=== PATIENT | male | born 1970 | race Caucasian/White ===

== ENCOUNTER → 2016-09-12 | Outpatient (CLI) | payer MEDICARE ==
--- NOTE | 2016-09-12 13:06 | NM ---
EXAMINATION TYPE: NM bone 3 phase DATE OF EXAM: 09/12/2016 11:15 AM COMPARISON: NONE HISTORY: Osteomyelitis Triple phase bone scintigraphy was performed following the injection of25.4 mCi Tc 99m MDP. Immediat e images, blood pool and 3.25 hours post injection images acquired. FINDINGS: Increased radio pharmaceutical uptake is noted on blood flow, blood pool imaging within the first dig it of the left foot, second digit of the left foot. On delayed imaging more focal uptake is noted at the level of the second digit of the left foot greater than the first digit of the left foot. IMPRESSION: Findings are compatible with osteomyelitis to the left foot the second and likely first digits.
== END | disposition home or self-care (01) ==
LOC: RADNMMAIN 07:27
PROVIDERS: ATTEND Thoracic Surgery (Cardiothoracic Vascular Surgery)
DX: M86.9 Osteomyelitis, unspecified (principal); E11.69 Type 2 diabetes mellitus with other specified complication
CPT/HCPCS: 78315; A9503

== ENCOUNTER 2016-11-08 04:36 | Inpatient (IN) | payer MEDICARE ==
[2016-11-08 04:46] LABS: Glucose,Whole Blood 284 mg/dL (75-99)
[2016-11-08] MEDS ORDERED: SODIUM CHLORIDE 0.9% 1,000 ML IV ONE ×3 (04:54→09:55)
[2016-11-08] MEDS ORDERED: ONDANSETRON 4 MG/2 ML VIAL IVP STA (04:54)
[2016-11-08] MEDS ORDERED: IPRATROPIUM-ALBUTEROL 3 ML NEB INHALATION STA (04:57)
--- NOTE | 2016-11-08 04:57 | ED ---
General Adult HPI - General Chief complaint: Nausea/Vomiting/Diarrhea Stated complaint: Vomiting Time Seen by Provider: 11/08/16 04:40 Source: patient, RN notes reviewed Mode of arrival: ambulatory Limitations: no limitations - History of Present Illness Initial comments: This is a 46-year-old male with a past medical history significant for diabetes. Patient states the last 2 days been coughing and vomiting. Patient states he is not been able to even keep water down the last day. Patient states she has anything to 48 hours. Patient denies any abdominal pain except when he is vomiting. Patient denies any diarrhea. Patient denies any fever or chills. Patient denies chest pain but states he short of breath when he has a coughing fit. Patient states his been nonproductive. Patient states he has a history of COPD as well. Patient denies any lightheadedness dizziness or near syncopal episode. Patient denies any chest pain or palpitations. Patient denies any dysuria hematuria urinary frequency. - Related Data Home Medications Medication Instructions Recorded Confirmed Albuterol Inhaler [Ventolin Hfa 2 puff INHALATION RT-QID PRN 08/18/15 11/08/16 Inhaler] Aspirin EC [Ecotrin Low Dose] 325 mg PO DAILY 08/18/15 11/08/16 Gabapentin 1,200 mg PO TID 08/18/15 11/08/16 Hydrocodone/Acetaminophen 1 tab PO DAILY PRN 08/18/15 11/08/16 [Hydrocodon-Acetaminophen 5-325] Multivitamin [Men's Multi-Vitamin] 1 tab PO DAILY 08/18/15 11/08/16 glipiZIDE [Glipizide] 10 mg PO BID 08/18/15 11/08/16 Pravastatin Sodium [Pravachol] 10 mg PO HS 01/30/16 11/08/16 metFORMIN HCL 1,000 mg PO BID 01/30/16 11/08/16 Ascorbic Acid [Vitamin C] 500 mg PO DAILY 10/03/16 11/08/16 Cholecalciferol [Vitamin D3] 1,000 units PO DAILY 10/03/16 11/08/16 Niacin [Niacin ER] 750 mg PO DAILY 10/03/16 11/08/16 Pyridoxine [Vitamin B-6] 50 mg PO DAILY 10/03/16 11/08/16 Vitamin E Acetate [Vitamin E] 200 units PO DAILY 10/03/16 11/08/16 Zinc Gluconate [Zinc] 50 mg PO DAILY 10/03/16 11/08/16 Allergies Allergy/AdvReac Type Severity Reaction Status Date / Time Penicillins Allergy Severe Anaphylaxis Verified 11/08/16 04:42 talc Allergy Swelling Verified 11/08/16 04:42 pregabalin [From Lyrica] AdvReac Severe Stroke (no Verified 11/08/16 04:42 issue with neurontin) Review of Systems ROS Statement: Those systems with pertinent positive or pertinent negative responses have been documented in the HPI. ROS Other: All systems not noted in ROS Statement are negative. Past Medical History Past Medical History: COPD, CVA/TIA, Diabetes Mellitus, Deep Vein Thrombosis ( DVT), Hyperlipidemia Additional Past Medical History / Comment(s): had chest pain x1 in the past, was told he has a slightly enlarged heart and predementia. Hx DVT left knee 2001. 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 [facility] had a stroke 3 months ago. Currently having lt. ft.wound History of Any Multi-Drug Resistant Organisms: None Reported Past Surgical History: Adenoidectomy, Heart Catheterization, Hernia Repair, Orthopedic Surgery, Tonsillectomy Additional Past Surgical History / Comment(s): Left knee scope, left wrist surgery for Carpal Tunnel. Past Anesthesia/Blood Transfusion Reactions: No Reported Reaction Past Psychological History: Depression Smoking Status: Current every day smoker Past Alcohol Use History: Rare Past Drug Use History: Marijuana - Past Family History Father History Unknown: Yes Family Medical History: No Reported History Mother History Unknown: Yes Family Medical History: Deep Vein Thrombosis (DVT) General Exam - General Exam Comments Initial Comments: GENERAL: Patient is well-developed and well-nourished. Patient is nontoxic and well- hydrated and is in mild distress. ENT: Neck is soft and supple. No significant lymphadenopathy is noted. Oropharynx is clear. Moist mucous membranes. Neck has full range of motion without eliciting any pain. EYES: The sclera were anicteric and conjunctiva were pink and moist. Extraocular movements were intact and pupils were equal round and reactive to light. Eyelids were unremarkable. PULMONARY: Patient has crackles in the left base with symmetric very wheezing. CARDIOVASCULAR: There is a regular rate and rhythm without any murmurs gallops or rubs. ABDOMEN: Soft and nontender with normal bowel sounds. No palpable organomegaly was noted. There is no palpable pulsatile mass. SKIN: Skin is clear with no lesions or rashes and otherwise unremarkable. NEUROLOGIC: Patient is alert and oriented x3. Cranial nerves II through XII are grossly intact. Motor and sensory are also intact. Normal speech, volume and content. Symmetrical smile. MUSCULOSKELETAL: Normal extremities with adequate strength and full range of motion. LYMPHATICS: No significant lymphadenopathy is noted PSYCHIATRIC: Normal psychiatric evaluation. Normal interpersonal interactions appears functionally intact in deals appropriately with others. No signs of depression. No signs of anxiety. Limitations: no limitations Course Vital Signs 11/08/16 11/08/16 11/08/16 04:38 05:18 05:21 Temperature 99.4 F Pulse Rate 115 H 101 H 102 H Respiratory 20 20 18 Rate Blood Pressure 105/67 105/57 O2 Sat by Pulse 91 L 98 Oximetry 11/08/16 05:22 Temperature Pulse Rate 102 H Respiratory 20 Rate Blood Pressure O2 Sat by Pulse Oximetry Medical Decision Making - Medical Decision Making EKG shows sinus tachycardia at 112 bpm NV interval 136 QRS is 84 QT interval 322 QTC is 439. Patient's EKG shows no ST segment elevation or depression or T wave abnormalities are noted Chest x-ray shows left lower lobe pneumonia. I started the patient on Levaquin. - Lab Data Result diagrams: 11/08/16 05:00 11/08/16 05:00 Lab Results 11/08/16 11/08/16 11/08/16 Range/Units 04:44 05:00 05:00 WBC 17.4 H (3.8-10.6) k/uL RBC 5.17 (4.30-5.90) m/uL Hgb 15.5 (13.0-17.5) gm/dL Hct 43.4 (39.0-53.0) % MCV 83.8 (80.0-100.0) fL MCH 29.9 (25.0-35.0) pg MCHC 35.6 (31.0-37.0) g/dL RDW 13.5 (11.5-15.5) % Plt Count 131 L (150-450) k/uL Neutrophils % 75 % Lymphocytes % 17 % Monocytes % 4 % Eosinophils % 1 % Basophils % 0 % Neutrophils # 13.1 H (1.3-7.7) k/uL Lymphocytes # 2.9 (1.0-4.8) k/uL Monocytes # 0.7 (0-1.0) k/uL Eosinophils # 0.2 (0-0.7) k/uL Basophils # 0.1 (0-0.2) k/uL PT (9.0-12.0) sec INR (<1.2) APTT (22.0-30.0) sec Sodium 128 L (137-145) mmol/L Potassium 4.3 (3.5-5.1) mmol/L Chloride 92 L (98-107) mmol/L Carbon Dioxide 20 L (22-30) mmol/L Anion Gap 16 mmol/L BUN 15 (9-20) mg/dL Creatinine 1.20 (0.66-1.25) mg/dL Est GFR (MDRD) Af Amer >60 (>60 ml/min/1.73 sqM) Est GFR (MDRD) Non-Af >60 (>60 ml/min/1.73 sqM) Glucose 277 H (74-99) mg/dL POC Glucose (mg/dL) 284 H (75-99) mg/dL POC Glu Icing Mixer ID Pollo Malave Plasma Lactic Acid Bharath (0.7-2.0) mmol/L Calcium 8.7 (8.4-10.2) mg/dL Total Bilirubin 6.0 H (0.2-1.3) mg/dL AST 26 (17-59) U/L ALT 33 (21-72) U/L Alkaline Phosphatase 108 (38-126) U/L NT-Pro-B Natriuret Pep pg/mL Total Protein 6.5 (6.3-8.2) g/dL Albumin 4.0 (3.5-5.0) g/dL Amylase 31 (30-110) U/L Lipase 16 L (23-300) U/L 11/08/16 11/08/16 11/08/16 Range/Units 05:00 05:00 05:00 WBC (3.8-10.6) k/uL RBC (4.30-5.90) m/uL Hgb (13.0-17.5) gm/dL Hct (39.0-53.0) % MCV (80.0-100.0) fL MCH (25.0-35.0) pg MCHC (31.0-37.0) g/dL RDW (11.5-15.5) % Plt Count (150-450) k/uL Neutrophils % % Lymphocytes % % Monocytes % % Eosinophils % % Basophils % % Neutrophils # (1.3-7.7) k/uL Lymphocytes # (1.0-4.8) k/uL Monocytes # (0-1.0) k/uL Eosinophils # (0-0.7) k/uL Basophils # (0-0.2) k/uL PT 11.5 (9.0-12.0) sec INR 1.1 (<1.2) APTT 24.9 (22.0-30.0) sec Sodium (137-145) mmol/L Potassium (3.5-5.1) mmol/L Chloride (98-107) mmol/L Carbon Dioxide (22-30) mmol/L Anion Gap mmol/L BUN (9-20) mg/dL Creatinine (0.66-1.25) mg/dL Est GFR (MDRD) Af Amer (>60 ml/min/1.73 sqM) Est GFR (MDRD) Non-Af (>60 ml/min/1.73 sqM) Glucose (74-99) mg/dL POC Glucose (mg/dL) (75-99) mg/dL POC Glu Icing Mixer ID Plasma Lactic Acid Bharath 3.1 H* (0.7-2.0) mmol/L Calcium (8.4-10.2) mg/dL Total Bilirubin (0.2-1.3) mg/dL AST (17-59) U/L ALT (21-72) U/L Alkaline Phosphatase (38-126) U/L NT-Pro-B Natriuret Pep 1490 pg/mL Total Protein (6.3-8.2) g/dL Albumin (3.5-5.0) g/dL Amylase (30-110) U/L Lipase (23-300) U/L Disposition Clinical Impression: Dehydration, Pneumonia, Sepsis, Hyponatremia, Acute vomiting Disposition: ADMITTED IP TO THIS HOSP Referrals: Teo Andersen MD [Primary Care Provider] - 1-2 days Time of Disposition: 06:08
[2016-11-08 05:18] LABS: Basophils # (A) 0.1 k/uL (0-0.2); Basophils % (A) 0 %; CH 30.1; Eosinophils # (A) 0.2 k/uL (0-0.7); Eosinophils % (A) 1 %; HCT 43.4 % (39.0-53.0); HDW 2.99; HGB 15.5 gm/dL (13.0-17.5); Luc # (Auto) 0.61; Luc % (Auto) 4; Lymphocytes # (A) 2.9 k/uL (1.0-4.8); Lymphocytes % (A) 17 %; MCH 29.9 pg (25.0-35.0); MCHC 35.6 g/dL (31.0-37.0); MCV 83.8 fL (80.0-100.0); Mean Platelet Volume 8.1; Monocytes # (A) 0.7 k/uL (0-1.0); Monocytes % (A) 4 %; Neutrophils # (A) 13.1 k/uL (1.3-7.7); Neutrophils % (A) 75 %; RBC 5.17 m/uL (4.30-5.90); RDW 13.5 % (11.5-15.5); WBC 17.4 k/uL (3.8-10.6); WBC (Perox) 17.54
[2016-11-08 05:27] LABS: ALT 33 U/L (21-72); AST 26 U/L (17-59); Alkaline Phosphatase 108 U/L (38-126); Amylase 31 U/L (30-110); Anion Gap 16 mmol/L; Blood Urea Nitrogen 15 mg/dL (9-20); Calcium 8.7 mg/dL (8.4-10.2); Carbon Dioxide 20 mmol/L (22-30); Chloride 92 mmol/L (98-107); Glucose 277 mg/dL (74-99); INR 1.1 (<1.2); Non-African American GFR(MDRD) >60 (>60 ml/min/1.73 sqM); Partial Thromboplastin Time 24.9 sec (22.0-30.0); Potassium 4.3 mmol/L (3.5-5.1); Prothrombin Time 11.5 sec (9.0-12.0); Sodium 128 mmol/L (137-145); Total Protein 6.5 g/dL (6.3-8.2)
[2016-11-08] MEDS ORDERED: LEVOFLOXACIN 750MG-D5W PMX 750 MG in DEXTROSE/WATER 1 150ML.BAG IVPB STA (05:54)
[2016-11-08] MEDS ORDERED: LEVOFLOXACIN 750MG-D5W PMX 750 MG in DEXTROSE/WATER 1 150ML.BAG IVPB SCH (06:00)
[2016-11-08] MEDS ORDERED: IPRATROPIUM-ALBUTEROL 3 ML NEB INHALATION PRN (06:08)
[2016-11-08] MEDS ORDERED: PNEUMONIA PROTOCOL UTILIZED 1 EACH MISC PO PRN (06:08)
[2016-11-08] MEDS ORDERED: ACETAMINOPHEN TAB 325 MG TAB PO PRN (06:11)
[2016-11-08] MEDS ORDERED: ACETAMINOPHEN TAB 500 MG TAB PO STA (06:11)
[2016-11-08] MEDS ORDERED: IBUPROFEN 600 MG TAB PO STA (06:11)
[2016-11-08] MEDS ORDERED: ONDANSETRON 4 MG/2 ML VIAL IVP PRN (06:12)
--- NOTE | 2016-11-08 06:19 | XR ---
EXAM: XR Chest, 2 Views. CLINICAL HISTORY: Reason: Fever TECHNIQUE: Frontal and lateral views of the chest. COMPARISON: 03/17/16. FINDINGS: Lungs: Left lower lobe airspace consolidation, most consistent with a lobar pneumonia. Atelectasis versus scarring in the right lung base, unchanged since prior study. Pleural spaces: No pneumothorax or significant pleural effusion. Heart: Unremarkable. No cardiomegaly. Mediastinum: Unremarkable. Bones: Unremarkable. No acute fracture. IMPRESSION: Left lower lobe pneumonia.
[2016-11-08 07:25] LABS: Glucose,Whole Blood 293 mg/dL (75-99)
[2016-11-08] MEDS: SODIUM CHLORIDE 0.9% 1,000 ML IV SCH ×3 (07:34→20:58)
[2016-11-08] MEDS: IBUPROFEN 600 MG TAB PO SCH ×4 (07:56→20:58)
[2016-11-08] MEDS: INSULIN LISPRO (humaLOG) 300 UNIT/3 ML VIAL SQ SCH ×4 (08:48→20:58)
[2016-11-08 11:43] VITALS: BMI 27.3
[2016-11-08 12:06] LABS: Hemoglobin A1C 8.2 % (4.2-6.1)
[2016-11-08 13:03] LABS: Glucose,Whole Blood 188 mg/dL (75-99)
[2016-11-08 17:08] LABS: Glucose,Whole Blood 195 mg/dL (75-99)
[2016-11-08] MEDS: HYDROcodone/APAP 5-325MG 1 EACH TAB PO PRN ×2 (17:46→22:20)
[2016-11-08 20:57] LABS: Glucose,Whole Blood 125 mg/dL (75-99)
[2016-11-08] MEDS: GABAPENTIN 400 MG CAP PO SCH (20:58)
[2016-11-09] MEDS: SODIUM CHLORIDE 0.9% 1,000 ML IV SCH ×4 (03:31→21:29)
[2016-11-09] MEDS: HYDROcodone/APAP 5-325MG 1 EACH TAB PO PRN ×5 (03:31→21:36)
[2016-11-09] MEDS: LEVOFLOXACIN 750MG-D5W PMX 750 MG in DEXTROSE/WATER 1 150ML.BAG IVPB SCH (05:33)
[2016-11-09 06:55] LABS: Glucose,Whole Blood 145 mg/dL (75-99)
[2016-11-09] MEDS: IBUPROFEN 600 MG TAB PO SCH (07:22)
[2016-11-09] MEDS: GABAPENTIN 400 MG CAP PO SCH ×3 (07:22→21:25)
[2016-11-09] MEDS: INSULIN LISPRO (humaLOG) 300 UNIT/3 ML VIAL SQ SCH ×4 (07:23→21:28)
--- NOTE | 2016-11-09 08:04 | US ---
EXAMINATION TYPE: US abdomen complete DATE OF EXAM: 11/09/2016 COMPARISON: NONE CLINICAL HISTORY: elevated bilirubin. vomiting EXAM MEASUREMENTS: Liver Length: 15.7 cm Gallbladder Wall: 0.5 cm CBD: 0.4 cm Spleen: 18.4 cm Right Kidney: 12.1 x 4.6 x 4.3 cm Left Kidney: 13.9 x 4.7 x 5.4 cm Pancreas: limited evaluation due to overlying bowel content Liver: wnl Gallbladder: no evidence of stones, GB wall measures 0.47 cm which is thickened by measurement crite leroy. No pericholecystic fluid or gallstones are evident. Evidence for sonographic Ovalle's sign: no CBD: wnl Spleen: enlarged Right Kidney: no evidence of hydronephrosis or mass Left Kidney: enlarged, cystic area lower pole = 1.6 x 1.5 x 1.5cm Upper IVC: wnl Abd Aorta: proximal appears wnl, mid/distal/bifurcation obscured by overlying bowel content IMPRESSION: 1. Thickened gallbladder wall. Consider cholecystitis. 2. Splenomegaly 3. Left renal cyst
[2016-11-09] MEDS: ASPIRIN 325 MG TAB PO SCH (09:06)
[2016-11-09] MEDS ORDERED: IBUPROFEN 600 MG TAB PO PRN (09:27)
[2016-11-09 09:41] LABS: ALT 30 U/L (21-72); AST 22 U/L (17-59); Alkaline Phosphatase 88 U/L (38-126); Anion Gap 12 mmol/L; Blood Urea Nitrogen 17 mg/dL (9-20); Calcium 7.5 mg/dL (8.4-10.2); Carbon Dioxide 19 mmol/L (22-30); Chloride 105 mmol/L (98-107); Glucose 151 mg/dL (74-99); Non-African American GFR(MDRD) >60 (>60 ml/min/1.73 sqM); Potassium 3.7 mmol/L (3.5-5.1); Sodium 136 mmol/L (137-145); Total Bilirubin 1.8 mg/dL (0.2-1.3)
[2016-11-09 09:45] LABS: Aty Lym Flag Slight; CH 30.4; CHCM 34.5; HCT 38.8 % (39.0-53.0); HGB 13.3 gm/dL (13.0-17.5); MCH 30.3 pg (25.0-35.0); MCHC 34.2 g/dL (31.0-37.0); MCV 88.6 fL (80.0-100.0); Mean Platelet Volume 8.7; RBC 4.37 m/uL (4.30-5.90); RDW 14.5 % (11.5-15.5); WBC 8.6 k/uL (3.8-10.6); WBC (Perox) 8.35
[2016-11-09 11:38] LABS: Add Differential Manual Differential
[2016-11-09 11:39] LABS: Nucleated Red Blood Cells 0 /100 WBC (0-0); Total Cells Counted 100
[2016-11-09 11:43] LABS: Glucose,Whole Blood 217 mg/dL (75-99)
[2016-11-09 11:45] LABS: Manual Review Performed
--- NOTE | 2016-11-09 13:35 | XR ---
EXAMINATION TYPE: XR chest 2V DATE OF EXAM: 11/09/2016 COMPARISON: 11/08/2016 TECHNIQUE: PA and lateral views submitted. HISTORY: Pneumonia FINDINGS: The heart is enlarged and there is left-sided area of consolidation. Right lower lobe infiltrate seen . Central interstitial pattern noted. No pneumothorax. Small right pleural effusion. IMPRESSION: 1. Bilateral infiltrate. Correlate for pneumonia. Venous congestion with asymmetric pulmonary edema a lso in the differential diagnosis. Follow-up to resolution to exclude underlying neoplasm.
--- NOTE | 2016-11-09 14:33 | HP ---
CHIEF COMPLAINT: A 46-year-old male with diabetes mellitus has been coughing, vomiting, possibly aspiration pneumonia over the last 48 hours. Denies any diarrhea, fever or chills. Has shortness of breath with cough fit. Has history of COPD. Denies any lightheadedness, dizziness, syncope. Denies any chest pain or palpitations. No dysuria or ( ). HOME MEDICINES: 1. Albuterol inhaler 2 puffs q.4h p.r.n. 2. Aspirin 325 daily. 3. Gabapentin 1200 mg t.i.d. 4. Hydrocodone 5/325 every four hours daily. 5. Multivitamin daily. 6. Glipizide 10 mg b.i.d. 7. Pravachol 10 mg daily. 8. Metformin 1000 b.i.d. 9. Vitamin D. 10. Vitamin C. 11. Niacin. 12. Vitamin B6. 13. Vitamin E. 14. Zinc. ALLERGIES: PENICILLIN, LYRICA, ( ), NEURONTIN. REVIEW OF SYSTEMS: A fourteen point review of systems negative except for as mentioned in HPI. SOCIAL HISTORY: Moved in his with his mother. He smoked for many years. He has history of COPD, CVA x2 with possible expressive aphasia and memory problems. No motor deficits. 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 SURGERY: Adenoidectomy, heart catheterization, hernia repair, ( ) surgery, tonsillectomy, left knee scope, left wrist surgery for carpal tunnel syndrome. PSYCH HISTORY: Depression. Current every day smoker, marijuana user. FAMILY HISTORY: Father ( ). Mother DVT. PHYSICAL EXAM: Vital signs are reviewed. He is an obese white male. Looks disheveled. INTEGUMENT: Mild poor skin turgor, wrinkling. Dark bags under his eyes. ENT: External ear canals within normal limits. EYES: Pupils equal, round and reactive to light and accommodation. LUNGS: Scattered wheeze times four. Scattered rhonchi right lower lobe. CARDIOVASCULAR: S1, S2. ABDOMEN: Soft, nontender. No mass or organomegaly. EXTREMITIES: Poor skin turgor. NEUROLOGIC: Cranial nerves are intact. Sitting up in a chair. Answering questions appropriately. His mom is here helping out with questions about his sister. MUSCULOSKELETAL: Range of motion full. LYMPH: No lymphadenopathy. PSYCH: Appeared anxious, nervous. Temp 99.4, pulse in low 100s, 102, 115. Blood pressure 100s over 60s, respiratory 16 to 20. O2 sat 91 to 98%. EKG, sinus tachycardia. White count 17.4, hemoglobin 15.5, sodium 128, potassium 4.3, platelets 277, BUN 15, creatinine 1.2. Sodium 125. Glucose 277. Total bili 6. Lactic 3.1, BNP 1490. ASSESSMENT: 1. Dehydration. 2. Pneumonia left lower lobe. 3. Sepsis secondary to pneumonia. 4. Hyponatremia. 5. Acute vomiting with elevated lactic acid. 6. Possible diastolic congestive heart failure. Repeat BNP. 7. Elevated total bilirubin. Do an ultrasound of his abdomen for progressive vomiting. MTDD
[2016-11-09 16:40] LABS: Glucose,Whole Blood 137 mg/dL (75-99)
--- NOTE | 2016-11-09 19:16 | P.GSCN ---
History of Present Illness Consult date: 11/09/16 Reason for Consult: Chronic cholecystitis History of present illness: This is a 46-year-old male admitted to Dr. Clemente service. Patient was minute for treatment of pneumonia. Patient was noted to have elevated liver function tests. His ultrasound shows thickened gallbladder wall. He has a history of chronic cholecystitis. 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 Ruiz in [facility], CVA x 3-no residual, DVT L knee 2001, cardiomyopathy, lymphatic system infection in past, anemia, PVD. History of Any Multi-Drug Resistant Organisms: None Reported Past Surgical History: Adenoidectomy, Hernia Repair, Orthopedic Surgery, Tonsillectomy Additional Past Surgical History / Comment(s): LAURA, L knee arthroscopy, L carpal tunnel release Past Anesthesia/Blood Transfusion Reactions: No Reported Reaction Smoking Status: Current every day smoker - Past Family History Father History Unknown: Yes Family Medical History: No Reported History Mother History Unknown: Yes Family Medical History: Deep Vein Thrombosis (DVT) Medications and Allergies Home Medications Medication Instructions Recorded Confirmed Type Albuterol Inhaler [Ventolin Hfa 2 puff INHALATION RT-QID PRN 08/18/15 11/08/16 History Inhaler] Gabapentin 1,200 mg PO TID 08/18/15 11/08/16 History Hydrocodone/Acetaminophen 1 tab PO DAILY PRN 08/18/15 11/08/16 History [Hydrocodon-Acetaminophen 5-325] Multivitamin [Men's Multi-Vitamin] 1 tab PO DAILY 08/18/15 11/08/16 History glipiZIDE [Glipizide] 10 mg PO BID 08/18/15 11/08/16 History Pravastatin Sodium [Pravachol] 10 mg PO HS 01/30/16 11/08/16 History metFORMIN HCL 1,000 mg PO BID 01/30/16 11/08/16 History Ascorbic Acid [Vitamin C] 500 mg PO DAILY 10/03/16 11/08/16 History Cholecalciferol [Vitamin D3] 1,000 units PO DAILY 10/03/16 11/08/16 History Niacin [Niacin ER] 750 mg PO DAILY 10/03/16 11/08/16 History Pyridoxine [Vitamin B-6] 50 mg PO DAILY 10/03/16 11/08/16 History Vitamin E Acetate [Vitamin E] 200 units PO DAILY 10/03/16 11/08/16 History Zinc Gluconate [Zinc] 50 mg PO DAILY 10/03/16 11/08/16 History Aspirin EC [Ecotrin] 325 mg PO DAILY 11/08/16 11/08/16 History Allergies Allergy/AdvReac Type Severity Reaction Status Date / Time Penicillins Allergy Severe Anaphylaxis Verified 11/08/16 07:10 talc Allergy Swelling Verified 11/08/16 07:10 pregabalin [From Lyrica] AdvReac Severe Stroke (no Verified 11/08/16 07:10 issue with neurontin) adhesive tape AdvReac Itching Verified 11/08/16 07:10 Surgical - Exam Vital Signs Temp Pulse Resp BP Pulse Ox 99.4 F 115 H 20 105/67 91 L 11/08/16 04:38 11/08/16 04:38 11/08/16 04:38 11/08/16 04:38 11/08/16 04:38 - General well developed, no distress - Eyes PERRL - ENT normal pinna - Neck no masses - Respiratory normal expansion - Cardiovascular Rhythm: regular - Abdomen Abdomen: soft, non tender Results - Labs 11/09/16 08:56 11/09/16 08:56 Abnormal Lab Results - Last 24 Hours (Table) 11/08/16 11/09/16 11/09/16 Range/Units 20:33 06:53 08:56 Hct 38.8 L (39.0-53.0) % Plt Count 125 L (150-450) k/uL Sodium (137-145) mmol/L Carbon Dioxide (22-30) mmol/L Glucose (74-99) mg/dL POC Glucose (mg/dL) 125 H 145 H (75-99) mg/dL Calcium (8.4-10.2) mg/dL Total Bilirubin (0.2-1.3) mg/dL Total Protein (6.3-8.2) g/dL Albumin (3.5-5.0) g/dL 11/09/16 11/09/1611/09/17 Range/Units 08:56 11:41 16:39 Hct (39.0-53.0) % Plt Count (150-450) k/uL Sodium 136 L (137-145) mmol/L Carbon Dioxide 19 L (22-30) mmol/L Glucose 151 H (74-99) mg/dL POC Glucose (mg/dL) 217 H 137 H (75-99) mg/dL Calcium 7.5 L (8.4-10.2) mg/dL Total Bilirubin 1.8 H (0.2-1.3) mg/dL Total Protein 5.0 L (6.3-8.2) g/dL Albumin 2.9 L (3.5-5.0) g/dL Microbiology - Last 24 Hours (Table) 11/09/16 03:35 Gram Stain - Preliminary Sputum 11/08/16 06:15 Blood Culture - Preliminary Blood No Growth after 24 hours 11/08/16 05:00 Blood Culture - Preliminary Blood No Growth after 24 hours Diabetes panel 11/09/16 Range/Units 08:56 Sodium 136 L (137-145) mmol/L Potassium 3.7 (3.5-5.1) mmol/L Chloride 105 (98-107) mmol/L Carbon Dioxide 19 L (22-30) mmol/L BUN 17 (9-20) mg/dL Creatinine 0.92 (0.66-1.25) mg/dL Glucose 151 H (74-99) mg/dL Calcium 7.5 L (8.4-10.2) mg/dL AST 22 (17-59) U/L ALT 30 (21-72) U/L Alkaline Phosphatase 88 (38-126) U/L Total Protein 5.0 L (6.3-8.2) g/dL Albumin 2.9 L (3.5-5.0) g/dL Thyroid panel 11/09/16 Range/Units 08:56 TSH 2.110 (0.465-4.680) mIU/L Calcium panel 11/09/16 Range/Units 08:56 Calcium 7.5 L (8.4-10.2) mg/dL Albumin 2.9 L (3.5-5.0) g/dL Pituitary panel 11/09/16 11/09/16 Range/Units 08:56 08:56 Sodium 136 L (137-145) mmol/L Potassium 3.7 (3.5-5.1) mmol/L Chloride 105 (98-107) mmol/L Carbon Dioxide 19 L (22-30) mmol/L BUN 17 (9-20) mg/dL Creatinine 0.92 (0.66-1.25) mg/dL Glucose 151 H (74-99) mg/dL Calcium 7.5 L (8.4-10.2) mg/dL TSH 2.110 (0.465-4.680) mIU/L Adrenal panel 11/09/16 Range/Units 08:56 Sodium 136 L (137-145) mmol/L Potassium 3.7 (3.5-5.1) mmol/L Chloride 105 (98-107) mmol/L Carbon Dioxide 19 L (22-30) mmol/L BUN 17 (9-20) mg/dL Creatinine 0.92 (0.66-1.25) mg/dL Glucose 151 H (74-99) mg/dL Calcium 7.5 L (8.4-10.2) mg/dL Total Bilirubin 1.8 H (0.2-1.3) mg/dL AST 22 (17-59) U/L ALT 30 (21-72) U/L Alkaline Phosphatase 88 (38-126) U/L Total Protein 5.0 L (6.3-8.2) g/dL Albumin 2.9 L (3.5-5.0) g/dL Assessment and Plan Plan: Chronically status with thickened gallbladder wall. Patient is being treated for his pneumonia. We will plan for outpatient laparoscopic cholecystectomy when stable.
[2016-11-09] MEDS: BUDESONIDE 0.5 MG/2 ML NEBU INHALATION SCH (20:19)
[2016-11-09] MEDS: IPRATROPIUM-ALBUTEROL 3 ML NEB INHALATION SCH (20:19)
[2016-11-09 21:12] LABS: Glucose,Whole Blood 154 mg/dL (75-99)
--- NOTE | 2016-11-09 21:48 | CT ---
EXAMINATION TYPE: CT chest wo con DATE OF EXAM: 11/09/2016 COMPARISON: January 22, 2013 HISTORY: Shortness of breath and chest pain CT DLP: 407.[address] of the chest was performed with lung and mediastinal window settings submitted. The la ck of contrast limits evaluation of the vascular, mediastinal and parenchymal structures including th e upper abdomen. LUNGS: There is a large area of airspace consolidation left lower lobe with associated air bronchogra ms and small parapneumonic effusion. Findings are likely on the basis of pneumonia or aspiration pneu monia. Less confluent infiltrate is seen within the right lower lobe as well as small low right-sided pleural effusion. Mild upper lobe emphysematous changes identified. MEDIASTINUM/ROLANDA: Thoracic aorta is of normal caliber with limited evaluation given lack of contrast . The heart is not enlarged. No evidence for mediastinal mass. There is evidence of mediastinal nan nopathy with subcarinal adenopathy measuring 2.5 cm, right tracheobronchial adenopathy of 1.7 cm. Lef t tracheobronchial adenopathy of 1.2 cm as well as probable left hilar adenopathy. UPPER ABDOMEN: There is evidence of splenomegaly. The entire spleen is not imaged on this examination . There appears to be periportal adenopathy as well as several small left periaortic lymph nodes. OTHER: No significant other abnormality. IMPRESSION: 1. Large area of airspace consolidation left lower lobe with parapneumonic effusion. Less confluent infiltrate right lower lobe. Correlate for bilateral pneumonia. Follow-up until resolution is advised . 2. Mediastinal adenopathy as well as left hilar adenopathy may be reactive in nature. 3. Splenomegaly.
[2016-11-10] MEDS: HYDROcodone/APAP 5-325MG 1 EACH TAB PO PRN ×4 (02:12→20:56)
[2016-11-10] MEDS: LEVOFLOXACIN 750MG-D5W PMX 750 MG in DEXTROSE/WATER 1 150ML.BAG IVPB SCH (06:42)
[2016-11-10] MEDS: SODIUM CHLORIDE 0.9% 1,000 ML IV SCH ×3 (06:42→17:42)
[2016-11-10 07:02] LABS: Glucose,Whole Blood 249 mg/dL (75-99)
[2016-11-10 07:30] VITALS: RESP 18
[2016-11-10] MEDS: BUDESONIDE 0.5 MG/2 ML NEBU INHALATION SCH ×2 (07:48→20:55)
[2016-11-10] MEDS: IPRATROPIUM-ALBUTEROL 3 ML NEB INHALATION SCH ×3 (07:48→20:55)
[2016-11-10] MEDS: ASPIRIN 325 MG TAB PO SCH (07:55)
[2016-11-10] MEDS: GABAPENTIN 400 MG CAP PO SCH ×3 (07:55→20:51)
[2016-11-10] MEDS: PANTOPRAZOLE 40 MG TABLET PO SCH (07:55)
[2016-11-10] MEDS: INSULIN LISPRO (humaLOG) 300 UNIT/3 ML VIAL SQ SCH ×4 (07:57→22:05)
[2016-11-10 12:22] LABS: Glucose,Whole Blood 114 mg/dL (75-99)
--- NOTE | 2016-11-10 13:09 | P.PN ---
Progress Note - Text The patient is resting comfortably in his chair. He is tolerating his diet today. On exam his vital signs are stable. His abdomen soft. There is minimal epigastric pain. Chronic cholecystitis. Patient will undergo laparoscopic ostectomy when stable.
--- NOTE | 2016-11-10 14:05 | CONS ---
DATE OF SERVICE: 11/09/2016 HISTORY OF PRESENT ILLNESS: Patient is a 46-year-old male who follows with Dr. Andersen. The patient states that he started to experience nausea and vomiting a few days prior to coming to the hospital with associated fever and chills, body aches; thought he was getting the flu. After 2 days, patient became very weak, started to get short of breath with a cough and a wheeze; subsequently came to the emergency room and was admitted for further evaluation and treatment and suspected pneumonia. PAST MEDICAL HISTORY: 1. COPD. 2. CVA x2. 3. Diabetes mellitus. 4. DVT. 5. Dyslipidemia. 6. 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 7. Osteomyelitis of the left first and second digits on left foot. PAST SURGICAL HISTORY: 1. Adenoidectomy. 2. Heart catheterization. 3. Hernia repair. 4. Tonsillectomy. 5. Left knee scope. 6. Left wrist surgery for carpal tunnel syndrome. MEDICATIONS AT HOME INCLUDE: 1. Albuterol inhaler 2 puffs q.4 hours p.r.n. 2. Aspirin 325 mg daily. 3. Gabapentin 1200 mg t.i.d. 4. Hydrocodone 5/325 every 4 hours daily. 5. One multivitamin. 6. Glipizide 10 mg p.o. b.i.d. 7. Pravachol 10 mg daily. 8. Metformin 1000 mg b.i.d. 9. Vitamin D. 10. Vitamin C. 11. Niacin. 12. Vitamin B6. 13. Vitamin E. 14. Zinc. ALLERGIES INCLUDE PENICILLIN, TALC AND LYRICA. FAMILY HISTORY: Mother is undergoing chemo and radiation for some type of cancer. Father is alive but patient does not know his history. SOCIAL HISTORY: Patient does have a history of smoking one pack per day for 20 years. Denies any alcohol intake. Does smoke marijuana. No other illicit drug use. Patient does not work. 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 REVIEW OF SYSTEMS: GENERAL: Positive for a fever with chills. Patient states over the past couple of years he has lost approximately 60 pounds just by watching what he eats portion-escoto. HEENT: Positive for lightheadedness with the symptoms mentioned in the HPI. Patient denies any acute visual changes, denies any difficulty hearing. Does have intermittent problems with seasonal allergies. Denies any sore throat or difficulty swallowing. RESPIRATORY: Positive for shortness of breath and cough. Denies hemoptysis. CARDIOVASCULAR: Negative for chest pain or palpitations. GI: Negative for abdominal pain, nausea, vomiting, diarrhea or constipation, all of which have resolved since admission. : Negative for any dysuria or hematuria. ENDOCRINE: Positive for diabetes mellitus, on oral medication. MUSCULOSKELETAL: Positive for arthritis and joint pain. Again, patient does have osteomyelitis in his first 2 digits on the left foot. NEUROLOGIC: Negative for any history of seizures. Patient does have bilateral neuropathy to hands and feet. PSYCHIATRIC: Positive for anxiety and depression. PHYSICAL EXAM: GENERAL: Pleasant 46-year-old male who is seen sitting up in a chair. Awake, alert, in no acute distress. VITAL SIGNS: Temperature 97.9. Last documented blood pressure was 75/45. I did call the nurse, and she said the blood pressure had been repeated. His systolic was in the 90s and it has not been documented yet. Patient's respiratory rate 19 , heart rate 79, oxygen saturation 95% on room air. HEENT: Head is normocephalic, atraumatic. Pupils equal, round, reactive to light. Ears and nose have no discharge noted. Mouth has moist mucous membranes. Mallampati class IV. Neck is supple. Trachea is midline. LUNGS: Decreased to the right with rales, rhonchi and wheezes on the left. HEART: S1 and S2 are heard. Not tachycardic. Abdomen is soft. Bowel sounds are heard. Extremities with a special shoe on the left lower extremity. No edema noted. NEUROLOGIC: Patient is awake and alert. LABS: White count is 8.6. Hemoglobin is 13.3, hematocrit 38.8 with 125,000 platelets. Sodium is 136, potassium 3.7, chloride 105, CO2 19. Anion gap is 12. BUN is 17, creatinine 0.92. Glucose 151. Calcium 7.5. Total bilirubin 1.8, AST 22, ALT 30, alkaline phosphatase 88. BNP 1690. Total protein 5.0. Albumin 2.9. TSH 2.110. IMAGING: Chest x-ray shows bilateral infiltrate. Correlate for pneumonia. Venous congestion with asymmetric pulmonary edema also in the differential diagnosis. Follow up to resolution to exclude neoplasm. Ultrasound abdomen shows thickened gallbladder wall; consider cholecystitis. IMPRESSION AT THIS TIME: 1. Suspected pneumonia. 2. Osteomyelitis of the left foot. 3. Possible cholecystitis. 4. Congestive heart failure. PLAN: Check a CT of the chest for further evaluation. Continue with the IV antibiotics. Continue bronchodilators. Will order those to be scheduled q.i.d. Will add aerosolized steroids. Add GI prophylaxis and SCDs for DVT prophylaxis. We will continue to follow patient closely with you, making further changes as necessary. Thank you for the consultation. MEJIA
--- NOTE | 2016-11-10 14:34 | PN ---
DATE OF SERVICE: 11/10/2016 This patient is less short and breath and is doing better overall. On physical examination, his respiratory rate is 18, pulse rate 84, blood pressure 125/70, temperature 100.1. HEENT is unremarkable. Chest reveals bronchovesicular breath sounds in the left base, prolonged expiration with wheeze. Cardiovascular system reveals an S1, S2. Abdomen is soft. There is no pedal edema. White count has gone down from 17.4 to 8.6. Hemoglobin 13.3. Sodium is 136, potassium 3.7, chloride 105, bicarb 19. BUN 17, creatinine 0.92. CT scan of the chest was done which showed evidence of left lower lobe pneumonia. There is some left hilar adenopathy that was reactive in nature. Abdominal ultrasound was done which showed evidence of a thickened gallbladder, possible cholecystitis. IMPRESSION AT THIS TIME: 1. Left lower lobe pneumonia which may be due to aspiration versus other etiologies, as he had nausea and emesis. 2. Asthma with chronic obstructive pulmonary disease with acute exacerbation. At this point in time, continue Levaquin, add a short course of Solu-Medrol. Continue bronchodilators, aerosolized steroids. Increase his activity level. His prognosis is fair. MTDD
[2016-11-10 16:56] LABS: Glucose,Whole Blood 239 mg/dL (75-99)
[2016-11-10] MEDS: methylPREDNISolone SOD SUCCI 125 MG/2 ML VIAL IV SCH ×2 (17:40→23:34)
[2016-11-10] MEDS: HEPARIN SODIUM,PORCINE 5,000 UNIT/ML 1 ML VIAL SQ SCH (20:51)
[2016-11-10 21:18] LABS: Glucose,Whole Blood 216 mg/dL (75-99)
[2016-11-11] MEDS: SODIUM CHLORIDE 0.9% 1,000 ML IV SCH ×3 (00:58→14:04)
[2016-11-11] MEDS: HYDROcodone/APAP 5-325MG 1 EACH TAB PO PRN ×3 (02:35→14:03)
[2016-11-11] MEDS: LEVOFLOXACIN 750MG-D5W PMX 750 MG in DEXTROSE/WATER 1 150ML.BAG IVPB SCH (05:54)
[2016-11-11] MEDS: methylPREDNISolone SOD SUCCI 125 MG/2 ML VIAL IV SCH ×2 (05:54→11:30)
[2016-11-11 06:52] LABS: Glucose,Whole Blood 369 mg/dL (75-99)
[2016-11-11] MEDS: BUDESONIDE 0.5 MG/2 ML NEBU INHALATION SCH (07:07)
[2016-11-11] MEDS: IPRATROPIUM-ALBUTEROL 3 ML NEB INHALATION SCH ×2 (07:07→11:22)
[2016-11-11] MEDS: ASPIRIN 325 MG TAB PO SCH (07:35)
[2016-11-11] MEDS: GABAPENTIN 400 MG CAP PO SCH (07:35)
[2016-11-11] MEDS: PANTOPRAZOLE 40 MG TABLET PO SCH (07:36)
[2016-11-11] MEDS: HEPARIN SODIUM,PORCINE 5,000 UNIT/ML 1 ML VIAL SQ SCH (07:36)
[2016-11-11] MEDS: INSULIN LISPRO (humaLOG) 300 UNIT/3 ML VIAL SQ SCH ×2 (07:36→12:36)
--- NOTE | 2016-11-11 10:25 | PN ---
SUBJECTIVE: 46-year-old white male with pneumonia, acute vomiting. The patient continues with broad spectrum antibiotics. He also was found to have acute cholecystitis. Outpatient cholecystectomy will be done. He is also being treated in the wound clinic for wound ulcer on his left foot. The patient continued on broad spectrum antibiotics, wean off oxygen, increase his ambulation, possible discharge home in the next 24-48 hours depending on his improvement with his pneumonia. GI: Shows tenderness to palpation right upper quadrant. LUNGS: Show scattered rhonchi and wheeze in the right lower quadrant. CARDIOVASCULAR: S1/S2. He is sitting up, ambulating. NEUROLOGIC: Alert and oriented x3. Please see further orders. MTDD
--- NOTE | 2016-11-11 10:26 | P.PN ---
Progress Note - Text The patient's feeling better. He denies a significant abdominal pain. On exam is lesser stable. His abdomen soft. Resolving pneumonia. Patient follow-up as an outpatient for laparoscopic cholecystectomy.
[2016-11-11 11:45] LABS: Glucose,Whole Blood 374 mg/dL (75-99)
[2016-11-11 14:34] VITALS: BP 118/69; PULSE 73; TEMP 97
--- NOTE | 2016-11-11 14:56 | PN ---
DATE OF SERVICE: 11/11/2016 He has been hemodynamically stable. He is less short of breath. Discharge planning is in progress. On physical examination, vitals are stable. He is afebrile. Chest reveals wheeze in the left base. Cardiovascular system reveals an S1, S2. Abdomen is soft. There is no edema. IMPRESSION: 1. Pneumonia. Agree with discharge planning on oral antibiotics. 2. Asthma with chronic obstructive pulmonary disease. Continue bronchodilators. Would benefit from a course of tapering steroids as an outpatient. I would be happy to see him in the outpatient setting if need be. MEJIA
== END 2016-11-11 14:45 | disposition home or self-care (01) | DRG 871 ==
LOC: EC 04:36 → 4MS4W 06:08
PROVIDERS: ADMIT Family Medicine; ATTEND Family Medicine
DX: A41.9 Sepsis, unspecified organism (principal); J18.9 Pneumonia, unspecified organism; I42.9 Cardiomyopathy, unspecified; J44.0 Chronic obstructive pulmonary disease with (acute) lower respiratory infection; J45.901 Unspecified asthma with (acute) exacerbation; K81.2 Acute cholecystitis with chronic cholecystitis; E87.1 Hypo-osmolality and hyponatremia; M86.8X7 Other osteomyelitis, ankle and foot; J44.1 Chronic obstructive pulmonary disease with (acute) exacerbation; I50.9 Heart failure, unspecified; E11.40 Type 2 diabetes mellitus with diabetic neuropathy, unspecified; E11.69 Type 2 diabetes mellitus with other specified complication; E11.621 Type 2 diabetes mellitus with foot ulcer; L97.529 Non-pressure chronic ulcer of other part of left foot with unspecified severity; E86.0 Dehydration; E78.5 Hyperlipidemia, unspecified; F12.90 Cannabis use, unspecified, uncomplicated; F17.200 Nicotine dependence, unspecified, uncomplicated; I69.920 Aphasia following unspecified cerebrovascular disease; I69.911 Memory deficit following unspecified cerebrovascular disease; R59.0 Localized enlarged lymph nodes; F32.9 Major depressive disorder, single episode, unspecified; Z79.82 Long term (current) use of aspirin; Z79.84 Long term (current) use of oral hypoglycemic drugs; Z79.899 Other long term (current) drug therapy; Z86.718 Personal history of other venous thrombosis and embolism; Z88.0 Allergy status to penicillin; Z91.048 Other nonmedicinal substance allergy status
CPT/HCPCS: 36415; 71020; 71250; 76700; 80053; 82150; 83036; 83605; 83690; 83880; 84443; 85025; 85610; 85730; 87040; 87070; 87205; 93005; 94640

== ENCOUNTER 2016-12-17 07:40 | Day surgery (SDC) | payer MEDICARE ==
[2016-12-12 18:18] VITALS: BMI 26.9
[~2016-12-17 07:40] MED LIST: CLINDAMYCIN 900 MG in DEXTROSE 5% IN WATER 50 ML IVPB ONE; DEXAMETHASONE SOD PHOSPHATE 10 MG/ML 1 ML VIAL IV ONE; GENTAMICIN 400 MG in SODIUM CHLORIDE 0.9% 100 ML IVPB ONE; HEPARIN SODIUM,PORCINE 5,000 UNIT/ML 1 ML VIAL SQ ONE; HYDROmorphone 1 MG/ML 1 ML SYRINGE IVP PRN; LACTATED RINGERS 1,000 ML IV SCH; LIDOCAINE 1% 20 ML VIAL (10MG/ML) FOR IV START INTRADERMA PRN; MIDAZOLAM 2 MG/2 ML VIAL IV PRN; ONDANSETRON 4 MG/2 ML VIAL IVP ONE; SCOPOLAMINE 1.5MG/72HR PATCH TRANSDERM ONE
[2016-12-17 08:43] LABS: Glucose,Whole Blood 171 mg/dL (75-99)
--- NOTE | 2016-12-17 08:56 | P.GSHP ---
History of Present Illness H&P Date: 12/17/16 Chief Complaint: Right upper quadrant pain This a 46-year-old male who's had complaints of right upper quadrant pain. Patient had some performed showed thickened gallbladder wall consistent with chronic cholecystitis. 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, CVA x 3- no residual, DVT L knee 2001, cardiomyopathy, lymphatic system infection in past , PAST HX OF ANEMIA, History of Any Multi-Drug Resistant Organisms: None Reported Past Surgical History: Adenoidectomy, Hernia Repair, Orthopedic Surgery, Tonsillectomy Additional Past Surgical History / Comment(s): LAURA, L knee arthroscopy, L carpal tunnel release Past Anesthesia/Blood Transfusion Reactions: No Reported Reaction Smoking Status: Current every day smoker - Past Family History Father History Unknown: Yes Family Medical History: No Reported History Mother History Unknown: Yes Family Medical History: Deep Vein Thrombosis (DVT) Medications and Allergies Home Medications Medication Instructions Recorded Confirmed Type Albuterol Inhaler [Ventolin Hfa 2 puff INHALATION RT-QID PRN 08/18/15 12/17/16 History Inhaler] Gabapentin 1,200 mg PO TID 08/18/15 12/17/16 History Multivitamin [Men's Multi-Vitamin] 1 tab PO DAILY 08/18/15 12/17/16 History glipiZIDE [Glipizide] 10 mg PO BID 08/18/15 12/17/16 History metFORMIN HCL 1,000 mg PO BID 01/30/16 12/17/16 History Ascorbic Acid [Vitamin C] 500 mg PO DAILY 10/03/16 12/17/16 History Cholecalciferol [Vitamin D3] 1,000 units PO DAILY 10/03/16 12/17/16 History Niacin [Niacin ER] 750 mg PO DAILY 10/03/16 12/17/16 History Pyridoxine [Vitamin B-6] 50 mg PO DAILY 10/03/16 12/17/16 History Vitamin E Acetate [Vitamin E] 200 units PO DAILY 10/03/16 12/17/16 History Zinc Gluconate [Zinc] 50 mg PO DAILY 10/03/16 12/17/16 History Aspirin EC [Ecotrin] 325 mg PO DAILY 11/08/16 12/17/16 History Insulin Glargine [Lantus] 10 unit SQ HS 12/12/16 12/17/16 History Lovenox 1 injection SQ DAILY 12/12/16 12/17/16 History Allergies Allergy/AdvReac Type Severity Reaction Status Date / Time Penicillins Allergy Severe Anaphylaxis Verified 12/17/16 08:09 talc Allergy Swelling Verified 12/17/16 08:09 pregabalin [From Lyrica] AdvReac Severe Stroke (no Verified 12/17/16 08:09 issue with neurontin) adhesive tape AdvReac Itching Verified 12/17/16 08:09 Surgical - Exam Vital Signs Temp Pulse Resp Pulse Ox 98.4 F 68 18 97 12/17/16 08:12 12/17/16 08:12 12/17/16 08:12 12/17/16 08:12 - General well developed, no distress - Eyes PERRL - ENT normal pinna - Neck no masses - Respiratory normal expansion - Cardiovascular Rhythm: regular - Abdomen Abdomen: soft, non tender Results - Labs Abnormal Lab Results - Last 24 Hours (Table) 12/17/16 Range/Units 08:31 POC Glucose (mg/dL) 171 H (75-99) mg/dL Assessment and Plan Plan: Chronic cholecystitis. We'll perform laparoscopic cholecystectomy
[2016-12-17] MEDS ORDERED: fentaNYL (PF) 50 MCG/ML 2 ML AMP ONE (09:17)
[2016-12-17] MEDS ORDERED: SUCCINYLCHOLINE CHLORIDE 100 MG/5 ML SYR IV ONE (09:17)
[2016-12-17] MEDS ORDERED: GLYCOPYRROLATE 0.2 MG/ML 2 ML VIAL ONE (09:17)
[2016-12-17] MEDS ORDERED: ROCURONIUM BROMIDE 10 MG/ML 10 ML VIAL IV ONE (09:17)
[2016-12-17] MEDS ORDERED: LIDOCAINE 1% INJ 10MG/ML (20 ML MDV) ONE (09:17)
[2016-12-17] MEDS ORDERED: MIDAZOLAM 2 MG/2 ML VIAL ONE (09:17)
[2016-12-17] MEDS ORDERED: PROPOFOL 10 MG/ML 20 ML VIAL IV ONE (09:17)
[2016-12-17] MEDS ORDERED: ePHEDrine SULFATE/0.9% NACL/PF 50 MG/5 ML SYRINGE IV ONE (09:17)
[2016-12-17] MEDS ORDERED: NEOSTIGMINE 1 MG/ML 10 ML VIAL ONE (09:17)
[2016-12-17] MEDS ORDERED: HYDROmorphone (PF) 1 MG/ML ONE (09:17)
[2016-12-17] MEDS ORDERED: BUPIVACAINE (PF) 0.25% 30 ML VIAL SQ ONE (09:36)
[2016-12-17] MEDS ORDERED: LIDOCAINE 2%-EPI 1:100,000 20 ML VIAL SQ ONE (09:36)
--- NOTE | 2016-12-17 10:01 | P.OP ---
Date of Procedure: 12/17/16 Preoperative Diagnosis: Cholecystitis Postoperative Diagnosis: Cholecystitis Procedure(s) Performed: Laparoscopic cholecystectomy Implants: Anesthesia: JOAQUIN Surgeon: Yasir Acosta Estimated Blood Loss (ml): 5 Pathology: other (Gallbladder) Condition: stable Disposition: PACU Indications for Procedure: Operative Findings: Description of Procedure: The patient was placed on the operating table. The patient received a general endotracheal tube anesthesia. The patients abdomen was prepped and draped in the usual sterile fashion. Through an infraumbilical stab incision, the fascia of the anterior abdominal wall was grasped with a pair of Kochers and then the Veress needle was placed in the peritoneal cavity. Position of the Veress needle was confirmed with positive drop test. The abdomen was then insufflated. After adequate insufflation, the 10 mm trocar was placed in the peritoneal cavity. Following this the laparoscope was placed in the peritoneal cavity. The patient was placed in the head-up, right side up position and then a 5 mm trocar was placed in the right lateral and right subcostal position under direct visualization. A 8 mm trocar was placed in the epigastric position. The gallbladder was grasped in the fundus and infundibulum. Traction on the gallbladder was placed in the lateral and the cephalad positions. The triangle of Calot was visualized.. The cystic duct was bluntly dissected until the union of the cystic duct and common bile duct was seen. The cystic duct was then divided and sealed with the Harmonic scissors. A PDS Endoloop was then placed throughout the cystic duct stump. The cystic artery divided and sealed with the Harmonic scissors. The gallbladder was then removed from the liver bed using Harmonic scissors. The gallbladder was then extracted through the epigastric port site. Operative field was checked for any bleeding spots and Harmonic scissors was used to coagulate the liver bed. The abdomen was irrigated. The trocars were removed. The skin was closed using interrupted 3-0 Vicryl suture. Dermabond dressing were applied. The patient tolerated the procedure well.
[2016-12-17 10:10] VITALS: RESP 16; TEMP 97
[2016-12-17 10:59] VITALS: BP 100/56; PULSE 84
== END 2016-12-17 11:17 | disposition home or self-care (01) ==
LOC: OR 07:40
PROVIDERS: ATTEND Surgery
DX: K81.1 Chronic cholecystitis (principal); J44.9 Chronic obstructive pulmonary disease, unspecified; Z86.73 Personal history of transient ischemic attack (TIA), and cerebral infarction without residual deficits; E11.9 Type 2 diabetes mellitus without complications; Z86.718 Personal history of other venous thrombosis and embolism; I42.9 Cardiomyopathy, unspecified; F17.200 Nicotine dependence, unspecified, uncomplicated; Z79.01 Long term (current) use of anticoagulants; Z79.84 Long term (current) use of oral hypoglycemic drugs; Z79.4 Long term (current) use of insulin; Z79.899 Other long term (current) drug therapy; Z88.0 Allergy status to penicillin; Z91.09 Other allergy status, other than to drugs and biological substances; Z79.82 Long term (current) use of aspirin
CPT/HCPCS: 88304; 47562; J2250; J1644; J1100; J2710; J2405; J2001; J3010; J1580; J1170; J0330; J2704

== ENCOUNTER → 2017-10-14 | Outpatient (CLI) | payer MEDICARE ==
--- NOTE | 2017-10-14 10:21 | CT ---
EXAMINATION TYPE: CT chest wo con DATE OF EXAM: 10/14/2017 COMPARISON: 11/09/2016 HISTORY: 47-year-old male cough, shortness of breath, complains of chronic difficulty breathing and p neumonia. TECHNIQUE: Contiguous axial scanning of the chest without IV contrast. Coronal and sagittal reconstru ctions performed. CT DLP: 664 mGycm Automated exposure control for dose reduction was used. FINDINGS: Heart normal size without pericardial effusion. Aorta normal caliber with conventional arch vessel branching anatomy. Similar scattered prominent mediastinal lymph nodes measuring up to 9 mm AP window and 9 mm precarina l level. Difficult to separate vascular structures from lymph nodes in the surendra due to lack of IV con trast. There are trace bilateral pleural effusions. Strandy areas of scarring are present. Mild centrilobula r emphysema. Stable 3 mm pulmonary nodule peripheral left upper lobe. New 4 mm pulmonary nodule lateral left upper lobe, axial image 20. New 5 mm peripheral left basilar pulmonary nodule axial image 42. Chronic pleural parenchymal scarring anterior right mid to lower lung as well as both posterior lung bases. Hazy groundglass densities throughout the lungs with mild diffuse bronchial wall thickening. Splenomegaly at 18.4 cm. Bones: Mild endplate spondylosis mid to lower thoracic spine. IMPRESSION: 1. COPD. 2. HAZY GROUNDGLASS DENSITIES, SUSPECT CHRONIC INTERSTITIAL CHANGES, INCLUDING POSSIBILITY OF INTERST ITIAL PNEUMONITIS SUCH NSIP OR DIP. 3. A COUPLE NEW PULMONARY NODULES ON THE LEFT MEASURING 4 AND 5 MM. SIX-MONTH FOLLOW-UP EXAM RECOMMEN DED TO REASSESS. 4. SCATTERED AREAS OF PLEURAL PARENCHYMAL SCARRING. 5. SPLENOMEGALY (18.4 CM).
== END | disposition home or self-care (01) ==
LOC: RADCTMAIN 06:50
PROVIDERS: ATTEND Internal Medicine Pulmonary Disease
DX: J44.9 Chronic obstructive pulmonary disease, unspecified (principal); J98.4 Other disorders of lung; R91.8 Other nonspecific abnormal finding of lung field
CPT/HCPCS: 71250

== ENCOUNTER 2017-11-28 08:29 | Emergency (ER) | payer MEDICARE ==
[2017-11-28 08:34] VITALS: RESP 16
--- NOTE | 2017-11-28 08:53 | ED ---
Lower Extremity Injury HPI - General Chief Complaint: Extremity Injury, Lower Stated Complaint: POSS BLOOD CLOT RT LEG Time Seen by Provider: 11/28/17 08:37 Source: patient, RN notes reviewed, old records reviewed Mode of arrival: wheelchair Limitations: no limitations - History of Present Illness Initial Comments: This patient's a 47-year-old male presents emergency department today with chief complaint of bruise over the anterior aspect of the right side. Patient reports that he is concerned he has a blood clot. Patient reports that he's had similar bruising and pain with a blood clot that he had 10 years ago. At that time history with warfarin for 6 months. Patient states that he is currently on a whole aspirin daily for stroke prevention. Patient states that he has no chest pain or shortness of breath. He denies any other symptoms aside the right leg pain. Patient reports he's had no trauma to the leg. He does have a relatively sedentary lifestyle after strokes and his chronic medical issues. - Related Data Home Medications Medication Instructions Recorded Confirmed Albuterol Inhaler [Ventolin Hfa 1 - 2 puff INHALATION RT-Q4H PRN 08/18/15 Inhaler] Gabapentin 1,200 mg PO TID 08/18/15 11/28/17 glipiZIDE [Glipizide] 10 mg PO BID 08/18/15 11/28/17 metFORMIN HCL 1,000 mg PO BID 01/30/16 11/28/17 Cholecalciferol [Vitamin D3] 1,000 units PO DAILY 10/03/16 11/28/17 Niacin [Niacin ER] 750 mg PO DAILY 10/03/16 11/28/17 Pyridoxine [Vitamin B-6] 50 mg PO DAILY 10/03/16 11/28/17 Zinc Gluconate [Zinc] 100 mg PO DAILY 10/03/16 11/28/17 Aspirin EC [Ecotrin] 325 mg PO DAILY 11/08/16 11/28/17 Insulin Glargine [Lantus] 15 unit SQ HS 12/12/16 11/28/17 Cyanocobalamin (Vitamin B-12) 1,000 mcg PO DAILY 11/28/17 11/28/17 [Vitamin B-12] Allergies Allergy/AdvReac Type Severity Reaction Status Date / Time Penicillins Allergy Severe Anaphylaxis Verified 11/28/17 09:04 talc Allergy Swelling Verified 11/28/17 09:04 pregabalin [From Lyrica] AdvReac Severe Stroke (no Verified 11/28/17 09:04 issue with neurontin) adhesive tape AdvReac Itching Verified 11/28/17 09:04 Review of Systems ROS Statement: Those systems with pertinent positive or pertinent negative responses have been documented in the HPI. ROS Other: All systems not noted in ROS Statement are negative. 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, CVA x 3- no residual, DVT L knee 2002, cardiomyopathy, lymphatic system infection in past , PAST HX OF ANEMIA, carpal tunnel History of Any Multi-Drug Resistant Organisms: None Reported Past Surgical History: Adenoidectomy, Hernia Repair, Orthopedic Surgery, Tonsillectomy Additional Past Surgical History / Comment(s): LAURA, L knee arthroscopy, L carpal tunnel release Past Anesthesia/Blood Transfusion Reactions: No Reported Reaction Past Psychological History: Depression Smoking Status: Current every day smoker Past Alcohol Use History: None Reported Past Drug Use History: Marijuana - Past Family History Father History Unknown: Yes Family Medical History: No Reported History Mother History Unknown: Yes Family Medical History: Deep Vein Thrombosis (DVT) General Exam - General Exam Comments Initial Comments: This is a 47-year-old male. is alert and oriented. Here with his mother. No significant distress. Limitations: no limitations General appearance: alert, in no apparent distress Head exam: Present: atraumatic, normocephalic, normal inspection Eye exam: Present: normal appearance, PERRL, EOMI. Absent: scleral icterus, conjunctival injection, periorbital swelling ENT exam: Present: normal exam, mucous membranes moist Neck exam: Present: normal inspection. Absent: tenderness, meningismus, lymphadenopathy Respiratory exam: Present: normal lung sounds bilaterally. Absent: respiratory distress, wheezes, rales, rhonchi, stridor Cardiovascular Exam: Present: regular rate, normal rhythm, normal heart sounds. Absent: systolic murmur, diastolic murmur, rubs, gallop, clicks GI/Abdominal exam: Present: soft, normal bowel sounds. Absent: distended, tenderness, guarding, rebound, rigid Right Upper Leg exam: Present: full ROM, tenderness (Over the anterior posterior aspect of the thigh.). Absent: normal inspection (Patient has a 4 cm contusion over the anterior aspect of the thigh.) Lower Leg exam: Present: normal inspection Ankle exam: Present: normal inspection, full ROM Foot/Toe exam: Present: normal inspection, full ROM Neurovascular tendon exam: Present: no vascular compromise Neurological exam: Present: alert, oriented X3, CN II-XII intact Psychiatric exam: Present: normal affect, normal mood Skin exam: Present: warm, dry, intact, normal color. Absent: rash Course Vital Signs 11/28/17 08:31 Temperature 97.5 F L Pulse Rate 68 Respiratory 16 Rate Blood Pressure 120/76 O2 Sat by Pulse 98 Oximetry Medical Decision Making - Medical Decision Making This is a 47-year-old male presents emergency department today with chief complaint of right-sided leg pain. Patient concern for blood clot. He has evidence of contusion over the anterior aspect of the thigh. Denies any known trauma. Leg is not swollen. He has normal pulses. Normal range of motion in the toes and feet. He does have history neuropathy. At this time ultrasound was completed. Negative for DVT. They did scan over the anterior to the thigh. There is no sign of that decreased blood flow are superficial clotting. This emesis is likely just a contusion. The meantime Patient to follow-up with primary care provider. All questions answered return parameters were discussed. - Radiology Data Radiology results: report reviewed Right leg is negative for DVT. Deep veins and the area scanned the patient's concern appears normal. Normal l blood flow. Disposition Clinical Impression: Contusion of right thigh, initial encounter Disposition: HOME SELF-CARE Condition: Good Instructions: Contusion in Adults (ED) Additional Instructions: Patient has follow-up with primary care provider, as we discussed there is no sign of blood clot at this time. Return to emergency department if any alarming signs or symptoms occur, including severe swelling or redness to the leg.. Patient can apply ice over the area. Is patient prescribed a controlled substance at d/c from ED?: No Referrals: Teo Andersen MD [Primary Care Provider] - 1-2 days Time of Disposition: 09:58
--- NOTE | 2017-11-28 09:47 | US ---
EXAMINATION TYPE: US venous doppler duplex LE RT DATE OF EXAM: 11/28/2017 8:50 AM COMPARISON: NONE CLINICAL HISTORY: Pain. Right upper thigh area of pain, history of DVT SIDE PERFORMED: Right TECHNIQUE: The lower extremity deep venous system is examined utilizing real time linear array sonog breanna with graded compression, doppler sonography and color-flow sonography. VESSELS IMAGED: External Iliac Vein (EIV) Common Femoral Vein Deep Femoral Vein Greater Saphenous Vein * Femoral Vein Popliteal Vein Small Saphenous Vein * Proximal Calf Veins (* superficial vessels) Grayscale, color doppler, spectral doppler imaging performed of the deep veins of the lower extremiti es. There is normal flow, compressibility, vascular waveforms. Right Leg: Appears negative for DVT, scanned upper thigh at patient's area of concern: appears wnl IMPRESSION: No evident deep venous thrombosis at or above the right knee.
[2017-11-28 10:17] VITALS: BP 114/66; PULSE 72; TEMP 97.7
== END 2017-11-28 10:43 | disposition home or self-care (01) ==
LOC: EC 08:29
DX: S70.11XA Contusion of right thigh, initial encounter (principal); M79.604 Pain in right leg; J44.9 Chronic obstructive pulmonary disease, unspecified; E11.42 Type 2 diabetes mellitus with diabetic polyneuropathy; F17.200 Nicotine dependence, unspecified, uncomplicated; Z79.4 Long term (current) use of insulin; Z79.82 Long term (current) use of aspirin; Z79.899 Other long term (current) drug therapy; Z88.0 Allergy status to penicillin; Z88.8 Allergy status to other drugs, medicaments and biological substances; Z91.048 Other nonmedicinal substance allergy status; Z86.73 Personal history of transient ischemic attack (TIA), and cerebral infarction without residual deficits; X58.XXXA Exposure to other specified factors, initial encounter
CPT/HCPCS: 99284

== ENCOUNTER 2018-12-18 08:21 | Inpatient (IN) | payer MEDICARE ==
[2018-12-18] MEDS ORDERED: ONDANSETRON 4 MG/2 ML VIAL IVP STA (08:36)
[2018-12-18] MEDS ORDERED: SODIUM CHLORIDE 0.9% 2,000 ML IV STA (08:36)
[2018-12-18] MEDS ORDERED: MORPHINE SULFATE 4 MG/ML SYRINGE IVP STA (09:14)
[2018-12-18 09:19] LABS: Basophils # (A) 0.1 k/uL (0-0.2); Basophils % (A) 1 %; Eosinophils # (A) 0.1 k/uL (0-0.7); Eosinophils % (A) 1 %; HCT 39.2 % (39.0-53.0); HGB 13.4 gm/dL (13.0-17.5); Lymphocytes # (A) 2.5 k/uL (1.0-4.8); Lymphocytes % (A) 28 %; MCH 30.4 pg (25.0-35.0); MCHC 34.2 g/dL (31.0-37.0); MCV 88.9 fL (80.0-100.0); Mean Platelet Volume 7.1; Monocytes # (A) 0.4 k/uL (0-1.0); Monocytes % (A) 5 %; Neutrophils # (A) 5.7 k/uL (1.3-7.7); Neutrophils % (A) 62 %; Platelet Count 152 k/uL (150-450); RBC 4.41 m/uL (4.30-5.90); WBC 9.2 k/uL (3.8-10.6)
[2018-12-18 09:22] LABS: ALT 16 U/L (21-72); AST 15 U/L (17-59); African American GFR (CKD) >90 (>60 ml/min/1.73 sqM); Albumin 3.6 g/dL (3.5-5.0); Alkaline Phosphatase 82 U/L (38-126); Amylase 43 U/L (30-110); Anion Gap 9 mmol/L; Blood Urea Nitrogen 6 mg/dL (9-20); Calcium 8.8 mg/dL (8.4-10.2); Carbon Dioxide 24 mmol/L (22-30); Chloride 106 mmol/L (98-107); Glucose 134 mg/dL (74-99); Potassium 3.9 mmol/L (3.5-5.1); Sodium 139 mmol/L (137-145); Total Bilirubin 1.1 mg/dL (0.2-1.3)
--- NOTE | 2018-12-18 09:27 | ED ---
Nausea/Vomiting/Diarrhea HPI - General Chief complaint: Nausea/Vomiting/Diarrhea Stated complaint: Aspiration pneumonia Time Seen by Provider: 12/18/18 08:36 Source: patient, RN notes reviewed Mode of arrival: wheelchair Limitations: no limitations - History of Present Illness Initial comments: This a 48-year-old male presents emergency Department chief complaint of generalized not feeling well. Patient states he believes he aspirated. Patient states that he had severe vomiting hours ago. Patient is in of choking and felt that some went down. Patient had some difficulty breathing. He states he was hospitalist for sepsis aspiration pneumonia last year. Patient states that he has some discomfort on the right side was tested abdomen. Patient did have diarrhea which is also resolving. Patient denies current headache or dizziness. - Related Data Home Medications Medication Instructions Recorded Confirmed Albuterol Inhaler [Ventolin Hfa 1 - 2 puff INHALATION RT-Q4H PRN 08/18/15 11/28/17 Inhaler] Gabapentin 1,200 mg PO TID 08/18/15 11/28/17 glipiZIDE [Glipizide] 10 mg PO BID 08/18/15 11/28/17 metFORMIN HCL 1,000 mg PO BID 01/30/16 11/28/17 Cholecalciferol [Vitamin D3] 1,000 units PO DAILY 10/03/16 11/28/17 Niacin [Niacin ER] 750 mg PO DAILY 10/03/16 11/28/17 Pyridoxine [Vitamin B-6] 50 mg PO DAILY 10/03/16 11/28/17 Zinc Gluconate [Zinc] 100 mg PO DAILY 10/03/16 11/28/17 Aspirin EC [Ecotrin] 325 mg PO DAILY 11/08/16 11/28/17 Insulin Glargine [Lantus] 15 unit SQ HS 12/12/16 11/28/17 Cyanocobalamin (Vitamin B-12) 1,000 mcg PO DAILY 11/28/17 11/28/17 [Vitamin B-12] Allergies Allergy/AdvReac Type Severity Reaction Status Date / Time Penicillins Allergy Severe Anaphylaxis Verified 12/18/18 08:29 talc Allergy Swelling Verified 12/18/18 08:29 pregabalin [From Lyrica] AdvReac Severe Stroke (no Verified 12/18/18 08:29 issue with neurontin) adhesive tape AdvReac Itching Verified 12/18/18 08:29 Review of Systems ROS Statement: Those systems with pertinent positive or pertinent negative responses have been documented in the HPI. ROS Other: All systems not noted in ROS Statement are negative. 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, DVT L knee 2002, cardiomyopathy, lymphatic system infection in past, PAST HX OF ANEMIA, carpal tunnel History of Any Multi-Drug Resistant Organisms: None Reported Past Surgical History: Adenoidectomy, Hernia Repair, Orthopedic Surgery, Tonsillectomy Additional Past Surgical History / Comment(s): LAURA, L knee arthroscopy, L carpal tunnel release Past Anesthesia/Blood Transfusion Reactions: No Reported Reaction Past Psychological History: Depression Smoking Status: Current every day smoker Past Alcohol Use History: None Reported Past Drug Use History: Marijuana - Past Family History Father History Unknown: Yes Family Medical History: No Reported History Mother History Unknown: Yes Family Medical History: Deep Vein Thrombosis (DVT) General Exam Limitations: no limitations General appearance: alert, in no apparent distress Head exam: Present: atraumatic, normocephalic, normal inspection Eye exam: Present: normal appearance, PERRL, EOMI. Absent: scleral icterus, conjunctival injection, periorbital swelling ENT exam: Present: normal exam, normal oropharynx, mucous membranes moist, TM's normal bilaterally Neck exam: Present: normal inspection. Absent: tenderness, meningismus, lymphadenopathy Respiratory exam: Present: normal lung sounds bilaterally. Absent: respiratory distress, wheezes, rales, rhonchi, stridor Cardiovascular Exam: Present: regular rate, normal rhythm, normal heart sounds. Absent: systolic murmur, diastolic murmur, rubs, gallop, clicks GI/Abdominal exam: Present: soft, tenderness (Mild diffuse), normal bowel sounds. Absent: distended, guarding, rebound, rigid Back exam: Absent: CVA tenderness (R), CVA tenderness (L) Course Vital Signs 12/18/18 12/18/18 08:24 10:46 Temperature 99.9 F H 99 F Pulse Rate 69 75 Respiratory 16 18 Rate Blood Pressure 120/74 121/71 O2 Sat by Pulse 96 96 Oximetry Medical Decision Making - Medical Decision Making 48-year-old male presented for nausea vomiting or shortness of breath. Patient felt that he choked on his emesis. And he has a history of aspiration pneumonia. Chest x-ray shows evidence of right lower lobe pneumonia, atypical pneumonitis. Patient will be admitted for aspiration pneumonia. - Lab Data Result diagrams: 12/18/18 08:52 12/18/18 08:52 Lab Results 12/18/18 12/18/18 12/18/18 Range/Units 08:52 08:52 08:52 WBC 9.2 (3.8-10.6) k/uL RBC 4.41 (4.30-5.90) m/uL Hgb 13.4 (13.0-17.5) gm/dL Hct 39.2 (39.0-53.0) % MCV 88.9 (80.0-100.0) fL MCH 30.4 (25.0-35.0) pg MCHC 34.2 (31.0-37.0) g/dL RDW 16.0 H (11.5-15.5) % Plt Count 152 (150-450) k/uL Neutrophils % 62 % Lymphocytes % 28 % Monocytes % 5 % Eosinophils % 1 % Basophils % 1 % Neutrophils # 5.7 (1.3-7.7) k/uL Lymphocytes # 2.5 (1.0-4.8) k/uL Monocytes # 0.4 (0-1.0) k/uL Eosinophils # 0.1 (0-0.7) k/uL Basophils # 0.1 (0-0.2) k/uL Sodium 139 (137-145) mmol/L Potassium 3.9 (3.5-5.1) mmol/L Chloride 106 (98-107) mmol/L Carbon Dioxide 24 (22-30) mmol/L Anion Gap 9 mmol/L BUN 6 L (9-20) mg/dL Creatinine 0.98 (0.66-1.25) mg/dL Est GFR (CKD-EPI)AfAm >90 (>60 ml/min/1.73 sqM) Est GFR (CKD-EPI)NonAf >90 (>60 ml/min/1.73 sqM) Glucose 134 H (74-99) mg/dL Plasma Lactic Acid Bharath 1.3 (0.7-2.0) mmol/L Calcium 8.8 (8.4-10.2) mg/dL Total Bilirubin 1.1 (0.2-1.3) mg/dL AST 15 L (17-59) U/L ALT 16 L (21-72) U/L Alkaline Phosphatase 82 (38-126) U/L Total Protein 6.0 L (6.3-8.2) g/dL Albumin 3.6 (3.5-5.0) g/dL Amylase 43 (30-110) U/L Lipase 17 L (23-300) U/L Urine Color Urine Appearance (Clear) Urine pH (5.0-8.0) Ur Specific [place] (1.001-1.035) Urine Protein (Negative) Urine Glucose (UA) (Negative) Urine Ketones (Negative) Urine Blood (Negative) Urine Nitrite (Negative) Urine Bilirubin (Negative) Urine Urobilinogen (<2.0) mg/dL Ur Leukocyte Esterase (Negative) 12/18/18 Range/Units 10:45 WBC (3.8-10.6) k/uL RBC (4.30-5.90) m/uL Hgb (13.0-17.5) gm/dL Hct (39.0-53.0) % MCV (80.0-100.0) fL MCH (25.0-35.0) pg MCHC (31.0-37.0) g/dL RDW (11.5-15.5) % Plt Count (150-450) k/uL Neutrophils % % Lymphocytes % % Monocytes % % Eosinophils % % Basophils % % Neutrophils # (1.3-7.7) k/uL Lymphocytes # (1.0-4.8) k/uL Monocytes # (0-1.0) k/uL Eosinophils # (0-0.7) k/uL Basophils # (0-0.2) k/uL Sodium (137-145) mmol/L Potassium (3.5-5.1) mmol/L Chloride (98-107) mmol/L Carbon Dioxide (22-30) mmol/L Anion Gap mmol/L BUN (9-20) mg/dL Creatinine (0.66-1.25) mg/dL Est GFR (CKD-EPI)AfAm (>60 ml/min/1.73 sqM) Est GFR (CKD-EPI)NonAf (>60 ml/min/1.73 sqM) Glucose (74-99) mg/dL Plasma Lactic Acid Bharath (0.7-2.0) mmol/L Calcium (8.4-10.2) mg/dL Total Bilirubin (0.2-1.3) mg/dL AST (17-59) U/L ALT (21-72) U/L Alkaline Phosphatase (38-126) U/L Total Protein (6.3-8.2) g/dL Albumin (3.5-5.0) g/dL Amylase (30-110) U/L Lipase (23-300) U/L Urine Color Yellow Urine Appearance Clear (Clear) Urine pH 6.5 (5.0-8.0) Ur Specific [place] 1.013 (1.001-1.035) Urine Protein Trace H (Negative) Urine Glucose (UA) Negative (Negative) Urine Ketones Negative (Negative) Urine Blood Negative (Negative) Urine Nitrite Negative (Negative) Urine Bilirubin Negative (Negative) Urine Urobilinogen 2.0 (<2.0) mg/dL Ur Leukocyte Esterase Negative (Negative) Disposition Clinical Impression: Aspiration pneumonia Disposition: ADMITTED IP TO THIS HOSP Condition: Fair Referrals: Adryan Romano III, MD [Primary Care Provider] - 1-2 days
[2018-12-18 10:52] LABS: Appearance,Urine Clear (Clear); Bilirubin,Urine Negative (Negative); Blood,Urine Negative (Negative); Color,Urine Yellow; Glucose,Urine (UA) Negative (Negative); Ketones,Urine Negative (Negative); Leukocyte Esterase,Urine Negative (Negative); Nitrite,Urine Negative (Negative); PH, Urine 6.5 (5.0-8.0); Protein,Urine Trace (Negative); Specific Gravity,Urine 1.013 (1.001-1.035)
--- NOTE | 2018-12-18 11:19 | XR ---
EXAMINATION TYPE: XR chest 2V DATE OF EXAM: 12/18/2018 COMPARISON: 11/09/2016 TECHNIQUE: PA and lateral views submitted. HISTORY: Cough and pain FINDINGS: The diffuse interstitial pattern. Nodular density overlying the right lower lobe may be related to ni pple shadow. There is right lower lobe infiltrate and small effusion. Hypertrophic and degenerative c hange of the spine noted. Biapical pleural thickening. Heart is enlarged. IMPRESSION: 1. Cardiomegaly, COPD and right lower lobe infiltrate with suspected small effusion. Correlate for CH F. Interstitial pneumonia or pneumonitis in the differential diagnosis with superimposed lower lobe p neumonia. Nodular density overlying the right lower lobe may be related to nipple shadow. Repeat fron irene view with nipple markers could BE obtained for confirmation.
--- NOTE | 2018-12-18 11:21 | XR ---
EXAMINATION TYPE: XR KUB DATE OF EXAM: 12/18/2018 COMPARISON: NONE HISTORY: Pain TECHNIQUE: One view abdominal series FINDINGS: The osseous structures are intact. The bowel gas pattern is nonspecific. Air-fluid levels are seen a nd there is prominence of the bowel loops. Right lower lobe infiltrate suggested. Arthropathy of the hips. IMPRESSION: 1. Nonspecific abdomen correlate for an ileus or enteritis. 2. Right lower lobe infiltrate.
[2018-12-18] MEDS ORDERED: PNEUMONIA PROTOCOL UTILIZED 1 EACH MISC PO PRN (11:46)
[2018-12-18] MEDS ORDERED: LEVOFLOXACIN 750MG-D5W PMX 750 MG in DEXTROSE/WATER 1 150ML.BAG IVPB STA (11:46)
[2018-12-18] MEDS ORDERED: FUROSEMIDE 10 MG/ML 4 ML VIAL IV STA (13:17)
[2018-12-18] MEDS ORDERED: POLYETHYLENE GLYCOL 3350 17 GM POWD.PACK PO PRN (13:19)
[2018-12-18] MEDS ORDERED: LACTULOSE 20 GM/30 ML CUP PO PRN (13:22)
--- NOTE | 2018-12-18 13:26 | P.HPIM ---
History of Present Illness 48-year-old male came in with the pretty nonspecific symptoms including generalized weakness not feeling well may have aspirated patient and he ago had aspiration pneumonia but had similar symptoms of generalized fatigue patient had did have vomiting. Denied any significant abdominal pain patient does have some abdominal discomfort does have ileus and the x-ray patient will be treated for constipation. Patient was comparing of some difficulty breathing denied orthopnea paroxysmal nocturnal dyspnea. Chest x-ray was done which showed infiltrate in the right lower lobe consistent with aspiration although patient looks really well because of which I'm not starting him on Zosyn patient will be started on Augmentin oral. Although chest x-ray did show vascular markings consistent with CHF patient doesn't have any significant JVD or pedal edema. Patient does have elevated BNP of 2000 because of an echocardiogram will give a dose of Lasix. Patient denied any chest pain at this time. Patient was comparing of chills but never checked his temperature. Patient didn't have any fever here. Patient does smoke one and half packs per day Review of Systems REVIEW OF SYSTEMS: CONSTITUTIONAL: As mentioned above HEENT: No recent visual problems or hearing problems. Denied any sore throat. CARDIOVASCULAR: No chest pain, orthopnea, PND, no palpitations, no syncope. PULMONARY: No shortness of breath, no cough, no hemoptysis. GASTROINTESTINAL: No diarrhea, no nausea, no vomiting, no abdominal pain. NEUROLOGICAL: No headaches, no weakness, no numbness. HEMATOLOGICAL: Denies any bleeding or petechiae. GENITOURINARY: Denies any burning micturition, frequency, or urgency. MUSCULOSKELETAL/RHEUMATOLOGICAL: Denies any joint pain, swelling, or any muscle pain. ENDOCRINE: Denies any polyuria or polydipsia. The rest of the 14-point review of systems is negative. Past Medical History Past Medical History: COPD, CVA/TIA, Diabetes Mellitus, Deep Vein Thrombosis (DVT), Hyperlipidemia, Hypertension, Pneumonia, Vascular Disorder Additional Past Medical History / Comment(s): NIDDM type II, severe neuropathy bilateral hands and feet, past merlos L foot wound, 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 Past Anesthesia/Blood Transfusion Reactions: No Reported Reaction Smoking Status: Current every day smoker - Past Family History Father History Unknown: Yes Family Medical History: Coronary Artery Disease (CAD) Additional Family Medical History / Comment(s): Father had CABG and never came home from the hospital. Mother History Unknown: Yes Family Medical History: Cancer, Deep Vein Thrombosis (DVT) Additional Family Medical History / Comment(s): Mother had squamous cell carcinoma. Medications and Allergies Home Medications Medication Instructions Recorded Confirmed Type Albuterol Inhaler [Ventolin Hfa 1 - 2 puff INHALATION RT-Q4H PRN 08/18/15 12/18/18 History Inhaler] Gabapentin 1,200 mg PO TID 08/18/15 12/18/18 History glipiZIDE [Glipizide] 10 mg PO BID 08/18/15 12/18/18 History metFORMIN HCL 1,000 mg PO BID 01/30/16 12/18/18 History Cholecalciferol [Vitamin D3] 1,000 units PO DAILY 10/03/16 12/18/18 History Niacin [Niacin ER] 750 mg PO DAILY 10/03/16 12/18/18 History Pyridoxine [Vitamin B-6] 50 mg PO DAILY 10/03/16 12/18/18 History Zinc Gluconate [Zinc] 100 mg PO DAILY 10/03/16 12/18/18 History Aspirin EC [Ecotrin] 325 mg PO DAILY 11/08/16 12/18/18 History Cyanocobalamin (Vitamin B-12) 1,000 mcg PO DAILY 11/28/17 12/18/18 History [Vitamin B-12] Allergies Allergy/AdvReac Type Severity Reaction Status Date / Time Penicillins Allergy Severe Anaphylaxis Verified 12/18/18 12:21 talc Allergy Swelling Verified 12/18/18 12:21 pregabalin [From Lyrica] AdvReac Severe Stroke (no Verified 12/18/18 12:21 issue with neurontin) adhesive tape AdvReac Itching Verified 12/18/18 12:21 Physical Exam Vitals: Vital Signs Temp Pulse Resp BP Pulse Ox 12/18/18 12:35 98.0 F 75 18 133/76 97 12/18/18 10:46 99 F 75 18 121/71 96 12/18/18 08:24 99.9 F H 69 16 120/74 96 Intake and Output 12/17/18 12/18/18 12/18/18 22:59 06:59 14:59 Other: Weight 77.111 kg PHYSICAL EXAMINATION: GENERAL: The patient is alert and oriented x3, not in any acute distress. Well developed, well nourished. HEENT: Pupils are round and equally reacting to light. EOMI. No scleral icterus. No conjunctival pallor. Normocephalic, atraumatic. No pharyngeal erythema. No thyromegaly. CARDIOVASCULAR: S1 and S2 present. No murmurs, rubs, or gallops. PULMONARY: Chest is clear to auscultation, no wheezing or crackles. ABDOMEN: Soft, nontender, nondistended, normoactive bowel sounds. No palpable organomegaly. MUSCULOSKELETAL: No joint swelling or deformity. EXTREMITIES: No cyanosis, clubbing, or pedal edema. NEUROLOGICAL: Gross neurological examination did not reveal any focal deficits. SKIN: No rashes. Results CBC & Chem 7: 12/18/18 08:52 12/18/18 08:52 Labs: Abnormal Lab Results - Last 24 Hours (Table) 12/18/18 12/18/18 12/18/18 Range/Units 08:52 08:52 10:45 RDW 16.0 H (11.5-15.5) % BUN 6 L (9-20) mg/dL Glucose 134 H (74-99) mg/dL AST 15 L (17-59) U/L ALT 16 L (21-72) U/L Total Protein 6.0 L (6.3-8.2) g/dL Lipase 17 L (23-300) U/L Urine Protein Trace H (Negative) Thrombosis Risk Factor Assmnt - Choose All That Apply Any of the Below Risk Factors Present?: Yes Each Factor Represents 1 point: Age 41-60 years, Serious lung disease incl. pneumonia (< 1month) Other Risk Factors: Yes Each Risk Factor Represents 3 Points: Family history of DVT/PE, History of DVT/PE Other congenital or acquired thrombophilia - If yes, enter type in comment: No Thrombosis Risk Factor Assessment Total Risk Factor Score: 8 Thrombosis Risk Factor Assessment Level: High Risk Assessment and Plan Plan: -Possible aspiration pneumonitis rather than pneumonia: Patient will be started on Augmentin as mentioned above. -We will rule out congestive heart failure at obtain an echocardiogram and give a dose of Lasix. -COPD without any acute exacerbation -Nicotine abuse: Counseling was provided -Type 2 diabetes mellitus patient will be resumed on his home regimen along with sliding scale [place]-diabetic peripheral neuropathy -Gastroesophageal reflux disease -Constipation we'll use lactulose and MiraLAX on as-needed basis. -Nausea vomiting secondary to either gastritis or constipation. History of DVT in the past wasn't did not anticoagulation -Due to prophylaxis early ambulation
[2018-12-18] MEDS ORDERED: AMOXIC-POT CLAV 875-125MG 1 EACH TAB PO SCH (13:30)
[2018-12-18] MEDS: NICOTINE 21MG/24HR PATCH TRANSDERM SCH (14:00)
[2018-12-18] MEDS: HYDROcodone/APAP 10-325MG 1 EACH TAB PO PRN (15:54)
[2018-12-18] MEDS: GABAPENTIN 400 MG CAP PO SCH ×2 (15:55→21:30)
[2018-12-18] MEDS ORDERED: GABAPENTIN 400 MG CAP PO SCH ×2 (16:00)
[2018-12-18] MEDS: IPRATROPIUM-ALBUTEROL 3 ML NEB INHALATION SCH ×3 (16:06→19:45)
[2018-12-18] MEDS: INSULIN ASPART (NovoLOG) 100 UNIT/ML VIAL SQ SCH ×2 (17:37→21:30)
[2018-12-18 17:38] LABS: Glucose,Whole Blood 199 mg/dL (75-99)
--- NOTE | 2018-12-18 17:55 | ECHOF ---
Referral Reason:CHF MEASUREMENTS -------- HEIGHT: 175.3 cm WEIGHT: 77.1 kg BP: 133/76 RVIDd: 3.5 cm (< 3.3) IVSd: 1.2 cm (0.6 - 1.1) LVIDd: 5.2 cm (3.9 - 5.3) LVPWd: 1.2 cm (0.6 - 1.1) IVSs: 1.8 cm LVIDs: 3.3 cm LVPWs: 1.5 cm LA Diam: 3.7 cm (2.7 - 3.8) LAESV Index (A-L): 40.61 ml/m Ao Diam: 3.2 cm (2.0 - 3.7) AV Cusp: 1.9 cm (1.5 - 2.6) MV EXCURSION: 16.920 mm (> 18.000) MV EF SLOPE: 26 mm/s (70 - 150) EPSS: 1.1 cm MV E Jamie: 1.57 m/s MV DecT: 409 ms MV A Jamie: 1.73 m/s MV E/A Ratio: 0.91 AV maxP.49 mmHg AV meanP.34 mmHg RAP: 5.00 mmHg RVSP: 51.70 mmHg FINDINGS -------- Sinus rhythm. This was a technically good study. The left ventricular size is normal. There is borderline concentric left ventricular hypertrophy. Overall left ventricular systolic function is low-normal with, an EF between 50 - 55 %. Diastolic dysfunction The right ventricle is mildly enlarged. LA is severely dilated >40 ml/m2 The right atrium is normal in size. Interatrial and interventricular septum intact. There is mild aortic valve sclerosis. Peak/mean gradient across the Aortic Valve is 13.49mmHg / 6.3 4mmHg. The mitral valve leaflets are mildly thickened. Mild mitral annular calcification present. Mild m itral regurgitation is present. The peak and mean MV gradients are 16.95mmHg 6.96mmHg as measured by doppler. Mild mitral stenosis. Mild tricuspid regurgitation present. There is moderate pulmonary hypertension. The right ventric ular systolic pressure, as measured by Doppler, is 51.70mmHg. There is no pulmonic regurgitation present. The aortic root size is normal. Normal inferior vena cava with normal inspiratory collapse consistent with estimated right atrial pre ssure of 5 mmHg. There is no pericardial effusion. CONCLUSIONS -------- 1. Sinus rhythm. 2. This was a technically good study. 3. The left ventricular size is normal. 4. There is borderline concentric left ventricular hypertrophy. 5. Overall left ventricular systolic function is low-normal with, an EF between 50 - 55 %. 6. Diastolic dysfunction 7. The right ventricle is mildly enlarged. 8. LA is severely dilated >40 ml/m2 9. The right atrium is normal in size. 10. Interatrial and interventricular septum intact. 11. There is mild aortic valve sclerosis. 12. Peak/mean gradient across the Aortic Valve is 13.49mmHg / 6.34mmHg. 13. The mitral valve leaflets are mildly thickened. 14. Mild mitral annular calcification present. 15. Mild mitral regurgitation is present. 16. The peak and mean MV gradients are 16.95mmHg 6.96mmHg as measured by doppler. 17. Mild mitral stenosis. 18. Mild tricuspid regurgitation present. 19. There is moderate pulmonary hypertension. 20. The right ventricular systolic pressure, as measured by Doppler, is 51.70mmHg. 21. There is no pulmonic regurgitation present. 22. The aortic root size is normal. 23. Normal inferior vena cava with normal inspiratory collapse consistent with estimated right atrial pressure of 5 mmHg. 24. There is no pericardial effusion. INSURANCE MANAGER: Monica Cisneros RDCS
[2018-12-18] MEDS: metFORMIN 500 MG TAB PO SCH (20:45)
[2018-12-18] MEDS: glipiZIDE 10 MG TAB PO SCH (20:45)
[2018-12-18] MEDS: FAMOTIDINE 20 MG TAB PO SCH (20:45)
[2018-12-18 21:05] LABS: Glucose,Whole Blood 185 mg/dL (75-99)
[2018-12-19] MEDS: HYDROcodone/APAP 10-325MG 1 EACH TAB PO PRN ×2 (04:03→11:06)
[2018-12-19 05:38] VITALS: BP 133/78; TEMP 98.1
[2018-12-19 07:36] LABS: Glucose,Whole Blood 111 mg/dL (75-99)
[2018-12-19] MEDS: INSULIN ASPART (NovoLOG) 100 UNIT/ML VIAL SQ SCH (07:53)
[2018-12-19] MEDS: FAMOTIDINE 20 MG TAB PO SCH (07:54)
[2018-12-19] MEDS: GABAPENTIN 400 MG CAP PO SCH (08:02)
[2018-12-19] MEDS: glipiZIDE 10 MG TAB PO SCH (08:02)
[2018-12-19] MEDS: metFORMIN 500 MG TAB PO SCH (08:02)
[2018-12-19] MEDS: NICOTINE 21MG/24HR PATCH TRANSDERM SCH (08:02)
[2018-12-19] MEDS: IPRATROPIUM-ALBUTEROL 3 ML NEB INHALATION SCH ×2 (08:38→11:50)
[2018-12-19 08:40] VITALS: RESP 16
--- NOTE | 2018-12-19 08:45 | XR ---
EXAMINATION TYPE: XR chest 2V DATE OF EXAM: 12/19/2018 COMPARISON: 12/18/2018 TECHNIQUE: PA and lateral views submitted. HISTORY: Cough FINDINGS: The diffuse interstitial pattern. Nodular density overlying the right lower lobe may be related to ni pple shadow. There is right lower lobe infiltrate and small effusion. Hypertrophic and degenerative c hange of the spine noted. Biapical pleural thickening. Heart is enlarged. IMPRESSION: 1. Cardiomegaly, COPD and right lower lobe infiltrate with suspected small effusion. Correlate for CH F. Interstitial pneumonia or pneumonitis in the differential diagnosis with superimposed lower lobe p neumonia.
[2018-12-19] MEDS ORDERED: ASPIRIN 81 MG PO SCH (09:00)
[2018-12-19] MEDS ORDERED: LEVOFLOXACIN 500 MG TAB PO SCH (09:00)
[2018-12-19] MEDS ORDERED: ASPIRIN 325 MG TAB PO SCH (09:00)
[2018-12-19 09:02] LABS: African American GFR (CKD) >90 (>60 ml/min/1.73 sqM); Anion Gap 13 mmol/L; Blood Urea Nitrogen 9 mg/dL (9-20); Calcium 9.2 mg/dL (8.4-10.2); Carbon Dioxide 19 mmol/L (22-30); Chloride 110 mmol/L (98-107); Glucose 97 mg/dL (74-99); Sodium 142 mmol/L (137-145)
[2018-12-19 09:23] LABS: Potassium 5.5 mmol/L (3.5-5.1)
[2018-12-19 11:52] VITALS: PULSE 80
[2018-12-19] MEDS ORDERED: LEVOFLOXACIN 750MG-D5W PMX 750 MG in DEXTROSE/WATER 1 150ML.BAG IVPB SCH (13:00)
--- NOTE | 2018-12-19 14:05 | P.DS ---
Providers Date of admission: 12/18/18 11:46 Attending physician: Sherie Gayle Primary care physician: Adryan [facility] Hospital Course: 48-year-old male came in with the pretty nonspecific symptoms including generalized weakness not feeling well may have aspirated patient and he ago had aspiration pneumonia but had similar symptoms of generalized fatigue patient had did have vomiting. Denied any significant abdominal pain patient does have some abdominal discomfort does have ileus and the x-ray patient will be treated for constipation. Patient was comparing of some difficulty breathing denied orthopnea paroxysmal nocturnal dyspnea. Chest x-ray was done which showed infiltrate in the right lower lobe consistent with aspiration although patient looks really well because of which I'm not starting him on Zosyn patient will be started on Augmentin oral. Although chest x-ray did show vascular markings consistent with CHF patient doesn't have any significant JVD or pedal edema. Patient does have elevated BNP of 2000 because of an echocardiogram will give a dose of Lasix. Patient denied any chest pain at this time. Patient was comparing of chills but never checked his temperature. Patient didn't have any fever here. Patient does smoke one and half packs per day 12/19/2018 Patient is feeling much better wanted to be discharged. Patient had an echocardiogram which showed normal ejection fraction but does have diastolic dysfunction because of which I'll discharge him 20 mg of Lasix with repeat basic metabolic profile in about 3 days. Patient does have a moderate to severe pulmonary hypertension patient was counseled at length and extensively regarding nicotine cessation and patient will try and quit smoking. Patient will be discharged on levofloxacin as he is ALLERGIC to penicillin for possible aspiration pneumonia. Spoke most probably pneumonitis which is chemical pneumonitis. Patient will follow-up with the his donor recruiter and PCP in 2-3 days. Patient does have elevated potassium of 5.5 which is secondary to hemolysis. PHYSICAL EXAMINATION: GENERAL: The patient is alert and oriented x3, not in any acute distress. Well developed, well nourished. HEENT: Pupils are round and equally reacting to light. EOMI. No scleral icterus. No conjunctival pallor. Normocephalic, atraumatic. No pharyngeal erythema. No thyromegaly. CARDIOVASCULAR: S1 and S2 present. No murmurs, rubs, or gallops. PULMONARY: Chest is clear to auscultation, no wheezing or crackles. ABDOMEN: Soft, nontender, nondistended, normoactive bowel sounds. No palpable organomegaly. MUSCULOSKELETAL: No joint swelling or deformity. EXTREMITIES: No cyanosis, clubbing, or pedal edema. NEUROLOGICAL: Gross neurological examination did not reveal any focal deficits. SKIN: No rashes. Assessment and Plan Plan: -Possible aspiration pneumonitis rather than pneumonia:levofloxacin as mentioned above. -congestive heart failure chronic diastolic dysfunction with acute exacerbation -COPD without any acute exacerbation -moderate to severe pulmonary hypertension -Nicotine abuse: Counseling was provided -Type 2 diabetes mellitus patient will be resumed on his home regimen -diabetic peripheral neuropathy -Gastroesophageal reflux disease -Constipation we'll use lactulose and MiraLAX on as-needed basis. -Nausea vomiting secondary to either gastritis or constipation. History of DVT in the past is presently not on anticoagulation Patient Condition at Discharge: Fair Plan - Discharge Summary Discharge Rx Participant: No New Discharge Prescriptions: New Aspirin 81 mg PO DAILY #30 chewable Furosemide [Lasix] 20 mg PO DAILY #30 tab Levofloxacin [Levaquin] 500 mg PO Q24H #5 tab Continue Albuterol Inhaler [Ventolin Hfa Inhaler] 1 - 2 puff INHALATION RT-Q4H PRN PRN Reason: Shortness Of Breath glipiZIDE [Glipizide] 10 mg PO BID metFORMIN HCL 1,000 mg PO BID Cholecalciferol [Vitamin D3 (25 Mcg = 1000 Iu)] 1,000 units PO DAILY Zinc Gluconate [Zinc] 100 mg PO DAILY Pyridoxine [Vitamin B-6] 50 mg PO DAILY Niacin [Niacin ER] 750 mg PO DAILY Cyanocobalamin (Vitamin B-12) [Vitamin B-12] 1,000 mcg PO DAILY Changed Gabapentin 600 mg PO TID #0 Discontinued Aspirin EC [Ecotrin] 325 mg PO DAILY Discharge Medication List Albuterol Inhaler [Ventolin Hfa Inhaler] 1 - 2 puff INHALATION RT-Q4H PRN 08/18/15 [History] glipiZIDE [Glipizide] 10 mg PO BID 08/18/15 [History] metFORMIN HCL 1,000 mg PO BID 01/30/16 [History] Cholecalciferol [Vitamin D3 (25 Mcg = 1000 Iu)] 1,000 units PO DAILY 10/03/16 [History] Niacin [Niacin ER] 750 mg PO DAILY 10/03/16 [History] Pyridoxine [Vitamin B-6] 50 mg PO DAILY 10/03/16 [History] Zinc Gluconate [Zinc] 100 mg PO DAILY 10/03/16 [History] Cyanocobalamin (Vitamin B-12) [Vitamin B-12] 1,000 mcg PO DAILY 11/28/17 [History] Aspirin 81 mg PO DAILY #30 chewable 12/19/18 [Rx] Furosemide [Lasix] 20 mg PO DAILY #30 tab 12/19/18 [Rx] Gabapentin 600 mg PO TID #0 12/19/18 [Rx] Levofloxacin [Levaquin] 500 mg PO Q24H #5 tab 12/19/18 [Rx] Follow up Appointment(s)/Referral(s): Adryan Romano III, MD [Primary Care Provider] - 12/25/18 6:00 pm Ambulatory/Diagnostic Orders: Basic Metabolic Panel [LAB.AMB] Time Frame: 3 Days, Location: None Selected Discharge Disposition: HOME SELF-CARE
== END 2018-12-19 12:47 | disposition home or self-care (01) | DRG 177 ==
LOC: EC 08:21 → 4MS4W 11:46
PROVIDERS: ADMIT Internal Medicine; ATTEND Internal Medicine
DX: J69.0 Pneumonitis due to inhalation of food and vomit (principal); I50.33 Acute on chronic diastolic (congestive) heart failure; I11.0 Hypertensive heart disease with heart failure; E11.42 Type 2 diabetes mellitus with diabetic polyneuropathy; E78.5 Hyperlipidemia, unspecified; F17.200 Nicotine dependence, unspecified, uncomplicated; I27.20 Pulmonary hypertension, unspecified; J44.9 Chronic obstructive pulmonary disease, unspecified; K21.9 Gastro-esophageal reflux disease without esophagitis; K59.00 Constipation, unspecified; Z79.4 Long term (current) use of insulin; Z79.82 Long term (current) use of aspirin; Z79.899 Other long term (current) drug therapy; Z82.49 Family history of ischemic heart disease and other diseases of the circulatory system; Z86.718 Personal history of other venous thrombosis and embolism; Z86.73 Personal history of transient ischemic attack (TIA), and cerebral infarction without residual deficits; Z87.01 Personal history of pneumonia (recurrent); Z88.0 Allergy status to penicillin; Z88.8 Allergy status to other drugs, medicaments and biological substances; Z71.6 Tobacco abuse counseling; K29.70 Gastritis, unspecified, without bleeding
CPT/HCPCS: 36415; 71046; 74018; 80048; 80053; 81003; 82150; 83605; 83690; 83880; 84443; 84484; 85025; 87040; 87070; 87205; 93306; 94640; 94760; 96361; 96374; 96375; 99285

== ENCOUNTER 2019-03-12 17:10 | Inpatient (IN) | payer MEDICARE ==
[2019-03-12] MEDS ORDERED: SODIUM CHLORIDE 0.9% 1,000 ML IV STA ×2 (17:32→20:13)
[2019-03-12] MEDS ORDERED: IPRATROPIUM-ALBUTEROL 3 ML NEB INHALATION STA (17:35)
[2019-03-12] MEDS ORDERED: MORPHINE SULFATE 4 MG/ML SYRINGE IVP STA (17:35)
--- NOTE | 2019-03-12 17:35 | ED ---
SOB HPI - General Chief Complaint: GI Bleed Stated Complaint: hempotysis Time Seen by Provider: 03/12/19 17:19 Source: patient, RN notes reviewed, old records reviewed Mode of arrival: ambulatory Limitations: no limitations - History of Present Illness Initial Comments: This is a 48-year-old male presents today for evaluation regards to hemoptysis coughing blood fever and chills shortness of breath left-sided chest pain. Patient has no history of similar complaint, has been coughing of blood throughout the day episodically. Does not feel lightheaded dizzy weak but does have pain especially left-sided chest pain. Denies any travel history or known sick contacts. No history of exposure to TB. Again he admits to chills but no fevers. No recent hospitalizations. MD Complaint: shortness of breath, cough, anxiety -: days(s) Severity: moderate Severity scale (1-10): 4 Consistency: constant Improves With: oxygen, rest, bronchodilators, upright position Worsens With: exertion Known History Of: COPD, recurrent pneumonia Context: recent URI Associated Symptoms: chest pain, cough, sputum production (Hemoptysis) Treatments Prior to Arrival: none - Related Data Home Medications Medication Instructions Recorded Confirmed Albuterol Inhaler [Ventolin Hfa 1 - 2 puff INHALATION RT-Q4H PRN 08/18/15 12/18/18 Inhaler] glipiZIDE [Glipizide] 10 mg PO BID 08/18/15 12/18/18 metFORMIN HCL 1,000 mg PO BID 01/30/16 12/18/18 Cholecalciferol [Vitamin D3 (25 1,000 units PO DAILY 10/03/16 12/18/18 Mcg = 1000 Iu)] Niacin [Niacin ER] 750 mg PO DAILY 10/03/16 12/18/18 Pyridoxine [Vitamin B-6] 50 mg PO DAILY 10/03/16 12/18/18 Zinc Gluconate [Zinc] 100 mg PO DAILY 10/03/16 12/18/18 Cyanocobalamin (Vitamin B-12) 1,000 mcg PO DAILY 11/28/17 12/18/18 [Vitamin B-12] Previous Rx's Medication Instructions Recorded Aspirin 81 mg PO DAILY #30 chewable 12/19/18 Furosemide [Lasix] 20 mg PO DAILY #30 tab 12/19/18 Gabapentin 600 mg PO TID #0 12/19/18 Levofloxacin [Levaquin] 500 mg PO Q24H #5 tab 12/19/18 Allergies Allergy/AdvReac Type Severity Reaction Status Date / Time Penicillins Allergy Severe Anaphylaxis Verified 03/12/19 17:11 talc Allergy Swelling Verified 03/12/19 17:11 pregabalin [From Lyrica] AdvReac Severe Stroke (no Verified 03/12/19 17:11 issue with neurontin) adhesive tape AdvReac Itching Verified 03/12/19 17:11 Review of Systems ROS Statement: Those systems with pertinent positive or pertinent negative responses have been documented in the HPI. ROS Other: All systems not noted in ROS Statement are negative. 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 Past Anesthesia/Blood Transfusion Reactions: No Reported Reaction Past Psychological History: Depression Smoking Status: Former smoker Past Alcohol Use History: None Reported Past Drug Use History: Marijuana - Past Family History Father History Unknown: Yes Family Medical History: Coronary Artery Disease (CAD) Additional Family Medical History / Comment(s): Father had CABG and never came home from the hospital. Mother History Unknown: Yes Family Medical History: Cancer, Deep Vein Thrombosis (DVT) Additional Family Medical History / Comment(s): Mother had squamous cell carcinoma. General Exam Limitations: no limitations General appearance: alert, in no apparent distress Head exam: Present: atraumatic, normocephalic, normal inspection Eye exam: Present: normal appearance, PERRL, EOMI. Absent: scleral icterus, conjunctival injection, periorbital swelling ENT exam: Present: normal exam, mucous membranes moist Neck exam: Present: normal inspection. Absent: tenderness, meningismus, lymphadenopathy Respiratory exam: Present: normal lung sounds bilaterally. Absent: respiratory distress, wheezes, rales, rhonchi, stridor Cardiovascular Exam: Present: normal rhythm, tachycardia, normal heart sounds. Absent: systolic murmur, diastolic murmur, rubs, gallop, clicks GI/Abdominal exam: Present: soft, normal bowel sounds. Absent: distended, tenderness, guarding, rebound, rigid Extremities exam: Present: normal inspection, full ROM, normal capillary refill. Absent: tenderness, pedal edema, joint swelling, calf tenderness Back exam: Present: normal inspection Neurological exam: Present: alert, oriented X3, CN II-XII intact Psychiatric exam: Present: normal affect, normal mood Skin exam: Present: warm, dry, intact, normal color. Absent: rash Course Vital Signs 03/12/19 03/12/19 03/12/19 17:11 17:58 18:06 Temperature 98.6 F Pulse Rate 118 H 106 H 110 H Respiratory 18 Rate Blood Pressure 153/98 O2 Sat by Pulse 86 L Oximetry 03/12/19 03/12/19 18:17 19:53 Temperature Pulse Rate 107 H 107 H Respiratory 20 20 Rate Blood Pressure 102/36 125/68 O2 Sat by Pulse 91 L 92 L Oximetry - Reevaluation(s) Reevaluation #1: 03/12/19 20:11 Medical records reviewed Reevaluation #2: 03/12/19 20:11 Patient still having mild hemoptysis with shortness of breath is improved with breathing treatment - Consultations Consultation #1: Spoke with Dr. Jauregui who is okay for admission Medical Decision Making - Medical Decision Making 48 male the ER for evaluation patient has history of COPD and pneumonia and smoking X smoker. Patient is significant left upper lobe consolidation pneumonia white count, patient will be admitted for IV antibiotics breathing treatments steroids and monitoring of cardiopulmonary state - Lab Data Result diagrams: 03/12/19 17:35 03/12/19 17:35 Lab Results 03/12/19 03/12/19 03/12/19 Range/Units 17:35 17:35 17:35 WBC 18.8 H (3.8-10.6) k/uL RBC 4.86 (4.30-5.90) m/uL Hgb 15.1 (13.0-17.5) gm/dL Hct 43.8 (39.0-53.0) % MCV 90.1 (80.0-100.0) fL MCH 31.0 (25.0-35.0) pg MCHC 34.4 (31.0-37.0) g/dL RDW 14.1 (11.5-15.5) % Plt Count 181 (150-450) k/uL Neutrophils % 81 % Lymphocytes % 11 % Monocytes % 4 % Eosinophils % 1 % Basophils % 1 % Neutrophils # 15.3 H (1.3-7.7) k/uL Lymphocytes # 2.1 (1.0-4.8) k/uL Monocytes # 0.8 (0-1.0) k/uL Eosinophils # 0.2 (0-0.7) k/uL Basophils # 0.2 (0-0.2) k/uL PT 10.1 (9.0-12.0) sec INR 0.9 (<1.2) APTT 24.9 (22.0-30.0) sec D-Dimer 1.26 H (<0.60) mg/L FEU Sodium 137 (137-145) mmol/L Potassium 4.2 (3.5-5.1) mmol/L Chloride 102 (98-107) mmol/L Carbon Dioxide 23 (22-30) mmol/L Anion Gap 12 mmol/L BUN 10 (9-20) mg/dL Creatinine 1.01 (0.66-1.25) mg/dL Est GFR (CKD-EPI)AfAm >90 (>60 ml/min/1.73 sqM) Est GFR (CKD-EPI)NonAf 87 (>60 ml/min/1.73 sqM) Glucose 150 H (74-99) mg/dL Calcium 9.2 (8.4-10.2) mg/dL Magnesium 1.2 L (1.6-2.3) mg/dL Total Bilirubin 2.3 H (0.2-1.3) mg/dL AST 16 L (17-59) U/L ALT 10 L (21-72) U/L Alkaline Phosphatase 105 (38-126) U/L Creatine Kinase 30 L (55-170) U/L Troponin I (0.000-0.034) ng/mL NT-Pro-B Natriuret Pep pg/mL Total Protein 6.7 (6.3-8.2) g/dL Albumin 4.2 (3.5-5.0) g/dL 03/12/19 03/12/19 Range/Units 17:35 17:35 WBC (3.8-10.6) k/uL RBC (4.30-5.90) m/uL Hgb (13.0-17.5) gm/dL Hct (39.0-53.0) % MCV (80.0-100.0) fL MCH (25.0-35.0) pg MCHC (31.0-37.0) g/dL RDW (11.5-15.5) % Plt Count (150-450) k/uL Neutrophils % % Lymphocytes % % Monocytes % % Eosinophils % % Basophils % % Neutrophils # (1.3-7.7) k/uL Lymphocytes # (1.0-4.8) k/uL Monocytes # (0-1.0) k/uL Eosinophils # (0-0.7) k/uL Basophils # (0-0.2) k/uL PT (9.0-12.0) sec INR (<1.2) APTT (22.0-30.0) sec D-Dimer (<0.60) mg/L FEU Sodium (137-145) mmol/L Potassium (3.5-5.1) mmol/L Chloride (98-107) mmol/L Carbon Dioxide (22-30) mmol/L Anion Gap mmol/L BUN (9-20) mg/dL Creatinine (0.66-1.25) mg/dL Est GFR (CKD-EPI)AfAm (>60 ml/min/1.73 sqM) Est GFR (CKD-EPI)NonAf (>60 ml/min/1.73 sqM) Glucose (74-99) mg/dL Calcium (8.4-10.2) mg/dL Magnesium (1.6-2.3) mg/dL Total Bilirubin (0.2-1.3) mg/dL AST (17-59) U/L ALT (21-72) U/L Alkaline Phosphatase (38-126) U/L Creatine Kinase (55-170) U/L Troponin I 0.019 (0.000-0.034) ng/mL NT-Pro-B Natriuret Pep 1760 pg/mL Total Protein (6.3-8.2) g/dL Albumin (3.5-5.0) g/dL - EKG Data -: EKG Interpreted by Me (EKG shows sinus tachycardia rate of 122, MS 1:30, QRS 70, QTc 478) - Radiology Data Radiology results: report reviewed (CTA chest is of significant left upper lobe consolidation, pneumonia), image reviewed Disposition Clinical Impression: Community acquired bacterial pneumonia, Hemoptysis Disposition: ADMITTED IP TO THIS HOSP Condition: Fair Is patient prescribed a controlled substance at d/c from ED?: No Referrals: Adryan Romano III, MD [Primary Care Provider] - 1-2 days
[2019-03-12 17:58] LABS: ALT 10 U/L (21-72); AST 16 U/L (17-59); African American GFR (CKD) >90 (>60 ml/min/1.73 sqM); Albumin 4.2 g/dL (3.5-5.0); Alkaline Phosphatase 105 U/L (38-126); Anion Gap 12 mmol/L; Basophils # (A) 0.2 k/uL (0-0.2); Basophils % (A) 1 %; Blood Urea Nitrogen 10 mg/dL (9-20); Calcium 9.2 mg/dL (8.4-10.2); Carbon Dioxide 23 mmol/L (22-30); Chloride 102 mmol/L (98-107); Creatine Kinase 30 U/L (55-170); Eosinophils # (A) 0.2 k/uL (0-0.7); Eosinophils % (A) 1 %; Glucose 150 mg/dL (74-99); HCT 43.8 % (39.0-53.0); HGB 15.1 gm/dL (13.0-17.5); Lymphocytes # (A) 2.1 k/uL (1.0-4.8); Lymphocytes % (A) 11 %; MCHC 34.4 g/dL (31.0-37.0); MCV 90.1 fL (80.0-100.0); Magnesium 1.2 mg/dL (1.6-2.3); Monocytes # (A) 0.8 k/uL (0-1.0); Monocytes % (A) 4 %; Neutrophils # (A) 15.3 k/uL (1.3-7.7); Neutrophils % (A) 81 %; Non-African American GFR(CKD) 87 (>60 ml/min/1.73 sqM); Platelet Count 181 k/uL (150-450); Potassium 4.2 mmol/L (3.5-5.1); RBC 4.86 m/uL (4.30-5.90); RDW 14.1 % (11.5-15.5); Sodium 137 mmol/L (137-145); Total Bilirubin 2.3 mg/dL (0.2-1.3); Total Protein 6.7 g/dL (6.3-8.2); WBC 18.8 k/uL (3.8-10.6)
[2019-03-12 18:07] LABS: INR 0.9 (<1.2); Partial Thromboplastin Time 24.9 sec (22.0-30.0); Prothrombin Time 10.1 sec (9.0-12.0)
[2019-03-12 18:12] LABS: D-Dimer 1.26 mg/L FEU (<0.60)
--- NOTE | 2019-03-12 19:55 | CT ---
EXAMINATION TYPE: CT angio chest DATE OF EXAM: 03/12/2019 7:48 PM COMPARISON: 10/14/2017 HISTORY: JOSE, Coughing up blood. Hx aspiration pneumonia, black mold exposure CT DLP: 447.3 mGycm Automated exposure control for dose reduction was used. CONTRAST: CTA scan of the thorax is performed with IV Contrast, patient injected with 100 mL of Isovue 370, pul monary embolism protocol. There are 3-D post processed images.. FINDINGS: There is significant airspace consolidation of the left upper lobe. There are multiple air bronchogra ms. There are multiple enlarged mediastinal and peritracheal lymph nodes that measure up to 1.5 cm. T here are enlarged bilateral bronchial lymph nodes up to 1.5 cm. There is no pericardial effusion. Hea rt size is fairly normal. There is normal contrast opacification of the pulmonary arteries. There are no filling defects. Thora cic aorta shows no aneurysm or dissection. There is minimal pleural thickening at the lung bases. IMPRESSION: NO EVIDENCE OF PULMONARY EMBOLISM. SIGNIFICANT AIRSPACE CONSOLIDATION IN THE LEFT UPPER LOBE. MILD PL EURAL REACTION AND THICKENING AT THE LUNG BASES. THERE IS MEDIASTINAL AND BRONCHIAL ADENOPATHY. PULMO NARY ABNORMALITIES ESSENTIALLY NEW COMPARED TO OLD EXAM. ADENOPATHY INCREASED COMPARED TO OLD EXAM.
[2019-03-12] MEDS ORDERED: LEVOFLOXACIN 750MG-D5W PMX 750 MG in DEXTROSE/WATER 1 150ML.BAG IVPB STA (20:08)
[2019-03-12] MEDS ORDERED: PNEUMONIA PROTOCOL UTILIZED 1 EACH MISC PO PRN (20:08)
[2019-03-12] MEDS: MORPHINE SULFATE 4 MG/ML SYRINGE IVP PRN (21:30)
[2019-03-12] MEDS: SODIUM CHLORIDE 0.9% 1,000 ML IV SCH (22:02)
[2019-03-12] MEDS: AZTREONAM 2 GM in SODIUM CHLORIDE 0.9% 100 ML IVPB SCH (22:02)
[2019-03-13] MEDS: MORPHINE SULFATE 4 MG/ML SYRINGE IVP PRN ×5 (02:23→20:28)
[2019-03-13] MEDS: AZTREONAM 2 GM in SODIUM CHLORIDE 0.9% 100 ML IVPB SCH ×2 (05:40→13:12)
--- NOTE | 2019-03-13 07:51 | XR ---
EXAMINATION TYPE: XR chest 2V DATE OF EXAM: 03/13/2019 COMPARISON: Prior chest x-ray 12/19/2018 HISTORY: Pneumonia TECHNIQUE: Frontal and lateral views of the chest are obtained. FINDINGS: Increased airspace disease noted in the left upper lobe as compared to prior exam. No evid ent pneumothorax or pleural effusion. Heart is obscured. Interstitium is increased. IMPRESSION: Findings may be indicative of pneumonia, follow-up is recommended to exclude underlying mass.
[2019-03-13] MEDS: SODIUM CHLORIDE 0.9% 1,000 ML IV SCH ×2 (08:04→17:46)
[2019-03-13] MEDS: IPRATROPIUM-ALBUTEROL 3 ML NEB INHALATION SCH ×4 (08:34→20:09)
[2019-03-13] MEDS: glipiZIDE 10 MG TAB PO SCH ×2 (08:57→17:46)
[2019-03-13] MEDS: GABAPENTIN 400 MG CAP PO SCH ×2 (08:57→20:28)
[2019-03-13] MEDS: CHOLECALCIFEROL 1,000 UNIT TAB PO SCH (08:57)
[2019-03-13] MEDS: ASPIRIN 325 MG TAB PO SCH (08:57)
[2019-03-13] MEDS: metFORMIN 500 MG TAB PO SCH ×2 (08:57→20:28)
[2019-03-13] MEDS: FLUTICASONE 50MCG/SPRAY NASAL 16GM EA NOSTRIL SCH (08:57)
[2019-03-13] MEDS: CYANOCOBALAMIN 500 MCG TAB PO SCH (08:57)
[2019-03-13] MEDS ORDERED: Potassium Replacement Protocol 1 EACH MISC MISCELLANE PRN (09:41)
[2019-03-13] MEDS ORDERED: Magnesium Replacement Protocol 1 EACH MISC MISCELLANE PRN (09:41)
--- NOTE | 2019-03-13 09:42 | P.HPIM ---
History of Present Illness This is a pleasant 48 years old male with past medical history of COPD, CVA/TIA, diabetes mellitus, deep venous thrombosis, hyperlipidemia, pneumonia, type 2 diabetes mellitus, diabetic neuropathy, occasional difficulty swallowing and aspiration pneumonia. Patient presents this time of 1 day of severe chest pain in his left side about 10/10 in severity sharp increased by breathing and coughing which looks like pleuritic associated with hemoptysis, he got about less than half of cup throughout the whole day, associated with some dyspnea. Patient is current cigarette smoker about 1.5 PPD however he decided to quit couple days ago because he starts coughing up blood as per patient. He denies alcohol and he uses marijuana occasionally. He sees Dr. Chaney as his mortgage loan reviewer Vitals stable, she will leukocytosis of 18.8 K. INR 0.9, d-dimer is 1.2, BNP is unremarkable, magnesium low at 1.2, elevated bilirubin at 2.3, liver enzymes not elevated, creatinine is normal at 1.0, troponin 0.019, pro-BNP is 1760. EKG showing sinus tachycardia at 122 with PVC On admission patient was started on bronchodilator, aztreonam and levofloxacin, also was started on normal saline at 100 mL per hour after receiving 2 L of All[place]. Maps checked and he was prescribed [place] 10-325 milligrams as 30 tablets for 30 on 02/10/2019 Review of Systems CONSTITUTIONAL: No fever, no malaise, no fatigue. HEENT: No recent visual problems or hearing problems. Denied any sore throat. CARDIOVASCULAR: No orthopnea, PND, no palpitations, no syncope. -PULMONARY: Has positive findings as above. GASTROINTESTINAL: No diarrhea, no nausea, no vomiting, no abdominal pain. Normoactive bowel sounds. NEUROLOGICAL: No headaches, no weakness, no numbness. HEMATOLOGICAL: Denies any bleeding or petechiae. GENITOURINARY: Denies any burning micturition, frequency, or urgency. MUSCULOSKELETAL/RHEUMATOLOGICAL: Denies any joint pain, swelling, or any muscle pain. ENDOCRINE: Denies any polyuria or polydipsia. 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 Past Anesthesia/Blood Transfusion Reactions: No Reported Reaction Past Psychological History: Depression Additional Psychological History / Comment(s): Pt resides with his mother. Pt's son lives there too. Pt uses a cane to ambulate. He drives. He has a glucometer. Smoking Status: Former smoker Past Alcohol Use History: None Reported Additional Past Alcohol Use History / Comment(s): Started smoking in late teens, smokes 1.5 ppd, Past Drug Use History: Marijuana Additional Drug Use History / Comment(s): States uses daily. - Past Family History Father History Unknown: Yes Family Medical History: Coronary Artery Disease (CAD) Additional Family Medical History / Comment(s): Father had CABG and never came home from the hospital. Mother History Unknown: Yes Family Medical History: Cancer, Deep Vein Thrombosis (DVT) Additional Family Medical History / Comment(s): Mother had squamous cell carcinoma. Medications and Allergies Home Medications Medication Instructions Recorded Confirmed Type Albuterol Inhaler [Ventolin Hfa 2 puff INHALATION RT-Q6H PRN 08/18/15 03/12/19 History Inhaler] glipiZIDE [Glipizide] 10 mg PO BID 08/18/15 03/12/19 History metFORMIN HCL 1,000 mg PO BID 01/30/16 03/12/19 History Cholecalciferol [Vitamin D3 (25 1,000 units PO DAILY 10/03/16 03/12/19 History Mcg = 1000 Iu)] Zinc Gluconate [Zinc] 100 mg PO DAILY 10/03/16 03/12/19 History Cyanocobalamin (Vitamin B-12) 1,000 mcg PO DAILY 11/28/17 03/12/19 History [Vitamin B-12] Aspirin EC [Ecotrin] 325 mg PO DAILY 03/12/19 03/12/19 History Fluticasone Nasal [place] [Flonase 2 spray EA NOSTRIL DAILY 03/12/19 03/12/19 History Nasal [place]] Gabapentin 1,200 mg PO BID 03/12/19 03/12/19 History HYDROcodone/APAP 10-325MG [[place] 1 tab PO DAILY PRN 03/12/19 03/12/19 History 10-325] Niacin 500 mg PO DAILY 03/12/19 03/12/19 History Allergies Allergy/AdvReac Type Severity Reaction Status Date / Time Penicillins Allergy Severe Anaphylaxis Verified 03/12/19 20:45 talc Allergy Swelling Verified 03/12/19 20:45 pregabalin [From Lyrica] AdvReac Severe Stroke (no Verified 03/12/19 20:45 issue with neurontin) adhesive tape AdvReac Itching Verified 03/12/19 20:45 Physical Exam Vitals: Vital Signs Temp Pulse Pulse Resp BP BP Pulse Ox 03/13/19 05:04 98.7 F 86 16 121/63 92 L 03/12/19 21:21 98 F 66 22 143/76 92 L 03/12/19 20:42 98.5 F 100 20 123/61 97 03/12/19 20:08 92 L 03/12/19 19:53 107 H 20 125/68 92 L 03/12/19 18:17 107 H 20 102/36 91 L 03/12/19 18:06 110 H 03/12/19 17:58 106 H 03/12/19 17:11 98.6 F 118 H 18 153/98 86 L Intake and Output 03/12/19 03/12/19 03/13/19 14:59 22:59 06:59 Intake Total 590 Balance 590 Intake: Oral 590 Other: Voiding Method Toilet # Voids 1 1 Weight 90.718 kg GENERAL: The patient is alert and oriented x3, not in any acute distress. Well developed, well nourished. HEENT: Pupils are round and equally reacting to light. EOMI. No scleral icterus. No conjunctival pallor. Normocephalic, atraumatic. No pharyngeal erythema. No thyromegaly. CARDIOVASCULAR: S1 and S2 present. No murmurs, rubs, or gallops. -PULMONARY: Chest is clear to auscultation, bronchial breath sounds in the left upper lung with scattered wheezes ABDOMEN: Soft, nontender, nondistended, normoactive bowel sounds. No palpable organomegaly. MUSCULOSKELETAL: No joint swelling or deformity. EXTREMITIES: No cyanosis, clubbing, or pedal edema. NEUROLOGICAL: Gross neurological examination did not reveal any focal deficits. SKIN: No rashes. No petechiae Results CBC & Chem 7: 03/12/19 17:35 03/12/19 17:35 Labs: Abnormal Lab Results - Last 24 Hours (Table) 03/12/19 03/12/19 03/12/19 Range/Units 17:35 17:35 17:35 WBC 18.8 H (3.8-10.6) k/uL Neutrophils # 15.3 H (1.3-7.7) k/uL D-Dimer 1.26 H (<0.60) mg/L FEU Glucose 150 H (74-99) mg/dL Magnesium 1.2 L (1.6-2.3) mg/dL Total Bilirubin 2.3 H (0.2-1.3) mg/dL AST 16 L (17-59) U/L ALT 10 L (21-72) U/L Creatine Kinase 30 L (55-170) U/L Thrombosis Risk Factor Assmnt - Choose All That Apply Any of the Below Risk Factors Present?: Yes Each Factor Represents 1 point: Abnormal pulmonary function (COPD), Age 41-60 years, Obesity (BMI >25), Serious lung disease incl. pneumonia (< 1month) Each Risk Factor Represents 3 Points: History of DVT/PE Thrombosis Risk Factor Assessment Total Risk Factor Score: 7 Thrombosis Risk Factor Assessment Level: High Risk Assessment and Plan Assessment: -Recurrent pneumonia, this time is left upper lobe pneumonia with mediastinal and bronchial lymphadenopathy and some pleural thickening. Also has a presentation is suspicious for cancer and patient has been informed -systemic inflammatory response with tachycardia, tachypnea and leukocytosis -Sepsis secondary to pneumonia -Patient with COPD exacerbation -Hypomagnesemia -History of previous strokes with difficulty reading, it happens about 2 years ago and he follow-up with Dr. Gallegos cell stripper final for this reason -Diabetes mellitus type 2 -Diabetic neuropathy -History of deep venous thrombosis in 2003, he took Coumadin for about 6 months. He is not on any blood thinners currently -Hyperlipidemia Plan: This is a pleasant 48 years old male who presents with left upper lobe pneumonia and lymphadenopathy of the mediastinal and bronchial area, continue with antibiotics, follow-up blood and Sputum culture. Continue with IV fluids. Consult pulmonary. Labs and medication were reviewed.. Continue same treatment. Continue with symptomatic treatment. Resume home medication. Monitor lytes and vitals. DVT and GI prophylaxis. Further recommendations of the clinical course of the patient DVT prophylaxis: Subcutaneous heparin. Patient is high-risk for thrombosis, started on subcu heparin, in case if his hemoptysis persists or worsens, hemoglobin dropped then stop the heparin. GI Prophylaxis: Pepcid Prognosis is guarded
[2019-03-13] MEDS: NICOTINE 21MG/24HR PATCH TRANSDERM SCH (09:43)
[2019-03-13] MEDS ORDERED: methylPREDNISolone SOD SUCCI 40 MG/ML 1 ML VIAL IV SCH (09:45)
[2019-03-13] MEDS: HYDROcodone/APAP 10-325MG 1 EACH TAB PO PRN (10:40)
[2019-03-13] MEDS: MAGNESIUM SULFATE-D5W PMX 1 GM in DEXTROSE/WATER 1 100ML.BAG IVPB SCH ×3 (11:06→14:27)
[2019-03-13 11:13] LABS: Glucose,Whole Blood 165 mg/dL (75-99)
--- NOTE | 2019-03-13 14:14 | CONS ---
CONSULTATION This is a 48-year-old gentleman who is known to me. The patient had a brachial fistula created in the left arm. The patient has been admitted with low GFR. I was consulted for evaluation of the fistula. MEDICAL HISTORY: History of chronic renal failure, diabetes. SURGICAL HISTORY: Patient had a brachial fistula placed in the past. PHYSICAL EXAMINATION: NECK: Supple. Trachea central. CHEST: A few crackles. ABDOMEN: Soft. The patient has some mild swelling of the left upper arm compared to the right arm. I had reviewed the ultrasound in the office. As fistula is patent, fistula is about 7 mm in size with good thrill. If patient needs dialysis, proceed with dialysis using small needle. MMODL / IJN: [id number] /
[2019-03-13] MEDS ORDERED: VANCOMYCIN IV PER PHARMACY 1 EACH MISC MISCELLANE PRN (14:31)
--- NOTE | 2019-03-13 14:44 | CONS ---
CONSULTATION DATE OF SERVICE: 03/13/2019 HISTORY OF PRESENT ILLNESS: Patient is a 48-year-old male who states yesterday morning he started to experience worsening shortness of breath with a cough, coughing up blood, which was mixed in with his sputum. Describes it as bubbly. Patient does not know if he had a fever. However, he was experiencing chills, worsening shortness of breath, left-sided chest pain which was extreme. Subsequently patient came to the emergency room and was admitted for further evaluation and treatment. 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 PAST SURGICAL HISTORY: Significant for adenoidectomy, heart catheterization, hernia repair, tonsillectomy, left knee scope, left wrist surgery for carpal tunnel, cholecystectomy, and had a LAURA. ALLERGIES: Allergies include PENICILLIN,TALC, LYRICA and ADHESIVE TAPE. MEDICATIONS: Medications patient takes at home includes metformin 1000 mg p.o. b.i.d., glipizide 10 mg p.o. b.i.d., zinc 100 mg p.o. daily, Niacin 500 mg p.o. daily, [place] 10/325 one tab daily p.r.n., gabapentin 1200 mg p.o. b.i.d., Flonase 2 sprays each nostril daily, vitamin B12 a 1000 mcg p.o. daily, vitamin D3 a 1000 units p.o. daily, Ecotrin 325 mg p.o. daily, albuterol inhaler 2 puffs q.6 hours p.r.n. FAMILY HISTORY: Mother is alive and currently undergoing treatment for lung cancer. Father with a history of a CABG, but never came home from the hospital. SOCIAL HISTORY: Patient does have a history of smoking for over 22 years. Says he quit smoking yesterday when he woke up with shortness of breath and hemoptysis. The patient denies alcohol intake. Does smoke marijuana daily for pain. Denies any other illicit drug use. Patient does not currently work. 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 REVIEW OF SYSTEMS: General is positive for chills. Patient does not know if he had a fever at home. The patient's weight is reasonably stable. HEENT: Positive for some lightheadedness. No acute visual changes. The patient does admit to some difficulty hearing. Does not wear hearing aids. Does have seasonal allergies. Denies any sore throat. Does have difficulty swallowing at times from all the mucus production. RESPIRATORY: Positive for shortness of breath and cough with hemoptysis. CARDIOVASCULAR: Positive for significant left-sided chest pain. GI: Negative for abdominal pain, nausea, vomiting, diarrhea, or constipation. : Negative for any dysuria, hematuria, although patient does describe a decreased urinary flow, which he says his primary is currently working up. ENDOCRINE: Positive for diabetes mellitus controlled with oral medication. No thyroid disease. MUSCULOSKELETAL: Positive for arthritis and joint pain with history of osteomyelitis on the toes of left foot. NEUROLOGIC: Negative for any history of seizures. Patient does have significant neuropathy to hands and feet. PSYCHIATRIC: Positive for anxiety and depression. PHYSICAL EXAMINATION: GENERAL: This is a pleasant 48-year-old male who is seen ambulating in the halls, just walking back to his room. VITAL SIGNS: Temp 96.7, heart rate is 60, respiratory rate 18, blood pressure is 119/74, O2 sats 95% on room air. HEENT: Head is normocephalic, atraumatic. Pupils equal, round, react to light. Ears and nose no discharge is noted. Mouth moist mucous membranes. Mallampati is class 4. NECK: Supple. Trachea is midline. LUNGS: With decreased breath sounds throughout with prolonged expiratory phase. No rales or wheeze. HEART: S1, S2 are heard, irregular, not tachycardic. ABDOMEN: Soft. Bowel sounds are positive. EXTREMITIES: With 1+ edema bilaterally and discoloration from venous insufficiency. NEUROLOGIC: Patient is awake and alert. LABS: White count is 18.8, hemoglobin 15.1, hematocrit is 43.8 with 181,000 platelets. PT is 10.1, INR 0.9, PTT is 24.9. D-dimer is 1.26. Sodium is 137, potassium is 4.2, chloride is 102, CO2 is 23. Anion gap is 12. BUN is 10, creatinine is 1.01. Glucose is 150. Calcium is 9.2. Magnesium is 1.2. Total bilirubin is 2.3, AST is 16, ALT is 10, alkaline phosphatase is 105. CK is 30. Troponin 0.019. BNP is 1760. Total protein is 6.7. Albumin is 4.2. IMAGING: The CT results show no evidence of pulmonary embolism, significant airspace consolidation in the left upper lobe, mild pleural reaction and thickening at the lung bases. There is mediastinal and bronchial adenopathy. Pulmonary abnormalities essentially new compared to old exam. Adenopathy increased compared to old exam. IMPRESSION: 1. Left upper lobe pneumonia. 2. Chronic obstructive pulmonary disease with acute exacerbation. 3. Diabetes mellitus type 2. 4. Diabetic neuropathy. 5. Nicotine dependence. PLAN: Will increase the IV Solu-Medrol 60 mg q.6 hours to decrease swelling in the airways. Continue supplemental oxygen to maintain sats greater than or equal to 90%. I will consult Infectious Disease. Continue IV antibiotics. Obtain sputum for Gram stain, C and S. Add bronchodilators, add incentive spirometry with pulmonary hygiene. Patient will need a repeat CT of the chest 6 weeks after treatment for the pneumonia to follow for resolution. Continue GI and DVT prophylaxis. Replace electrolytes per protocol. Thank you for the consultation. We will follow patient closely with you making further changes as necessary. MMODL / IJN: [id number] /
[2019-03-13] MEDS ORDERED: VANCOMYCIN 1,500 MG in SODIUM CHLORIDE 0.9% 250 ML IVPB ONE (15:00)
--- NOTE | 2019-03-13 15:01 | P.CONS ---
History of Present Illness - Reason for Consult Consult date: 03/13/19 Pneumonia and bacteremia Requesting physician: Akshat Chaney - Chief Complaint Left-sided chest pain and cough with hemoptysis 1 day - History of Present Illness Patient is a 48-year-old male with past medical history significant for diabetes mellitus, patient presented to the hospital last evening with a chief complaints of left-sided chest pain that apparently started the morning of presentation to the hospital. This time the pain to be sharp in nature and almost 10 out of 10 in severity with no significant radiation it was hard for him to take a deep breath with worsening on taking a deep breath or cough the patient was have a cough mild to moderate in intensity with hemoptysis patient did have mild URI symptoms did have some chills but denies high-grade fever, or nocturia the patient was afebrile but he did have a hematocrit of 18.8 crit and has been normal, liver enzymes mildly elevated, the patient did have a CT angiogram that was negative for PE did show significant isthmus consultation in the left upper lobe with mild pleural reaction and thickening at the lung bases with midsternal and bronchial adenopathy patient did have history of penicillin ALLERGY was started on Azactam and Levaquin with a blood culture coming back positive for gram-positive cocci , infectious disease consultation for recommendations regarding antibiotic therapy Review of Systems CONSTITUTIONAL: Positive for weakness. Chills but denies high-grade Fever EYES: No complaint. ENT: As per history of present illness RESPIRATORY: As per history of present illness CARDIOVASCULAR: No complaint. GENITOURINARY: No complaint. GASTROINTESTINAL: No complaint. MUSCULOSKELETAL: No complaint. INTEGUMENTARY: No complaint. PSYCHOLOGICAL: No complaint. ENDOCRINE: No complaint. NEUROLOGIC: No complaint. 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 Past Anesthesia/Blood Transfusion Reactions: No Reported Reaction Past Psychological History: Depression Additional Psychological History / Comment(s): Pt resides with his mother. Pt's son lives there too. Pt uses a cane to ambulate. He drives. He has a glucometer. Smoking Status: Former smoker Past Alcohol Use History: None Reported Additional Past Alcohol Use History / Comment(s): Started smoking in late teens, smokes 1.5 ppd, Past Drug Use History: Marijuana Additional Drug Use History / Comment(s): States uses daily. - Past Family History Father History Unknown: Yes Family Medical History: Coronary Artery Disease (CAD) Additional Family Medical History / Comment(s): Father had CABG and never came home from the hospital. Mother History Unknown: Yes Family Medical History: Cancer, Deep Vein Thrombosis (DVT) Additional Family Medical History / Comment(s): Mother had squamous cell carcinoma. Medications and Allergies Home Medications Medication Instructions Recorded Confirmed Type Albuterol Inhaler [Ventolin Hfa 2 puff INHALATION RT-Q6H PRN 08/18/15 03/12/19 History Inhaler] glipiZIDE [Glipizide] 10 mg PO BID 08/18/15 03/12/19 History metFORMIN HCL 1,000 mg PO BID 01/30/16 03/12/19 History Cholecalciferol [Vitamin D3 (25 1,000 units PO DAILY 10/03/16 03/12/19 History Mcg = 1000 Iu)] Zinc Gluconate [Zinc] 100 mg PO DAILY 10/03/16 03/12/19 History Cyanocobalamin (Vitamin B-12) 1,000 mcg PO DAILY 11/28/17 03/12/19 History [Vitamin B-12] Aspirin EC [Ecotrin] 325 mg PO DAILY 03/12/19 03/12/19 History Fluticasone Nasal [place] [Flonase 2 spray EA NOSTRIL DAILY 03/12/19 03/12/19 Hi story Nasal [place]] Gabapentin 1,200 mg PO BID 03/12/19 03/12/19 History HYDROcodone/APAP 10-325MG [[place] 1 tab PO DAILY PRN 03/12/19 03/12/19 History 10-325] Niacin 500 mg PO DAILY 03/12/19 03/12/19 History Allergies Allergy/AdvReac Type Severity Reaction Status Date / Time Penicillins Allergy Severe Anaphylaxis Verified 03/12/19 20:45 talc Allergy Swelling Verified 03/12/19 20:45 pregabalin [From Lyrica] AdvReac Severe Stroke (no Verified 03/12/19 20:45 issue with neurontin) adhesive tape AdvReac Itching Verified 03/12/19 20:45 Physical Exam Vitals: Vital Signs Temp Pulse Pulse Resp BP BP Pulse Ox 03/13/19 12:43 64 03/13/19 12:32 60 03/13/19 11:49 96.7 F L 60 18 119/74 95 03/13/19 08:47 88 03/13/19 08:34 84 03/13/19 08:02 98.0 F 65 17 128/79 96 03/13/19 05:04 98.7 F 86 16 121/63 92 L 03/12/19 21:21 98 F 66 22 143/76 92 L 03/12/19 20:42 98.5 F 100 20 123/61 97 03/12/19 20:08 92 L 03/12/19 19:53 107 H 20 125/68 92 L 03/12/19 18:17 107 H 20 102/36 91 L 03/12/19 18:06 110 H 03/12/19 17:58 106 H 03/12/19 17:11 98.6 F 118 H 18 153/98 86 L Intake and Output 03/12/19 03/13/19 03/13/19 22:59 06:59 14:59 Intake Total 590 2280 Balance 590 2280 Intake: Intake, IV Titration 1100 Amount Aztreonam 2 gm In Sodium 100 Chloride 0.9% 100 ml @ 100 mls/hr IVPB Q8H RICH Rx#:[id number] Magnesium Sulfate-D5w Pmx 300 1 gm In Dextrose/Water 1 100ml.bag @ 100 mls/hr IVPB Q1H RICH Rx#: [id number] Sodium Chloride 0.9% 1, 700 000 ml @ 100 mls/hr IV . Q10H RICH Rx#:[id number] Oral 590 1180 Other: Voiding Method Toilet Toilet # Voids 1 1 4 Weight 90.718 kg GENERAL DESCRIPTION: Middle-aged male up in the chair, no distress. No tachypnea or accessory muscle of respiration use. HEENT: Shows Pallor , no scleral icterus. Oral mucous membrane is dry. No pharyngeal erythema or thrush NECK: Trachea central, no thyromegaly. LUNGS: Unlabored breathing. Decreased intensity of breath sounds with occasional wheeze no crackle. HEART: S1, S2, regular rate and rhythm. No loud murmur ABDOMEN: Soft, no tenderness , guarding or rigidity, no organomegaly EXTREMITIES: No edema of feet. SKIN: No rash, no masses palpable. NEUROLOGICAL: The patient is awake, alert, oriented x3, mood and affect normal. Results CBC & Chem 7: 03/12/19 17:35 03/12/19 17:35 Labs: Abnormal Lab Results - Last 24 Hours (Table) 03/12/19 03/12/19 03/12/19 Range/Units 17:35 17:35 17:35 WBC 18.8 H (3.8-10.6) k/uL Neutrophils # 15.3 H (1.3-7.7) k/uL D-Dimer 1.26 H (<0.60) mg/L FEU Glucose 150 H (74-99) mg/dL POC Glucose (mg/dL) (75-99) mg/dL Magnesium 1.2 L (1.6-2.3) mg/dL Total Bilirubin 2.3 H (0.2-1.3) mg/dL AST 16 L (17-59) U/L ALT 10 L (21-72) U/L Creatine Kinase 30 L (55-170) U/L 03/13/19 Range/Units 11:10 WBC (3.8-10.6) k/uL Neutrophils # (1.3-7.7) k/uL D-Dimer (<0.60) mg/L FEU Glucose (74-99) mg/dL POC Glucose (mg/dL) 165 H (75-99) mg/dL Magnesium (1.6-2.3) mg/dL Total Bilirubin (0.2-1.3) mg/dL AST (17-59) U/L ALT (21-72) U/L Creatine Kinase (55-170) U/L Microbiology - Last 24 Hours (Table) 03/12/19 20:20 Blood Culture - Final Blood 03/12/19 20:20 Blood Culture Gram Stain - Preliminary Blood Assessment and Plan Assessment: 1-patient with gram-positive bacteremia in this patient presents hospital with left-sided chest pain hemoptysis in this patient who did have a CT angiogram that was negative for PE did shows significant consolidation in the left upper lobe with gram-positive cocci could be strep pneumo or underlying community associated MRSA infection not entirely excluded 2-penicillin ALLERGY with hives no history of anaphylaxis (1) Gram-positive bacteremia Current Visit: Yes Status: Acute Code(s): R78.81 - BACTEREMIA SNOMED Code(s): 854653404713 (2) Community acquired bacterial pneumonia Current Visit: Yes Status: Acute Code(s): J15.9 - UNSPECIFIED BACTERIAL PNEUMONIA SNOMED Code(s): 811679913 Plan: 1-Vancomycin pharmacy to dose target trough of 15 while watching his kidney function and Vanco trough closely 2-discontinue Azactam and Rocephin 2 g daily 3-blood cultures repeated to document clearance of bacteremia 4-obtained sputum for Gram stain and culture We will follow on clinical condition and cultures to further adjust medication if needed Thank you for this consultation will follow this patient with you
[2019-03-13 17:01] LABS: Glucose,Whole Blood 407 mg/dL (75-99)
[2019-03-13] MEDS ORDERED: INSULN ASP PRT/INSULIN ASPART 100 UNIT/ML 10 ML VIAL SQ ONE (17:25)
[2019-03-13] MEDS: methylPREDNISolone SOD SUCCI 125 MG/2 ML VIAL IV SCH (17:45)
[2019-03-13] MEDS: INSULIN ASPART (NovoLOG) 100 UNIT/ML VIAL SQ SCH ×2 (17:47→20:36)
[2019-03-13 19:54] LABS: Glucose,Whole Blood 342 mg/dL (75-99)
[2019-03-13] MEDS: BUDESONIDE 0.5 MG/2 ML NEBU INHALATION SCH (20:09)
[2019-03-13] MEDS: LEVOFLOXACIN 750 MG TAB PO SCH (20:28)
[2019-03-13] MEDS: FAMOTIDINE 20 MG TAB PO SCH ×2 (20:28→20:35)
[2019-03-13] MEDS: HEPARIN SODIUM,PORCINE 5,000 UNIT/ML 1 ML VIAL SQ SCH (20:35)
[2019-03-13] MEDS ORDERED: FAMOTIDINE 20 MG/2 ML VIAL IV SCH (21:00)
[2019-03-13] MEDS ORDERED: LEVOFLOXACIN 750MG-D5W PMX 750 MG in DEXTROSE/WATER 1 150ML.BAG IVPB SCH (21:00)
[2019-03-14] MEDS: methylPREDNISolone SOD SUCCI 125 MG/2 ML VIAL IV SCH ×5 (00:10→23:53)
[2019-03-14] MEDS: MORPHINE SULFATE 4 MG/ML SYRINGE IVP PRN ×5 (00:54→20:16)
[2019-03-14 02:19] LABS: Glucose,Whole Blood 85 mg/dL (75-99)
[2019-03-14] MEDS: SODIUM CHLORIDE 0.9% 1,000 ML IV SCH ×3 (03:59→20:22)
[2019-03-14] MEDS ORDERED: VANCOMYCIN 1,500 MG in SODIUM CHLORIDE 0.9% 250 ML IVPB SCH (06:00)
[2019-03-14 06:57] LABS: Glucose,Whole Blood 155 mg/dL (75-99)
[2019-03-14 07:40] LABS: Basophils % (A) 0 %; Eosinophils % (A) 0 %; HCT 39.6 % (39.0-53.0); Lymphocytes # (A) 2.1 k/uL (1.0-4.8); Lymphocytes % (A) 16 %; MCH 29.7 pg (25.0-35.0); MCHC 32.9 g/dL (31.0-37.0); MCV 90.3 fL (80.0-100.0); Mean Platelet Volume 6.4; Monocytes # (A) 0.3 k/uL (0-1.0); Monocytes % (A) 2 %; Neutrophils # (A) 10.7 k/uL (1.3-7.7); Neutrophils % (A) 80 %; Platelet Count 171 k/uL (150-450); RBC 4.38 m/uL (4.30-5.90); WBC 13.5 k/uL (3.8-10.6)
[2019-03-14 07:57] LABS: African American GFR (CKD) >90 (>60 ml/min/1.73 sqM); Anion Gap 11 mmol/L; Blood Urea Nitrogen 20 mg/dL (9-20); Calcium 9.3 mg/dL (8.4-10.2); Carbon Dioxide 24 mmol/L (22-30); Chloride 103 mmol/L (98-107); Glucose 169 mg/dL (74-99); Magnesium 2.1 mg/dL (1.6-2.3); Non-African American GFR(CKD) >90 (>60 ml/min/1.73 sqM); Sodium 138 mmol/L (137-145)
[2019-03-14] MEDS: IPRATROPIUM-ALBUTEROL 3 ML NEB INHALATION SCH ×4 (08:13→20:11)
[2019-03-14] MEDS: BUDESONIDE 0.5 MG/2 ML NEBU INHALATION SCH ×2 (08:13→20:11)
[2019-03-14] MEDS: NICOTINE 21MG/24HR PATCH TRANSDERM SCH ×2 (08:29→08:36)
[2019-03-14] MEDS: HYDROcodone/APAP 10-325MG 1 EACH TAB PO PRN (08:30)
[2019-03-14] MEDS: GABAPENTIN 400 MG CAP PO SCH ×2 (08:30→20:17)
[2019-03-14] MEDS: CHOLECALCIFEROL 1,000 UNIT TAB PO SCH (08:30)
[2019-03-14] MEDS: CYANOCOBALAMIN 500 MCG TAB PO SCH (08:31)
[2019-03-14] MEDS: metFORMIN 500 MG TAB PO SCH ×2 (08:31→20:18)
[2019-03-14] MEDS: FAMOTIDINE 20 MG TAB PO SCH ×2 (08:31→20:18)
[2019-03-14] MEDS: FLUTICASONE 50MCG/SPRAY NASAL 16GM EA NOSTRIL SCH (08:31)
[2019-03-14] MEDS: INSULIN ASPART (NovoLOG) 100 UNIT/ML VIAL SQ SCH ×4 (08:32→20:20)
[2019-03-14] MEDS: ASPIRIN 325 MG TAB PO SCH (08:32)
[2019-03-14] MEDS: HEPARIN SODIUM,PORCINE 5,000 UNIT/ML 1 ML VIAL SQ SCH ×2 (08:32→20:18)
[2019-03-14] MEDS: glipiZIDE 10 MG TAB PO SCH ×2 (08:37→17:11)
[2019-03-14 10:58] LABS: Glucose,Whole Blood 252 mg/dL (75-99)
[2019-03-14] MEDS: VANCOMYCIN 1,500 MG in SODIUM CHLORIDE 0.9% 250 ML IVPB SCH ×2 (14:19→22:06)
--- NOTE | 2019-03-14 16:02 | PN ---
PROGRESS NOTE DATE OF SERVICE: 03/14/2019 The patient is a 48-year-old male who is seen ambulating up around the room. Does verbalize feeling better today. Shortness of breath is improved. Still coughing, a small amount of blood in his sputum. The patient is hemodynamically stable, afebrile, in no acute distress. PHYSICAL EXAM: VITAL SIGNS: Temperature 97.6, heart rate is 67, respiratory rate 16, blood pressure 95/74, O2 saturation 91% on room air HEENT. Head is normocephalic, atraumatic. Neck is supple. Trachea is midline. LUNGS: With decreased breath sounds and no wheeze on forced expiration. HEART: S1, S2 heard. Not tachycardic. ABDOMEN: Soft. Bowel sounds are positive. EXTREMITIES: With trace edema bilaterally. NEUROLOGIC: Patient is awake and alert. LABS: White count 13.5, hemoglobin is 13.0, hematocrit is 39.6 with 171,000 platelets. Sodium is 138, potassium is 5.0, chloride is 103, CO2 is 24, anion gap is 11, BUN is 20, creatinine 0.89, glucose is 169, calcium is 9.3, magnesium is 2.1. Blood cultures positive for Streptococcus pneumoniae. No new imaging to review. IMPRESSION: 1. Left upper lobe pneumonia. 2. Bacteremia. 3. Chronic obstructive pulmonary disease with acute exacerbation. 4. Diabetes mellitus type 2. 5. Diabetic neuropathy. 6. Nicotine dependence. PLAN: Continue current medications which have been reviewed. Continue supplemental oxygen to maintain sats greater than or equal to 90%. Infectious Disease is on consult for pneumonia and bacteremia. Continue current IV antibiotics. Continue bronchodilators. Continue to encourage incentive spirometry with pulmonary hygiene. Continue GI and DVT prophylaxis and we will follow patient closely with you making further changes as necessary. MMODL / IJN: [id number] /
[2019-03-14 16:47] LABS: Glucose,Whole Blood 389 mg/dL (75-99)
[2019-03-14 20:12] LABS: Glucose,Whole Blood 224 mg/dL (75-99)
[2019-03-14] MEDS: LEVOFLOXACIN 750 MG TAB PO SCH (20:17)
--- NOTE | 2019-03-14 20:38 | PN ---
PROGRESS NOTE DATE OF SERVICE: 03/14/2019. REASON FOR FOLLOWUP: Pneumonia and bacteremia. INTERVAL HISTORY: The patient is currently afebrile. The patient is breathing more comfortably. The patient's left-sided chest pain has decreased in intensity. No nausea, no vomiting. No abdominal pain. No diarrhea. PHYSICAL EXAMINATION: Blood pressure 143/87 with a pulse of 91, temperature 97.8. He is 96% on room air. General description is a middle-aged male up in the bed in no distress. Respiratory system: Unlabored breathing with decreased intensity of breath sounds. No wheeze. Heart S1, S2. Regular rate and rhythm. Abdomen soft. No tenderness. LABS: Hemoglobin 13, white count 13.5, BUN of 20, creatinine 0.89. Blood culture with strep pneumo. Sputum cultures currently pending. DIAGNOSTIC IMPRESSION AND PLAN: Patient admitted to the hospital with left lower lobe pneumonia now with evidence of strep pneumo bacteremia likely secondary to step pneumo. Patient is covered with Rocephin and vancomycin to continue while waiting for the cultures to finalize and continue with supportive care. Questions and concerns were answered. MMODL / IJN: [id number] /
[2019-03-15] MEDS ORDERED: VANCOMYCIN TROUGH DUE 1 EACH MISC MISCELLANE ONE (05:00)
[2019-03-15] MEDS: methylPREDNISolone SOD SUCCI 125 MG/2 ML VIAL IV SCH (05:42)
[2019-03-15] MEDS: VANCOMYCIN 1,500 MG in SODIUM CHLORIDE 0.9% 250 ML IVPB SCH (05:42)
[2019-03-15] MEDS: MORPHINE SULFATE 4 MG/ML SYRINGE IVP PRN ×2 (05:43→15:24)
[2019-03-15 05:44] LABS: African American GFR (CKD) >90 (>60 ml/min/1.73 sqM); Non-African American GFR(CKD) >90 (>60 ml/min/1.73 sqM)
[2019-03-15 07:08] LABS: Glucose,Whole Blood 441 mg/dL (75-99)
[2019-03-15] MEDS: INSULIN ASPART (NovoLOG) 100 UNIT/ML VIAL SQ SCH ×4 (07:30→20:16)
[2019-03-15] MEDS: glipiZIDE 10 MG TAB PO SCH ×2 (07:30→17:52)
[2019-03-15] MEDS: CHOLECALCIFEROL 1,000 UNIT TAB PO SCH (07:31)
[2019-03-15] MEDS: CYANOCOBALAMIN 500 MCG TAB PO SCH (07:31)
[2019-03-15] MEDS: ASPIRIN 325 MG TAB PO SCH (07:31)
[2019-03-15] MEDS: GABAPENTIN 400 MG CAP PO SCH ×2 (07:32→20:16)
[2019-03-15] MEDS: FLUTICASONE 50MCG/SPRAY NASAL 16GM EA NOSTRIL SCH (07:32)
[2019-03-15] MEDS: metFORMIN 500 MG TAB PO SCH ×2 (07:32→20:16)
[2019-03-15] MEDS: FAMOTIDINE 20 MG TAB PO SCH ×2 (07:33→20:16)
[2019-03-15] MEDS: NICOTINE 21MG/24HR PATCH TRANSDERM SCH (07:34)
[2019-03-15] MEDS: HEPARIN SODIUM,PORCINE 5,000 UNIT/ML 1 ML VIAL SQ SCH ×2 (07:34→19:56)
[2019-03-15] MEDS: IPRATROPIUM-ALBUTEROL 3 ML NEB INHALATION SCH ×4 (07:55→19:53)
[2019-03-15] MEDS: BUDESONIDE 0.5 MG/2 ML NEBU INHALATION SCH ×2 (07:55→19:53)
[2019-03-15] MEDS: SODIUM CHLORIDE 0.9% 1,000 ML IV SCH ×3 (09:41→20:17)
[2019-03-15] MEDS ORDERED: predniSONE 50 MG TAB PO SCH (10:45)
[2019-03-15 11:25] LABS: Glucose,Whole Blood 153 mg/dL (75-99)
--- NOTE | 2019-03-15 12:28 | PN ---
PROGRESS NOTE DATE OF SERVICE: 03/15/2019 Patient is a 48-year-old male who is seen standing up at the bedside. Awake and alert. Verbalizes feeling much better today. Cough has decreased significantly. No hemoptysis. No chest pain. The patient is eager to go home. The patient is hemodynamically stable, afebrile, in no acute distress. PHYSICAL EXAM: VITAL SIGNS: Temperature 97.6, heart rate 86, respiratory rate 16, blood pressure 164/91, and O2 saturation 96% on room air. HEENT. Head is normocephalic, atraumatic. Neck is supple. Trachea is midline. LUNGS: With improved air entry. No clear rales or wheezes. HEART: S1, S2 heard. Not tachycardic. ABDOMEN: Soft. Bowel sounds are positive. EXTREMITIES: With trace edema and melodie discoloration from vascular insufficiency. NEUROLOGIC: Patient is awake, alert, oriented, ambulating and has been ambulating throughout the morning in the hallways. LABS: Glucose this morning was 441, creatinine 0.90. Vanco trough 24.7. No new imaging to review. IMPRESSION: 1. Left upper lobe pneumonia. 2. Bacteremia. 3. Chronic obstructive pulmonary disease with acute exacerbation. 4. Diabetes mellitus type 2, uncontrolled. 5. Diabetic neuropathy. 6. Nicotine dependence. PLAN: Will stop the IV Solu-Medrol and start patient on oral prednisone. Continue antibiotics per Infectious Disease. Continue bronchodilators and aerosol steroids. The patient will follow up in the Pulmonary office on Saturday should he be discharged home today. The patient verbalized understanding. Smoking cessation is highly recommended. We will continue to follow patient closely with you making further changes as necessary. MMODL / IJN: [id number] /
[2019-03-15] MEDS: HYDROcodone/APAP 10-325MG 1 EACH TAB PO PRN (13:19)
[2019-03-15 17:07] LABS: Glucose,Whole Blood 138 mg/dL (75-99)
--- NOTE | 2019-03-15 17:40 | PN ---
PROGRESS NOTE DATE OF SERVICE: 03/15/2019. REASON FOR FOLLOWUP: Strep pneumo bacteremia and pneumonia. INTERVAL HISTORY: The patient is currently afebrile. The patient is breathing comfortably. The patient's left sided chest pain has improved. The cough has decreased in intensity. Still bring up sputum, but no further hemoptysis. No nausea, no vomiting. No abdominal pain. No diarrhea. PHYSICAL EXAMINATION: Blood pressure is 164/91 with a pulse of 86, temperature 97.6. He is 96% on room air. General description is a middle-aged male up in the chair in no distress. Respiratory system: Unlabored breathing. Decreased breath sounds at bases. No wheeze. Heart S1, S2. Regular rate and rhythm. ABDOMEN: Soft, no tenderness. Extremities: No edema of the feet. LAB: No new labs have been obtained today. Sensitivity on the strep pneumo is sensitive to pathogen. Blood culture obtained 03/13 has been negative so far. DIAGNOSTIC IMPRESSION AND PLAN: Patient with strep pneumo bacteremia, source is likely pneumonia. This patient did present to the hospital with consolidation left upper lobe. In view of extensive pneumonia bacteremia, the patient will need IV antibiotic therapy on discharge. We will order the midline for tomorrow and Rocephin 2 g daily for another 12 days with close outpatient followup. MMODL / IJN: [id number] /
[2019-03-15 19:50] LABS: Glucose,Whole Blood 151 mg/dL (75-99)
[2019-03-15] MEDS: LEVOFLOXACIN 750 MG TAB PO SCH (20:16)
[2019-03-15] MEDS ORDERED: VANCOMYCIN 1,500 MG in SODIUM CHLORIDE 0.9% 250 ML IVPB SCH (21:00)
--- NOTE | 2019-03-15 23:02 | P.PN ---
Subjective Progress Note Date: 03/14/19 Principal diagnosis: Pneumonia Acute COPD exacerbation Streptococcal bacteremia This is a pleasant 48 years old male with past medical history of COPD, CVA/TIA, diabetes mellitus, deep venous thrombosis, hyperlipidemia, pneumonia, type 2 diabetes mellitus, diabetic neuropathy, occasional difficulty swallowing and aspiration pneumonia. Patient presents this time of 1 day of severe chest pain in his left side about 10/10 in severity sharp increased by breathing and coughing which looks like pleuritic associated with hemoptysis, he got about less than half of cup throughout the whole day, associated with some dyspnea. Patient is current cigarette smoker about 1.5 PPD however he decided to quit couple days ago because he starts coughing up blood as per patient. He denies alcohol and he uses marijuana occasionally. 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 INR 0.9, d-dimer is 1.2, BNP is unremarkable, magnesium low at 1.2, elevated bilirubin at 2.3, liver enzymes not elevated, creatinine is normal at 1.0, troponin 0.019, pro-BNP is 1760. EKG showing sinus tachycardia at 122 with PVC On admission patient was started on bronchodilator, aztreonam and levofloxacin, also was started on normal saline at 100 mL per hour after receiving 2 L of Allises. Maps checked and he was prescribed [place] 10-325 milligrams as 30 tablets for 30 on 02/10/2019 03/14/2019 Patient breathing status is better today. Still having wheezing and diffuse rhonchi and coarse breath sounds. Exertional dyspnea present. No compressive chest pain. Blood cultures grew streptococcal pneumonia. Currently being continued on antibiotics in the form of ceftriaxone and vancomycin. ID is following. Pulmonary is on board. Continued on IV steroids and breathing treatments and events. Patient has been afebrile. Improving leukocytosis to 13.5. Current medications reviewed. Objective - Vital Signs Vital signs: Vital Signs Temp 97.8 F 03/14/19 13:07 Pulse 91 03/14/19 13:07 Resp 16 03/14/19 13:07 BP 143/87 03/14/19 13:07 Pulse Ox 96 03/14/19 13:07 Intake & Output 03/13/19 03/14/19 03/14/19 18:59 06:59 18:59 Intake Total 2280 1780 Balance 2280 1780 Intake: Intake, IV Titration 1100 900 Amount Aztreonam 2 gm In Sodium 100 Chloride 0.9% 100 ml @ 100 mls/hr IVPB Q8H R[facility] Rx#:[id number] Magnesium Sulfate-D5w Pmx 300 1 gm In Dextrose/Water 1 100ml.bag @ 100 mls/hr IVPB Q1H R[facility] Rx#: [id number] Sodium Chloride 0.9% 1, 700 900 000 ml @ 100 mls/hr IV . Q10H RICH Rx#:[id number] Oral 1180 880 Other: Voiding Method Toilet Toilet # Voids 3 1 2 - Exam PHYSICAL EXAMINATION: Patient is lying in the bed comfortably, no acute distress, awake alert and oriented.. HEENT: Normocephalic. Neck is supple. Pupils reactive. Nostrils clear. Oral cavity is moist. Ears reveal no drainage. Neck reveals no JVD, carotid bruits, or thyromegaly. CHEST EXAMINATION: Trachea is central. Symmetrical expansion. Bilateral diffuse rhonchi and expiratory wheeze. Coarse breath sounds.. CARDIAC: Normal S1, S2 with no gallops. No murmurs ABDOMEN: Soft. Bowel sounds normal. No organomegaly. No abdominal bruits. Extremities: reveal no edema. No clubbing or cyanosis Neurologically awake, alert, oriented x3 with well-coordinated movements. No focal deficits noted Skin: No rash or skin lesions. Psychiatric: Coperative. Nonsuicidal Musculoskeletal: No joint swelling or deformity. Normal range of motion. - Labs CBC & Chem 7: 03/14/19 07:04 03/15/19 05:18 Labs: Abnormal Lab Results - Last 24 Hours (Table) 03/13/19 03/14/19 03/14/19 Range/Units 19:52 06:56 07:04 WBC (3.8-10.6) k/uL Neutrophils # (1.3-7.7) k/uL Glucose 169 H (74-99) mg/dL POC Glucose (mg/dL) 342 H 155 H (75-99) mg/dL 03/14/19 03/14/19 03/14/19 Range/Units 07:04 10:57 16:45 WBC 13.5 H (3.8-10.6) k/uL Neutrophils # 10.7 H (1.3-7.7) k/uL Glucose (74-99) mg/dL POC Glucose (mg/dL) 252 H 389 H (75-99) mg/dL Microbiology - Last 24 Hours (Table) 03/13/19 14:55 Blood Culture - Preliminary Blood No Growth after 24 hours 03/13/19 12:35 Gram Stain - Preliminary Sputum Sputum Culture - Preliminary 03/12/19 20:20 Blood Culture Gram Stain - Preliminary Blood Blood Culture - Preliminary Streptococcus pneumoniae Assessment and Plan Assessment: -Recurrent pneumonia, this time is left upper lobe pneumonia with mediastinal and bronchial lymphadenopathy and some pleural thickening. Patient will need repeat scan to rule out underlying mass most pneumonia and post.. 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 He is not on any blood thinners currently -Hyperlipidemia Plan: This is a pleasant 48 years old male who presents with left upper lobe pneumonia and lymphadenopathy of the mediastinal and bronchial area, continue with antibiotics, follow-up blood and Sputum culture. Continue with IV fluids. Consult pulmonary. Labs and medication were reviewed.. Continue same treatment. Continue with symptomatic treatment. Resume home medication. Monitor lytes and vitals. DVT and GI prophylaxis. Further recommendations of the clinical course of the patient DVT prophylaxis: Subcutaneous heparin. Patient is high-risk for thrombosis, sta rted on subcu heparin, in case if his hemoptysis persists or worsens, hemoglobin dropped then stop the heparin. GI Prophylaxis: Pepcid Prognosis is guarded Time with Patient: Greater than 30
--- NOTE | 2019-03-15 23:14 | P.PN ---
Subjective Progress Note Date: 03/15/19 Principal diagnosis: Pneumonia Acute COPD exacerbation Streptococcal bacteremia This is a pleasant 48 years old male with past medical history of COPD, CVA/TIA, diabetes mellitus, deep venous thrombosis, hyperlipidemia, pneumonia, type 2 diabetes mellitus, diabetic neuropathy, occasional difficulty swallowing and aspiration pneumonia. Patient presents this time of 1 day of severe chest pain in his left side about 10/10 in severity sharp increased by breathing and coughing which looks like pleuritic associated with hemoptysis, he got about less than half of cup throughout the whole day, associated with some dyspnea. Patient is current cigarette smoker about 1.5 PPD however he decided to quit couple days ago because he starts coughing up blood as per patient. He denies alcohol and he uses marijuana occasionally. 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 INR 0.9, d-dimer is 1.2, BNP is unremarkable, magnesium low at 1.2, elevated bilirubin at 2.3, liver enzymes not elevated, creatinine is normal at 1.0, troponin 0.019, pro-BNP is 1760. EKG showing sinus tachycardia at 122 with PVC On admission patient was started on bronchodilator, aztreonam and levofloxacin, also was started on normal saline at 100 mL per hour after receiving 2 L of Allises. Maps checked and he was prescribed [place] 10-325 milligrams as 30 tablets for 30 on 02/10/2019 03/14/2019 Patient breathing status is better today. Still having wheezing and diffuse rhonchi and coarse breath sounds. Exertional dyspnea present. No compressive chest pain. Blood cultures grew streptococcal pneumonia. Currently being continued on antibiotics in the form of ceftriaxone and vancomycin. ID is following. Pulmonary is on board. Continued on IV steroids and breathing treatments and events. Patient has been afebrile. Improving leukocytosis to 13.5. 03/15/2019 Patient's breathing status is much improved today. Mild expiratory wheeze. Otherwise patient is being continued on antibiotics for streptococcal pneumonia bacteremia. Patient will need IV antibiotics as per ID. Patient has been afebrile. Steroids will be changed to by mouth. Continue on breathing treatments. Pulmonary is following. Patient was to follow-up with outpatient clinic for repeat imaging. Anticipate discharge next 24 hours with ID final recommendations. Current medications reviewed. Objective - Vital Signs Vital signs: Vital Signs Temp 97.6 F 03/15/19 05:09 Pulse 80 03/15/19 16:00 Resp 16 03/15/19 16:00 BP 164/91 03/15/19 05:09 Pulse Ox 96 03/15/19 05:09 Intake & Output 03/15/19 03/15/19 03/16/19 06:59 18:59 06:59 Intake Total 2360 2532 Balance 2360 2532 Intake: Intake, IV Titration 1552 Amount Sodium Chloride 0.9% 1, 300 000 ml @ 100 mls/hr IV . Q10H [facility] Rx#:[id number] Vancomycin 1,500 mg In 250 Sodium Chloride 0.9% 250 ml @ 125 mls/hr IVPB Q12H [facility] Rx#:[id number] cefTRIAXone 2 gm In 1002 Sodium Chloride 0.9% 50 ml @ 100 mls/hr IVPB Q24H [facility] Rx#:[id number] Oral 2360 980 Other: Voiding Method Toilet Toilet # Voids 2 4 # Bowel Movements 1 1 - Exam PHYSICAL EXAMINATION: Patient is lying in the bed comfortably, no acute distress, awake alert and oriented.. HEENT: Normocephalic. Neck is supple. Pupils reactive. Nostrils clear. Oral cavity is moist. Ears reveal no drainage. Neck reveals no JVD, carotid bruits, or thyromegaly. CHEST EXAMINATION: Trachea is central. Symmetrical expansion. Mild expiratory wheeze. No rhonchi no crackles.. CARDIAC: Normal S1, S2 with no gallops. No murmurs ABDOMEN: Soft. Bowel sounds normal. No organomegaly. No abdominal bruits. Extremities: reveal no edema. No clubbing or cyanosis Neurologically awake, alert, oriented x3 with well-coordinated movements. No focal deficits noted Skin: No rash or skin lesions. Psychiatric: Coperative. Nonsuicidal Musculoskeletal: No joint swelling or deformity. Normal range of motion. - Labs CBC & Chem 7: 03/14/19 07:04 03/15/19 05:18 Labs: Abnormal Lab Results - Last 24 Hours (Table) 03/15/19 03/15/19 03/15/19 Range/Units 07:07 11:24 17:05 POC Glucose (mg/dL) 441 H 153 H 138 H (75-99) mg/dL 03/15/19 Range/Units 19:49 POC Glucose (mg/dL) 151 H (75-99) mg/dL Microbiology - Last 24 Hours (Table) 03/13/19 14:55 Blood Culture - Preliminary Blood No Growth after 48 hours 03/13/19 12:35 Gram Stain - Final Sputum Sputum Culture - Final 03/12/19 20:20 Blood Culture Gram Stain - Final Blood Blood Culture - Final Streptococcus pneumoniae Assessment and Plan Assessment: -Recurrent pneumonia, this time is left upper lobe pneumonia with mediastinal and bronchial lymphadenopathy and some pleural thickening. Patient will need repeat scan to rule out underlying mass most pneumonia and post.. 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 He is not on any blood thinners currently -Hyperlipidemia Plan: This is a pleasant 48 years old male who presents with left upper lobe pneumonia and lymphadenopathy of the mediastinal and bronchial area, continue with antibiotics, follow-up blood and Sputum culture. Continue with IV fluids. Consult pulmonary. Labs and medication were reviewed.. Continue same treatment. Continue with symptomatic treatment. Resume home medication. Monitor lytes and vitals. DVT and GI prophylaxis. Further recommendations of the clinical course of the patient DVT prophylaxis: Subcutaneous heparin. Patient is high-risk for thrombosis, started on subcu heparin, in case if his hemoptysis persists or worsens, hemoglobin dropped then stop the heparin. GI Prophylaxis: Pepcid Prognosis is guarded Time with Patient: Greater than 30
[2019-03-16] MEDS: MORPHINE SULFATE 4 MG/ML SYRINGE IVP PRN ×4 (03:36→20:49)
[2019-03-16] MEDS ORDERED: LORazepam 2 MG/ML INJ IV STA (06:34)
[2019-03-16 07:11] LABS: Glucose,Whole Blood 92 mg/dL (75-99)
[2019-03-16] MEDS: INSULIN ASPART (NovoLOG) 100 UNIT/ML VIAL SQ SCH ×4 (07:11→20:48)
[2019-03-16] MEDS: FAMOTIDINE 20 MG TAB PO SCH ×2 (07:42→20:47)
[2019-03-16] MEDS: ASPIRIN 325 MG TAB PO SCH (07:42)
[2019-03-16] MEDS: NICOTINE 21MG/24HR PATCH TRANSDERM SCH (07:42)
[2019-03-16] MEDS: glipiZIDE 10 MG TAB PO SCH ×2 (07:43→17:40)
[2019-03-16] MEDS: CYANOCOBALAMIN 500 MCG TAB PO SCH (07:43)
[2019-03-16] MEDS: metFORMIN 500 MG TAB PO SCH ×2 (07:43→17:40)
[2019-03-16] MEDS: GABAPENTIN 400 MG CAP PO SCH ×2 (07:43→20:47)
[2019-03-16] MEDS: FLUTICASONE 50MCG/SPRAY NASAL 16GM EA NOSTRIL SCH (07:44)
[2019-03-16] MEDS: CHOLECALCIFEROL 1,000 UNIT TAB PO SCH (07:44)
[2019-03-16] MEDS: HEPARIN SODIUM,PORCINE 5,000 UNIT/ML 1 ML VIAL SQ SCH ×3 (07:44→21:00)
[2019-03-16] MEDS: predniSONE 10 MG TAB PO SCH (07:51)
[2019-03-16] MEDS: BUDESONIDE 0.5 MG/2 ML NEBU INHALATION SCH ×2 (08:00→19:54)
[2019-03-16] MEDS: IPRATROPIUM-ALBUTEROL 3 ML NEB INHALATION SCH ×4 (08:00→19:54)
--- NOTE | 2019-03-16 08:39 | P.PN ---
Subjective This is a pleasant 48 years old male with past medical history of COPD, CVA/TIA, diabetes mellitus, deep venous thrombosis, hyperlipidemia, pneumonia, type 2 diabetes mellitus, diabetic neuropathy, occasional difficulty swallowing and aspiration pneumonia. Patient presents this time of 1 day of severe chest pain in his left side about 10/10 in severity sharp increased by breathing and coughing which looks like pleuritic associated with hemoptysis, he got about less than half of cup throughout the whole day, associated with some dyspnea. Patient is current cigarette smoker about 1.5 PPD however he decided to quit couple days ago because he starts coughing up blood as per patient. He denies alcohol and he uses marijuana occasionally. 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 INR 0.9, d-dimer is 1.2, BNP is unremarkable, magnesium low at 1.2, elevated bilirubin at 2.3, liver enzymes not elevated, creatinine is normal at 1.0, troponin 0.019, pro-BNP is 1760. EKG showing sinus tachycardia at 122 with PVC On admission patient was started on bronchodilator, aztreonam and levofloxacin, also was started on normal saline at 100 mL per hour after receiving 2 L of Allises. Maps checked and he was prescribed [place] 10-325 milligrams as 30 tablets for 30 on 02/10/2019 03/14/2019 Patient breathing status is better today. Still having wheezing and diffuse rhonchi and coarse breath sounds. Exertional dyspnea present. No compressive chest pain. Blood cultures grew streptococcal pneumonia. Currently being continued on antibiotics in the form of ceftriaxone and vancomycin. ID is foll owing. Pulmonary is on board. Continued on IV steroids and breathing treatments and events. Patient has been afebrile. Improving leukocytosis to 13.5. 03/15/2019 Patient's breathing status is much improved today. Mild expiratory wheeze. Otherwise patient is being continued on antibiotics for streptococcal pneumonia bacteremia. Patient will need IV antibiotics as per ID. Patient has been af ebrile. Steroids will be changed to by mouth. Continue on breathing treatments. Pulmonary is following. Patient was to follow-up with outpatient clinic for repeat imaging. Anticipate discharge next 24 hours with ID final recommendations. 03/16/2019 Patient breathing is much improved, and his cough is minimal. He denies chest pain. However has blood pressure was on the high side earlier this morning at 210/102, currently 166/90. Her his steroids from 5 to 30, start him on Norvasc 5 mg daily Objective - Vital Signs Vital signs: Vital Signs Temp 97.3 F L 03/16/19 05:38 Pulse 79 03/16/19 05:38 Resp 16 03/16/19 05:38 BP 166/90 03/16/19 07:40 Pulse Ox 90 L 03/16/19 05:38 Intake & Output 03/15/19 03/16/19 03/16/19 18:59 06:59 18:59 Intake Total 25310 Balance 25310 Intake: Intake, IV Titration 1552 900 Amount Sodium Chloride 0.9% 1, 300 900 000 ml @ 100 mls/hr IV . Q10H [facility] Rx#:[id number] Vancomycin 1,500 mg In 250 Sodium Chloride 0.9% 250 ml @ 125 mls/hr IVPB Q12H [facility] Rx#:[id number] cefTRIAXone 2 gm In 1002 Sodium Chloride 0.9% 50 ml @ 100 mls/hr IVPB Q24H [facility] Rx#:[id number] Oral 980 1180 Other: Voiding Method Toilet Toilet # Voids 4 3 # Bowel Movements 1 - Exam GENERAL: The patient is alert and oriented x3, not in any acute distress. Well developed, well nourished. HEENT: Pupils are round and equally reacting to light. EOMI. No scleral icterus. No conjunctival pallor. Normocephalic, atraumatic. No pharyngeal erythema. No thyromegaly. CARDIOVASCULAR: S1 and S2 present. No murmurs, rubs, or gallops. -PULMONARY: Chest is clear to auscultation, no wheezing or crackles. Mildly Decreased breath sounds in the left upper area ABDOMEN: Soft, nontender, nondistended, normoactive bowel sounds. No palpable organomegaly. MUSCULOSKELETAL: No joint swelling or deformity. EXTREMITIES: No cyanosis, clubbing, or pedal edema. NEUROLOGICAL: Gross neurological examination did not reveal any focal deficits. SKIN: No rashes. no petechiae. - Labs CBC & Chem 7: 03/14/19 07:04 03/15/19 05:18 Labs: Abnormal Lab Results - Last 24 Hours (Table) 03/15/19 03/15/1919 Range/Units 11:24 17:05 19:49 POC Glucose (mg/dL) 153 H 138 H 151 H (75-99) mg/dL Microbiology - Last 24 Hours (Table) 03/13/19 14:55 Blood Culture - Preliminary Blood No Growth after 48 hours 03/13/19 12:35 Gram Stain - Final Sputum Sputum Culture - Final Assessment and Plan Assessment: -Recurrent pneumonia, this time is left upper lobe pneumonia with mediastinal and bronchial lymphadenopathy and some pleural thickening. Also has a presentation is suspicious for cancer and patient has been informed -systemic inflammatory response with tachycardia, tachypnea and leukocytosis -Sepsis secondary to pneumonia -Hypertensive urgency -Patient with COPD exacerbation -Hypomagnesemia -History of previous strokes with difficulty reading, it happens about 2 years ago and he follow-up with Dr. Gallegos circulation librarian for this reason -Diabetes mellitus type 2 -Diabetic neuropathy -History of deep venous thrombosis in 2003, he took Coumadin for about 6 months. He is not on any blood thinners currently -Hyperlipidemia Plan: This is a pleasant 48 years old male who presents with left upper lobe pneumonia and lymphadenopathy of the mediastinal and bronchial area, continue with antibiotics, patient will need IV antibiotics with Rocephin upon discharge, he will need midline, as per ID team recommendation. Also was started him on Norv asc 5 mg daily, taper steroids gradually. Follow-up as an outpatient upon discharge Labs and medication were reviewed.. Continue same treatment. Continue with symptomatic treatment. Resume home medication. Monitor lytes and vitals. DVT and GI prophylaxis. Further recommendations of the clinical course of the patient DVT prophylaxis: Subcutaneous heparin. Patient is high-risk for thrombosis, started on subcu heparin, in case if his hemoptysis persists or worsens, hemoglobin dropped then stop the heparin. GI Prophylaxis: Pepcid Prognosis is guarded
[2019-03-16] MEDS ORDERED: amLODIPine 5 MG TAB PO SCH ×2 (09:00→20:00)
[2019-03-16 09:21] LABS: Basophils # (A) 0.1 k/uL (0-0.2); Basophils % (A) 0 %; Eosinophils % (A) 0 %; HCT 39.9 % (39.0-53.0); HGB 12.9 gm/dL (13.0-17.5); Lymphocytes # (A) 4.4 k/uL (1.0-4.8); Lymphocytes % (A) 33 %; MCH 29.3 pg (25.0-35.0); MCHC 32.4 g/dL (31.0-37.0); MCV 90.4 fL (80.0-100.0); Mean Platelet Volume 6.9; Monocytes # (A) 0.6 k/uL (0-1.0); Monocytes % (A) 5 %; Neutrophils # (A) 7.8 k/uL (1.3-7.7); Neutrophils % (A) 59 %; Platelet Count 187 k/uL (150-450); RBC 4.42 m/uL (4.30-5.90); RDW 14.2 % (11.5-15.5); WBC 13.3 k/uL (3.8-10.6)
[2019-03-16 09:50] LABS: African American GFR (CKD) >90 (>60 ml/min/1.73 sqM); Anion Gap 10 mmol/L; Blood Urea Nitrogen 21 mg/dL (9-20); Calcium 9.4 mg/dL (8.4-10.2); Carbon Dioxide 27 mmol/L (22-30); Chloride 103 mmol/L (98-107); Glucose 90 mg/dL (74-99); Non-African American GFR(CKD) >90 (>60 ml/min/1.73 sqM); Sodium 140 mmol/L (137-145)
[2019-03-16 11:28] LABS: Glucose,Whole Blood 141 mg/dL (75-99)
--- NOTE | 2019-03-16 15:20 | P.PN ---
Subjective Progress Note Date: 03/16/19 Principal diagnosis: Left upper lobe pneumonia, systemic inflammatory response due to pneumonia, sepsis, hypertensive urgency, COPD exacerbation, electrolyte imbalance with hypomagnesemia, prior history of strokes, diabetes type 2, diabetic neuropathy, deep venous thrombosis, by history, dyslipidemia 03/16/2019, patient seen eval reexamined labs reviewed medications reviewed co ugh congestion shortness of breath has improved Agri with discharge planning on oral antibiotics and oral steroids patient sees Dr. SHELL kulkarni on outpatient basis and recommend follow-up with him Objective - Vital Signs Vital signs: Vital Signs Temp 97.5 F L 03/16/19 12:02 Pulse 87 03/16/19 12:02 Resp 16 03/16/19 12:02 BP 161/90 03/16/19 12:02 Pulse Ox 95 03/16/19 12:02 Intake & Output 03/15/19 03/16/19 03/16/19 18:59 06:59 18:59 Intake Total 2532 2080 Balance 2532 2080 Intake: Intake, IV Titration 1552 900 Amount Sodium Chloride 0.9% 1, 300 900 000 ml @ 100 mls/hr IV . Q10H RICH Rx#:[id number] Vancomycin 1,500 mg In 250 Sodium Chloride 0.9% 250 ml @ 125 mls/hr IVPB Q12H RICH Rx#:[id number] cefTRIAXone 2 gm In 1002 Sodium Chloride 0.9% 50 ml @ 100 mls/hr IVPB Q24H RICH Rx#:[id number] Oral 980 1180 Other: Voiding Method Toilet Toilet # Voids 4 3 3 # Bowel Movements 1 - Exam GENERAL: The patient is alert and oriented x3, not in any acute distress. Well developed, well nourished. HEENT: Pupils are round and equally reacting to light. EOMI. No scleral icterus. No conjunctival pallor. Normocephalic, atraumatic. No pharyngeal erythema. No thyromegaly. CARDIOVASCULAR: S1 and S2 present. No murmurs, rubs, or gallops. -PULMONARY: Chest is clear to auscultation, no wheezing or crackles. Mildly Decreased breath sounds in the left upper area ABDOMEN: Soft, nontender, nondistended, normoactive bowel sounds. No palpable organomegaly. MUSCULOSKELETAL: No joint swelling or deformity. EXTREMITIES: No cyanosis, clubbing, or pedal edema. NEUROLOGICAL: Gross neurological examination did not reveal any focal deficits. SKIN: No rashes. no petechiae. - Labs CBC & Chem 7: 03/16/19 08:10 03/16/19 08:10 Labs: Abnormal Lab Results - Last 24 Hours (Table) 03/15/19 03/15/19 03/16/19 Range/Units 17:05 19:49 08:10 WBC 13.3 H (3.8-10.6) k/uL Hgb 12.9 L (13.0-17.5) gm/dL Neutrophils # 7.8 H (1.3-7.7) k/uL BUN (9-20) mg/dL POC Glucose (mg/dL) 138 H 151 H (75-99) mg/dL 03/16/19 03/16/19 Range/Units 08:10 11:27 WBC (3.8-10.6) k/uL Hgb (13.0-17.5) gm/dL Neutrophils # (1.3-7.7) k/uL BUN 21 H (9-20) mg/dL POC Glucose (mg/dL) 141 H (75-99) mg/dL Microbiology - Last 24 Hours (Table) 03/12/19 20:20 Blood Culture Gram Stain - Final Blood Blood Culture - Final Streptococcus pneumoniae 03/13/19 14:55 Blood Culture - Preliminary Blood No Growth after 48 hours 03/13/19 12:35 Gram Stain - Final Sputum Sputum Culture - Final Assessment and Plan Assessment: Recurrent pneumonia involving left upper lobe Sepsis secondary pneumonia Hypertensive urgency COPD exacerbation History of DVT Hypertension hypertensive cardiovascular disease 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 SHELL kulkarni Time with Patient: Greater than 30
--- NOTE | 2019-03-16 16:05 | PN ---
PROGRESS NOTE DATE OF SERVICE: 03/16/2019. REASON FOR FOLLOWUP: Strep pneumo bacteremia and pneumonia. INTERVAL HISTORY: The patient was seen on rounds this morning. The patient has been afebrile, has currently been comfortable. The patient did have a cough with occasional sputum. No hemoptysis. No nausea, no vomiting. No abdominal pain. No diarrhea. PHYSICAL EXAMINATION: Blood pressure is 151/90 with a pulse of 87, temperature of 97.5. She is 95% on room air. General description is a middle-aged male up in the room in no distress. Respiratory system: Unlabored breathing. Decreased intensity of breath sounds. No wheeze. Heart S1, S2. Regular rate and rhythm. Abdomen soft. No tenderness. LABS: Hemoglobin is 12.8, white count 13.3, BUN of 21, creatinine 0.96. Blood culture repeat has been negative. DIAGNOSTIC IMPRESSION AND PLAN: Patient with Strep pneumo bacteremia secondary to extensive left upper lobe pneumonia. The patient clinically responded to Rocephin that will be continued for another 2 weeks in view of extensive pneumonia and close outpatient followup. Prescription has been provided for the patient. MMODL / IJN: [id number] /
[2019-03-16 17:25] LABS: Glucose,Whole Blood 204 mg/dL (75-99)
[2019-03-16] MEDS: SODIUM CHLORIDE 0.9% 1,000 ML IV SCH (17:34)
[2019-03-16 19:53] LABS: Glucose,Whole Blood 225 mg/dL (75-99)
[2019-03-16] MEDS: LEVOFLOXACIN 750 MG TAB PO SCH (20:47)
[2019-03-16 21:05] VITALS: RESP 18
[2019-03-17] MEDS ORDERED: MORPHINE SULFATE 4 MG/ML SYRINGE ONE (03:05)
[2019-03-17 05:02] LABS: Glucose,Whole Blood 84 mg/dL (75-99)
[2019-03-17 05:37] VITALS: PULSE 73; TEMP 98
[2019-03-17 07:15] LABS: Glucose,Whole Blood 86 mg/dL (75-99)
[2019-03-17] MEDS: FAMOTIDINE 20 MG TAB PO SCH (07:46)
[2019-03-17] MEDS: INSULIN ASPART (NovoLOG) 100 UNIT/ML VIAL SQ SCH (07:46)
[2019-03-17] MEDS: HEPARIN SODIUM,PORCINE 5,000 UNIT/ML 1 ML VIAL SQ SCH (07:46)
[2019-03-17] MEDS: NICOTINE 21MG/24HR PATCH TRANSDERM SCH (07:47)
[2019-03-17] MEDS: BUDESONIDE 0.5 MG/2 ML NEBU INHALATION SCH (08:02)
[2019-03-17] MEDS: IPRATROPIUM-ALBUTEROL 3 ML NEB INHALATION SCH (08:02)
[2019-03-17 08:06] VITALS: BP 182/90
[2019-03-17] MEDS: FLUTICASONE 50MCG/SPRAY NASAL 16GM EA NOSTRIL SCH (08:22)
[2019-03-17] MEDS: CYANOCOBALAMIN 500 MCG TAB PO SCH (08:23)
[2019-03-17] MEDS: CHOLECALCIFEROL 1,000 UNIT TAB PO SCH (08:23)
[2019-03-17] MEDS: metFORMIN 500 MG TAB PO SCH (08:23)
[2019-03-17] MEDS: predniSONE 10 MG TAB PO SCH (08:23)
[2019-03-17] MEDS: ASPIRIN 325 MG TAB PO SCH (08:23)
[2019-03-17] MEDS: GABAPENTIN 400 MG CAP PO SCH (08:23)
[2019-03-17] MEDS: glipiZIDE 10 MG TAB PO SCH (08:24)
[2019-03-17] MEDS ORDERED: amLODIPine 10 MG TAB PO SCH (09:00)
--- NOTE | 2019-04-13 00:03 | P.DS ---
Providers Date of admission: 03/12/19 20:09 Attending physician: Saba Jauregui Consults: 03/13/19 09:33 Consult Physician Routine Consulting Provider: Akshat Chaney Consult Reason/Comments: COPD, hemoptysis Do you want consulting provider notified?: Yes 03/13/19 10:56 Consult Physician Urgent Consulting Provider: Shae Lacy Consult Reason/Comments: pneumonia/ positive blood cultures Do you want consulting provider notified?: Yes Primary care physician: [facility] Course: Diagnoses: -Recurrent pneumonia, this time is left upper lobe pneumonia with mediastinal and bronchial lymphadenopathy and some pleural thickening. Also has a presentation is suspicious for cancer and patient has been informed -systemic inflammatory response with tachycardia, tachypnea and leukocytosis -Sepsis secondary to pneumonia -Streptococcus pneumoniae septicemia, secondary to above -Hypertensive urgency, improved -Patient with acute COPD exacerbation -Hypomagnesemia, improved -History of previous strokes with difficulty reading, it happens about 2 years ago and he follow-up with Dr. Gallegos practice clinician for this reason -Diabetes mellitus type 2 -Nicotine dependence -Diabetic neuropathy -History of deep venous thrombosis in 2003, he took Coumadin for about 6 months. He is not on any blood thinners currently -Hyperlipidemia Hospital course: This is a pleasant 48 years old male with past medical history of COPD, CVA/TIA, diabetes mellitus, deep venous thrombosis, hyperlipidemia, pneumonia, type 2 diabetes mellitus, diabetic neuropathy, occasional difficulty swallowing and aspiration pneumonia. Patient presents this time of 1 day of severe chest pain in his left side about 10/10 in severity sharp increased by breathing and coughing which looks like pleuritic associated with hemoptysis, associated with some dyspnea. 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 Patient was diagnosed with left upper lobe pneumonia with lymphadenopathy, his pneumonia was significantly moderate to severe, he is been treated with antibiotics with ceftriaxone and steroids and IV hydration, patient showed interval improvement and his respiratory symptoms are improved significantly. However due to the severity of his infection and septicemia he will need prolonged course of IV antibiotics for about 2 weeks as per ID recommendation. His blood pressure was on the high side however is better controlled prior to discharge, patient was started on Norvasc. On the day of discharge patient respiratory symptoms improved significantly, he denies chest pain, no abdominal pain or nausea vomiting, his tolerating diet well. No change in urine or bowel habits. No fever. Patient was eager to go home. Patient was cleared for discharge by both infectious and pulmonary team's Problems and management plan were discussed with the patient and he verbalized understanding and acceptance. Patient was instructed also to follow-up with his welt beater in 1-2 weeks and he agrees Patient was found stable and can be discharged home however he needs follow-up as an outpatient. Patient was instructed to follow up with PCP within one week and patient agrees, pt agrees with appointments made for him with his pcp and welt beater and states he will follow up Gen: patient is a AAOx3, no distress CVS: S1-S2, RRR, no murmur Lungs: B/L CTA, no wheezing Abdomen: soft, no distention, no tenderness, positive bowel sounds Extremity: no leg edema or induration Time spent more than 35 minutes Patient Condition at Discharge: Fair Plan - Discharge Summary New Discharge Prescriptions: New predniSONE See Taper PO DIRECTED #30 tab cefTRIAXone [Rocephin] 2,000 mg IVP Q24HR #14 vial Nicotine 21Mg/24Hr Patch [Habitrol] 1 patch TRANSDERM DAILY #30 patch amLODIPine [Norvasc] 10 mg PO DAILY #30 tab Famotidine [Pepcid] 20 mg PO Q12HR #30 tab Continue Albuterol Inhaler [Ventolin Hfa Inhaler] 2 puff INHALATION RT-Q6H PRN PRN Reason: Shortness Of Breath glipiZIDE [Glipizide] 10 mg PO BID metFORMIN HCL 1,000 mg PO BID Cholecalciferol [Vitamin D3 (25 Mcg = 1000 Iu)] 1,000 units PO DAILY Zinc Gluconate [Zinc] 100 mg PO DAILY Cyanocobalamin (Vitamin B-12) [Vitamin B-12] 1,000 mcg PO DAILY Aspirin EC [Ecotrin] 325 mg PO DAILY Niacin 500 mg PO DAILY HYDROcodone/APAP 10-325MG [[place] 10-325] 1 tab PO DAILY PRN PRN Reason: Severe Pain Fluticasone Nasal [place] [Flonase Nasal [place]] 2 spray EA NOSTRIL DAILY Gabapentin 1,200 mg PO BID Discharge Medication List Albuterol Inhaler [Ventolin Hfa Inhaler] 2 puff INHALATION RT-Q6H PRN 08/18/15 [History] glipiZIDE [Glipizide] 10 mg PO BID 08/18/15 [History] metFORMIN HCL 1,000 mg PO BID 01/30/16 [History] Cholecalciferol [Vitamin D3 (25 Mcg = 1000 Iu)] 1,000 units PO DAILY 10/03/16 [History] Zinc Gluconate [Zinc] 100 mg PO DAILY 10/03/16 [History] Cyanocobalamin (Vitamin B-12) [Vitamin B-12] 1,000 mcg PO DAILY 11/28/17 [History] Aspirin EC [Ecotrin] 325 mg PO DAILY 03/12/19 [History] Fluticasone Nasal [place] [Flonase Nasal [place]] 2 spray EA NOSTRIL DAILY 03/12/19 [History] Gabapentin 1,200 mg PO BID 03/12/19 [History] HYDROcodone/APAP 10-325MG [[place] 10-325] 1 tab PO DAILY PRN 03/12/19 [History] Niacin 500 mg PO DAILY 03/12/19 [History] predniSONE See Taper PO DIRECTED #30 tab 03/15/19 [Rx] cefTRIAXone [Rocephin] 2,000 mg IVP Q24HR #14 vial 03/16/19 [Rx] Famotidine [Pepcid] 20 mg PO Q12HR #30 tab 03/17/19 [Rx] Nicotine 21Mg/24Hr Patch [Habitrol] 1 patch TRANSDERM DAILY #30 patch 03/17/19 [Rx] amLODIPine [Norvasc] 10 mg PO DAILY #30 tab 03/17/19 [Rx] Follow up Appointment(s)/Referral(s): Adryan Romano III, MD [Primary Care Provider] - 03/24/19 11:00 am [facility],Infusion [NON-STAFF] - 1 Week (go to [facility] office tomorrow 03/18/19 at 9am for your 1st infusion. ) Akshat Chaney MD [STAFF PHYSICIAN] - 03/18/19 3:00 pm ([address]) Shae Lacy MD [STAFF PHYSICIAN] - 1 Week (Dr. Lacy's office will set up appt. to see him at time of infusions) Patient Instructions/Handouts: Famotidine (By mouth), Prednisone (By mouth), Nicotine (Absorbed through the skin), Amlodipine (By mouth), Ceftriaxone (By injection), Hemoptysis (GEN), Community Acquired Pneumonia (DC), Bacteremia (DC) Activity/Diet/Wound Care/Special Instructions: [facility] (Infusion Center) tomorrow 03/18/19 at 9am Discharge Disposition: HOME SELF-CARE
== END 2019-03-17 09:50 | disposition home or self-care (01) | DRG 871 ==
LOC: EC 17:10 → 3NMEDONC 20:09
PROVIDERS: ADMIT Hospitalist; ATTEND Hospitalist
PROC: 05HF33Z Insertion of Infusion Device into Left Cephalic Vein, Percutaneous Approach (ICD-10-PCS; principal; 2019-03-16 13:55)
DX: A40.3 Sepsis due to Streptococcus pneumoniae (principal); J13 Pneumonia due to Streptococcus pneumoniae; R04.2 Hemoptysis; J44.0 Chronic obstructive pulmonary disease with (acute) lower respiratory infection; J44.1 Chronic obstructive pulmonary disease with (acute) exacerbation; E11.21 Type 2 diabetes mellitus with diabetic nephropathy; E11.40 Type 2 diabetes mellitus with diabetic neuropathy, unspecified; E11.51 Type 2 diabetes mellitus with diabetic peripheral angiopathy without gangrene; E11.65 Type 2 diabetes mellitus with hyperglycemia; E83.42 Hypomagnesemia; I11.9 Hypertensive heart disease without heart failure; E78.5 Hyperlipidemia, unspecified; F32.9 Major depressive disorder, single episode, unspecified; F41.9 Anxiety disorder, unspecified; I16.0 Hypertensive urgency; I49.3 Ventricular premature depolarization; R91.8 Other nonspecific abnormal finding of lung field; F17.210 Nicotine dependence, cigarettes, uncomplicated; I69.998 Other sequelae following unspecified cerebrovascular disease; Z79.82 Long term (current) use of aspirin; Z79.84 Long term (current) use of oral hypoglycemic drugs; Z79.899 Other long term (current) drug therapy; Z87.01 Personal history of pneumonia (recurrent); Z86.718 Personal history of other venous thrombosis and embolism; Z88.0 Allergy status to penicillin; Z88.8 Allergy status to other drugs, medicaments and biological substances; Z91.048 Other nonmedicinal substance allergy status; Z90.49 Acquired absence of other specified parts of digestive tract; Z80.1 Family history of malignant neoplasm of trachea, bronchus and lung; Z82.49 Family history of ischemic heart disease and other diseases of the circulatory system
CPT/HCPCS: 36410; 36415; 71046; 71275; 76937; 80048; 80053; 80202; 82550; 82565; 83735; 83880; 84484; 85025; 85379; 85610; 85730; 87040; 87070; 87077; 87186; 87205; 93005; 94640; 96361; 96365; 96375; 99285

== ENCOUNTER 2019-06-09 11:05 | Observation (INO) | payer MEDICARE ==
[2019-06-09] MEDS ORDERED: IPRATROPIUM-ALBUTEROL 3 ML NEB INHALATION STA ×2 (12:48→14:42)
[2019-06-09] MEDS ORDERED: methylPREDNISolone SOD SUCCI 125 MG/2 ML VIAL IV STA (12:50)
--- NOTE | 2019-06-09 12:53 | ED ---
General Adult HPI - General Source: patient, RN notes reviewed, old records reviewed Mode of arrival: ambulatory Limitations: no limitations <Peggy Doherty - Last Filed: 06/09/19 15:06> <Tahmina Shi - Last Filed: 06/13/19 18:56> - General Chief complaint: Shortness of Breath Stated complaint: poss pneumonia Time Seen by Provider: 06/09/19 12:37 - History of Present Illness Initial comments: Patient is a 48-year-old male, who presents emergency department today for a concern for Worsening cough congestion. He was diagnosed with pneumonia and sepsis 2 months ago. Patient reports he is discharged also with midline. Patient states over the past month he has not been on antibiotics or steroids. He states that he's had this productive cough worsening over the past 2 days. Chills but no fever (Peggy Doherty) - Related Data Home Medications Medication Instructions Recorded Confirmed Albuterol Inhaler [Ventolin Hfa 2 puff INHALATION RT-Q6H PRN 08/18/15 06/09/19 Inhaler] glipiZIDE [Glipizide] 10 mg PO BID 08/18/15 06/09/19 metFORMIN HCL 1,000 mg PO BID 01/30/16 06/09/19 Cholecalciferol [Vitamin D3 (25 1,000 units PO DAILY 10/03/16 06/09/19 Mcg = 1000 Iu)] Zinc Gluconate [Zinc] 100 mg PO BID 10/03/16 06/09/19 Cyanocobalamin (Vitamin B-12) 1,000 mcg PO DAILY 11/28/17 06/09/19 [Vitamin B-12] Aspirin EC [Ecotrin] 325 mg PO DAILY 03/12/19 06/09/19 Fluticasone Nasal [place] [Flonase 1 spray EA NOSTRIL BID 03/12/19 06/09/19 Nasal [place]] Gabapentin 1,200 mg PO TID 03/12/19 06/09/19 HYDROcodone/APAP 10-325MG [[place] 1 tab PO Q12H PRN 03/12/19 06/09/19 10-325] Niacin 500 mg PO DAILY 03/12/19 06/09/19 Previous Rx's Medication Instructions Recorded Azithromycin [Zithromax] 500 mg PO DAILY@1600 4 Days #4 tab 06/10/19 Cefuroxime Axetil [Ceftin] 500 mg PO BID 7 Days #14 tab 06/10/19 Nystatin 100,000 Unit/ml Susp 5 ml PO QID 10 Days ml 06/10/19 [Mycostatin Oral Susp] predniSONE 10 mg PO DIRECTED #30 tab 06/10/19 Allergies Allergy/AdvReac Type Severity Reaction Status Date / Time Penicillins Allergy Severe Anaphylaxis Verified 06/09/19 11:51 talc Allergy Swelling Verified 06/09/19 11:51 pregabalin [From Lyrica] AdvReac Severe Stroke (no Verified 06/09/19 11:51 issue with neurontin) adhesive tape AdvReac Itching Verified 06/09/19 11:51 Review of Systems ROS Other: All systems not noted in ROS Statement are negative. <Peggy Doherty - Last Filed: 06/09/19 15:06> ROS Other: All systems not noted in ROS Statement are negative. <Tahmina Shi - Last Filed: 06/13/19 18:56> ROS Statement: Those systems with pertinent positive or pertinent negative responses have been documented in the HPI. 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 Past Anesthesia/Blood Transfusion Reactions: No Reported Reaction Past Psychological History: Depression Smoking Status: Current some day smoker Past Alcohol Use History: None Reported Past Drug Use History: Marijuana - Past Family History Father History Unknown: Yes Family Medical History: Coronary Artery Disease (CAD) Additional Family Medical History / Comment(s): Father had CABG and never came home from the hospital. Mother History Unknown: Yes Family Medical History: Cancer, Deep Vein Thrombosis (DVT) Additional Family Medical History / Comment(s): Mother had squamous cell carcinoma. <Peggy Doherty - Last Filed: 06/09/19 15:06> General Exam Limitations: no limitations General appearance: alert, in no apparent distress Head exam: Present: atraumatic, normocephalic, normal inspection Eye exam: Present: normal appearance, PERRL, EOMI. Absent: scleral icterus, conjunctival injection, periorbital swelling ENT exam: Present: normal exam, mucous membranes moist Neck exam: Present: normal inspection. Absent: tenderness, meningismus, lymphadenopathy Respiratory exam: Present: wheezes, rhonchi. Absent: normal lung sounds bilaterally, respiratory distress, rales, stridor Cardiovascular Exam: Present: regular rate GI/Abdominal exam: Present: soft, normal bowel sounds. Absent: distended, tenderness, guarding, rebound, rigid Extremities exam: Present: normal inspection, full ROM, normal capillary refill. Absent: tenderness, pedal edema, joint swelling, calf tenderness Back exam: Present: normal inspection Neurological exam: Present: alert, oriented X3, CN II-XII intact Psychiatric exam: Present: normal affect, normal mood Skin exam: Present: warm, dry, intact, normal color. Absent: rash <Peggy Doherty - Last Filed: 06/09/19 15:06> - General Exam Comments Initial Comments: 48-year-old male. No distress. (Peggy Doherty) Course Vital Signs 06/09/19 06/09/19 06/09/19 11:47 12:40 13:12 Temperature 98.3 F Pulse Rate 85 92 Respiratory 22 Rate Blood Pressure 89/59 133/76 O2 Sat by Pulse 94 L Oximetry 06/09/19 06/09/19 06/09/19 14:25 15:27 15:45 Temperature Pulse Rate 83 86 86 Respiratory 18 Rate Blood Pressure 116/59 O2 Sat by Pulse 96 Oximetry 06/09/19 06/09/19 16:15 19:45 Temperature Pulse Rate 87 96 Respiratory 18 18 Rate Blood Pressure 134/68 150/75 O2 Sat by Pulse 92 L 96 Oximetry Medical Decision Making - Lab Data Result diagrams: 06/09/19 13:36 06/09/19 13:36 - Radiology Data Radiology results: report reviewed <Peggy Doherty - Last Filed: 06/09/19 15:06> - Lab Data Result diagrams: 06/10/19 07:59 06/10/19 07:59 <Tahmina Shi - Last Filed: 06/13/19 18:56> - Medical Decision Making 48-year-old male presents today with worsening difficulty breathing cough congestion. Rhonchi and wheezing noted throughout lung ojeda. Rectal cough. Chest x-ray shows concern for right lower lobe pneumonia perihilar pneumonia versus venous thoracic congestion. EKG shows no acute changes. Patient started on Rocephin and azithromycin and IV Solu-Medrol this time. After repeated breathing treatments he did have some improvement but continues to wheeze. Patient did have blood cultures obtained. At this time will that the Patient with consults to patient's cleaning handyman Dr. Chaney. Patient will be treated with Rocephin and azithromycin this time. He also was noted to have a mildly elevated lactic acid at 2.4. (Peggy Doherty) I was available for consultation in the emergency department. The history and physical exam were done by the midlevel provider. I was consulted for this patients care. I reviewed the case with the midlevel provider and based on their presentation of the patient, I agree with the assessment, medical decision making and plan of care as documented. Discussed the case with the admitting physician, Dr. Travis who was present in the ED. Patient awaiting a bed on the floor. Chart was dictated using Ur[employer] dictation software. Attempts were made to correct any dictation errors however some typographical errors may persist. (Tahmina Shi) - Lab Data Lab Results 06/09/19 06/09/19 06/09/19 Range/Units 13:35 13:36 13:36 WBC 12.2 H (3.8-10.6) k/uL RBC 4.86 (4.30-5.90) m/uL Hgb 14.2 (13.0-17.5) gm/dL Hct 43.7 (39.0-53.0) % MCV 90.0 (80.0-100.0) fL MCH 29.3 (25.0-35.0) pg MCHC 32.5 (31.0-37.0) g/dL RDW 14.8 (11.5-15.5) % Plt Count 177 (150-450) k/uL Neutrophils % (Manual) 51 % Lymphocytes % (Manual) 43 % Monocytes % (Manual) 5 % Eosinophils % (Manual) 1 % Neutrophils # (Manual) 6.22 (1.3-7.7) k/uL Lymphocytes # (Manual) 5.25 H (1.0-4.8) k/uL Monocytes # (Manual) 0.61 (0-1.0) k/uL Eosinophils # (Manual) 0.12 (0-0.7) k/uL Nucleated RBCs 0 (0-0) /100 WBC Manual Slide Review Performed PT (9.0-12.0) sec INR (<1.2) APTT (22.0-30.0) sec Sodium 138 (137-145) mmol/L Potassium 4.6 (3.5-5.1) mmol/L Chloride 99 (98-107) mmol/L Carbon Dioxide 30 (22-30) mmol/L Anion Gap 9 mmol/L BUN 9 (9-20) mg/dL Creatinine 0.97 (0.66-1.25) mg/dL Est GFR (CKD-EPI)AfAm >90 (>60 ml/min/1.73 sqM) Est GFR (CKD-EPI)NonAf >90 (>60 ml/min/1.73 sqM) Glucose 95 (74-99) mg/dL Lactic Ac Sepsis Rflx Plasma Lactic Acid Bharath (0.7-2.0) mmol/L Calcium 9.4 (8.4-10.2) mg/dL Total Bilirubin 1.3 (0.2-1.3) mg/dL AST 17 (17-59) U/L ALT 10 (4-49) U/L Alkaline Phosphatase 98 (38-126) U/L Troponin I (0.000-0.034) ng/mL NT-Pro-B Natriuret Pep pg/mL Total Protein 6.7 (6.3-8.2) g/dL Albumin 4.3 (3.5-5.0) g/dL Influenza Type A RNA Not Detected (Not Detectd) Influenza Type B (PCR) Not Detected (Not Detectd) 06/09/19 06/09/19 06/09/19 Range/Units 13:36 13:36 13:36 WBC (3.8-10.6) k/uL RBC (4.30-5.90) m/uL Hgb (13.0-17.5) gm/dL Hct (39.0-53.0) % MCV (80.0-100.0) fL MCH (25.0-35.0) pg MCHC (31.0-37.0) g/dL RDW (11.5-15.5) % Plt Count (150-450) k/uL Neutrophils % (Manual) % Lymphocytes % (Manual) % Monocytes % (Manual) % Eosinophils % (Manual) % Neutrophils # (Manual) (1.3-7.7) k/uL Lymphocytes # (Manual) (1.0-4.8) k/uL Monocytes # (Manual) (0-1.0) k/uL Eosinophils # (Manual) (0-0.7) k/uL Nucleated RBCs (0-0) /100 WBC Manual Slide Review PT 9.6 (9.0-12.0) sec INR 0.9 (<1.2) APTT 23.7 (22.0-30.0) sec Sodium (137-145) mmol/L Potassium (3.5-5.1) mmol/L Chloride (98-107) mmol/L Carbon Dioxide (22-30) mmol/L Anion Gap mmol/L BUN (9-20) mg/dL Creatinine (0.66-1.25) mg/dL Est GFR (CKD-EPI)AfAm (>60 ml/min/1.73 sqM) Est GFR (CKD-EPI)NonAf (>60 ml/min/1.73 sqM) Glucose (74-99) mg/dL Lactic Ac Sepsis Rflx Plasma Lactic Acid Bharath 2.4 H* (0.7-2.0) mmol/L Calcium (8.4-10.2) mg/dL Total Bilirubin (0.2-1.3) mg/dL AST (17-59) U/L ALT (4-49) U/L Alkaline Phosphatase (38-126) U/L Troponin I (0.000-0.034) ng/mL NT-Pro-B Natriuret Pep 2260 pg/mL Total Protein (6.3-8.2) g/dL Albumin (3.5-5.0) g/dL Influenza Type A RNA (Not Detectd) Influenza Type B (PCR) (Not Detectd) 06/09/19 06/09/19 Range/Units 14:10 14:44 WBC (3.8-10.6) k/uL RBC (4.30-5.90) m/uL Hgb (13.0-17.5) gm/dL Hct (39.0-53.0) % MCV (80.0-100.0) fL MCH (25.0-35.0) pg MCHC (31.0-37.0) g/dL RDW (11.5-15.5) % Plt Count (150-450) k/uL Neutrophils % (Manual) % Lymphocytes % (Manual) % Monocytes % (Manual) % Eosinophils % (Manual) % Neutrophils # (Manual) (1.3-7.7) k/uL Lymphocytes # (Manual) (1.0-4.8) k/uL Monocytes # (Manual) (0-1.0) k/uL Eosinophils # (Manual) (0-0.7) k/uL Nucleated RBCs (0-0) /100 WBC Manual Slide Review PT (9.0-12.0) sec INR (<1.2) APTT (22.0-30.0) sec Sodium (137-145) mmol/L Potassium (3.5-5.1) mmol/L Chloride (98-107) mmol/L Carbon Dioxide (22-30) mmol/L Anion Gap mmol/L BUN (9-20) mg/dL Creatinine (0.66-1.25) mg/dL Est GFR (CKD-EPI)AfAm (>60 ml/min/1.73 sqM) Est GFR (CKD-EPI)NonAf (>60 ml/min/1.73 sqM) Glucose (74-99) mg/dL Lactic Ac Sepsis Rflx Y Plasma Lactic Acid Bharath (0.7-2.0) mmol/L Calcium (8.4-10.2) mg/dL Total Bilirubin (0.2-1.3) mg/dL AST (17-59) U/L ALT (4-49) U/L Alkaline Phosphatase (38-126) U/L Troponin I <0.012 (0.000-0.034) ng/mL NT-Pro-B Natriuret Pep pg/mL Total Protein (6.3-8.2) g/dL Albumin (3.5-5.0) g/dL Influenza Type A RNA (Not Detectd) Influenza Type B (PCR) (Not Detectd) 06/09/19 15:02 EKG performed at 1314 shows normal sinus rhythm possible left atrial enlargem ent. Borderline EKG. Ventricular rate of 80 bpm. " 1:30 milliseconds. QRS duration is 80 ms. QT QTc is 375/426 ms. (Peggy Doherty) - Radiology Data Chest x-ray shows cardiac megaly with right perihilar and lower lobe infiltrate. Correlating for pneumonia. Mild interstitial changes could be present on prior exam. Present interstitial chronic lung disease although mild venous congestion not excluded. (Peggy Doherty) Disposition Is patient prescribed a controlled substance at d/c from ED?: No Time of Disposition: 15:09 <Peggy Doherty - Last Filed: 06/09/19 15:06> <Tahmina Shi - Last Filed: 06/13/19 18:56> Clinical Impression: Pneumonia, COPD (chronic obstructive pulmonary disease), Diabetes Disposition: ADMITTED IP TO THIS HOSP Condition: Stable
--- NOTE | 2019-06-09 13:11 | XR ---
EXAMINATION TYPE: XR chest 2V DATE OF EXAM: 06/09/2019 COMPARISON: 03/13/2019 TECHNIQUE: PA and lateral views submitted. HISTORY: Cough FINDINGS: Hyperinflation suggests COPD. There is a right perihilar and lower lobe infiltrate. Heart is enlarged . No sizable pleural effusion or pneumothorax. Biapical pleural thickening. IMPRESSION: 1. Cardiomegaly with right perihilar and lower lobe infiltrate. Correlate for pneumonia. Mild interst itial changes appear to been present on the prior exam could represent interstitial chronic lung dise ase although mild venous congestion not excluded.
[2019-06-09] MEDS ORDERED: HYDROcodone/APAP 10-325MG 1 EACH TAB PO ONE (13:51)
[2019-06-09] MEDS: ACETAMINOPHEN TAB 500 MG TAB PO STA ×2 (13:51→13:52)
[2019-06-09] MEDS: SODIUM CHLORIDE 0.9% 500 ML 500 ML IV SCH ×2 (13:52→13:53)
[2019-06-09] MEDS: SODIUM CHLORIDE 0.9% 1,000 ML IV SCH ×2 (13:53→21:56)
[2019-06-09 14:02] LABS: INR 0.9 (<1.2); Partial Thromboplastin Time 23.7 sec (22.0-30.0); Prothrombin Time 9.6 sec (9.0-12.0)
[2019-06-09 14:04] LABS: HCT 43.7 % (39.0-53.0); HGB 14.2 gm/dL (13.0-17.5); MCH 29.3 pg (25.0-35.0); MCHC 32.5 g/dL (31.0-37.0); Mean Platelet Volume 7.5; Platelet Count 177 k/uL (150-450); RBC 4.86 m/uL (4.30-5.90); RDW 14.8 % (11.5-15.5); WBC 12.2 k/uL (3.8-10.6)
[2019-06-09 14:07] LABS: ALT 10 U/L (4-49); AST 17 U/L (17-59); African American GFR (CKD) >90 (>60 ml/min/1.73 sqM); Albumin 4.3 g/dL (3.5-5.0); Alkaline Phosphatase 98 U/L (38-126); Anion Gap 9 mmol/L; Blood Urea Nitrogen 9 mg/dL (9-20); Calcium 9.4 mg/dL (8.4-10.2); Carbon Dioxide 30 mmol/L (22-30); Chloride 99 mmol/L (98-107); Glucose 95 mg/dL (74-99); Non-African American GFR(CKD) >90 (>60 ml/min/1.73 sqM); Potassium 4.6 mmol/L (3.5-5.1); Sodium 138 mmol/L (137-145); Total Bilirubin 1.3 mg/dL (0.2-1.3); Total Protein 6.7 g/dL (6.3-8.2)
[2019-06-09] MEDS ORDERED: AZITHROMYCIN 500 MG TAB PO STA (14:43)
[2019-06-09] MEDS ORDERED: IPRATROPIUM-ALBUTEROL 3 ML NEB INHALATION PRN (15:10)
[2019-06-09] MEDS ORDERED: PNEUMONIA PROTOCOL UTILIZED 1 EACH MISC PO PRN (15:10)
[2019-06-09 15:14] LABS: Eosinophils # (M) 0.12 k/uL (0-0.7); Lymphocytes # (M) 5.25 k/uL (1.0-4.8); Monocytes # (M) 0.61 k/uL (0-1.0); Neutrophils # (M) 6.22 k/uL (1.3-7.7); Neutrophils % (M) 51 %; Nucleated Red Blood Cells 0 /100 WBC (0-0); Total Cells Counted 100
[2019-06-09] MEDS ORDERED: FUROSEMIDE 10 MG/ML 2 ML VIAL IV STA (15:36)
[2019-06-09] MEDS ORDERED: ALBUTEROL INHALER 60 PUFF/8 GM INHALER INHALATION PRN (16:24)
[2019-06-09] MEDS: HEPARIN SODIUM,PORCINE 5,000 UNIT/ML 1 ML VIAL SQ SCH (19:31)
[2019-06-09] MEDS: glipiZIDE 10 MG TAB PO SCH (19:35)
[2019-06-09] MEDS: methylPREDNISolone SOD SUCCI 125 MG/2 ML VIAL IV SCH (19:35)
[2019-06-09] MEDS: metFORMIN 500 MG TAB PO SCH (19:35)
[2019-06-09] MEDS ORDERED: CEFEPIME 2 GM in SODIUM CHLORIDE 0.9% 100 ML IVPB SCH (20:00)
[2019-06-09] MEDS ORDERED: SYMBICORT 160-4.5 MCG INHALER INHALATION SCH (20:00)
--- NOTE | 2019-06-09 20:47 | HP ---
HISTORY AND PHYSICAL DATE OF SERVICE: 06/09/2019 CHIEF COMPLAINTS: Shortness of breath and cough and sputum and possible pneumonia. HISTORY OF PRESENT ILLNESS: This 48-year-old gentleman with a past medical history of multiple medical problems including CVA, TIA, COPD, diabetes, DVT, hypertension, hyperlipidemia, history of diabetes type 2, history of peripheral neuropathy, bilateral; history of adenoidectomy, history of depression, being followed by Dr. Romano in the outpatient setting, previously had a stroke on the right side and subsequently patient had some swallowing problems and the patient had recurrent pneumonia subsequently, most recently last year. The patient was admitted with significant pneumonia on the left side and apparently the patient had antibiotics for a PICC line in the midline. The patient is on antibiotics and steroids on and off and currently the patient complains of shortness of breath, cough and sputum and right-sided pneumonia suspected. Patient admitted for further evaluation and treatment. There is no history of fever, rigors. No history of headache, loss of consciousness, seizures at this time. PAST MEDICAL HISTORY: History of COPD, CVA, TIA, history of diabetes type 2, DVT, hypertension, hyperlipidemia, history of vascular disorder, history of diabetes mellitus type 2, history of adenoidectomy, history of depression. MEDICATIONS: Home medications are: 1. Metformin 1000 mg p.o. b.i.d. 2. Glipizide 10 mg p.o. b.i.d. 3. Zinc 100 mg p.o. daily. 4. Niacin 500 mg p.o. daily. 5. [place] 10 mg b.i.d. p.r.n. 6. Gabapentin 1200 mg p.o. t.i.d. 7. Flonase 1 spray daily b.i.d. 8. Vitamin B12 1000 mcg p.o. daily. 9. Vitamin D3 1000 daily. 10.Ecotrin 325 mg p.o. daily. 11.Ventolin 2 puffs q.6h p.r.n. ALLERGIES: PENICILLIN, TALC, LYRICA, ADHESIVE TAPE. FAMILY HISTORY: History of CAD in the family. SOCIAL HISTORY: History of smoking. No history of alcohol intake. REVIEW OF SYSTEMS: ENT: No diminished vision. No diminished hearing. CARDIOVASCULAR SYSTEM: As mentioned earlier. RESPIRATORY: As mentioned earlier. GI no nausea or vomiting. no dysuria or hematuria. ALLERGY/IMMUNOLOGY: No asthma or hayfever. MUSCULOSKELETAL as mentioned earlier. HEMATOLOGY/ONCOLOGY: No history of anemia. ENDOCRINE: Diabetes. CONSTITUTIONAL: As mentioned earlier. DERMATOLOGY: Negative. RHEUMATOLOGY negative. PSYCHIATRY as mentioned earlier. PHYSICAL EXAMINATION: Alert and oriented times three. Pulse 87, blood pressure 130/60, respiration 18, temperature is normal. Pulse ox 92% on room air. HEENT is conjunctivae normal. NECK: No JVD. CARDIOVASCULAR: S1, S2 muffled. RESPIRATION: Breath sounds diminished in the bases. Bilateral scattered rhonchi and crackles. Expiratory wheezing present. ABDOMEN: Soft, nontender. No mass palpable. LEGS: No edema. No swelling. NERVOUS SYSTEM: Higher functions as mentioned earlier. Moves all 4 limbs. No focal motor or sensory deficits. LYMPHATICS: No lymph nodes palpable in the neck, axillae or groin. SKIN: No ulcer, rash or bleeding. JOINTS: No active deforming arthropathy. LABS: WBC 12.2, hemoglobin 14.2. INR 0.9. Otherwise lactic acid 2.4. ASSESSMENT: 1. Acute right lower lobe pneumonia, possibly aspiration, possibly community-acquired, with sepsis present on admission. 2. Elevated lactic acid secondary to sepsis. 3. Increased WBC. 4. History of chronic obstructive pulmonary disease. 5. History of cerebrovascular accident, transient ischemic attack. 6. Diabetes mellitus type 2. 7. History of deep vein thrombosis. 8. Hyperlipidemia. 9. History of recurrent pneumonias. 10.History of severe peripheral neuropathy, bilateral. 11.History of dysphagia and occasional difficulty in swallowing. 12.History of aspiration pneumonia. 13.History of deep vein thrombosis left knee. 14.History of adenoidectomy. 15.History of cholecystectomy. 16.History of depression. 17.Continued ongoing nicotine dependence. 18.History of THC. 19.Obesity with body mass of 30.3. RECOMMENDATIONS AND DISCUSSION: In this 39-year-old gentleman who presented with multiple complex medical issues, we will monitor the patient closely, continue the current medications, management and symptomatic treatment. We will initiate broad-spectrum IV antibiotics and I would also recommend speech pathology evaluation for modified barium swallow. Otherwise, Dr. Jessica Chaney was consulted from the pulmonary point of view. We will continue to monitor. Guarded prognosis because of the complex medical issues. Further recommendations to follow. A copy of dictation is being forwarded to Dr. Romano who is the primary physician. MMODL / IJN: [id number] /
[2019-06-09] MEDS: IPRATROPIUM-ALBUTEROL 3 ML NEB INHALATION SCH (21:07)
[2019-06-09] MEDS: GABAPENTIN 400 MG CAP PO SCH (21:47)
[2019-06-09] MEDS: HYDROcodone/APAP 10-325MG 1 EACH TAB PO PRN (21:48)
[2019-06-09] MEDS: FLUTICASONE 50MCG/SPRAY NASAL 16GM EA NOSTRIL SCH (21:54)
--- NOTE | 2019-06-10 | P.CONS ---
History of Present Illness - Reason for Consult Consult date: 06/09/19 Pneumonia Requesting physician: Saba Jauregui - Chief Complaint Cough and sputum production 2 days - History of Present Illness Patient is a 48-year-old male who was admitted back in February with extensive pneumonia patient did have evidence of strep pneumo bacteremia because of extensive pneumonia and bacteremia the patient was treated with IV to by therapy on discharge in the form of Rocephin and the patient has completed in early March and the patient currently has not been on antibiotics with last 2 months patient presented to the hospital she complains of increasing shortness of breath. He also have a congested cough that has been getting worse for the last 2 days of intensity is moderate with occasional sputum production which has been yellow tinged no hemoptysis. Denies having any pleuritic chest pain and denies any nausea no vomiting no shortening the phone abdominal pain and no diarrhea with the symptom the patient was evaluated by the ER physician, patient was afebrile on presentation did have elevated white count 12,000 chest x-ray with perihilar and lower lobe infiltrate concerning for pneumonia patient was started on Rocephin and Zithromax subsequently antibiotic was switched over to cefepime infectious disease was consulted for further recommendation regarding antibiotic therapy Review of Systems Positive point has been mentioned in the HPI rest of the systems are negative Past Medical History Past Medical History: COPD, CVA/TIA, Diabetes Mellitus, Deep Vein Thrombosis (DVT), Hyperlipidemia, Pneumonia, Vascular Disorder Additional Past Medical History / Comment(s): NIDDM type II, severe neuropathy bilateral hands and feet, past merlos L foot wound, 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 Past Anesthesia/Blood Transfusion Reactions: No Reported Reaction Past Psychological History: Depression Smoking Status: Current some day smoker Past Alcohol Use History: None Reported Past Drug Use History: Marijuana - Past Family History Father History Unknown: Yes Family Medical History: Coronary Artery Disease (CAD) Additional Family Medical History / Comment(s): Father had CABG and never came home from the hospital. Mother History Unknown: Yes Family Medical History: Cancer, Deep Vein Thrombosis (DVT) Additional Family Medical History / Comment(s): Mother had squamous cell carcinoma. Medications and Allergies Home Medications Medication Instructions Recorded Confirmed Type Albuterol Inhaler [Ventolin Hfa 2 puff INHALATION RT-Q6H PRN 08/18/15 06/09/19 History Inhaler] glipiZIDE [Glipizide] 10 mg PO BID 08/18/15 06/09/19 History metFORMIN HCL 1,000 mg PO BID 01/30/16 06/09/19 History Cholecalciferol [Vitamin D3 (25 1,000 units PO DAILY 10/03/16 06/09/19 History Mcg = 1000 Iu)] Zinc Gluconate [Zinc] 100 mg PO BID 10/03/16 06/09/19 History Cyanocobalamin (Vitamin B-12) 1,000 mcg PO DAILY 11/28/17 06/09/19 History [Vitamin B-12] Aspirin EC [Ecotrin] 325 mg PO DAILY 03/12/19 06/09/19 History Fluticasone Nasal [place] [Flonase 1 spray EA NOSTRIL BID 03/12/19 06/09/19 History Nasal [place]] Gabapentin 1,200 mg PO TID 03/12/19 06/09/19 History HYDROcodone/APAP 10-325MG [[place] 1 tab PO Q12H PRN 03/12/19 06/09/19 History 10-325] Niacin 500 mg PO DAILY 03/12/19 06/09/19 History Allergies Allergy/AdvReac Type Severity Reaction Status Date / Time Penicillins Allergy Severe Anaphylaxis Verified 06/09/19 11:51 talc Allergy Swelling Verified 06/09/19 11:51 pregabalin [From Lyrica] AdvReac Severe Stroke (no Verified 06/09/19 11:51 issue with neurontin) adhesive tape AdvReac Itching Verified 06/09/19 11:51 Physical Exam Vitals: Vital Signs Temp Pulse Resp BP Pulse Ox 06/09/19 19:45 96 18 150/75 96 06/09/19 16:15 87 18 134/68 92 L 06/09/19 15:45 86 06/09/19 15:27 86 06/09/19 14:25 83 18 116/59 96 06/09/19 13:12 92 06/09/19 12:40 133/76 06/09/19 11:47 98.3 F 85 22 89/59 94 L Intake and Output 06/09/19 06/09/19 06/09/19 06:59 14:59 22:59 Other: Weight 92.986 kg GENERAL DESCRIPTION: Middle-aged male lying in bed, no distress. No tachypnea or accessory muscle of respiration use. HEENT: Shows Pallor , no scleral icterus. Oral mucous membrane is dry. No pharyngeal erythema or thrush NECK: Trachea central, no thyromegaly. LUNGS: Unlabored breathing. Coarse breath sounds bilaterally with occasional wheeze or crackle. HEART: S1, S2, regular rate and rhythm. No loud murmur ABDOMEN: Soft, no tenderness , guarding or rigidity, no organomegaly EXTREMITIES: No edema of feet. SKIN: No rash, no masses palpable. NEUROLOGICAL: The patient is awake, alert, oriented x3, mood and affect normal. Results CBC & Chem 7: 06/09/19 13:36 06/09/19 13:36 Labs: Abnormal Lab Results - Last 24 Hours (Table) 06/09/19 06/09/19 06/09/19 Range/Units 13:36 13:36 17:47 WBC 12.2 H (3.8-10.6) k/uL Lymphocytes # (Manual) 5.25 H (1.0-4.8) k/uL Plasma Lactic Acid Bharath 2.4 H* 2.8 H* (0.7-2.0) mmol/L Assessment and Plan Assessment: 1-patient presented to the hospital with increasing shortness of breath or cough with sputum production in this patient who has recently did have extensive left upper lobe pneumonia with strep pneumo bacteremia with concern for possible community acquired pathogens clinical risk low for resistant gram-negative or gram-positive pathogen 2-patient with penicillin ALLERGY that would limit the number of antibiotic safety use however has tolerated cephalosporins without any problem (1) Pneumonia Current Visit: Yes Status: Acute Code(s): J18.9 - PNEUMONIA, UNSPECIFIED ORGANISM SNOMED Code(s): 964378024 Plan: 1- discontinue cefepime 2-Rocephin 2 g daily and Zithromax 250 by mouth daily 3-obtain sputum for Gram stain and culture and check Procalcitonin level We will follow on clinical condition and cultures to further adjust medication if needed Thank you for this consultation will follow this patient with you Time with Patient: Greater than 30
--- NOTE | 2019-06-10 00:29 | CT ---
EXAMINATION TYPE: CT chest angio for PE DATE OF EXAM: 06/10/2019 COMPARISON: None HISTORY: Patient presents with hemoptysis. CT DLP: 402.6 mGycm Automated exposure control for dose reduction was used. CONTRAST: Performed with IV Contrast, patient injected with 50mL mL of Isovue 370. There are 3-D post processed images. There is some patchy coalescent infiltrate and the right upper lobe. There is mild groundglass inters titial infiltrate in the right upper lobe. There is coarse linear density in both lower lobes. There are small bilateral pleural effusions. There is no pericardial effusion. There are multiple enlarged bilateral bronchial lymph nodes that measure up to 1.5 cm. There are enlarged pretracheal lymph nodes that measure up to 2 cm. I see no filling defects in the pulmonary arteries. Thoracic aorta is intact. There is no evidence of aneurysm. Heart size is fairly normal. There is intact thoracic spine. Sternum is intact. The ribs a ppear intact. IMPRESSION: No evidence of pulmonary embolism. Patchy bilateral pulmonary infiltrates are predominantly interstit ial type infiltrate and could relate to interstitial fibrosis. Bronchial adenopathy Mediastinal lilia opathy. This could be sarcoidosis.
[2019-06-10] MEDS: methylPREDNISolone SOD SUCCI 125 MG/2 ML VIAL IV SCH ×2 (00:31→06:10)
[2019-06-10] MEDS: HEPARIN SODIUM,PORCINE 5,000 UNIT/ML 1 ML VIAL SQ SCH ×2 (00:31→08:01)
[2019-06-10] MEDS: ALPRAZolam 0.25 MG TAB PO PRN ×2 (00:32→08:00)
[2019-06-10 06:38] VITALS: BP 126/73; PULSE 87; RESP 17; TEMP 97.4
--- NOTE | 2019-06-10 07:03 | CONS ---
CONSULTATION Maximo Norris is a 48-year-old male who presented to the ED at [facility] with cough. This has been going on for 2 to 3 days. He had been coughing up some blood and had chills but no fever. He subsequently was admitted for further evaluation and management. He has some chest tightness. PAST MEDICAL HISTORY: Positive for interstitial lung disease, DVT, diabetes mellitus, pulmonary embolus, COPD, CVA, TIA, hyperlipidemia, previous pneumonia in the left upper lobe, diabetes mellitus type 2, severe neuropathy, wound in the left foot, CVA x2, cholecystectomy, adenoidectomy, hernia repair, left knee arthroscopy, depression, history of a low-grade lymphoma. FAMILY HISTORY: Positive for coronary artery disease in his father, DVT and cancer in his mother. SOCIAL HISTORY: Patient is a current every day smoker. Does not drink alcohol excessively and has used marijuana in the past. MEDICATIONS: His medications prior to admission were metformin, glipizide, zinc oxide, niacin, hydrocodone with acetaminophen, gabapentin, fluticasone nasal spray, cyanocobalamin, cholecalciferol, Ecotrin, and Ventolin HFA. REVIEW OF SYSTEMS: Noncontributory. PHYSICAL EXAMINATION: Blood pressure is 134/68, respiratory rate of 18, pulse rate of 87, O2 saturation on room air is 92%. HEENT reveals pupils are equal. No jugular venous distention. There is redundant tissue in the posterior pharynx. Chest reveals diminished breath sounds with prolonged exhalation and expiratory wheeze. Cardiovascular system reveals an S1, S2. Abdomen is soft. There is trace to 1+ pedal edema. Chest x-ay shows some tenting of the right hemidiaphragm with a right lower zone infiltrate. There is a background of fluffy alveolar infiltrates. IMPRESSION AT THIS TIME: 1. Right lower zone pneumonia, etiology which is unclear. 2. Hemoptysis with previous history of deep venous thrombosis and pulmonary embolism. 3. Possibly atypical pneumonia, infectious versus noninfectious. 4. Diabetes mellitus. 5. Obesity. 6. Possible obstructive sleep apnea. At this point in time from a pulmonary standpoint, keep him on bronchodilators, aerosolized steroids. Keep on IV steroids. Control his blood sugars with oral hypoglycemics as well as supplemental insulin. Check a CT of the chest with contrast to make sure we are not dealing with a PE. Would check hypersensitivity pneumonitis panel, RAFAT and rheumatoid factor as well. Depending on how he does, we should make further changes to his care. He was counseled regarding his condition and this approach and has a fair understanding of our recommendations. MMODL / IJN: [id number] /
[2019-06-10 07:12] LABS: Glucose,Whole Blood 298 mg/dL (75-99)
[2019-06-10] MEDS: glipiZIDE 10 MG TAB PO SCH (07:50)
[2019-06-10] MEDS: HYDROcodone/APAP 10-325MG 1 EACH TAB PO PRN (07:50)
[2019-06-10] MEDS: PANTOPRAZOLE 40 MG TABLET PO SCH ×2 (07:50→08:01)
[2019-06-10] MEDS: metFORMIN 500 MG TAB PO SCH (07:50)
[2019-06-10] MEDS: GABAPENTIN 400 MG CAP PO SCH (07:51)
[2019-06-10] MEDS ORDERED: BUDESONIDE 0.5 MG/2 ML NEBU INHALATION SCH (08:00)
[2019-06-10] MEDS: IPRATROPIUM-ALBUTEROL 3 ML NEB INHALATION SCH ×2 (08:08→11:23)
[2019-06-10 08:25] LABS: HCT 40.3 % (39.0-53.0); HGB 13.3 gm/dL (13.0-17.5); MCH 29.5 pg (25.0-35.0); MCV 89.4 fL (80.0-100.0); Mean Platelet Volume 7.6; Platelet Count 156 k/uL (150-450); RDW 14.8 % (11.5-15.5); WBC 7.8 k/uL (3.8-10.6)
[2019-06-10 08:31] LABS: African American GFR (CKD) >90 (>60 ml/min/1.73 sqM); Anion Gap 11 mmol/L; Blood Urea Nitrogen 11 mg/dL (9-20); Calcium 9.3 mg/dL (8.4-10.2); Carbon Dioxide 23 mmol/L (22-30); Chloride 102 mmol/L (98-107); Glucose 269 mg/dL (74-99); Non-African American GFR(CKD) >90 (>60 ml/min/1.73 sqM); Potassium 4.9 mmol/L (3.5-5.1); Sodium 136 mmol/L (137-145)
[2019-06-10] MEDS ORDERED: NIACIN TR 500 MG CAPLET PO SCH (09:00)
[2019-06-10] MEDS ORDERED: CYANOCOBALAMIN 500 MCG TAB PO SCH (09:00)
[2019-06-10] MEDS ORDERED: ASPIRIN 325 MG TAB PO SCH (09:00)
[2019-06-10] MEDS ORDERED: CHOLECALCIFEROL 1,000 UNIT TAB PO SCH (09:00)
[2019-06-10] MEDS ORDERED: ZINC SULFATE 220 MG CAP PO SCH (09:00)
[2019-06-10] MEDS: FLUTICASONE 50MCG/SPRAY NASAL 16GM EA NOSTRIL SCH (09:22)
[2019-06-10 10:18] LABS: Eosinophils # (M) 0.08 k/uL (0-0.7); Lymphocytes # (M) 2.11 k/uL (1.0-4.8); Monocytes # (M) 0.39 k/uL (0-1.0); Neutrophils # (M) 5.23 k/uL (1.3-7.7); Neutrophils % (M) 67 %; Nucleated Red Blood Cells 0 /100 WBC (0-0); Total Cells Counted 100
[2019-06-10] MEDS: SODIUM CHLORIDE 0.9% 1,000 ML IV SCH (11:13)
--- NOTE | 2019-06-10 11:13 | PN ---
PROGRESS NOTE DATE OF SERVICE: 06/10/2019 REASON FOR FOLLOWUP: Pneumonia. INTERVAL HISTORY: The patient is currently afebrile. Patient has been breathing comfortably. Patient is slightly upset and question why he has been made n.p.o., but denies having any chest pain, cough, about the same. No worsening, no nausea, no vomiting, no diarrhea. PHYSICAL EXAMINATION: Blood pressure 123/73 with a pulse of 87, temperature 97.4. He is 98% on room air. General description is a middle-aged male up in the room in no distress. RESPIRATORY SYSTEM: Unlabored breathing, decreased intensity of breath sounds, no wheeze. HEART: S1, S2. Regular rate and rhythm. ABDOMEN: Soft, no tenderness. LABS: Hemoglobin 30.1, white count 7.8. BUN of 11, creatinine 0.8. CT angiogram was negative for PE. Did show some ground-glass opacities in the right upper lobe. DIAGNOSTIC IMPRESSION AND PLAN: Patient admitted to hospital with difficulty breathing and cough which is likely multifactorial, possible component pneumonia. PAST MEDICAL HISTORY: Patient clinically responding to the Rocephin and Zithromax. Patient advised to stay in the hospital until the cultures are completed. Continue with supportive care. MMODL / IJN: [id number] /
--- NOTE | 2019-06-10 12:40 | P.DS ---
Providers Date of admission: 06/09/19 14:45 Expected date of discharge: 06/10/19 Attending physician: Saba Jauregui Consults: 06/09/19 16:25 Consult Physician Stat Consulting Provider: Akshat Chaney Consult Reason/Comments: pneumonia, copd Do you want consulting provider notified?: Yes 06/09/19 18:52 Consult Physician Routine Consulting Provider: Shae Lacy Consult Reason/Comments: sepsis Do you want consulting provider notified?: Yes Primary care physician: Adryan Romano [facility] Course: Final diagnosis Acute right lower lobe pneumonia, possibly aspiration, possibly community- acquired, with sepsis present on admission Elevated lactic acid secondary to sepsis Oral thrush increased WBC History of chronic obstructive pulmonary disease History of cerebrovascular accident, TIA Diabetes mellitus type II History of deep vein thrombosis hyperlipidemia history of recurrent pneumonias History of severe peripheral neuropathy, bilateral History of dysphagia and occasional difficulty in swallowing History of aspiration pneumonia History of deep vein thrombosis left knee History of adenoidectomy history of cholecystectomy History of depression continue ongoing nicotine dependence History of THC Obesity with body mass index of 30.3 Discharge Disposition Patient is being discharged in a stable condition with guarded prognosis to home and will follow-up with Dr. Romano upon discharge. Patient also instructed to follow-up with Dr. Shiv parada in the outpatient setting in one week. Patient will continue on a short course of oral antibiotics in the form Zithromax along with Ceftin and a prednisone taper. Patient was also provided a prescription for nystatin for oral thrush. Total time taken is 35 minutes. History of present illness This is a 48-year-old male who was recently admitted with significant pneumonia on the left side with worsening shortness of breath, cough and sputum with possible right-sided pneumonia suspected and was being closely monitored. Pulmonary was following. Patient underwent a CTA of the chest showing no evidence of pulmonary embolism with patchy bilateral pulmonary infiltrates predominantly the interstitial type infiltrate that could possibly relate to interstitial fibrosis along with bronchial adenopathy, mediastinal adenopathy and possibly sarcoidosis. Patient in the passes had history of aspiration pneum onia along with difficulty swallowing prior to gallbladder removal 3 years ago and a swallow eval was ordered and patient refused. Repeat chest x-ray was ordered this morning and patient refused as well. Patient states he will follow-up with his doctor upon discharge along with instructions to follow up with pulmonary in the outpatient setting. Patient will continue on oral antibiotics along with the prednisone taper and nystatin. Currently no reports of chest pain, palpitations, or worsening shortness of breath. Patient is afebrile. No reports of nausea or vomiting as patient has remained nothing by mouth for possible swallow eval which he refused. On exam vital signs are stable. Temp is 97.4F, pulse is 87, respirations are 17, blood pressure is 126/73, oxygen saturation is 98% on room air. Cardio S1, S2 are present. Respiratory shows diminished breath sounds at the bases with some mild wheezing noted and expiration. Abdomen is soft and nontender. Nervous system shows no focal deficits. Please refer to medication reconciliation sheet for a list of medications. Patient Condition at Discharge: Stable Plan - Discharge Summary New Discharge Prescriptions: New Cefuroxime Axetil [Ceftin] 500 mg PO BID 7 Days #14 tab Nystatin 100,000 Unit/ml Susp [Mycostatin Oral Susp] 5 ml PO QID 10 Days ml predniSONE 10 mg PO DIRECTED #30 tab Azithromycin [Zithromax] 500 mg PO DAILY@1600 4 Days #4 tab Continue Albuterol Inhaler [Ventolin Hfa Inhaler] 2 puff INHALATION RT-Q6H PRN PRN Reason: Shortness Of Breath Or Wheezing glipiZIDE [Glipizide] 10 mg PO BID metFORMIN HCL 1,000 mg PO BID Cholecalciferol [Vitamin D3 (25 Mcg = 1000 Iu)] 1,000 units PO DAILY Zinc Gluconate [Zinc] 100 mg PO BID Cyanocobalamin (Vitamin B-12) [Vitamin B-12] 1,000 mcg PO DAILY Aspirin EC [Ecotrin] 325 mg PO DAILY Niacin 500 mg PO DAILY HYDROcodone/APAP 10-325MG [[place] 10-325] 1 tab PO Q12H PRN PRN Reason: Severe Pain Fluticasone Nasal [place] [Flonase Nasal [place]] 1 spray EA NOSTRIL BID Gabapentin 1,200 mg PO TID Discharge Medication List Albuterol Inhaler [Ventolin Hfa Inhaler] 2 puff INHALATION RT-Q6H PRN 08/18/15 [History] glipiZIDE [Glipizide] 10 mg PO BID 08/18/15 [History] metFORMIN HCL 1,000 mg PO BID 01/30/16 [History] Cholecalciferol [Vitamin D3 (25 Mcg = 1000 Iu)] 1,000 units PO DAILY 10/03/16 [History] Zinc Gluconate [Zinc] 100 mg PO BID 10/03/16 [History] Cyanocobalamin (Vitamin B-12) [Vitamin B-12] 1,000 mcg PO DAILY 11/28/17 [History] Aspirin EC [Ecotrin] 325 mg PO DAILY 03/12/19 [History] Fluticasone Nasal [place] [Flonase Nasal [place]] 1 spray EA NOSTRIL BID 03/12/19 [History] Gabapentin 1,200 mg PO TID 03/12/19 [History] HYDROcodone/APAP 10-325MG [[place] 10-325] 1 tab PO Q12H PRN 03/12/19 [History] Niacin 500 mg PO DAILY 03/12/19 [History] Azithromycin [Zithromax] 500 mg PO DAILY@1600 4 Days #4 tab 06/10/19 [Rx] Cefuroxime Axetil [Ceftin] 500 mg PO BID 7 Days #14 tab 06/10/19 [Rx] Nystatin 100,000 Unit/ml Susp [Mycostatin Oral Susp] 5 ml PO QID 10 Days ml 06/10/19 [Rx] predniSONE 10 mg PO DIRECTED #30 tab 06/10/19 [Rx] Follow up Appointment(s)/Referral(s): Adryan Romano III, MD [Primary Care Provider] - 1-2 days Akshat Chaney MD [STAFF PHYSICIAN] - 1 Week Activity/Diet/Wound Care/Special Instructions: Activity Limited until follow-up Follow-up with primary care provider upon discharge Follow-up with pulmonary in the outpatient setting Continue antibiotics until finished Continue prednisone taper Continue current diet Discharge Disposition: HOME SELF-CARE
[2019-06-10] MEDS ORDERED: AZITHROMYCIN 500 MG TAB PO SCH (16:00)
[2019-06-10 17:55] LABS: Procalcitonin 0.11 ng/mL (0.02-0.09)
[2019-06-12 14:36] LABS: Alt. alternata IgE Class CLASS 0; Alternaria alternata IgE <0.10 kU/L (<0.10); Asperg. fumagatus IgE <0.10 kU/L (<0.10); Asperg. fumagatus IgE Class CLASS 0; Bermuda Grass IgE <0.10 kU/L (<0.10); Birch(Com.Silvr) IgE <0.10 kU/L (<0.10); Birch(Com.Silvr) IgE Class CLASS 0; Cat Epith & Dander IgE <0.10 kU/L (<0.10); Cat Epith & Dander IgE Class CLASS 0; Clad herbarum IgE <0.10 kU/L (<0.10); Clad herbarum IgE Class CLASS 0; Cockroach IgE <0.10 kU/L (<0.10); Cottonwood IgE <0.10 kU/L (<0.10); Dermato. Pteronyssinus Class CLASS 0; Dermato. Pteronyssinus IgE <0.10 kU/L (<0.10); Dermato. farinae IgE <0.10 kU/L (<0.10); Dermato. farinae IgE Class CLASS 0; Dog Dander IgE <0.10 kU/L (<0.10); Elm IgE <0.10 kU/L (<0.10); IgE (Allergen) 7.2 IU/mL (<114.0); Maple (Box Elder) IgE <0.10 kU/L (<0.10); Maple (Box Elder) IgE Class CLASS 0; Mountain Cedar IgE <0.10 kU/L (<0.10); Mountain Cedar IgE Class CLASS 0; Mouse Urine IgE Class CLASS 0; Mouse Urine Proteins,IgE <0.10 kU/L (0.10); Nettle IgE <0.10 kU/L (<0.10); Nettle IgE Class CLASS 0; Oak IgE <0.10 kU/L (<0.10); Penicillium chrysogenum IgE <0.10 kU/L (<0.10); Penicillium chrysogenum IgE Cl CLASS 0; Rough Marshelder IgE <0.10 kU/L (<0.10); Rough Marshelder IgE Class CLASS 0; Timothy Grass IgE <0.10 kU/L (<0.10); Timothy Grass IgE Class CLASS 0; White Ash IgE Class CLASS 0
[2019-06-14 20:48] LABS: Alternaria Alternata IgG 2.5 mcg/mL (< 13.6); Aspergillus fumigatus IgG Not detected (Not detected); Aureobasidium pullulans IgG 4.8 mcg/mL (< 13.6); Cladosporium herbarium IgG 3.9 mcg/mL (< 14.7); Phoma ssp. IgG <2.0 mcg/mL (< 6.6); Saccaharomospora viridis Not detected (Not detected); Saccaharopoly. rectivirgula Not detected (Not detected)
== END 2019-06-10 12:17 | disposition home or self-care (01) ==
LOC: EC 11:05 → 6NMEDSUR 14:45
PROVIDERS: ADMIT Hospitalist; ATTEND Hospitalist
DX: A41.9 Sepsis, unspecified organism (principal); J18.9 Pneumonia, unspecified organism; B37.0 Candidal stomatitis; J44.0 Chronic obstructive pulmonary disease with (acute) lower respiratory infection; Z86.73 Personal history of transient ischemic attack (TIA), and cerebral infarction without residual deficits; E11.42 Type 2 diabetes mellitus with diabetic polyneuropathy; Z86.718 Personal history of other venous thrombosis and embolism; E78.5 Hyperlipidemia, unspecified; Z87.01 Personal history of pneumonia (recurrent); Z87.19 Personal history of other diseases of the digestive system; F32.9 Major depressive disorder, single episode, unspecified; F17.200 Nicotine dependence, unspecified, uncomplicated; F12.11 Cannabis abuse, in remission; E66.9 Obesity, unspecified; Z68.30 Body mass index [BMI] 30.0-30.9, adult; F81.0 Specific reading disorder; F81.89 Other developmental disorders of scholastic skills; R94.31 Abnormal electrocardiogram [ECG] [EKG]; I51.7 Cardiomegaly; Z90.89 Acquired absence of other organs; Z90.49 Acquired absence of other specified parts of digestive tract; Z86.19 Personal history of other infectious and parasitic diseases; Z79.899 Other long term (current) drug therapy; Z79.84 Long term (current) use of oral hypoglycemic drugs; Z79.82 Long term (current) use of aspirin; Z86.79 Personal history of other diseases of the circulatory system; Z88.0 Allergy status to penicillin; Z91.09 Other allergy status, other than to drugs and biological substances; Z88.8 Allergy status to other drugs, medicaments and biological substances; Z87.2 Personal history of diseases of the skin and subcutaneous tissue; Z86.2 Personal history of diseases of the blood and blood-forming organs and certain disorders involving the immune mechanism; Z98.890 Other specified postprocedural states; Z86.69 Personal history of other diseases of the nervous system and sense organs; Z85.72 Personal history of non-Hodgkin lymphomas; Z82.49 Family history of ischemic heart disease and other diseases of the circulatory system; Z80.8 Family history of malignant neoplasm of other organs or systems
CPT/HCPCS: 96376 ×2; 96361; 96365; 96367; 96375; 99285; 36415; 94640; 93005; 82785; 86003; 83880; 80053; 80048; 86001; 83605 ×2; 84484; 85025 ×2; 85610; 85730; 86431; 87040; 86609; 86606; 86038; 87502; 84145; 71046; 71275; G0378 ×2; J1940; J2930 ×2; J0696; J0692; Q9967

== ENCOUNTER 2020-03-28 18:43 | Inpatient (IN) | payer MEDICARE ==
[2020-03-28 18:49] LABS: Glucose,Whole Blood 265 mg/dL (75-99)
--- NOTE | 2020-03-28 18:55 | ED ---
General Adult HPI - General Chief complaint: Neuro Symptoms/Deficit Stated complaint: weakness Time Seen by Provider: 03/28/20 18:44 Source: patient, EMS, RN notes reviewed Mode of arrival: EMS Limitations: no limitations - History of Present Illness Initial comments: Patient is a pleasant 49-year-old male presenting to the emergency department with concern for possible stroke. Patient was found on the floor around a half hour prior to arrival by family. Unclear last known well. Patient is not aware of any weakness and is unclear when it may have started. Patient states it could've possibly been yesterday. Patient believes however that he was only lay on the ground for half an hour. Patient does have history of similar symptoms previously associated with TIA/stroke. Patient denies any pain or confusion. Patient denies any injury from falling. Patient is a poor historian. - Related Data Home Medications Medication Instructions Recorded Confirmed Albuterol Inhaler (Mhu) [Ventolin 2 puff INHALATION RT-Q6H PRN 08/18/15 06/09/19 Hfa Inhaler (Mhu)] glipiZIDE [Glipizide] 10 mg PO BID 08/18/15 06/09/19 metFORMIN HCL 1,000 mg PO BID 01/30/16 06/09/19 Cholecalciferol [Vitamin D3 (25 1,000 units PO DAILY 10/03/16 06/09/19 Mcg = 1000 Iu)] Zinc Gluconate [Zinc] 100 mg PO BID 10/03/16 06/09/19 Cyanocobalamin (Vitamin B-12) 1,000 mcg PO DAILY 11/28/17 06/09/19 [Vitamin B-12] Aspirin EC [Ecotrin] 325 mg PO DAILY 03/12/19 06/09/19 Fluticasone Nasal [place] [Flonase 1 spray EA NOSTRIL BID 03/12/19 06/09/19 Nasal [place]] Gabapentin 1,200 mg PO TID 03/12/19 06/09/19 HYDROcodone/APAP 10-325MG [[place] 1 tab PO Q12H PRN 03/12/19 06/09/19 10-325] Niacin 500 mg PO DAILY 03/12/19 06/09/19 Previous Rx's Medication Instructions Recorded Azithromycin [Zithromax] 500 mg PO DAILY@1600 4 Days #4 tab 06/10/19 Cefuroxime Axetil [Ceftin] 500 mg PO BID 7 Days #14 tab 06/10/19 Nystatin 100,000 Unit/ml Susp 5 ml PO QID 10 Days ml 06/10/19 [Mycostatin Oral Susp] predniSONE 10 mg PO DIRECTED #30 tab 06/10/19 Allergies Allergy/AdvReac Type Severity Reaction Status Date / Time Penicillins Allergy Severe Anaphylaxis Verified 06/09/19 11:51 talc Allergy Swelling Verified 06/09/19 11:51 pregabalin [From Lyrica] AdvReac Severe Stroke (no Verified 06/09/19 11:51 issue with neurontin) adhesive tape AdvReac Itching Verified 06/09/19 11:51 Review of Systems ROS Statement: Those systems with pertinent positive or pertinent negative responses have been documented in the HPI. ROS Other: All systems not noted in ROS Statement are negative. Constitutional: Denies: fever Eyes: Denies: eye pain ENT: Denies: ear pain Respiratory: Denies: cough Cardiovascular: Denies: chest pain Endocrine: Denies: fatigue Gastrointestinal: Denies: abdominal pain Genitourinary: Denies: dysuria Musculoskeletal: Denies: back pain Skin: Denies: rash Neurological: Reports: as per HPI. Denies: headache Past Medical History Past Medical History: COPD, CVA/TIA, Diabetes Mellitus, Deep Vein Thrombosis (DVT), Hyperlipidemia, Pneumonia, Vascular Disorder Additional Past Medical History / Comment(s): NIDDM type II, severe neuropathy bilateral hands and feet, past merlos L foot wound, CVA x 2-has had reading/mild comprehension problems since, occasional difficulty swallowing which pt attr ibutes to mucous build up, aspiration pneumonia, 2002 DVT L knee, lymphatic system infection, past anemia History of Any Multi-Drug Resistant Organisms: None Reported Past Surgical History: Adenoidectomy, Cholecystectomy, Hernia Repair, Orthopedic Surgery, Tonsillectomy Additional Past Surgical History / Comment(s): LAURA, L knee arthroscopy, L carpal tunnel release, umbilical hernia repair, debridement L foot, hilum biopsy. Past Anesthesia/Blood Transfusion Reactions: No Reported Reaction Past Psychological History: Depression Past Alcohol Use History: None Reported Past Drug Use History: Marijuana - Past Family History Father History Unknown: Yes Family Medical History: Coronary Artery Disease (CAD) Additional Family Medical History / Comment(s): Father had CABG and never came home from the hospital. Mother History Unknown: Yes Family Medical History: Cancer, Deep Vein Thrombosis (DVT) Additional Family Medical History / Comment(s): Mother had squamous cell carcinoma. General Exam Limitations: no limitations General appearance: alert, in no apparent distress Head exam: Present: normocephalic Eye exam: Present: normal appearance, PERRL, other (Eyes unable to move to the left) ENT exam: Present: normal oropharynx Neck exam: Present: normal inspection Respiratory exam: Present: normal lung sounds bilaterally Cardiovascular Exam: Present: regular rate, normal rhythm GI/Abdominal exam: Present: soft. Absent: tenderness Extremities exam: Present: normal inspection Neurological exam: Present: alert, oriented X3 Expanded Neurological exam: Present: other (Patient does have some left-sided neglect. Left facial weakness.) Cranial nerves: EOM's Intact: Abnormal Left, Facial Sensation: Normal Sensory exam: Upper Extremity Light Touch: Abnormal Left, Lower Extremity Light Touch: Normal Motor strength exam: RUE: 5, LUE: 0, RLE: 5, LLE: 4 Eye Response: (4) open spontaneously Motor Response: (6) obeys commands Verbal Response: (5) oriented Psychiatric exam: Present: normal affect, normal mood Skin exam: Present: normal color Course Vital Signs 03/28/20 03/28/20 03/28/20 18:44 18:52 19:00 Temperature 99.6 F Pulse Rate 89 106 H 77 Respiratory 20 20 20 Rate Blood Pressure 151/107 152/115 160/82 O2 Sat by Pulse 100 98 99 Oximetry 03/28/20 19:15 Temperature Pulse Rate 79 Respiratory 20 Rate Blood Pressure 150/80 O2 Sat by Pulse 99 Oximetry - Reevaluation(s) Reevaluation #1: 03/28/20 18:57 Case was discussed with Dr. Aparicio who states patient is not a TPA candidate nor thrombectomy candidate, medical management only. EKG Findings - EKG Comments: EKG Findings:: Normal sinus rhythm 91. OK 138. QRS 82. QT 358. QTC 440. Normal axis. Normal QRS. No acute ST change. Medical Decision Making - Medical Decision Making Patient reevaluated and updated. Case was discussed in detail Dr. Gayle, covering for Dr. Romano, who will admit - Lab Data Result diagrams: 03/28/20 18:52 03/28/20 18:52 Lab Results 03/28/20 03/28/20 03/28/20 Range/Units 18:48 18:52 18:52 WBC 15.4 H (3.8-10.6) k/uL RBC 4.89 (4.30-5.90) m/uL Hgb 14.6 (13.0-17.5) gm/dL Hct 43.0 (39.0-53.0) % MCV 87.9 (80.0-100.0) fL MCH 29.9 (25.0-35.0) pg MCHC 34.0 (31.0-37.0) g/dL RDW 13.6 (11.5-15.5) % Plt Count 173 (150-450) k/uL MPV 6.9 Neutrophils % 74 % Lymphocytes % 17 % Monocytes % 4 % Eosinophils % 2 % Basophils % 1 % Neutrophils # 11.4 H (1.3-7.7) k/uL Lymphocytes # 2.6 (1.0-4.8) k/uL Monocytes # 0.6 (0-1.0) k/uL Eosinophils # 0.3 (0-0.7) k/uL Basophils # 0.2 (0-0.2) k/uL PT 9.4 (9.0-12.0) sec INR 0.9 (<1.2) APTT 22.4 (22.0-30.0) sec Sodium (137-145) mmol/L Potassium (3.5-5.1) mmol/L Chloride (98-107) mmol/L Carbon Dioxide (22-30) mmol/L Anion Gap mmol/L BUN (9-20) mg/dL Creatinine (0.66-1.25) mg/dL Est GFR (CKD-EPI)AfAm (>60 ml/min/1.73 sqM) Est GFR (CKD-EPI)NonAf (>60 ml/min/1.73 sqM) Glucose (74-99) mg/dL POC Glucose (mg/dL) 265 H (75-99) mg/dL POC Glu Seater Grinder ID Allyssa Patel Calcium (8.4-10.2) mg/dL Total Bilirubin (0.2-1.3) mg/dL AST (17-59) U/L ALT (4-49) U/L Alkaline Phosphatase (38-126) U/L Total Protein (6.3-8.2) g/dL Albumin (3.5-5.0) g/dL 03/28/20 Range/Units 18:52 WBC (3.8-10.6) k/uL RBC (4.30-5.90) m/uL Hgb (13.0-17.5) gm/dL Hct (39.0-53.0) % MCV (80.0-100.0) fL MCH (25.0-35.0) pg MCHC (31.0-37.0) g/dL RDW (11.5-15.5) % Plt Count (150-450) k/uL MPV Neutrophils % % Lymphocytes % % Monocytes % % Eosinophils % % Basophils % % Neutrophils # (1.3-7.7) k/uL Lymphocytes # (1.0-4.8) k/uL Monocytes # (0-1.0) k/uL Eosinophils # (0-0.7) k/uL Basophils # (0-0.2) k/uL PT (9.0-12.0) sec INR (<1.2) APTT (22.0-30.0) sec Sodium 134 L (137-145) mmol/L Potassium 4.4 (3.5-5.1) mmol/L Chloride 103 (98-107) mmol/L Carbon Dioxide 24 (22-30) mmol/L Anion Gap 7 mmol/L BUN 12 (9-20) mg/dL Creatinine 1.04 (0.66-1.25) mg/dL Est GFR (CKD-EPI)AfAm >90 (>60 ml/min/1.73 sqM) Est GFR (CKD-EPI)NonAf 84 (>60 ml/min/1.73 sqM) Glucose 274 H (74-99) mg/dL POC Glucose (mg/dL) (75-99) mg/dL POC Glu Seater Grinder ID Calcium 9.1 (8.4-10.2) mg/dL Total Bilirubin 0.6 (0.2-1.3) mg/dL AST 27 (17-59) U/L ALT 22 (4-49) U/L Alkaline Phosphatase 109 (38-126) U/L Total Protein 6.3 (6.3-8.2) g/dL Albumin 3.9 (3.5-5.0) g/dL - Radiology Data Radiology results: report reviewed (Computed tomography scan of the brain shows bilateral multiple old infarcts. No acute intercranial abnormality. CT angiogram of the neck shows no acute process. CT angiogram of the brain shows stenosis proximal right cerebral artery. Slight decrease left posterior she will artery. No aneurysm.) Disposition Clinical Impression: Cerebrovascular accident Disposition: ADMITTED IP TO THIS HOSP Is patient prescribed a controlled substance at d/c from ED?: No Referrals: Adryan Romano III, MD [Primary Care Provider] - 1-2 days Decision Time: 19:51
[2020-03-28 19:10] LABS: Basophils # (A) 0.2 k/uL (0-0.2); Basophils % (A) 1 %; Eosinophils # (A) 0.3 k/uL (0-0.7); Eosinophils % (A) 2 %; HGB 14.6 gm/dL (13.0-17.5); Lymphocytes # (A) 2.6 k/uL (1.0-4.8); Lymphocytes % (A) 17 %; MCH 29.9 pg (25.0-35.0); MCV 87.9 fL (80.0-100.0); Mean Platelet Volume 6.9; Monocytes # (A) 0.6 k/uL (0-1.0); Monocytes % (A) 4 %; Neutrophils # (A) 11.4 k/uL (1.3-7.7); Neutrophils % (A) 74 %; Platelet Count 173 k/uL (150-450); RBC 4.89 m/uL (4.30-5.90); RDW 13.6 % (11.5-15.5); WBC 15.4 k/uL (3.8-10.6)
--- NOTE | 2020-03-28 19:15 | CT ---
EXAMINATION TYPE: CT brain wo con for TPA DATE OF EXAM: 03/28/2020 COMPARISON: None HISTORY: Neuro deficit, acute, stroke suspected. CT DLP: 1165.8 mGycm Automated exposure control for dose reduction was used. There is 4 cm area of wedge-shaped cortical hypodensity right posterior temporal lobe related to old infarct. Unchanged. There is 2 x 1 cm hypodense area in the white matter left internal capsule consis tent with lacunar infarct unchanged. There is no mass effect. There is no midline shift. There is no evidence of intracranial hemorrhage. There is enlargement of the occipital horn of the left lateral v entricle. There is cortical hypodensity left occipital lobe related to old infarct unchanged. This me asures 3 x 1 cm. The calvarium is intact. IMPRESSION: Bilateral multiple old infarcts. No acute intracranial abnormality. No significant change compared to old exam.
[2020-03-28 19:20] LABS: ALT 22 U/L (4-49); AST 27 U/L (17-59); African American GFR (CKD) >90 (>60 ml/min/1.73 sqM); Albumin 3.9 g/dL (3.5-5.0); Alkaline Phosphatase 109 U/L (38-126); Anion Gap 7 mmol/L; Blood Urea Nitrogen 12 mg/dL (9-20); Calcium 9.1 mg/dL (8.4-10.2); Carbon Dioxide 24 mmol/L (22-30); Chloride 103 mmol/L (98-107); Glucose 274 mg/dL (74-99); Non-African American GFR(CKD) 84 (>60 ml/min/1.73 sqM); Potassium 4.4 mmol/L (3.5-5.1); Sodium 134 mmol/L (137-145); Total Bilirubin 0.6 mg/dL (0.2-1.3); Total Protein 6.3 g/dL (6.3-8.2)
[2020-03-28 19:39] LABS: INR 0.9 (<1.2); Partial Thromboplastin Time 22.4 sec (22.0-30.0); Prothrombin Time 9.4 sec (9.0-12.0)
--- NOTE | 2020-03-28 19:48 | CT ---
EXAMINATION TYPE: CT angio head neck DATE OF EXAM: 03/28/2020 COMPARISON: 03/17/2016 and 08/18/2015 HISTORY: Neuro deficit, acute, stroke suspected. CT DLP: 703.6 mGycm Automated exposure control for dose reduction was used. CONTRAST: Performed with IV Contrast, patient injected with 65 mL of Isovue 370. There are 3-D post processed images. There is normal branching pattern of the great vessels on the aortic arch. There is arterial flow in both subclavian arteries. There is arterial flow in the common internal and external carotid arteries bilaterally. There is minimal plaque formation at the left carotid artery bifurcation. There is lume n narrowing less than 10%. Right carotid artery bifurcation appears widely patent. There is arterial flow in both vertebral arteries left vertebral artery is larger than the right. There is arterial flow in the vertebrobasilar artery system. There is no evidence of carotid or verte bral artery aneurysm or dissection. There is arterial flow in the anterior middle and posterior cerebral arteries bilaterally. I see no e vidence of intracranial aneurysm or neovascularity. There is no mass effect. There is short segment o f severe stenosis of the proximal right middle cerebral artery. Lumen narrowing is at least 75%. Ther e is diminished arterial flow in the left posterior cerebral artery compared to the right. The left p osterior cerebral artery appears to fill mainly through the posterior communicating artery. There is normal contrast opacification of the venous sinuses. IMPRESSION: Negative CT angiogram of the neck. No evidence of any significant stenosis. There is hemodynamic stenosis of the proximal right middle cerebral artery. There is also slight decr eased size of the left posterior cerebral artery compared to the right. No intracranial aneurysm. Manuel nosis of the right middle cerebral artery appears increased compared to old exam. Diminished flow lef t posterior cerebral artery similar to old exam.
[2020-03-28] MEDS ORDERED: ASPIRIN 325 MG TAB PO STA (19:51)
--- NOTE | 2020-03-28 20:31 | XR ---
EXAMINATION TYPE: XR chest 2V DATE OF EXAM: 03/28/2020 COMPARISON: 06/09/2019 HISTORY: Altered mental status TECHNIQUE: FINDINGS: Heart is normal. There is some coarsening of the interstitial markings throughout the lungs . There is no pleural effusion. Pulmonary vascularity is probably normal. IMPRESSION: There is pulmonary interstitial edema slightly worse than old exam.
[2020-03-29] MEDS: ASPIRIN 300 MG SUPP RECTAL SCH ×2 (02:05→18:19)
[2020-03-29] MEDS: INSULIN ASPART (NovoLOG) 100 UNIT/ML VIAL SQ SCH ×5 (02:12→21:00)
[2020-03-29] MEDS: SODIUM CHLORIDE 0.9% 1,000 ML IV SCH ×2 (02:15→07:37)
[2020-03-29 06:28] LABS: Glucose,Whole Blood 236 mg/dL (75-99)
[2020-03-29] MEDS ORDERED: FUROSEMIDE 10 MG/ML 4 ML VIAL IV STA (07:58)
[2020-03-29] MEDS ORDERED: FUROSEMIDE 10 MG/ML 4 ML VIAL ONE (08:27)
[2020-03-29] MEDS ORDERED: ASPIRIN 325 MG TAB PO SCH (09:00)
[2020-03-29] MEDS ORDERED: INFLUENZA VACCINE (6 MOS+) 60 MCG/0.5 ML SYRINGE IM ONE (09:01)
[2020-03-29 09:27] LABS: Basophils # (A) 0.1 k/uL (0-0.2); Basophils % (A) 1 %; Eosinophils % (A) 0 %; HCT 44.3 % (39.0-53.0); HGB 15.2 gm/dL (13.0-17.5); Lymphocytes # (A) 1.9 k/uL (1.0-4.8); Lymphocytes % (A) 17 %; MCH 30.6 pg (25.0-35.0); MCHC 34.3 g/dL (31.0-37.0); MCV 89.2 fL (80.0-100.0); Mean Platelet Volume 7.2; Monocytes # (A) 0.4 k/uL (0-1.0); Monocytes % (A) 4 %; Neutrophils # (A) 8.4 k/uL (1.3-7.7); Neutrophils % (A) 75 %; Platelet Count 175 k/uL (150-450); RBC 4.96 m/uL (4.30-5.90); RDW 13.8 % (11.5-15.5); WBC 11.1 k/uL (3.8-10.6)
[2020-03-29 09:41] LABS: African American GFR (CKD) >90 (>60 ml/min/1.73 sqM); Anion Gap 7 mmol/L; Blood Urea Nitrogen 10 mg/dL (9-20); Calcium 9.3 mg/dL (8.4-10.2); Carbon Dioxide 29 mmol/L (22-30); Chloride 102 mmol/L (98-107); Cholesterol 216 mg/dL (<200); Glucose 257 mg/dL (74-99); HDL Cholesterol 45 mg/dL (40-60); LDL Cholesterol,Calculated 149 mg/dL (0-99); Non-African American GFR(CKD) >90 (>60 ml/min/1.73 sqM); Potassium 4.1 mmol/L (3.5-5.1); Sodium 138 mmol/L (137-145); Triglycerides 109 mg/dL (<150)
--- NOTE | 2020-03-29 10:16 | P.CNPUL ---
History of Present Illness Consult date: 03/29/20 Chief complaint: altered mentation, respiratory insufficiency History of present illness: 49-year-old male patient came into the emergency department with altered mentation and generalized weakness. There was a concern for stroke. The patient was found on the floor prior to him arriving to the emergency. It was unclear when he was awake last. The patient felt that he was on the floor for at least half an hour. He was apparently a poor historian. He denies having any injuries of falling. A computed tomography scan of the brain was done and the patient was found to have bilateral multiple old infarcts. No significant abnormalities. CT angiogram of the neck showed no acute process. Computed tomography angiogram of the brain showed stenosis proximal right cerebral artery. There was slight decrease in the flow in the posterior cerebral artery also. The patient was admitted to the floor. I was asked to evaluate the patient this morning as the patient was still unresponsive, and he was having noisy breathing, and he was also found to be some degree of respiratory distress. At the time of arrival, the patient's BP was 194/93. He was on 2 L of oxygen by nasal cannula with a pulse is 96%. He was afebrile. His troponin was at 1.3 from yesterday. ProBNP level is 1017. LDL cholesterol is 149. Chest x-ray showingsome mild interstitial edema. I was able to communicate minimally with the patient. He was following some simple commands. He was quite lethargic. His speech was a bit garbled. Some obvious weakness on the left siderefusing is related to previous CVA. No reported aspiration. 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 Past Anesthesia/Blood Transfusion Reactions: No Reported Reaction Past Psychological History: Depression Additional Psychological History / Comment(s): Pt's son lives there too. Pt uses a cane to ambulate. He drives. He has a glucometer. Smoking Status: Current every day smoker Past Alcohol Use History: None Reported Additional Past Alcohol Use History / Comment(s): Started smoking in late teens, smokes 1.5 ppd, Past Drug Use History: Marijuana Additional Drug Use History / Comment(s): States uses daily. - Past Family History Father History Unknown: Yes Family Medical History: Coronary Artery Disease (CAD) Additional Family Medical History / Comment(s): Father had CABG and never came home from the hospital. Mother History Unknown: Yes Family Medical History: Cancer, Deep Vein Thrombosis (DVT) Additional Family Medical History / Comment(s): Mother had squamous cell carc inoma. Medications and Allergies Home Medications Medication Instructions Recorded Confirmed Type glipiZIDE [Glipizide] 10 mg PO BID 08/18/15 03/28/20 History metFORMIN HCL 1,000 mg PO AC-BID 01/30/16 03/28/20 History Aspirin EC [Ecotrin] 325 mg PO DAILY 03/12/19 03/28/20 History Fluticasone Nasal [place] [Flonase 1 spray EA NOSTRIL BID 03/12/19 03/28/20 History Nasal [place]] Gabapentin 1,200 mg PO TID 03/12/19 03/28/20 History HYDROcodone/APAP 10-325MG [[place] 1 tab PO BID 03/12/19 03/28/20 History 10-325] Albuterol Sulfate [Ventolin HFA] 2 puff INHALATION RT-QID PRN 03/28/20 03/28/20 History Allergies Allergy/AdvReac Type Severity Reaction Status Date / Time Penicillins Allergy Severe Anaphylaxis Verified 03/28/20 19:53 talc Allergy Swelling Verified 03/28/20 19:53 pregabalin [From Lyrica] AdvReac Severe Stroke (no Verified 03/28/20 19:53 issue with neurontin) adhesive tape AdvReac Itching Verified 03/28/20 19:53 Physical Exam Vitals: Vital Signs Temp Pulse Pulse Resp BP BP Pulse Ox 03/29/20 08:29 97.6 F 101 H 18 194/93 95 03/29/20 04:52 98.9 F 77 18 175/92 98 03/29/20 04:00 99.1 F 88 17 176/82 92 L 03/29/20 02:52 98.9 F 76 18 173/98 100 03/29/20 02:00 76 18 03/29/20 00:52 98.7 F 86 18 161/78 03/29/20 00:00 98.7 F 76 17 161/76 98 03/28/20 22:52 98.7 F 76 17 161/76 98 03/28/20 22:17 97 03/28/20 21:52 98.9 F 82 17 162/77 97 03/28/20 21:15 98.9 F 82 17 162/77 97 03/28/20 20:15 84 18 132/68 99 03/28/20 20:00 80 16 115/84 98 03/28/20 19:45 70 20 128/60 97 03/28/20 19:30 76 18 154/87 97 03/28/20 19:15 79 20 150/80 99 03/28/20 19:00 77 20 160/82 99 03/28/20 18:52 106 H 20 152/115 98 03/28/20 18:44 99.6 F 89 20 151/107 100 Intake and Output 03/28/20 03/29/20 03/29/20 22:59 06:59 14:59 Intake Total 300 Output Total 200 Balance 100 Intake: Intake, IV Titration 300 Amount Sodium Chloride 0.9% 1, 300 000 ml @ 100 mls/hr IV . Q10H [facility] Rx#:[id number] Output: Urine 200 Other: Voiding Method Urinal Diaper # Bowel Movements 1 Weight 99.79 kg 115.5 kg GENERAL DESCRIPTION: Middle-aged male lying in bed, no distress. No tachypnea or accessory muscle of respiration use.the patient is arousable. When left alone, he will get back to sleep. I was able to do some limited communication with killian wilson. His next 24 historian. He has obvious weakness compared to the right. Sinus. His problem is not established. HEENT: Shows Pallor , no scleral icterus. Oral mucous membrane is dry. No pharyngeal erythema or thrush NECK: Trachea central, no thyromegaly. LUNGS: Unlabored breathing. Coarse breath sounds bilaterally with occasional wheeze or crackle. HEART: S1, S2, regular rate and rhythm. No loud murmur ABDOMEN: Soft, no tenderness , guarding or rigidity, no organomegaly EXTREMITIES: No edema of feet. SKIN: No rash, no masses palpable. NEUROLOGICAL: The patient iof the evaluation, the patient became progressively more awake. He was aware that he was in the hospital. He reported some c hronic dizziness and left extremity. Left upper and left lower extremity was quite weak and he was predominantly using the right side. No neck stiffness. tthere is an obvious facial asymmetry with left facial weakness. The patient also has difficulties including his respiratory secretions. Pupils are equal and reactive to light. He is using a cath who suction his back of his throat. Results - Laboratory Findings CBC and BMP: 03/29/20 08:28 03/29/20 08:28 PT/INR, D-dimer PT 9.4 sec (9.0-12.0) 03/28/20 18:52 INR 0.9 (<1.2) 03/28/20 18:52 Abnormal lab findings: Abnormal Labs 03/28/20 03/28/20 03/28/20 18:48 18:52 18:52 WBC 15.4 H Neutrophils # 11.4 H Sodium 134 L Glucose 274 H POC Glucose (mg/dL) 265 H Troponin I Cholesterol LDL Cholesterol, Calc 03/28/20 03/29/20 03/29/20 18:52 06:03 08:28 WBC Neutrophils # Sodium Glucose 257 H POC Glucose (mg/dL) 236 H Troponin I 1.370 H* Cholesterol 216 H LDL Cholesterol, Calc 149 H 03/29/20 03/29/20 08:28 08:28 WBC 11.1 H Neutrophils # 8.4 H Sodium Glucose POC Glucose (mg/dL) Troponin I 0.806 H* Cholesterol LDL Cholesterol, Calc Assessment and Plan Plan: 1 altered mental status, consider recurrent CVA. The patient underwent a CTA of the head and neck CTA shows previous CVA in addition to that There is hemod ynamic stenosis of the proximal right middle cerebral artery. There is also slight decreased size of the left posterior cerebral artery compared to the right. No intracranial aneurysm. Stenosis of the right middle cerebral artery appears increased compared to old exam. Diminished flow left posterior cerebral artery similar to old exam. neurology consultation is in progress, and there is a concern that the patient has had a stroke along the right MCA distribution. 2 COPD 3 mild pulmonary edema,, consider aspiration 4 diabetes mellitus type 2 5 hypertension 6 hyperlipidemia 7 peripheral neuropathy 8 history of CVA on multiple occasions 9 history of difficulty swallowing and the patient has been involved in an aspiration pneumonia in the past 10 history of DVT in the LLE in 2001 11 troponin leak plan neurology evaluation as soon as possible Keep nothing by mouth Aspiration precautions sent a pro-calcitonin level Obtain a blood gas on 2 L of oxygen by nasal cannula Put the patient on DuoNeb nebulized treatments around the clock Obtain a swallow evaluation We'll continue to follow
[2020-03-29] MEDS ORDERED: IPRATROPIUM-ALBUTEROL 3 ML NEB INHALATION PRN (10:17)
[2020-03-29] MEDS ORDERED: DEXTROSE 50% SYRINGE 50 ML IVP ONE (10:41)
[2020-03-29 10:46] LABS: Glucose,Whole Blood 274 mg/dL (75-99)
[2020-03-29] MEDS ORDERED: ALBUTEROL NEBULIZED 2.5 MG/3 ML INHALATION PRN (10:52)
--- NOTE | 2020-03-29 11:01 | P.HPIM ---
History of Present Illness This is a pleasant 49 years old male with past medical history of CVA/TIA, diabetes mellitus, deep venous thrombosis, COPD, hyperlipidemia, diabetic neuropathy. Also has history of depression and cigarette smoker, presents because of fall off the toilet as per patient without losing consciousness . he denies chest pain , he has some dyspnea and cough with clear phlegm for about two weeks. He usually uses a cane because of his left hemiparesis from a stroke. He denies diarrhea, nausea vomiting, no burning in his urination. No new weakness or numbness. No slurred speech or blurred vision. No headache History smokes about 1.5 pack per day, no alcohol and he uses marijuana as well On admission patient is afebrile, rest of vitals are stable, blood pressure on the high side 175/92 Labs showing mild leukocytosis of 15.4. INR 0.9, BMP is unremarkable except for elevated glucose of 274 and 236. Liver enzymes not elevated, troponin is elevated at 1.3. In the emergency room patient was started on aspirin 325 mg and neurology team were consulted. Also patient was started on 100 mL/hr Cardiology consult was placed who called pulmonary as well. MAPS and he is on [place] 10 twice a day and gabapentin 600 mg 3 times a day Review of Systems CONSTITUTIONAL: No fever, no malaise, no fatigue. HEENT: No recent visual problems or hearing problems. Denied any sore throat. CARDIOVASCULAR: No orthopnea, PND, no palpitations, no syncope. PULMONARY: No shortness of breath, no cough, no hemoptysis. GASTROINTESTINAL: No diarrhea, no nausea, no vomiting, no abdominal pain. Normoactive bowel sounds. NEUROLOGICAL: No headaches, no weakness, no numbness. HEMATOLOGICAL: Denies any bleeding or petechiae. GENITOURINARY: Denies any burning micturition, frequency, or urgency. MUSCULOSKELETAL/RHEUMATOLOGICAL: Denies any joint pain, swelling, or any muscle pain. ENDOCRINE: Denies any polyuria or polydipsia. 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 Past Anesthesia/Blood Transfusion Reactions: No Reported Reaction Past Psychological History: Depression Additional Psychological History / Comment(s): Pt's son lives there too. Pt uses a cane to ambulate. He drives. He has a glucometer. Smoking Status: Current every day smoker Past Alcohol Use History: None Reported Additional Past Alcohol Use History / Comment(s): Started smoking in late teens, smokes 1.5 ppd, Past Drug Use History: Marijuana Additional Drug Use History / Comment(s): States uses daily. - Past Family History Father History Unknown: Yes Family Medical History: Coronary Artery Disease (CAD) Additional Family Medical History / Comment(s): Father had CABG and never came home from the hospital. Mother History Unknown: Yes Family Medical History: Cancer, Deep Vein Thrombosis (DVT) Additional Family Medical History / Comment(s): Mother had squamous cell carcinoma. Medications and Allergies Home Medications Medication Instructions Recorded Confirmed Type glipiZIDE [Glipizide] 10 mg PO BID 08/18/15 03/28/20 History metFORMIN HCL 1,000 mg PO AC-BID 01/30/16 03/28/20 History Aspirin EC [Ecotrin] 325 mg PO DAILY 03/12/19 03/28/20 History Fluticasone Nasal [place] [Flonase 1 spray EA NOSTRIL BID 03/12/19 03/28/20 History Nasal [place]] Gabapentin 1,200 mg PO TID 03/12/19 03/28/20 History HYDROcodone/APAP 10-325MG [[place] 1 tab PO BID 03/12/19 03/28/20 History 10-325] Albuterol Sulfate [Ventolin HFA] 2 puff INHALATION RT-QID PRN 03/28/20 03/28/20 History Allergies Allergy/AdvReac Type Severity Reaction Status Date / Time Penicillins Allergy Severe Anaphylaxis Verified 03/28/20 19:53 talc Allergy Swelling Verified 03/28/20 19:53 pregabalin [From Lyrica] AdvReac Severe Stroke (no Verified 03/28/20 19:53 issue with neurontin) adhesive tape AdvReac Itching Verified 03/28/20 19:53 Physical Exam Vitals: Vital Signs Temp Pulse Pulse Resp BP BP Pulse Ox 03/29/20 04:52 98.9 F 77 18 175/92 98 03/29/20 04:00 99.1 F 88 17 176/82 92 L 03/29/20 02:52 98.9 F 76 18 173/98 100 03/29/20 02:00 76 18 03/29/20 00:52 98.7 F 86 18 161/78 03/29/20 00:00 98.7 F 76 17 161/76 98 03/28/20 22:52 98.7 F 76 17 161/76 98 03/28/20 22:17 97 03/28/20 21:52 98.9 F 82 17 162/77 97 03/28/20 21:15 98.9 F 82 17 162/77 97 03/28/20 20:15 84 18 132/68 99 03/28/20 20:00 80 16 115/84 98 03/28/20 19:45 70 20 128/60 97 03/28/20 19:30 76 18 154/87 97 03/28/20 19:15 79 20 150/80 99 03/28/20 19:00 77 20 160/82 99 03/28/20 18:52 106 H 20 152/115 98 03/28/20 18:44 99.6 F 89 20 151/107 100 Intake and Output 03/28/20 03/29/20 03/29/20 22:59 06:59 14:59 Intake Total 300 Output Total 200 Balance 100 Intake: Intake, IV Titration 300 Amount Sodium Chloride 0.9% 1, 300 000 ml @ 100 mls/hr IV . Q10H [facility] Rx#:[id number] Output: Urine 200 Other: # Bowel Movements 1 Weight 99.79 kg 115.5 kg GENERAL: The patient is alert and oriented x3, not in any acute distress. Well developed, well nourished. HEENT: Pupils are round and equally reacting to light. EOMI. No scleral icterus. No conjunctival pallor. Normocephalic, atraumatic. No pharyngeal erythema. No thyromegaly. CARDIOVASCULAR: S1 and S2 present. No murmurs, rubs, or gallops. PULMONARY: Chest is clear to auscultation, no wheezing or crackles. ABDOMEN: Soft, nontender, nondistended, normoactive bowel sounds. No palpable organomegaly. MUSCULOSKELETAL: No joint swelling or deformity. EXTREMITIES: No cyanosis, clubbing, or pedal edema. -NEUROLOGICAL: Gross neurological examination did not reveal any focal deficits except for Mild dysarthria and left hemiparesis which looked chronic SKIN: No rashes. No petechiae Results CBC & Chem 7: 03/29/20 08:28 03/29/20 08:28 Labs: Abnormal Lab Results - Last 24 Hours (Table) 03/28/20 03/28/20 03/28/20 Range/Units 18:48 18:52 18:52 WBC 15.4 H (3.8-10.6) k/uL Neutrophils # 11.4 H (1.3-7.7) k/uL Sodium 134 L (137-145) mmol/L Glucose 274 H (74-99) mg/dL POC Glucose (mg/dL) 265 H (75-99) mg/dL Troponin I (0.000-0.034) ng/mL 03/28/20 03/29/20 Range/Units 18:52 06:03 WBC (3.8-10.6) k/uL Neutrophils # (1.3-7.7) k/uL Sodium (137-145) mmol/L Glucose (74-99) mg/dL POC Glucose (mg/dL) 236 H (75-99) mg/dL Troponin I 1.370 H* (0.000-0.034) ng/mL Thrombosis Risk Factor Assmnt - Choose All That Apply Any of the Below Risk Factors Present?: Yes Each Factor Represents 1 point: Age 41-60 years, Obesity (BMI >25) Other Risk Factors: Yes Each Risk Factor Represents 3 Points: Family history of DVT/PE, History of DVT/PE Other congenital or acquired thrombophilia - If yes, enter type in comment: No Each Risk Factor Represents 5 Points: Stroke (< 1 month) Thrombosis Risk Factor Assessment Total Risk Factor Score: 13 Thrombosis Risk Factor Assessment Level: High Risk Assessment and Plan Assessment: Fall without losing consciousness elevated troponin, rule out cardiac causes History of multiple CVA , with left hemiparesis. No recent worsening as per patient nicotine dependence Substance abuse with marijuana Chronic feet pain mostly secondary to diabetic neuropathy Type 2 diabetes mellitus Hyperlipidemia Hypertension History of deep venous thrombosis Diabetic neuropathy Plan: This is a pleasant 49 years old male who presents withfall. Continue with aspirin, neurology consult. Check carotid duplex and echocardiogram. We'll check MRI of the brain.Permissive hypertension We'll check with physical therapy, occupational family, and speech therapist . Cardiology consult for high troponin. Also follow-up recommendation by [employer]. Stop IV fluid of normal saline at 100 mL per hour and started on D5 half-normal saline at 50, check creatinine kinase. Continue with gabapentin and lowered [place] 7.5, patient was asking to get this pain medication and I discussed with him to lower the [place] as they increase his risk of falling Labs and medication were reviewed.. Continue same treatment. Continue with symptomatic treatment. Resume home medication. Monitor lytes and vitals. DVT and GI prophylaxis. Further recommendations depends on the clinical course of the patient DVT prophylaxis: Subcutaneous heparin GI Prophylaxis: Pepcid PT/OT: Pending Prognosis is guarded
[2020-03-29] MEDS ORDERED: MORPHINE SULFATE 2 MG/ML SYRINGE ONE (11:51)
[2020-03-29] MEDS: MORPHINE SULFATE 2 MG/ML SYRINGE IVP PRN ×3 (11:55→22:30)
--- NOTE | 2020-03-29 12:07 | P.CRDCN ---
History of Present Illness History of present illness: HISTORY OF PRESENTING ILLNESS This is a pleasant 49-year-old male past medical history significant for diabetes mellitus, CVA and peripheral vascular disease. He has followed in the office with Dr. Arrington, however has not been to the office in 2017. We have been asked to see in consultation for elevated troponin. He presented to the hospital with symptoms of slurred speech and left-sided weakness. Initial brain CT unremarkable with evidence of multiple old infarcts. CT angiogram reveals hemodynamic stenosis of the proximal right middle cerebral artery, also slight decreased size of the left posterior cerebral artery compared to the right, stenosis of the right middle cerebral artery appears increased compared to old exam with diminished. The left posterior cerebral artery that is similar to old exam The patient was seen and examined sitting up in bed using suction to clear his secretions. He is alert and oriented however unable to sit calmly in bed. He denies symptoms of chest pain, shortness of breath, dizziness or palpitations. DIAGNOSTICS EKG reveals sinus mechanism with nonspecific abnormalities. Chest xray pulmonary interstitial edema slightly worse than previous exam. Laboratory reviewed, WBC 11.1, hemoglobin 15.2, platelets 175, sodium 138, potassium 4.1, creatinine 0.98, troponin on admission 1.30 7 repeat today 0.806, and T proBNP 1070, LDL 149 and HDL 45. Current cardiac medications include aspirin 325 mg daily. REVIEW OF SYSTEMS At the time of my exam: CONSTITUTIONAL: Denies fever or chills. CARDIOVASCULAR: Denies chest pain, shortness of breath, orthopnea, PND or palpitations. RESPIRATORY: Complains of cough. GASTROINTESTINAL: Denies abdominal pain, diarrhea, constipation, nausea or vomiting. MUSCULOSKELETAL: Complains of left-sided weakness. NEUROLOGIC: Denies numbness, tingling or weakness. ENDOCRINE: Denies fatigue, weight change, polydipsia or polyurina. GENITOURINARY: Denies burning, hematuria or urgency with micturation. HEMATOLOGIC: Denies history of anemia or bleeding. PHYSICAL EXAMINATION Blood pressure 194/93 heart rate 101 afebrile and maintaining oxygen saturation on nasal cannula. CONSTITUTIONAL: No apparent distress. HEENT: Head is normocephalic. Pupils are equal, round. Sclerae anicteric. Mucous membranes of the mouth are moist. No JVD. No carotid bruit. CHEST EXAMINATION: Scattered rhonchi, no wheezes or rales. No chest wall tenderness is noted on palpation or with deep breathing. HEART EXAMINATION: Regular rate and rhythm. S1, S2 heard. Soft systolic ejection murmur at the base, no gallops or rub. Difficult to auscultate heart sounds secondary to bronchial congestion. ABDOMEN: Soft, nontender. Positive bowel sounds. EXTREMITIES: 1+ peripheral pulses, no lower extremity edema and no calf tenderness. NEUROLOGIC EXAMINATION: Patient is awake, alert and oriented. ASSESSMENT Altered mental status with left-sided weakness, probable acute CVA History of CVA Troponin abnormality, no EKG evidence of ischemia and no wall motion abnormalities on echocardiogram. Not suggestive of an acute coronary syndrome. Chronic nicotine dependence Hypertension, new onset Diabetes mellitus PLAN Recommend pulmonary evaluation to protect his airway. Patient requires a STAT neuro evaluation. Give 1 dose of IV Lasix 40 mg now. Repeat chest xray in the morning. Telemetry monitoring to assess if underlying atrial fibrillation. In the past outpatient monitoring has been unremarkable. Thank you kindly for this consultation. Nurse Practitioner note has been reviewed, I agree with a documented findings and plan of care. Patient was seen and examined. 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 Past Anesthesia/Blood Transfusion Reactions: No Reported Reaction Past Psychological History: Depression Additional Psychological History / Comment(s): Pt's son lives there too. Pt uses a cane to ambulate. He drives. He has a glucometer. Smoking Status: Current every day smoker Past Alcohol Use History: None Reported Additional Past Alcohol Use History / Comment(s): Started smoking in late teens, smokes 1.5 ppd, Past Drug Use History: Marijuana Additional Drug Use History / Comment(s): States uses daily. - Past Family History Father History Unknown: Yes Family Medical History: Coronary Artery Disease (CAD) Additional Family Medical History / Comment(s): Father had CABG and never came home from the hospital. Mother History Unknown: Yes Family Medical History: Cancer, Deep Vein Thrombosis (DVT) Additional Family Medical History / Comment(s): Mother had squamous cell carcinoma. Medications and Allergies Home Medications Medication Instructions Recorded Confirmed Type glipiZIDE [Glipizide] 10 mg PO BID 08/18/15 03/28/20 History metFORMIN HCL 1,000 mg PO AC-BID 01/30/16 03/28/20 History Aspirin EC [Ecotrin] 325 mg PO DAILY 03/12/19 03/28/20 History Fluticasone Nasal [place] [Flonase 1 spray EA NOSTRIL BID 03/12/19 03/28/20 History Nasal [place]] Gabapentin 1,200 mg PO TID 03/12/19 03/28/20 History HYDROcodone/APAP 10-325MG [[place] 1 tab PO BID 03/12/19 03/28/20 History 10-325] Albuterol Sulfate [Ventolin HFA] 2 puff INHALATION RT-QID PRN 03/28/20 03/28/20 History Allergies Allergy/AdvReac Type Severity Reaction Status Date / Time Penicillins Allergy Severe Anaphylaxis Verified 03/28/20 19:53 talc Allergy Swelling Verified 03/28/20 19:53 pregabalin [From Lyrica] AdvReac Severe Stroke (no Verified 03/28/20 19:53 issue with neurontin) adhesive tape AdvReac Itching Verified 03/28/20 19:53 Physical Exam Vitals: Vital Signs Temp Pulse Pulse Resp BP BP Pulse Ox 03/29/20 04:52 98.9 F 77 18 175/92 98 03/29/20 04:00 99.1 F 88 17 176/82 92 L 03/29/20 02:52 98.9 F 76 18 173/98 100 03/29/20 02:00 76 18 03/29/20 00:52 98.7 F 86 18 161/78 03/29/20 00:00 98.7 F 76 17 161/76 98 03/28/20 22:52 98.7 F 76 17 161/76 98 03/28/20 22:17 97 03/28/20 21:52 98.9 F 82 17 162/77 97 03/28/20 21:15 98.9 F 82 17 162/77 97 03/28/20 20:15 84 18 132/68 99 03/28/20 20:00 80 16 115/84 98 03/28/20 19:45 70 20 128/60 97 03/28/20 19:30 76 18 154/87 97 03/28/20 19:15 79 20 150/80 99 03/28/20 19:00 77 20 160/82 99 03/28/20 18:52 106 H 20 152/115 98 03/28/20 18:44 99.6 F 89 20 151/107 100 Intake and Output 03/28/20 03/29/20 03/29/20 22:59 06:59 14:59 Intake Total 300 Output Total 200 Balance 100 Intake: Intake, IV Titration 300 Amount Sodium Chloride 0.9% 1, 300 000 ml @ 100 mls/hr IV . Q10H [facility] Rx#:[id number] Output: Urine 200 Other: # Bowel Movements 1 Weight 99.79 kg 115.5 kg Results 03/29/20 08:28 03/29/20 08:28 Cardiac Enzymes 03/28/20 03/28/20 Range/Units 18:52 18:52 AST 27 (17-59) U/L Troponin I 1.370 H* (0.000-0.034) ng/mL Coagulation 03/28/20 Range/Units 18:52 PT 9.4 (9.0-12.0) sec APTT 22.4 (22.0-30.0) sec CBC 03/28/20 Range/Units 18:52 WBC 15.4 H (3.8-10.6) k/uL RBC 4.89 (4.30-5.90) m/uL Hgb 14.6 (13.0-17.5) gm/dL Hct 43.0 (39.0-53.0) % Plt Count 173 (150-450) k/uL Comprehensive Metabolic Panel 03/28/20 Range/Units 18:52 Sodium 134 L (137-145) mmol/L Potassium 4.4 (3.5-5.1) mmol/L Chloride 103 (98-107) mmol/L Carbon Dioxide 24 (22-30) mmol/L BUN 12 (9-20) mg/dL Creatinine 1.04 (0.66-1.25) mg/dL Glucose 274 H (74-99) mg/dL Calcium 9.1 (8.4-10.2) mg/dL AST 27 (17-59) U/L ALT 22 (4-49) U/L Alkaline Phosphatase 109 (38-126) U/L Total Protein 6.3 (6.3-8.2) g/dL Albumin 3.9 (3.5-5.0) g/dL Current Medications Generic Name Dose Route Start Last Admin Trade Name Freq PRN Reason Stop Dose Admin Aspirin 300 mg 03/28/20 23:45 03/29/20 02:05 Aspirin 300 Mg Supp RECTAL 300 mg DAILY RICH Administration Furosemide 40 mg 03/29/20 07:58 Furosemide 10 Mg/Ml 4 Ml Vial IV 03/29/20 07:59 ONCE STA Sodium Chloride 1,000 mls @ 100 mls/hr 03/28/20 20:00 03/29/20 07:37 Saline 0.9% IV 100 mls/hr .Q10H R[facility] Administration Insulin Aspart 0 unit 03/28/20 21:00 03/29/20 07:35 Insulin Aspart (Novolog) 100 Unit/Ml Vial SQ 3 unit ACHS RICH Administration Protocol Intake and Output 03/28/20 03/29/20 03/29/20 22:59 06:59 14:59 Intake Total 300 Output Total 200 Balance 100 Intake: Intake, IV Titration 300 Amount Sodium Chloride 0.9% 1, 300 000 ml @ 100 mls/hr IV . Q10H [facility] Rx#:[id number] Output: Urine 200 Other: # Bowel Movements 1 Weight 99.79 kg 115.5 kg 03/28/20 18:52 03/28/20 18:52
[2020-03-29 12:10] LABS: Glucose,Whole Blood 246 mg/dL (75-99)
--- NOTE | 2020-03-29 12:35 | US ---
EXAMINATION TYPE: US carotid duplex BILAT DATE OF EXAM: 03/29/2020 COMPARISON: CTA head and neck dated 03/28/2020, US 03/17/2016 CLINICAL HISTORY: CVA. Patient using oral suction at time of exam and constant patient movement is no ewelina, thus US is technically limited by these factors. EXAM MEASUREMENTS: RIGHT: Peak Systolic Velocity (PSV) cm/sec ----- Right CCA: 67.6 ----- Right ICA: 54.0 ----- Right ECA: 140.8 ICA/CCA ratio: 0.8 RIGHT: End Diastole cm/sec ----- Right CCA: 12.3 ----- Right ICA: 16.6 ----- Right ECA: 26.3 LEFT: Peak Systolic Velocity (PSV) cm/sec ----- Left CCA: 115.1 ----- Left ICA: 101.6 ----- Left ECA: 88.7 ICA/CCA ratio: 0.9 LEFT: End Diastole cm/sec ----- Left CCA: 15.6 ----- Left ICA: 8.3 ----- Left ECA: 14.6 VERTEBRALS (direction of flow): Right Vertebral: Antegrade Left Vertebral: unable to assess due to constant patient motion Rhythm: Normal Mild to moderate intimal wall plaque is noted at bilateral carotid bifurcation, but PSV is wnl in landy ateral CCA and ICA. Grayscale, color Doppler, spectral Doppler imaging performed of the carotid veronica zamzam. Waveform analysis does not show significant stenosis of the internal carotid arteries. IMPRESSION: There is lack of cooperation by the patient. No hemodynamic significant stenosis of the proximal internal carotid arteries was evident by Doppler criteria, an indirect measurement of caroti d stenosis. Criteria for Assigning % of Stenosis / Diameter reduction (Estimation based on the indirect measurements of the internal carotid artery velocities (ICA PSV). 1. Normal (no stenosis)=ICA PSV < 125 cm/s: ratio < 2.0: ICA EDV<40 cm/s. 2. Less than 50% stenosis=ICA PSV < 125 cm/s: ratio < 2.0: ICA EDV<40 cm/s. 3. 50 to 69% stenosis=ICA PSV of 125 to 230 cm/s: ration 2.0 ? 4.0: ICA EDV 40-100 cm/s. 4. Greater than 70% stenosis to near occlusion= ICA PSV > 230 cm/s: ratio > 4.0: ICA EDV > 100 cm/s. 5. Near occlusion= ICA PSV velocities may be low or undetectable: variable ratio and ICA EDV. 6. Total occlusion=unable to detect flow.
--- NOTE | 2020-03-29 13:53 | ECHOF ---
Referral Reason:Thrombus MEASUREMENTS -------- HEIGHT: 177.8 cm WEIGHT: 115.2 kg BP: RVIDd: 2.4 cm (< 3.3) IVSd: 1.1 cm (0.6 - 1.1) LVIDd: 4.3 cm (3.9 - 5.3) LVPWd: 1.3 cm (0.6 - 1.1) IVSs: 1.7 cm LVIDs: 3.1 cm LVPWs: 1.6 cm LAESV Index (A-L): 23.86 ml/m Ao Diam: 2.9 cm (2.0 - 3.7) AV Cusp: 1.8 cm (1.5 - 2.6) LA Diam: 3.4 cm (2.7 - 3.8) MV EXCURSION: 18.395 mm (> 18.000) MV EF SLOPE: 39 mm/s (70 - 150) EPSS: 0.5 cm MV E Jamie: 0.66 m/s MV DecT: 176 ms MV A Jamie: 1.29 m/s MV E/A Ratio: 0.51 RAP: 5.00 mmHg RVSP: 11.04 mmHg FINDINGS -------- This was a technically difficult study with suboptimal views. The left ventricular size is normal. There is mild concentric left ventricular hypertrophy. Overa ll left ventricular systolic function is low-normal with, an EF between 50 - 55 %. Normal LAP. Grad e 1 Diastolic Dysfunction. The right ventricle is normal in size. The left atrial size is normal. Normal LA size by volume 22+/-6 ml/m2. The right atrial size is normal. xx ml of Lumason was utilized for enhancement of images. The aortic valve is trileaflet and appears structurally normal. The mitral valve is normal. There is trace mitral regurgitation. The tricuspid valve appears structurally normal. Trace tricuspid regurgitation present. Right jaqui tricular systolic pressure is normal at < 35 mmHg. There is no pulmonic regurgitation present. The aortic root size is normal. Normal inferior vena cava with normal inspiratory collapse consistent with estimated right atrial pre ssure of 5 mmHg. There is a small, generalized pericardial effusion present. CONCLUSIONS -------- 1. The left ventricular size is normal. 2. There is mild concentric left ventricular hypertrophy. 3. Overall left ventricular systolic function is low-normal with, an EF between 50 - 55 %. 4. Normal LAP. Grade 1 Diastolic Dysfunction. 5. There is trace mitral regurgitation. 6. Trace tricuspid regurgitation present. 7. There is a small, generalized pericardial effusion present. PRODUCT DEVELOPMENT INTERN: Pooja Quinn RDCS
[2020-03-29] MEDS ORDERED: CLOPIDOGREL 75 MG TAB PO STA (16:13)
[2020-03-29] MEDS: IPRATROPIUM-ALBUTEROL 3 ML NEB INHALATION SCH ×4 (16:15→23:46)
[2020-03-29 16:29] LABS: ABG Base Excess 1.5 mmol/L; ABG HCO3 24 mmol/L (21-25); ABG Oxygen Saturation 98.3 % (94-97); ABG PCO2 30 mmHg (35-45); ABG PH 7.52 (7.35-7.45); ABG PO2 115 mmHg (83-108); ABG TCO2 25 mmol/L (19-24); Allen Test Performed? Yes
--- NOTE | 2020-03-29 16:42 | P.CNNES ---
History of Present Illness Consult date: 03/29/20 Requesting physician: Vijay Farrar Reason for Consult: CVA History of Present Illness: Patient is a 49-year-old male came to the hospital yesterday at 6:43 PM, after he was found on the floor about half an hour prior to arrival by the family. Unclear last known well. Patient did not notice any weakness, and is unclear when it may have started. Patient believes that he was laying on the ground only for half an hour. Patient denied any injury from falling. This information is as per electronic records from emergency department. ED staff discuss case with troponin neurologist Dr. Aparicio, who felt patient was not a candidate for TPA nor thrombectomy. Medical management only. I spoke to the nurse last night at around 9:50 PM. Nurse reported that patient not able to swallow. Recommended aspirin 300 mg rectally, as patient did not receive it in the ER due to dysphagia. Also ordered an urgent MRI of the brain, and recommended permissive hypertension. Today patient tells me that yesterday he stood up from toilet, and fell, it took almost 20 minutes to get up. He called his brother, who helped him get up. He couldn't do it by himself. He states that he did not pass out. He states that his brother called the ambulance and was brought to the hospital. At present he does not know if there is any new weakness. Vital signs on arrival blood pressure 151/107, pulse rate 89, temperature 99.6. Computed tomography scan of the head showed bilateral multiple old infarcts. No acute intracranial abnormality. No significant change compared to old exam. CTA of neck showed no significant stenosis. CTA of the head showed hemodynamic stenosis of the proximal right MCA. There is also slight decreased size of the left [employer] compared to the right. No intracranial aneurysm. Stenosis of the righ t middle cerebral artery appears increased compared to old exam. Diminished flow left posterior cerebral arteries similar to old exam. EKG shows normal sinus rhythm, chest x-ray showed pulmonary interstitial edema slightly worse than old exam. Patient's blood test shows WBC 15.4 hemoglobin 14.6 platelets 173 PT/PTT normal, sodium 134, renal functions normal. Hepatic panel normal, troponin 1.370. Patient's total cholesterol is 216, LDL 149, HDL 45 and triglycerides 109. Patient's hemoglobin A1c 7.6 on 03/22/2020. Patient has history of left parietal occipital lobe infarct on 08/18/2015. Patient had another stroke on 03/18/2016 in which computed tomography scan of the head showed subacute CVA on the right frontoparietal region. Patient does take aspirin 325 mg daily. Also on glipizide, metformin, gabapentin. Patient has diabetes for 10 years, smoked 1 pack per day for 10 years. Denies hypertension. Denies hyperlipidemia. Review of Systems Patient denies headache. Denies any problem with the vision, or any new weakness. Patient not able to provide good history. Denies any chest pain shortness of breath. He is coughing. He has phlegm. Denies abdominal pain nausea vomiting diarrhea. All other review of systems unremarkable. Constitutional: Denies chills, Denies fever Eyes: denies pain Ears, nose, mouth and throat: Denies headache, Denies sore throat Cardiovascular: Denies chest pain Respiratory: Reports cough Gastrointestinal: Denies abdominal pain, Denies diarrhea, Denies nausea, Denies vomiting Musculoskeletal: Denies myalgias Integumentary: Denies pruritus, Denies rash Neurological: Denies numbness, Denies weakness Psychiatric: Denies anxiety, Denies depression Endocrine: Denies fatigue, Denies weight change Past Medical History Past Medical History: COPD, CVA/TIA, Diabetes Mellitus, Deep Vein Thrombosis (DV T), Hyperlipidemia, Pneumonia, Vascular Disorder Additional Past Medical History / Comment(s): NIDDM type II, severe neuropathy bilateral hands and feet, past merlos L foot wound, 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 Past Anesthesia/Blood Transfusion Reactions: No Reported Reaction Past Psychological History: Depression Additional Psychological History / Comment(s): Pt's son lives there too. Pt uses a cane to ambulate. He drives. He has a glucometer. Smoking Status: Current every day smoker Past Alcohol Use History: None Reported Additional Past Alcohol Use History / Comment(s): Started smoking in late teens, smokes 1.5 ppd, Past Drug Use History: Marijuana Additional Drug Use History / Comment(s): States uses daily. - Past Family History Father History Unknown: Yes Family Medical History: Coronary Artery Disease (CAD) Additional Family Medical History / Comment(s): Father had CABG and never came home from the hospital. Mother History Unknown: Yes Family Medical History: Cancer, Deep Vein Thrombosis (DVT) Additional Family Medical History / Comment(s): Mother had squamous cell carcinoma. Medications and Allergies Home Medications Medication Instructions Recorded Confirmed Type glipiZIDE [Glipizide] 10 mg PO BID 08/18/15 03/28/20 History metFORMIN HCL 1,000 mg PO AC-BID 01/30/16 03/28/20 History Aspirin EC [Ecotrin] 325 mg PO DAILY 03/12/19 03/28/20 History Fluticasone Nasal Sodus [Flonase 1 spray EA NOSTRIL BID 03/12/19 03/28/20 Histo ry Nasal Sodus] Gabapentin 1,200 mg PO TID 03/12/19 03/28/20 History HYDROcodone/APAP 10-325MG [Marsing 1 tab PO BID 03/12/19 03/28/20 History 10-325] Albuterol Sulfate [Ventolin HFA] 2 puff INHALATION RT-QID PRN 03/28/20 03/28/20 History Allergies Allergy/AdvReac Type Severity Reaction Status Date / Time Penicillins Allergy Severe Anaphylaxis Verified 03/28/20 19:53 talc Allergy Swelling Verified 03/28/20 19:53 pregabalin [From Lyrica] AdvReac Severe Stroke (no Verified 03/28/20 19:53 issue with neurontin) adhesive tape AdvReac Itching Verified 03/28/20 19:53 Physical Examination - Vital Signs Vital Signs: Vital Signs Temp Pulse Pulse Resp BP BP Pulse Ox 03/29/20 08:29 97.6 F 101 H 18 194/93 95 03/29/20 04:52 98.9 F 77 18 175/92 98 03/29/20 04:00 99.1 F 88 17 176/82 92 L 03/29/20 02:52 98.9 F 76 18 173/98 100 03/29/20 02:00 76 18 03/29/20 00:52 98.7 F 86 18 161/78 03/29/20 00:00 98.7 F 76 17 161/76 98 03/28/20 22:52 98.7 F 76 17 161/76 98 03/28/20 22:17 97 03/28/20 21:52 98.9 F 82 17 162/77 97 03/28/20 21:15 98.9 F 82 17 162/77 97 03/28/20 20:15 84 18 132/68 99 03/28/20 20:00 80 16 115/84 98 03/28/20 19:45 70 20 128/60 97 03/28/20 19:30 76 18 154/87 97 03/28/20 19:15 79 20 150/80 99 03/28/20 19:00 77 20 160/82 99 03/28/20 18:52 106 H 20 152/115 98 03/28/20 18:44 99.6 F 89 20 151/107 100 Intake and Output 03/28/20 03/29/20 03/29/20 22:59 06:59 14:59 Intake Total 300 Output Total 200 Balance 100 Intake: Intake, IV Titration 300 Amount Sodium Chloride 0.9% 1, 300 000 ml @ 100 mls/hr IV . Q10H [facility] Rx#:[id number] Output: Urine 200 Other: Voiding Method Urinal Diaper # Bowel Movements 1 Weight 99.79 kg 115.5 kg On examination patient is a middle aged male, in no acute distress. Patient is alert and awake. He is coughing and has some phlegm. He knows it is March 2020 and that he is in [facility] and knows name of the current president. Speech is mildly dysarthric but no aphasia. Attention, concentration and fund of knowledge is somewhat limited. On cranial examination pupils are round and reacting to light. He has left homonymous hemianopia. Extraocular muscles are intact. He has left facial weakness. Tongue protrudes the midline. Palatal elevation and sensation normal hearing and shoulder shrug normal. On muscle strength testing the strength is completely normal in the rig ht arm and right leg. On the left side he is about 3+ to 4- diffusely in the left arm and leg. He has left pronator drift. Sensations are decreased on the left side as compared to right. No ataxia for [id number] on the right but is ataxic on the left. Tone and bulk of muscles equal. Patient has Babinski on the left side. Reflexes are symmetric. Gait deferred. There is no obvious bruit, S1 and S2 audible, peripheral pulses present. Abdomen soft nontender. Results - Laboratory Findings CBC and BMP: 03/29/20 08:28 03/29/20 08:28 Abnormal Lab Findings: Abnormal Labs 03/28/20 03/28/20 03/28/20 18:48 18:52 18:52 WBC 15.4 H Neutrophils # 11.4 H Sodium 134 L Glucose 274 H POC Glucose (mg/dL) 265 H Troponin I 03/28/20 03/29/20 03/29/20 18:52 06:03 08:28 WBC 11.1 H Neutrophils # 8.4 H Sodium Glucose POC Glucose (mg/dL) 236 H Troponin I 1.370 H* Assessment and Plan Assessment: * Probable acute stroke, with left homonymous hemianopia and perhaps worsening of left hemiparesis. * Right MCA stenosis, severe degree, likely symptomatic. * Elevated cardiac enzymes * History of multiple strokes in the past. * Diabetes, not well controlled * Hypertension * Hyperlipidemia * Tobacco use Plan: * Patient has failed aspirin. Would recommend dual antiplatelet medication. * If patient fails swallow study, would recommend NG tube placement so patient can receive Plavix. * Await MRI of the brain. * 2-D echo showed normal left and regular size. Mild concentric LVH, EF is between 50-55%. * Telemetry monitoring showing sinus rhythm with sinus tachycardia. No atrial fibrillation at this time. * Tobacco cessation. * Check hemoglobin A1c and lipid panel * Permissive hypertension for next 24-48 hours. * Cardiology on board for elevated cardiac enzymes. * Continue close neuro checks, if symptoms worsens, consider consulting neuro intervention for possible right MCA stenting. * Swallow evaluation.
[2020-03-29] MEDS: DEXTROSE 5%-0.45% NACL 1,000 ML IV SCH (17:16)
[2020-03-29] MEDS: NICOTINE 21MG/24HR PATCH TRANSDERM SCH (17:19)
[2020-03-29] MEDS: HYDROcodone/APAP 7.5-325MG 1 EACH TAB PO SCH (17:21)
[2020-03-29] MEDS: GABAPENTIN 400 MG CAP PO SCH ×2 (17:22→22:29)
[2020-03-29 17:25] LABS: Glucose,Whole Blood 265 mg/dL (75-99)
[2020-03-29 17:36] LABS: Hemoglobin A1C 7.9 % (4.0-6.0)
[2020-03-29] MEDS: glipiZIDE 10 MG TAB PO SCH (17:47)
[2020-03-29] MEDS: FLUTICASONE 50MCG/SPRAY NASAL 16GM EA NOSTRIL SCH (20:51)
[2020-03-29] MEDS: HEPARIN SODIUM,PORCINE 5,000 UNIT/ML 1 ML VIAL SQ SCH (20:59)
[2020-03-29] MEDS: FAMOTIDINE 20 MG/2 ML VIAL IV SCH (21:00)
[2020-03-30 00:22] LABS: Appearance,Urine Clear (Clear); Bilirubin,Urine Negative (Negative); Blood,Urine Small (Negative); Color,Urine Yellow; Glucose,Urine (UA) 3+ (Negative); Ketones,Urine 1+ (Negative); Leukocyte Esterase,Urine Negative (Negative); Mucus,Urine Occasional /hpf; Nitrite,Urine Negative (Negative); PH, Urine 6.5 (5.0-8.0); Protein,Urine 3+ (Negative); RBC,Urine 4 /hpf (0-5); Squamous Epithelial Cell,Urine <1 /hpf (0-4); Urobilinogen,Urine <2.0 mg/dL (<2.0); WBC,Urine 1 /hpf (0-5)
[2020-03-30] MEDS: IPRATROPIUM-ALBUTEROL 3 ML NEB INHALATION SCH ×5 (03:39→20:10)
[2020-03-30] MEDS: MORPHINE SULFATE 2 MG/ML SYRINGE IVP PRN (05:15)
[2020-03-30] MEDS: glipiZIDE 10 MG TAB PO SCH ×2 (06:46→14:32)
[2020-03-30 06:47] LABS: Glucose,Whole Blood 214 mg/dL (75-99)
[2020-03-30] MEDS: INSULIN ASPART (NovoLOG) 100 UNIT/ML VIAL SQ SCH ×4 (06:49→21:35)
[2020-03-30] MEDS: DEXTROSE 5%-0.45% NACL 1,000 ML IV SCH (08:13)
[2020-03-30] MEDS: ASPIRIN 325 MG TAB PO SCH (08:16)
[2020-03-30] MEDS: HYDROcodone/APAP 7.5-325MG 1 EACH TAB PO SCH ×2 (08:16→21:12)
[2020-03-30] MEDS: FAMOTIDINE 20 MG/2 ML VIAL IV SCH ×2 (08:16→21:11)
[2020-03-30] MEDS: GABAPENTIN 400 MG CAP PO SCH ×3 (08:16→21:11)
[2020-03-30] MEDS: HEPARIN SODIUM,PORCINE 5,000 UNIT/ML 1 ML VIAL SQ SCH ×2 (08:16→21:12)
[2020-03-30] MEDS: FLUTICASONE 50MCG/SPRAY NASAL 16GM EA NOSTRIL SCH ×2 (08:17→22:11)
[2020-03-30] MEDS: NICOTINE 21MG/24HR PATCH TRANSDERM SCH (08:17)
--- NOTE | 2020-03-30 08:34 | XR ---
EXAMINATION TYPE: XR chest 1V portable DATE OF EXAM: 03/30/2020 COMPARISON: 03/28/2020 HISTORY: Shortness of breath TECHNIQUE: Single frontal view of the chest is obtained. FINDINGS: Diffuse interstitial pattern with bilateral subsegmental consolidation and small right eff usion. NG tube seen extending in the left wider. No pneumothorax. Heart size enlarged. IMPRESSION: 1. Stable x-ray correlate for CHF versus interstitial pneumonia.
[2020-03-30 08:36] LABS: Basophils % (A) 0 %; Eosinophils % (A) 0 %; HCT 44.6 % (39.0-53.0); HGB 15.1 gm/dL (13.0-17.5); Lymphocytes # (A) 2.9 k/uL (1.0-4.8); Lymphocytes % (A) 20 %; MCH 30.2 pg (25.0-35.0); MCHC 33.9 g/dL (31.0-37.0); Mean Platelet Volume 7.1; Monocytes # (A) 0.8 k/uL (0-1.0); Monocytes % (A) 5 %; Neutrophils # (A) 10.2 k/uL (1.3-7.7); Neutrophils % (A) 71 %; Platelet Count 198 k/uL (150-450); RBC 5.01 m/uL (4.30-5.90); RDW 13.8 % (11.5-15.5); WBC 14.5 k/uL (3.8-10.6)
[2020-03-30 08:55] LABS: African American GFR (CKD) >90 (>60 ml/min/1.73 sqM); Anion Gap 9 mmol/L; Blood Urea Nitrogen 13 mg/dL (9-20); Calcium 9.1 mg/dL (8.4-10.2); Carbon Dioxide 25 mmol/L (22-30); Chloride 105 mmol/L (98-107); Creatine Kinase 62 U/L (55-170); Glucose 249 mg/dL (74-99); Magnesium 1.6 mg/dL (1.6-2.3); Non-African American GFR(CKD) 87 (>60 ml/min/1.73 sqM); Potassium 3.8 mmol/L (3.5-5.1); Sodium 139 mmol/L (137-145)
[2020-03-30] MEDS ORDERED: ASPIRIN 325 MG TAB PO SCH (09:00)
--- NOTE | 2020-03-30 09:43 | P.PN ---
Subjective Progress Note Date: 03/30/20 Principal diagnosis: Acute CVA 49-year-old male patient came into the emergency department with altered mentation and generalized weakness. There was a concern for stroke. The mary march was found on the floor prior to him arriving to the emergency. It was unclear when he was awake last. The patient felt that he was on the floor for at least half an hour. He was apparently a poor historian. He denies having any injuries of falling. A computed tomography scan of the brain was done and the patient was found to have bilateral multiple old infarcts. No significant abnormalities. CT angiogram of the neck showed no acute process. Computed tomography angiogram of the brain showed stenosis proximal right cerebral artery. There was slight decrease in the flow in the posterior cerebral artery also. The patient was admitted to the floor. I was asked to evaluate the patient this morning as the patient was still unresponsive, and he was having noisy breathing, and he was also found to be some degree of respiratory distress. At the time of arrival, the patient's BP was 194/93. He was on 2 L of oxygen by nasal cannula with a pulse is 96%. He was afebrile. His troponin was at 1.3 from yesterday. ProBNP level is 1017. LDL cholesterol is 149. Chest x-ray showingsome mild interstitial edema. I was able to communicate minimally with the patient. He was following some simple commands. He was quite lethargic. His speech was a bit garbled. Some obvious weakness on the left siderefusing is related to previous CVA. No reported aspiration. On 03/30/2020 patient was again reevaluated on selective care unit. He is resting in bed, apparently his been having some hallucinations and altered mentation earlier today, patient appears to be lethargic but arousable, he is answering simple questions, he denies acute distress, he is still having issues with swallowing, he failed a swallow evaluation currently has a G-tube in place for administration of medications. His been nothing by mouth, he still having copious secretions that are yellowish colored, he has a Enrico seen catheter that he has been self suctioning, his left side weakness seems to have improved, still has the left facial weakness. Currently on 2 L of oxygen with pulse ox of 98%, hemodynamically he has been stable, his been afebrile, lung sounds reveal congested rhonchi throughout, no significant wheezing, we started the patient on breathing treatments yesterday, we will add antibiotics for empiric antibiotic coverage although for calcitonin level was low at 0.11. IV fluids with D5 half- normal saline at a rate of 50 ML per hour. She does on the daily dose of aspirin, and he received 150 milligrams of Plavix yesterday, neurology's following Objective - Vital Signs Vital signs: Vital Signs Temp 98.1 F 03/30/20 08:00 Pulse 87 03/30/20 08:00 Resp 18 03/30/20 08:00 BP 144/72 03/30/20 08:00 Pulse Ox 98 03/30/20 08:00 Intake & Output 03/29/20 03/30/20 03/30/20 18:59 06:59 18:59 Output Total 400 Balance -400 Weight 110.5 kg Output: Urine 400 Other: Voiding Method Urinal Urinal Urinal Diaper Diaper Diaper # Voids 1 # Bowel Movements 2 - Exam GENERAL EXAM: Alert, active, 49y old white male, NG tube in place, congested comfortable in no apparent distress. HEAD: Normocephalic/atraumatic. EYES: Normal reaction of pupils, equal size. Conjunctiva pink, sclera white. NOSE: Clear with pink turbinates. THROAT: No erythema or exudates. NECK: No masses, no JVD, no thyroid enlargement, no adenopathy. CHEST: No chest wall deformity. Symmetrical expansion. LUNGS: Equal air entry with Diffuse rhonchi CVS: Regular rate and rhythm, normal S1 and S2, no gallops, no murmurs, no rubs ABDOMEN: Soft, nontender. No hepatosplenomegaly, normal bowel sounds, no guarding or rigidity. EXTREMITIES: No clubbing, no edema, no cyanosis, 2+ pulses and upper and lower extremities. MUSCULOSKELETAL: Muscle strength and tone normal. SPINE: No scoliosis or deformity SKIN: No rashes CENTRAL NERVOUS SYSTEM: Alert and oriented -3. Slight left arm weakness and left facial droop, improved from yesterday, tone is normal in all 4 extremities. PSYCHIATRIC: Alert and oriented -3. Appropriate affect. Intact judgment and insight. - Labs CBC & Chem 7: 03/30/20 07:39 03/30/20 07:39 Labs: Abnormal Lab Results - Last 24 Hours (Table) 03/29/20 03/29/20 03/29/20 Range/Units 08:28 08:28 08:28 WBC (3.8-10.6) k/uL Neutrophils # (1.3-7.7) k/uL ABG pH (7.35-7.45) ABG pCO2 (35-45) mmHg ABG pO2 (83-108) mmHg ABG Total CO2 (19-24) mmol/L ABG O2 Saturation (94-97) % Glucose 257 H (74-99) mg/dL POC Glucose (mg/dL) (75-99) mg/dL Hemoglobin A1c 7.9 H (4.0-6.0) % Troponin I 0.806 H* (0.000-0.034) ng/mL Cholesterol 216 H (<200) mg/dL LDL Cholesterol, Calc 149 H (0-99) mg/dL Procalcitonin (0.02-0.09) ng/mL Urine Protein (Negative) Urine Glucose (UA) (Negative) Urine Ketones (Negative) Urine Blood (Negative) Urine Mucus (None) /hpf 03/29/20 03/29/20 03/29/20 Range/Units 08:28 10:44 12:03 WBC (3.8-10.6) k/uL Neutrophils # (1.3-7.7) k/uL ABG pH (7.35-7.45) ABG pCO2 (35-45) mmHg ABG pO2 (83-108) mmHg ABG Total CO2 (19-24) mmol/L ABG O2 Saturation (94-97) % Glucose (74-99) mg/dL POC Glucose (mg/dL) 274 H 246 H (75-99) mg/dL Hemoglobin A1c (4.0-6.0) % Troponin I (0.000-0.034) ng/mL Cholesterol (<200) mg/dL LDL Cholesterol, Calc (0-99) mg/dL Procalcitonin 0.11 H (0.02-0.09) ng/mL Urine Protein (Negative) Urine Glucose (UA) (Negative) Urine Ketones (Negative) Urine Blood (Negative) Urine Mucus (None) /hpf 03/29/20 03/29/20 03/29/20 Range/Units 16:25 17:24 23:57 WBC (3.8-10.6) k/uL Neutrophils # (1.3-7.7) k/uL ABG pH 7.52 H (7.35-7.45) ABG pCO2 30 L (35-45) mmHg ABG pO2 115 H (83-108) mmHg ABG Total CO2 25 H (19-24) mmol/L ABG O2 Saturation 98.3 H (94-97) % Glucose (74-99) mg/dL POC Glucose (mg/dL) 265 H (75-99) mg/dL Hemoglobin A1c (4.0-6.0) % Troponin I (0.000-0.034) ng/mL Cholesterol (<200) mg/dL LDL Cholesterol, Calc (0-99) mg/dL Procalcitonin (0.02-0.09) ng/mL Urine Protein 3+ H (Negative) Urine Glucose (UA) 3+ H (Negative) Urine Ketones 1+ H (Negative) Urine Blood Small H (Negative) Urine Mucus Occasional H (None) /hpf 03/30/20 03/30/20 03/30/20 Range/Units 06:45 07:39 07:39 WBC 14.5 H (3.8-10.6) k/uL Neutrophils # 10.2 H (1.3-7.7) k/uL ABG pH (7.35-7.45) ABG pCO2 (35-45) mmHg ABG pO2 (83-108) mmHg ABG Total CO2 (19-24) mmol/L ABG O2 Saturation (94-97) % Glucose 249 H (74-99) mg/dL POC Glucose (mg/dL) 214 H (75-99) mg/dL Hemoglobin A1c (4.0-6.0) % Troponin I (0.000-0.034) ng/mL Cholesterol (<200) mg/dL LDL Cholesterol, Calc (0-99) mg/dL Procalcitonin (0.02-0.09) ng/mL Urine Protein (Negative) Urine Glucose (UA) (Negative) Urine Ketones (Negative) Urine Blood (Negative) Urine Mucus (None) /hpf Assessment and Plan Plan: 1 altered mental status, consider recurrent CVA. The patient underwent a CTA of the head and neck CTA shows previous CVA in addition to that There is hemo dynamic stenosis of the proximal right middle cerebral artery. There is also slight decreased size of the left posterior cerebral artery compared to the right. No intracranial aneurysm. Stenosis of the right middle cerebral artery appears increased compared to old exam. Diminished flow left posterior cerebral artery similar to old exam. neurology consultation is in progress, and there is a concern that the patient has had a stroke along the right MCA distribution. 2 COPD 3 mild pulmonary edema,, consider aspiration 4 diabetes mellitus type 2 5 hypertension 6 hyperlipidemia 7 peripheral neuropathy 8 history of CVA on multiple occasions 9 history of difficulty swallowing and the patient has been involved in an aspiration pneumonia in the past 10 history of DVT in the LLE in 2001 11 troponin leak Plan: Continue current medical treatment, will start the patient on Levaquin for em piric antiemetic coverage, continue breathing treatments, aspiration precautions, maintain an NG tube in place, May initiate tube feedings. Continue to follow I performed a history & physical examination of the patient and discussed their management with my nurse practitioner, Pat Goff. I reviewed the nurse practitioner's note and agree with the documented findings and plan of care. Lung sounds are positive for Scattered rhonchi. The findings and the impression was discussed with the patient. I attest to the documentation by the nurse practitioner. Time with Patient: Less than 30
[2020-03-30] MEDS: LEVOFLOXACIN 500MG-D5W PMX 500 MG in DEXTROSE/WATER 1 100ML.BAG IVPB SCH (11:33)
[2020-03-30] MEDS ORDERED: MAGNESIUM SULFATE-D5W PMX 1 GM in DEXTROSE/WATER 1 100ML.BAG IVPB ONE (12:09)
--- NOTE | 2020-03-30 12:16 | P.PN ---
Subjective This is a pleasant 49 years old male with past medical history of CVA/TIA, diabetes mellitus, deep venous thrombosis, COPD, hyperlipidemia, diabetic neuropathy. Also has history of depression and cigarette smoker, presents because of fall off the toilet as per patient without losing consciousness . he denies chest pain , he has some dyspnea and cough with clear phlegm for about two weeks. He usually uses a cane because of his left hemiparesis from a stroke. He denies diarrhea, nausea vomiting, no burning in his urination. No new weakness or numbness. No slurred speech or blurred vision. No headache History smokes about 1.5 pack per day, no alcohol and he uses marijuana as well On admission patient is afebrile, rest of vitals are stable, blood pressure on the high side 175/92 Labs showing mild leukocytosis of 15.4. INR 0.9, BMP is unremarkable except for elevated glucose of 274 and 236. Liver enzymes not elevated, troponin is el evated at 1.3. In the emergency room patient was started on aspirin 325 mg and neurology team were consulted. Also patient was started on 100 mL/hr Cardiology consult was placed who called pulmonary as well. MAPS and he is on [place] 10 twice a day and gabapentin 600 mg 3 times a day 03/30/2020 is fully awake to time, place and person. He knows he came to the hospital because of fall as he states. He denies any specific complaint, denies chest pain or dyspnea or abdominal complaint. He is afebrile. Saturating 99% until with oxygen via nasal cannula. His blood pressure is better today. Patient has leukocytosis of 14.5 K. BMP is unremarkable. Magnesium 1.6 Patient failed swallow evaluation today, we will check it tomorrow again. The probe calcitonin is slightly elevated at 0.11, Levaquin was startedChest x-ray shows CHF versus interstitial pneumonitis. NG tube is in place and there is brown discharge about 500 mm Hemoglobin A1c is elevated at 7.9, currently is in the glipizide 10 mg twice daily. We will increase his metformin 1000 thousand twice daily to 850 mg 3 times a day. PT/OT is pending as well as MRI of the brain Review of Systems CONSTITUTIONAL: No fever, no malaise, no fatigue. HEENT: No recent visual problems or hearing problems. Denied any sore throat. CARDIOVASCULAR: No orthopnea, PND, no palpitations, no syncope. PULMONARY: No shortness of breath, no cough, no hemoptysis. GASTROINTESTINAL: No diarrhea, no nausea, no vomiting, no abdominal pain. Normoactive bowel sounds. NEUROLOGICAL: No headaches, no weakness, no numbness. He has chronic left hemiparesis however his strength looks improved compared to yesterday Active Medications Generic Name Dose Route Start Last Admin Trade Name Freq PRN Reason Stop Dose Admin Hydrocodone Bitart/Acetaminophen 1 each 03/29/20 21:00 03/30/20 08:16 Hydrocodone/Apap 7.5-325mg 1 Each Tab PO 1 each BID RICH Administration Albuterol Sulfate 2.5 mg 03/29/20 10:52 Albuterol Nebulized 2.5 Mg/3 Ml INHALATION RT-QID PRN Shortness Of Breath Albuterol/Ipratropium 3 ml 03/29/20 12:00 03/30/20 08:16 Ipratropium-Albuterol 3 Ml Neb INHALATION Not Given RT-Q4H RICH Albuterol/Ipratropium 3 ml 03/29/20 10:17 Ipratropium-Albuterol 3 Ml Neb INHALATION RT-Q1H PRN Shortness Of Breath Or Wheezing Aspirin 325 mg 03/30/20 09:00 03/30/20 08:16 Aspirin 325 Mg Tab PO 325 mg DAILY RICH Administration Famotidine 20 mg 03/29/20 21:00 03/30/20 08:16 Famotidine 20 Mg/2 Ml Vial IV 20 mg Q12HR RICH Administration Fluticasone Propionate 1 spray 03/29/20 21:00 03/30/20 08:17 Fluticasone 50mcg/[place] Nasal 16gm EA NOSTRIL Not Given BID RICH Gabapentin 1,200 mg 03/29/20 16:00 03/30/20 08:16 Gabapentin 400 Mg Cap PO 1,200 mg TID RICH Administration Glipizide 10 mg 03/29/20 17:30 03/30/20 06:46 Glipizide 10 Mg Tab PO Not Given AC-BID RICH Heparin Sodium (Porcine) 5,000 unit 03/29/20 21:00 03/30/20 08:16 Heparin Sodium,Porcine 5,000 Unit/Ml 1 Ml Vial SQ 5,000 unit Q12HR RICH Administration Dextrose/Sodium Chloride 1,000 mls @ 50 mls/hr 03/29/20 11:00 03/30/20 08:13 Dextrose 5%-1/2ns Iv Soln IV Not Given .Q20H RICH Levofloxacin 500 mg/ IV 100 mls @ 100 mls/hr 03/30/20 10:00 03/30/20 11:33 Solution IVPB 100 mls/hr Q24H RICH Administration Insulin Aspart 0 unit 03/28/20 21:00 03/30/20 06:49 Insulin Aspart (Novolog) 100 Unit/Ml Vial SQ 3 unit ACHS RICH Administration Protocol Morphine Sulfate 2 mg 03/29/20 11:41 03/30/20 05:15 Morphine Sulfate 2 Mg/Ml Syringe IVP 2 mg Q6H PRN Administration Pain/Discomfort Nicotine 1 patch 03/29/20 11:15 03/30/20 08:17 Nicotine 21mg/24hr Patch TRANSDERM 1 patch DAILY RICH Administration Objective - Vital Signs Vital signs: Vital Signs Temp 98.1 F 03/30/20 08:00 Pulse 87 03/30/20 08:00 Resp 18 03/30/20 08:00 BP 144/72 03/30/20 08:00 Pulse Ox 98 03/30/20 08:00 Intake & Output 03/29/20 03/30/20 03/30/20 18:59 06:59 18:59 Output Total 400 450 Balance -400 -450 Weight 110.5 kg Output: Urine 400 450 Other: Voiding Method Urinal Urinal Urinal Diaper Diaper Diaper # Voids 1 # Bowel Movements 2 - Exam GENERAL: The patient is alert and oriented x3, not in any acute distress. Well developed, well nourished. HEENT: Pupils are round and equally reacting to light. EOMI. No scleral icterus. No conjunctival pallor. Normocephalic, atraumatic. No pharyngeal erythema. No thyromegaly. CARDIOVASCULAR: S1 and S2 present. No murmurs, rubs, or gallops. PULMONARY: Chest is clear to auscultation, no wheezing or crackles. ABDOMEN: Soft, nontender, nondistended, normoactive bowel sounds. No palpable organomegaly. MUSCULOSKELETAL: No joint swelling or deformity. EXTREMITIES: No cyanosis, clubbing, or pedal edema. -NEUROLOGICAL: Gross neurological examination did not reveal any focal deficits except for Mild dysarthria and mild left hemiparesis which looks better today SKIN: No rashes. No petechiae - Labs CBC & Chem 7: 03/30/20 07:39 03/30/20 07:39 Labs: Abnormal Lab Results - Last 24 Hours (Table) 03/29/20 03/29/20 03/29/20 Range/Units 08:28 08:28 12:03 WBC (3.8-10.6) k/uL Neutrophils # (1.3-7.7) k/uL ABG pH (7.35-7.45) ABG pCO2 (35-45) mmHg ABG pO2 (83-108) mmHg ABG Total CO2 (19-24) mmol/L ABG O2 Saturation (94-97) % Glucose (74-99) mg/dL POC Glucose (mg/dL) 246 H (75-99) mg/dL Hemoglobin A1c 7.9 H (4.0-6.0) % Procalcitonin 0.11 H (0.02-0.09) ng/mL Urine Protein (Negative) Urine Glucose (UA) (Negative) Urine Ketones (Negative) Urine Blood (Negative) Urine Mucus (None) /hpf 03/29/20 03/29/20 03/29/20 Range/Units 16:25 17:24 23:57 WBC (3.8-10.6) k/uL Neutrophils # (1.3-7.7) k/uL ABG pH 7.52 H (7.35-7.45) ABG pCO2 30 L (35-45) mmHg ABG pO2 115 H (83-108) mmHg ABG Total CO2 25 H (19-24) mmol/L ABG O2 Saturation 98.3 H (94-97) % Glucose (74-99) mg/dL POC Glucose (mg/dL) 265 H (75-99) mg/dL Hemoglobin A1c (4.0-6.0) % Procalcitonin (0.02-0.09) ng/mL Urine Protein 3+ H (Negative) Urine Glucose (UA) 3+ H (Negative) Urine Ketones 1+ H (Negative) Urine Blood Small H (Negative) Urine Mucus Occasional H (None) /hpf 12/09/20 12/09/20 12/09/20 Range/Units 06:45 07:39 07:39 WBC 14.5 H (3.8-10.6) k/uL Neutrophils # 10.2 H (1.3-7.7) k/uL ABG pH (7.35-7.45) ABG pCO2 (35-45) mmHg ABG pO2 (83-108) mmHg ABG Total CO2 (19-24) mmol/L ABG O2 Saturation (94-97) % Glucose 249 H (74-99) mg/dL POC Glucose (mg/dL) 214 H (75-99) mg/dL Hemoglobin A1c (4.0-6.0) % Procalcitonin (0.02-0.09) ng/mL Urine Protein (Negative) Urine Glucose (UA) (Negative) Urine Ketones (Negative) Urine Blood (Negative) Urine Mucus (None) /hpf Assessment and Plan Assessment: Fall without losing consciousness. 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 No recent worsening as per patient nicotine dependence Substance abuse with marijuana Chronic feet pain mostly secondary to diabetic neuropathy Hyperlipidemia Hypertension History of deep venous thrombosis Diabetic neuropathy Plan: This is a pleasant 49 years old male who presents withfall. Continue with aspirin, neurology consult. Follow-up MRI of the brain. Plavix was added by neurology team. Continue with Levaquin for possible aspiration pneumonitis, recheck a swallow evaluation, continue with NG tube and possible need for feeding tube We'll check with physical therapy, occupational family, and speech therapist . Continue with gabapentin and lowered [place] 7.5, patient was asking to get this pain medication and I discussed with him to lower the [place] as they increase his risk of falling Labs and medication were reviewed.. Continue same treatment. Continue with symptomatic treatment. Resume home medication. Monitor lytes and vitals. DVT and GI prophylaxis. Further recommendations depends on the clinical course of the patient DVT prophylaxis: Subcutaneous heparin GI Prophylaxis: Pepcid PT/OT: Pending Prognosis is guarded
[2020-03-30] MEDS: metFORMIN 850 MG TAB PO SCH ×2 (14:28→17:49)
[2020-03-30] MEDS: CLOPIDOGREL 75 MG TAB PO SCH (14:30)
--- NOTE | 2020-03-30 14:34 | P.PN ---
Subjective Progress Note Date: 03/30/20 Objective - Vital Signs Vital signs: Vital Signs Temp 97.9 F 03/30/20 12:00 Pulse 92 03/30/20 12:23 Resp 18 03/30/20 14:00 BP 133/67 03/30/20 12:00 Pulse Ox 99 03/30/20 12:00 Intake & Output 03/29/20 03/30/20 03/30/20 18:59 06:59 18:59 Output Total 400 450 Balance -400 -450 Weight 110.5 kg Output: Urine 400 450 Other: Voiding Method Urinal Urinal Urinal Diaper Diaper Diaper # Voids 1 # Bowel Movements 2 - Exam On examination patient is a middle aged male, in mild respiratory distress, coughing, a lot of phlegm. Speech is mildly dysarthric but no aphasia. On cranial nerve examination his pupils are round and reactive to light. Visual ojeda still showed left homonymous hemianopia although it has much improved as compared to yesterday. It is not as dense. It is more prominent in the left upper quadrant as compared to the left lower quadrant. He has left facial weakness, tongue protrudes to the left. On muscle strength testing patient has left pronator drift. The strength is normal in the right arm and right leg distally and proximally. 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 Hip flexion is 5-, knee 5, ankle 5 normal. Sensations have improved on the left side. Still slightly decreased but better than yesterday, less tingling. Patient has mild ataxia for finge r-to-nose on the left. - Labs CBC & Chem 7: 03/30/20 07:39 03/30/20 07:39 Labs: Abnormal Lab Results - Last 24 Hours (Table) 03/29/20 03/29/20 03/29/20 Range/Units 08:28 08:28 16:25 WBC (3.8-10.6) k/uL Neutrophils # (1.3-7.7) k/uL ABG pH 7.52 H (7.35-7.45) ABG pCO2 30 L (35-45) mmHg ABG pO2 115 H (83-108) mmHg ABG Total CO2 25 H (19-24) mmol/L ABG O2 Saturation 98.3 H (94-97) % Glucose (74-99) mg/dL POC Glucose (mg/dL) (75-99) mg/dL Hemoglobin A1c 7.9 H (4.0-6.0) % Procalcitonin 0.11 H (0.02-0.09) ng/mL Urine Protein (Negative) Urine Glucose (UA) (Negative) Urine Ketones (Negative) Urine Blood (Negative) Urine Mucus (None) /hpf 03/29/20 03/29/20 03/30/20 Range/Units 17:24 23:57 06:45 WBC (3.8-10.6) k/uL Neutrophils # (1.3-7.7) k/uL ABG pH (7.35-7.45) ABG pCO2 (35-45) mmHg ABG pO2 (83-108) mmHg ABG Total CO2 (19-24) mmol/L ABG O2 Saturation (94-97) % Glucose (74-99) mg/dL POC Glucose (mg/dL) 265 H 214 H (75-99) mg/dL Hemoglobin A1c (4.0-6.0) % Procalcitonin (0.02-0.09) ng/mL Urine Protein 3+ H (Negative) Urine Glucose (UA) 3+ H (Negative) Urine Ketones 1+ H (Negative) Urine Blood Small H (Negative) Urine Mucus Occasional H (None) /hpf 03/30/20 03/30/20 Range/Units 07:39 07:39 WBC 14.5 H (3.8-10.6) k/uL Neutrophils # 10.2 H (1.3-7.7) k/uL ABG pH (7.35-7.45) ABG pCO2 (35-45) mmHg ABG pO2 (83-108) mmHg ABG Total CO2 (19-24) mmol/L ABG O2 Saturation (94-97) % Glucose 249 H (74-99) mg/dL POC Glucose (mg/dL) (75-99) mg/dL Hemoglobin A1c (4.0-6.0) % Procalcitonin (0.02-0.09) ng/mL Urine Protein (Negative) Urine Glucose (UA) (Negative) Urine Ketones (Negative) Urine Blood (Negative) Urine Mucus (None) /hpf Assessment and Plan Assessment: * Probable acute stroke, with left homonymous hemianopia and perhaps worsening of left hemiparesis. * Right MCA stenosis, severe degree, likely symptomatic. * Elevated cardiac enzymes * History of multiple strokes in the past. * Diabetes, not well controlled * Hypertension * Hyperlipidemia * Tobacco use Plan: * Continue dual antiplatelet medication. * Patient has failed swallow, therefore NG tube has been placed. * MRI of the brain could not be taken, as patient was not able to lay flat. * 2-D echo showed normal left and regular size. Mild concentric LVH, EF is between 50-55%. * Telemetry monitoring in the last 24 hour showing sinus rhythm with sinus tachycardia. No atrial fibrillation at this time. * Tobacco cessation. * Hemoglobin A1c 7.9. Recommend optimize control of diabetes to target A1c <7.0 * Lipid panel with cholesterol 216, LDL 149, HDL 45, triglycerides 109. * Permissive hypertension for next 24-48 hours. * Cardiology on board for elevated cardiac enzymes. * Continue close neuro checks, if symptoms worsens, consider consulting neuro intervention for possible right MCA stenting. * We will check hypercoagulable workup. * Dr. Jean Claude Dinh will cover neurology service from tomorrow.
--- NOTE | 2020-03-30 14:53 | P.PN ---
Subjective HISTORY OF PRESENTING ILLNESS This is a pleasant 49-year-old male past medical history significant for diabetes mellitus, CVA and peripheral vascular disease. He has followed in the office with Dr. Arrington, however has not been to the office in 2017. He is seen and examined sitting up in bed. He continues to be unable to sit still and therefore has not gone for his brain MRI. NG tube is in place for medications administration. Blood pressure 133/67 heart rate 92 afebrile maintaining oxygen saturation on nasal cannula. Laboratory data reviewed, WBC 14.5, hemoglobin 15.1 and platelets 198, sodium 138, potassium 3.8, magnesium 1.6 and creatinine 1.01. Echocardiogram obtained preserved LV systolic function with ejection fraction 50-55% with grade 1 diastolic dysfunction. No segmental wall motion abnormalities noted. Repeat chest x-ray reveals diffuse interstitial pattern with bilateral subsegmental consolidation sinus small right effusion. PHYSICAL EXAMINATION CONSTITUTIONAL: No apparent distress. HEENT: Head is normocephalic. Pupils are equal, round. Sclerae anicteric. Mucous membranes of the mouth are moist. No JVD. No carotid bruit. CHEST EXAMINATION: Scattered rhonchi, no wheezes or rales. No chest wall t enderness is noted on palpation or with deep breathing. HEART EXAMINATION: Regular rate and rhythm. S1, S2 heard. Soft systolic ejection murmur at the base, no gallops or rub. Difficult to auscultate heart sounds secondary to bronchial congestion. EXTREMITIES: 1+ peripheral pulses, no lower extremity edema and no calf tenderness. ASSESSMENT Altered mental status with left-sided weakness, probable acute CVA History of CVA Troponin abnormality, no EKG evidence of ischemia and no wall motion ab normalities on echocardiogram. Not suggestive of an acute coronary syndrome. Chronic nicotine dependence Hypertension, new onset Diabetes mellitus PLAN Continue medical management per primary care team and neurology. Given his mental status and probable evolving CVA we will not perform any cardiac catheterization on this admission. No evidence of wall motion abnormalities noted on echocardiogram. We will follow along as needed, please follow-up in the office with Dr. Arrington upon discharge for further outpatient cardiac evaluation. Nurse Practitioner note has been reviewed, I agree with a documented findings and plan of care. Patient was seen and examined. Objective - Vital Signs Vital signs: Vital Signs Temp 97.9 F 03/30/20 12:00 Pulse 92 03/30/20 12:23 Resp 18 03/30/20 14:00 BP 133/67 03/30/20 12:00 Pulse Ox 99 03/30/20 12:00 Intake & Output 03/29/20 03/30/20 03/30/20 18:59 06:59 18:59 Output Total 400 450 Balance -400 -450 Weight 110.5 kg Output: Urine 400 450 Other: Voiding Method Urinal Urinal Urinal Diaper Diaper Diaper # Voids 1 # Bowel Movements 2 - Labs CBC & Chem 7: 03/30/20 07:39 03/30/20 07:39 Labs: Abnormal Lab Results - Last 24 Hours (Table) 03/29/20 03/29/20 03/29/20 Range/Units 08:28 16:25 17:24 WBC (3.8-10.6) k/uL Neutrophils # (1.3-7.7) k/uL ABG pH 7.52 H (7.35-7.45) ABG pCO2 30 L (35-45) mmHg ABG pO2 115 H (83-108) mmHg ABG Total CO2 25 H (19-24) mmol/L ABG O2 Saturation 98.3 H (94-97) % Glucose (74-99) mg/dL POC Glucose (mg/dL) 265 H (75-99) mg/dL Hemoglobin A1c 7.9 H (4.0-6.0) % Urine Protein (Negative) Urine Glucose (UA) (Negative) Urine Ketones (Negative) Urine Blood (Negative) Urine Mucus (None) /hpf 03/29/20 03/30/20 03/30/20 Range/Units 23:57 06:45 07:39 WBC (3.8-10.6) k/uL Neutrophils # (1.3-7.7) k/uL ABG pH (7.35-7.45) ABG pCO2 (35-45) mmHg ABG pO2 (83-108) mmHg ABG Total CO2 (19-24) mmol/L ABG O2 Saturation (94-97) % Glucose 249 H (74-99) mg/dL POC Glucose (mg/dL) 214 H (75-99) mg/dL Hemoglobin A1c (4.0-6.0) % Urine Protein 3+ H (Negative) Urine Glucose (UA) 3+ H (Negative) Urine Ketones 1+ H (Negative) Urine Blood Small H (Negative) Urine Mucus Occasional H (None) /hpf 03/30/20 Range/Units 07:39 WBC 14.5 H (3.8-10.6) k/uL Neutrophils # 10.2 H (1.3-7.7) k/uL ABG pH (7.35-7.45) ABG pCO2 (35-45) mmHg ABG pO2 (83-108) mmHg ABG Total CO2 (19-24) mmol/L ABG O2 Saturation (94-97) % Glucose (74-99) mg/dL POC Glucose (mg/dL) (75-99) mg/dL Hemoglobin A1c (4.0-6.0) % Urine Protein (Negative) Urine Glucose (UA) (Negative) Urine Ketones (Negative) Urine Blood (Negative) Urine Mucus (None) /hpf
[2020-03-30 18:00] LABS: Glucose,Whole Blood 198 mg/dL (75-99)
[2020-03-30 20:19] LABS: Glucose,Whole Blood 206 mg/dL (75-99)
[2020-03-31] MEDS: IPRATROPIUM-ALBUTEROL 3 ML NEB INHALATION SCH ×6 (00:07→21:28)
[2020-03-31 02:10] LABS: Anti-DNA, DS unit <1.0 IU/mL; Cardiolipin Ab IgG Interp NEGATIVE (NEGATIVE); Cardiolipin Ab IgM Interp Positive (NEGATIVE); Cardiolipin IgA Antibody 3.5 U/mL; Cardiolipin IgM Antibody >112.0 U/mL; DNA Double-Stranded NEGATIVE (NEGATIVE)
[2020-03-31] MEDS: DEXTROSE 5%-0.45% NACL 1,000 ML IV SCH (03:57)
[2020-03-31 04:38] LABS: Folate, Serum 20.6 ng/mL
[2020-03-31 04:53] LABS: Beta 2 Microglobulin 3.38 mg/L (0.61-2.37)
[2020-03-31 06:22] LABS: Glucose,Whole Blood 215 mg/dL (75-99)
[2020-03-31] MEDS: glipiZIDE 10 MG TAB PO SCH ×2 (06:45→17:09)
[2020-03-31] MEDS: metFORMIN 850 MG TAB PO SCH ×3 (06:46→17:09)
[2020-03-31] MEDS: INSULIN ASPART (NovoLOG) 100 UNIT/ML VIAL SQ SCH ×4 (06:46→21:04)
[2020-03-31 08:33] LABS: Basophils # (A) 0.3 k/uL (0-0.2); Basophils % (A) 2 %; Eosinophils # (A) 0.2 k/uL (0-0.7); Eosinophils % (A) 1 %; HCT 45.5 % (39.0-53.0); HGB 15.1 gm/dL (13.0-17.5); Lymphocytes % (A) 12 %; MCH 29.5 pg (25.0-35.0); MCHC 33.2 g/dL (31.0-37.0); MCV 88.9 fL (80.0-100.0); Mean Platelet Volume 6.7; Monocytes # (A) 0.8 k/uL (0-1.0); Monocytes % (A) 5 %; Neutrophils # (A) 12.2 k/uL (1.3-7.7); Neutrophils % (A) 77 %; Platelet Count 196 k/uL (150-450); RBC 5.12 m/uL (4.30-5.90); RDW 13.7 % (11.5-15.5); WBC 15.9 k/uL (3.8-10.6)
[2020-03-31 08:48] LABS: Magnesium 1.9 mg/dL (1.6-2.3)
[2020-03-31] MEDS: HYDROcodone/APAP 7.5-325MG 1 EACH TAB PO SCH (08:54)
[2020-03-31] MEDS: GABAPENTIN 400 MG CAP PO SCH ×3 (08:54→21:03)
[2020-03-31] MEDS: CLOPIDOGREL 75 MG TAB PO SCH (08:54)
[2020-03-31] MEDS: ASPIRIN 325 MG TAB PO SCH (08:54)
[2020-03-31] MEDS: HEPARIN SODIUM,PORCINE 5,000 UNIT/ML 1 ML VIAL SQ SCH ×2 (08:55→21:02)
[2020-03-31] MEDS: FAMOTIDINE 20 MG/2 ML VIAL IV SCH (08:55)
[2020-03-31] MEDS: NICOTINE 21MG/24HR PATCH TRANSDERM SCH (08:55)
--- NOTE | 2020-03-31 10:08 | P.PN ---
Subjective Progress Note Date: 03/31/20 49-year-old male patient came into the emergency department with altered mentation and generalized weakness. There was a concern for stroke. The patient was found on the floor prior to him arriving to the emergency. It was unclear when he was awake last. The patient felt that he was on the floor for at least half an hour. He was apparently a poor historian. He denies having any injuries of falling. A computed tomography scan of the brain was done and the patient was found to have bilateral multiple old infarcts. No significant abnormalities. CT angiogram of the neck showed no acute process. Computed tomography angiogram of the brain showed stenosis proximal right cerebral artery. There was slight decrease in the flow in the posterior cerebral artery also. The patient was admitted to the floor. I was asked to evaluate the patient this morning as the patient was still unresponsive, and he was having noisy breathing, and he was also found to be some degree of respiratory distres s. At the time of arrival, the patient's BP was 194/93. He was on 2 L of oxygen by nasal cannula with a pulse is 96%. He was afebrile. His troponin was at 1.3 from yesterday. ProBNP level is 1017. LDL cholesterol is 149. Chest x- ray showingsome mild interstitial edema. I was able to communicate minimally with the patient. He was following some simple commands. He was quite lethargic. His speech was a bit garbled. Some obvious weakness on the left siderefusing is related to previous CVA. No reported aspiration. On 03/30/2020 patient was again reevaluated on selective care unit. He is resting in bed, apparently his been having some hallucinations and altered mentation earlier today, patient appears to be lethargic but arousable, he is answering simple questions, he denies acute distress, he is still having issues with swallowing, he failed a swallow evaluation currently has a G-tube in place for administration of medications. His been nothing by mouth, he still having copious secretions that are yellowish colored, he has a Enrico seen catheter that he has been self suctioning, his left side weakness seems to have improved, still has the left facial weakness. Currently on 2 L of oxygen with pulse ox of 98%, hemodynamically he has been stable, his been afebrile, lung sounds reveal congested rhonchi throughout, no significant wheezing, we started the patient on breathing treatments yesterday, we will add antibiotics for empiric antibiotic coverage although for calcitonin level was low at 0.11. IV fluids with D5 half- normal saline at a rate of 50 ML per hour. She does on the daily dose of aspirin, and he received 150 milligrams of Plavix yesterday, neurology's following [facility]'s [facility] the patient is being seen for a follow-up. He still has a weak cough and congestion. The patient is much more awake. Is oriented to time place and people. He is not having any altered mentation. Has no respiratory distress.. He continues to have left-sided weakness related to his recent right MCA distribution CVA. The motor function in the left upper and lower extremities quite. Furthermore, the patient failed a swallow evaluation. An NG tube was inserted and currently the patient is still nothing by mouth. After insertion of the NG tube, the patient had approximately 500 MO's of output. He is taken his medications through the NG tube for now. I was concerned of an aspiration pneumonia and I started him yesterday on Levaquin. He continues to be on a combination of aspirin and Plavix. Objective - Vital Signs Vital signs: Vital Signs Temp 98.6 F 03/31/20 08:00 Pulse 80 03/31/20 08:34 Resp 20 03/31/20 08:00 BP 145/82 03/31/20 08:00 Pulse Ox 95 03/31/20 08:00 Intake & Output 03/30/20 03/31/20 03/31/20 18:59 06:59 18:59 Output Total 450 Balance -450 Weight 92.4 kg Output: Urine 450 Other: Voiding Method Urinal Toilet Toilet Diaper Urinal Urinal Diaper Diaper # Voids 2 - Exam GENERAL EXAM: Alert, active, 49y old white male, NG tube in place, congested comfortable in no apparent distress. HEAD: Normocephalic/atraumatic. EYES: Normal reaction of pupils, equal size. Conjunctiva pink, sclera white. NOSE: Clear with pink turbinates. THROAT: No erythema or exudates. NECK: No masses, no JVD, no thyroid enlargement, no adenopathy. CHEST: No chest wall deformity. Symmetrical expansion. LUNGS: Equal air entry with Diffuse rhonchi CVS: Regular rate and rhythm, normal S1 and S2, no gallops, no murmurs, no rubs ABDOMEN: Soft, nontender. No hepatosplenomegaly, normal bowel sounds, no guarding or rigidity. EXTREMITIES: No clubbing, no edema, no cyanosis, 2+ pulses and upper and lower extremities. MUSCULOSKELETAL: Muscle strength and tone normal. SPINE: No scoliosis or deformity SKIN: No rashes CENTRAL NERVOUS SYSTEM: Alert and oriented -3. Slight left arm weakness and left facial droop, improved from yesterday, tone is normal in all 4 extremities.the patient is alert and oriented 3. His communicating. He is able to sit up on a chair. PSYCHIATRIC: Alert and oriented -3. Appropriate affect. Intact judgment and insight. - Labs CBC & Chem 7: 03/31/20 08:13 03/31/20 08:13 Labs: Abnormal Lab Results - Last 24 Hours (Table) 03/30/20 03/30/20 03/30/20 Range/Units 14:45 17:56 20:17 WBC (3.8-10.6) k/uL Neutrophils # (1.3-7.7) k/uL Basophils # (0-0.2) k/uL Chloride (98-107) mmol/L Glucose (74-99) mg/dL POC Glucose (mg/dL) 198 H 206 H (75-99) mg/dL Ulti-9-Vvlowhwtyeoru 3.38 H (0.61-2.37) mg/L Cardiolipin IgM Interp Positive A (NEGATIVE) 03/31/20 03/31/20 03/31/20 Range/Units 06:20 08:13 08:13 WBC 15.9 H (3.8-10.6) k/uL Neutrophils # 12.2 H (1.3-7.7) k/uL Basophils # 0.3 H (0-0.2) k/uL Chloride 108 H (98-107) mmol/L Glucose 241 H (74-99) mg/dL POC Glucose (mg/dL) 215 H (75-99) mg/dL Usfe-4-Uhynttntmlaah (0.61-2.37) mg/L Cardiolipin IgM Interp (NEGATIVE) Assessment and Plan Plan: 1 altered mental status, consider recurrent CVA. The patient underwent a CTA of the head and neck CTA shows previous CVA in addition to that There is hemodynamic stenosis of the proximal right middle cerebral artery. There is also slight decreased size of the left posterior cerebral artery compared to the right. No intracranial aneurysm. Stenosis of the right middle cerebral artery appears increased compared to old exam. Diminished flow left posterior cerebral artery similar to old exam. neurology consultation done, and there is a concern that the patient has had a stroke along the right MCA distribution.the mental status improved considerably and the patient is alert and oriented 3. He does have some residual weakness. He does have some residual difficulties and coughing and clearing his secretions.he currently has an NG tube in place. He remains on a combination of aspirin and Plavix. 2 COPD 3 mild pulmonary edema,, consider aspirationcurrently on Levaquin 4 diabetes mellitus type 2 5 hypertension 6 hyperlipidemia 7 peripheral neuropathy 8 history of CVA on multiple occasions 9 history of difficulty swallowing and the patient has been involved in an aspiration pneumonia in the past 10 history of DVT in the LLE in 2001 11 troponin leak plan Awaiting MRI of the brain Clinically improved and the patient's is doing better. Is able to sit up on a chair. Motor function the left upper extremity is improved. Mental status is improved. Consider repeating another swallow evaluation to assess the patient's swallow. Neurologist on the case. Watch for aspiration. Continue the Levaquin for now.
[2020-03-31 11:18] LABS: APTT 42 Sec(s) (<43); DRVVT 1:1 Mix 42 Sec(s) (<44); Dilute Russell Viper Venom 50 Sec(s) (<44)
[2020-03-31] MEDS: LEVOFLOXACIN 500MG-D5W PMX 500 MG in DEXTROSE/WATER 1 100ML.BAG IVPB SCH (12:29)
[2020-03-31 12:38] LABS: Glucose,Whole Blood 217 mg/dL (75-99)
--- NOTE | 2020-03-31 12:40 | FL ---
EXAMINATION TYPE: FL barium swallow w video DATE OF EXAM: 03/31/2020 COMPARISON: NONE HISTORY: History CVA, difficulty swallowing TECHNIQUE: Fluoroscopy. FINDINGS: Fluoroscopic guidance was provided for the procedure performed in conjunction with the [facility] pathology department. Please see complete report forthcoming from the Speech Pathology departmen t. Various consistencies from thin liquid to solids were administered. Fluoroscopy time 2 minutes 34 seconds. Number of images: 0. There is penetration and mild aspiration with nectar thick liquids. Thicker consistencies had signifi cant slow initiation and difficulty with transit through the hypopharynx. There was pooling of contrast observed in the vallecula. IMPRESSION: 1. Aspiration with nectar thick liquids. 2. Significant hesitancy of bolus swallowing initiation. 3. Pooling within the vallecula
--- NOTE | 2020-03-31 12:55 | P.PN ---
Subjective This is a pleasant 49 years old male with past medical history of CVA/TIA, diabetes mellitus, deep venous thrombosis, COPD, hyperlipidemia, diabetic neuropathy. Also has history of depression and cigarette smoker, presents because of fall off the toilet as per patient without losing consciousness . he denies chest pain , he has some dyspnea and cough with clear phlegm for about two weeks. He usually uses a cane because of his left hemiparesis from a stroke. He denies diarrhea, nausea vomiting, no burning in his urination. No new weakness or numbness. No slurred speech or blurred vision. No headache History smokes about 1.5 pack per day, no alcohol and he uses marijuana as well On admission patient is afebrile, rest of vitals are stable, blood pressure on the high side 175/92 Labs showing mild leukocytosis of 15.4. INR 0.9, BMP is unremarkable except for elevated glucose of 274 and 236. Liver enzymes not elevated, troponin is el evated at 1.3. In the emergency room patient was started on aspirin 325 mg and neurology team were consulted. Also patient was started on 100 mL/hr Cardiology consult was placed who called pulmonary as well. MAPS and he is on [place] 10 twice a day and gabapentin 600 mg 3 times a day 03/30/2020 is fully awake to time, place and person. He knows he came to the hospital because of fall as he states. He denies any specific complaint, denies chest pain or dyspnea or abdominal complaint. He is afebrile. Saturating 99% until with oxygen via nasal cannula. His blood pressure is better today. Patient has leukocytosis of 14.5 K. BMP is unremarkable. Magnesium 1.6 Patient failed swallow evaluation today, we will check it tomorrow again. The probe calcitonin is slightly elevated at 0.11, Levaquin was startedChest x-ray shows CHF versus interstitial pneumonitis. NG tube is in place and there is brown discharge about 500 mm Hemoglobin A1c is elevated at 7.9, currently is in the glipizide 10 mg twice daily. We will increase his metformin 1000 thousand twice daily to 850 mg 3 times a day. PT/OT is pending as well as MRI of the brain 03/31/2020 Patient was sleepy today, he had bad sleep overnight and he just occurs [place], as per staff he was more awake and alert this morning and also as per pulmonary team. History of from weakness in his left side, Patient is underwent modified barium swallow showing aspiration with nectar thick liquids, significant hesitancy of bullous swallowing initiation and pulling within the vallecula . Pulmonary on the case for possible aspiration pneumonitis and he is on Levaquin, he is afebrile. WBC is still elevated at 15.9 K. Inventory Assistant team signed off the case and the recommended patient to follow-up with Dr. Caldera upon discharge Physical therapist recommended home health care however occupational therapy recommended subacute rehab, social worker psychiatric on the case Neurology on the case and the recommended hypercoagulable workup B12 is low normal at 355, replacement initiated Objective - Vital Signs Vital signs: Vital Signs Temp 98.4 F 03/31/20 11:28 Pulse 97 03/31/20 11:28 Resp 20 03/31/20 11:28 BP 121/63 03/31/20 11:28 Pulse Ox 97 03/31/20 11:28 Intake & Output 03/30/20 03/31/20 03/31/20 18:59 06:59 18:59 Output Total 450 Balance -450 Weight 92.4 kg Output: Urine 450 Other: Voiding Method Urinal Toilet Toilet Diaper Urinal Urinal Diaper Diaper # Voids 2 - Exam GENERAL: The patient is alert and oriented x3, not in any acute distress. Well developed, well nourished. HEENT: Pupils are round and equally reacting to light. EOMI. No scleral icterus. No conjunctival pallor. Normocephalic, atraumatic. No pharyngeal erythema. No thyromegaly. CARDIOVASCULAR: S1 and S2 present. No murmurs, rubs, or gallops. PULMONARY: Chest is clear to auscultation, no wheezing or crackles. ABDOMEN: Soft, nontender, nondistended, normoactive bowel sounds. No palpable organomegaly. MUSCULOSKELETAL: No joint swelling or deformity. EXTREMITIES: No cyanosis, clubbing, or pedal edema. -NEUROLOGICAL: Gross neurological examination did not reveal any focal deficits except for Mild dysarthria and mild left hemiparesis which looks better today SKIN: No rashes. No petechiae - Labs CBC & Chem 7: 03/31/20 08:13 03/31/20 08:13 Labs: Abnormal Lab Results - Last 24 Hours (Table) 12/09/20 12/09/20 12/09/20 Range/Units 14:45 14:45 17:56 WBC (3.8-10.6) k/uL Neutrophils # (1.3-7.7) k/uL Basophils # (0-0.2) k/uL Dil Chacorta Viper Venom 50 H (<44) Sec(s) Chloride (98-107) mmol/L Glucose (74-99) mg/dL POC Glucose (mg/dL) 198 H (75-99) mg/dL Adfx-6-Vesngbzmiwkno 3.38 H (0.61-2.37) mg/L Cardiolipin IgM Interp Positive A (NEGATIVE) 03/30/20 03/31/20 03/31/20 Range/Units 20:17 06:20 08:13 WBC 15.9 H (3.8-10.6) k/uL Neutrophils # 12.2 H (1.3-7.7) k/uL Basophils # 0.3 H (0-0.2) k/uL Dil Ch[place]orta Viper Venom (<44) Sec(s) Chloride (98-107) mmol/L Glucose (74-99) mg/dL POC Glucose (mg/dL) 206 H 215 H (75-99) mg/dL Pcvx-4-Tiadzolkrxyhy (0.61-2.37) mg/L Cardiolipin IgM Interp (NEGATIVE) 03/31/20 03/31/20 Range/Units 08:13 12:36 WBC (3.8-10.6) k/uL Neutrophils # (1.3-7.7) k/uL Basophils # (0-0.2) k/uL Dil Chacorta Viper Venom (<44) Sec(s) Chloride 108 H (98-107) mmol/L Glucose 241 H (74-99) mg/dL POC Glucose (mg/dL) 217 H (75-99) mg/dL Otxt-1-Iwrfcykdoodyg (0.61-2.37) mg/L Cardiolipin IgM Interp (NEGATIVE) Assessment and Plan Assessment: Fall without losing consciousness. Concerns for recurrent stroke possible aspiration pneumonitis Uncontrolled diabetes mellitus with hyperglycemia Swallowing difficulty elevated troponin, noncardiac per insurance coder History of multiple CVA , with left hemiparesis. No recent worsening as per p atient nicotine dependence Substance abuse with marijuana Chronic feet pain mostly secondary to diabetic neuropathy Hyperlipidemia Hypertension History of deep venous thrombosis Diabetic neuropathy Plan: This is a pleasant 49 years old male who presents withfall. Continue with aspirin, neurology consult. Patient could not do MRI of the brain because he cannot lie flat. Plavix was added by neurology team. Continue with Levaquin for possible aspiration pneumonitis, a shunt has abnormal swallow evaluation, continue with NG tube and possible need for feeding tube Her rehab is recommended by occupational therapist. Continue to follow up the hypercoagulable workup as per neurology service. And vitamin B12 Continue with gabapentin and lowered [place] to 5.0-325 mg, patient was asking to get this pain medication and I discussed with him to lower the [place] as they increase his risk of falling Labs and medication were reviewed.. Continue same treatment. Continue with symptomatic treatment. Resume home medication. Monitor lytes and vitals. DVT and GI prophylaxis. Further recommendations depends on the clinical course of the patient DVT prophylaxis: Subcutaneous heparin GI Prophylaxis: Pepcid PT/OT: Subacute rehab Prognosis is guarded
[2020-03-31] MEDS: FLUTICASONE 50MCG/SPRAY NASAL 16GM EA NOSTRIL SCH ×2 (13:30→21:04)
[2020-03-31] MEDS: CYANOCOBALAMIN 500 MCG TAB PO SCH (13:34)
--- NOTE | 2020-03-31 14:53 | P.CONS ---
History of Present Illness - Chief Complaint Gait disturbance, left hemiparesthesias - History of Present Illness I had the opportunity to see patient for inpatient rehab consultation with regard to gait disturbance. He was admitted to [facility] March 28 history falling off toilet, unconscious, phone by family/son. Seen by by neurology, Dr. Marcelo who notes left hemiparesthesias and homonymous hemianopsia. Seen by cardiology for troponin elevation. Seen by Dr. Ratliff for respiratory insufficiency. Angiogram CT negative. Head CT with bilateral multiple infarcts. Carotid Doppler negative but poor patient cooperation. Chest x-ray with stable CHF. PT reports supervision for bed mobility and minimal assistance for transfers and gait 6 feet with roller walker with poor standing balance. OT reports minimal assistance for grooming, upper dressing, bathing moderate assist for lower dressing and total assistance for toileting. Speech therapy assess swallow, MBS and recommended nectar thickened. Previous functional history as elicited from patient: 49-year-old ambidextrous white male who is lives in one floor home with son. Patient in disability. Describes independent with own cooking, laundry, driving, standing shower and gait without device. PMD Dr. Crista phillip. Patient admits to smoking a pack to pack per day and denies alcohol. Family history of mother with cancer. Review of Systems Review of systems: ENT: Denies sneezes or discharge. Eyes: Denies discharge or photophobia. Cardiac: Denies chest pain or palpitation. Pulmonary: Denies cough or shortness of breath. Gastrointestinal: Swallow difficulty. Genitourinary: Denies discharge or frequency. Musculoskeletal: Denies muscle or bone aches. Neurologic: Left-sided weakness and numbness. Endocrine: Denies shakes or sweats. Oncology: Denies cancers. Dermatologic: Denies rash, itching, pruritus. ALLERGY/immunology: Denies sneezes, rashes. 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 Past Anesthesia/Blood Transfusion Reactions: No Reported Reaction Past Psychological History: Depression Additional Psychological History / Comment(s): Pt's son lives there too. Pt uses a cane to ambulate. He drives. He has a glucometer. Smoking Status: Current every day smoker Past Alcohol Use History: None Reported Additional Past Alcohol Use History / Comment(s): Started smoking in late teens, smokes 1.5 ppd, Past Drug Use History: Marijuana Additional Drug Use History / Comment(s): States uses daily. - Past Family History Father History Unknown: Yes Family Medical History: Coronary Artery Disease (CAD) Additional Family Medical History / Comment(s): Father had CABG and never came home from the hospital. Mother History Unknown: Yes Family Medical History: Cancer, Deep Vein Thrombosis (DVT) Additional Family Medical History / Comment(s): Mother had squamous cell carcinoma. Medications and Allergies Home Medications Medication Instructions Recorded Confirmed Type glipiZIDE [Glipizide] 10 mg PO BID 08/18/15 03/28/20 History metFORMIN HCL 1,000 mg PO AC-BID 01/30/16 03/28/20 History Aspirin EC [Ecotrin] 325 mg PO DAILY 03/12/19 03/28/20 History Fluticasone Nasal [place] [Flonase 1 spray EA NOSTRIL BID 03/12/19 03/28/20 Histo ry Nasal [place]] Gabapentin 1,200 mg PO TID 03/12/19 03/28/20 History HYDROcodone/APAP 10-325MG [[place] 1 tab PO BID 03/12/19 03/28/20 History 10-325] Albuterol Sulfate [Ventolin HFA] 2 puff INHALATION RT-QID PRN 03/28/20 03/28/20 History Allergies Allergy/AdvReac Type Severity Reaction Status Date / Time Penicillins Allergy Severe Anaphylaxis Verified 03/28/20 19:53 talc Allergy Swelling Verified 03/28/20 19:53 pregabalin [From Lyrica] AdvReac Severe Stroke (no Verified 03/28/20 19:53 issue with neurontin) adhesive tape AdvReac Itching Verified 03/28/20 19:53 Physical Exam Vitals: Vital Signs Temp Pulse Pulse Resp BP Pulse Ox 03/31/20 11:28 98.4 F 97 20 121/63 97 03/31/20 08:34 80 03/31/20 08:00 98.6 F 83 20 145/82 95 03/31/20 04:10 88 03/31/20 04:01 88 03/31/20 04:00 69 19 118/64 98 03/31/20 02:00 96 20 03/31/20 00:16 84 03/31/20 00:07 84 03/31/20 00:00 96 20 135/63 96 03/30/20 20:23 108 H 18 03/30/20 20:11 108 H 18 03/30/20 20:00 97.9 F 92 19 176/80 95 03/30/20 16:00 97.9 F 93 18 169/73 96 Intake and Output 03/30/20 03/31/20 03/31/20 22:59 06:59 14:59 Intake Total 500 Balance 500 Intake: Intake, IV Titration 500 Amount Dextrose 5%-0.45% NaCl 1, 400 000 ml @ 50 mls/hr IV . Q20H [facility] Rx#:[id number] Levofloxacin 500Mg-D5w 100 Pmx 500 mg In Dextrose/ Water 1 100ml.bag @ 100 mls/hr IVPB Q24H [facility] Rx#: [id number] Other: Voiding Method Toilet Toilet Toilet Urinal Urinal Urinal Diaper Diaper Diaper # Voids 0 2 Weight 92.4 kg 92.4 kg Skin: Good color, texture, turgor. General: Medium build and comfortable but fatigued appearance. Head: Normocephalic, atraumatic. Eyes: Symmetric. Pupils equal round. Ears: Symmetric. Hearing within normal limits. Mouth: Clear. NG tube right nostril. Neck: Supple. Carotid without bruit. Cardiac: Regular rate and rhythm. Lungs: Clear anteriorly and posteriorly. Abdomen: Soft active nontender. Extremities: Normal tone. Neurological: Mental status: Alert, cooperative, pleasant. Cranial nerves: Symmetric facial tone and trapezius. Motor: Active movement all 4 limbs but left arm and synergy and left arm and leg is apraxic. Sensation: Intact throughout. DTRs: Symmetric and equal throughout. Mobility: Did not attempt to sit or stand on my own. Results CBC & Chem 7: 03/31/20 08:13 03/31/20 08:13 Labs: Abnormal Lab Results - Last 24 Hours (Table) 03/30/20 03/30/20 03/30/20 Range/Units 14:45 14:45 17:56 WBC (3.8-10.6) k/uL Neutrophils # (1.3-7.7) k/uL Basophils # (0-0.2) k/uL Dil Chacorta Viper Venom 50 H (<44) Sec(s) Chloride (98-107) mmol/L Glucose (74-99) mg/dL POC Glucose (mg/dL) 198 H (75-99) mg/dL Noir-1-Syppkhtsfotjj 3.38 H (0.61-2.37) mg/L Cardiolipin IgM Interp Positive A (NEGATIVE) 03/30/20 03/31/20 03/31/20 Range/Units 20:17 06:20 08:13 WBC 15.9 H (3.8-10.6) k/uL Neutrophils # 12.2 H (1.3-7.7) k/uL Basophils # 0.3 H (0-0.2) k/uL Dil Chacorta Viper Venom (<44) Sec(s) Chloride (98-107) mmol/L Glucose (74-99) mg/dL POC Glucose (mg/dL) 206 H 215 H (75-99) mg/dL Klos-7-Ypsidmlywhhez (0.61-2.37) mg/L Cardiolipin IgM Interp (NEGATIVE) 03/31/20 03/31/20 Range/Units 08:13 12:36 WBC (3.8-10.6) k/uL Neutrophils # (1.3-7.7) k/uL Basophils # (0-0.2) k/uL Dil Chacorta Viper Venom (<44) Sec(s) Chloride 108 H (98-107) mmol/L Glucose 241 H (74-99) mg/dL POC Glucose (mg/dL) 217 H (75-99) mg/dL Uoip-1-Frzwfhhrsazjj (0.61-2.37) mg/L Cardiolipin IgM Interp (NEGATIVE) Assessment and Plan Plan: Impression: 1. Gait disturbance due to stroke result in left hemiparesthesias with history of previous stroke. 2. Dysphagia. 3. Diabetes. 4. Dyslipidemia. 5. COPD. 6. History of DVT and vascular disease. Comes and plan: At this time PT, OT, MEDICAL COLLECTOR ongoing. Safety concerns noted. Discussed possible inpatient rehab with patient. Discussed that what we can work on swallow well and rehab. Patient seems agreeable.
--- NOTE | 2020-03-31 15:52 | P.PN ---
Subjective Progress Note Date: 03/31/20 The patient was seen at bedside and feels about he same today compared to yesterday. Patient had barium swallow showed that he had aspiration with nectar thick liquids. He has significant hesitancy of bolus swallowing initiation. Objective - Vital Signs Vital signs: Vital Signs Temp 98.4 F 03/31/20 11:28 Pulse 97 03/31/20 11:28 Resp 20 03/31/20 11:28 BP 121/63 03/31/20 11:28 Pulse Ox 97 03/31/20 11:28 Intake & Output 03/30/20 03/31/20 03/31/20 18:59 06:59 18:59 Intake Total 500 Output Total 450 Balance -450 500 Weight 92.4 kg 92.4 kg Intake: Intake, IV Titration 500 Amount Dextrose 5%-0.45% NaCl 1, 400 000 ml @ 50 mls/hr IV . Q20H [facility] Rx#:[id number] Levofloxacin 500Mg-D5w 100 Pmx 500 mg In Dextrose/ Water 1 100ml.bag @ 100 mls/hr IVPB Q24H [facility] Rx#: [id number] Output: Urine 450 Other: Voiding Method Urinal Toilet Toilet Diaper Urinal Urinal Diaper Diaper # Voids 2 - Exam On examination patient is a middle aged male, in mild respiratory distress, coughing, a lot of phlegm. Higher mental function: Awake, alert, oriented to self, place and time. No aphasia. No neglect. Cranial nerve: Pupils are round, equal about 4mm bilaterally and reactive to light. Visual ojeda still showed left upper quadrant hemianopsia. He has left facial weakness, tongue protrudes to the left. Speech is mildly dysarthric. The strength is normal in the right arm and right leg distally and proximally. In the left side of the body, deltoid 5-, biceps 5, triceps 5, bill adjuster 5-. On muscle strength testing patient has left pronator drift. Hip flexion is 5-, knee 5, ankle 5 normal. Patient has mild ataxia for [id number]-js-[id number] on the left. Sensations: Still slightly decreased over the left side. Reflexes hard to assess because of lack of cooperation and kept on saying stop. - Labs CBC & Chem 7: 03/31/20 08:13 03/31/20 08:13 Labs: Abnormal Lab Results - Last 24 Hours (Table) 03/30/20 03/30/20 03/30/20 Range/Units 14:45 14:45 17:56 WBC (3.8-10.6) k/uL Neutrophils # (1.3-7.7) k/uL Basophils # (0-0.2) k/uL Dil Chacorta Viper Venom 50 H (<44) Sec(s) Chloride (98-107) mmol/L Glucose (74-99) mg/dL POC Glucose (mg/dL) 198 H (75-99) mg/dL Tyvr-8-Xvedvtscoinzm 3.38 H (0.61-2.37) mg/L Cardiolipin IgM Interp Positive A (NEGATIVE) 03/30/20 03/31/20 03/31/20 Range/Units 20:17 06:20 08:13 WBC 15.9 H (3.8-10.6) k/uL Neutrophils # 12.2 H (1.3-7.7) k/uL Basophils # 0.3 H (0-0.2) k/uL Dil Chacorta Viper Venom (<44) Sec(s) Chloride (98-107) mmol/L Glucose (74-99) mg/dL POC Glucose (mg/dL) 206 H 215 H (75-99) mg/dL Ebjc-0-Cyquibigxbinc (0.61-2.37) mg/L Cardiolipin IgM Interp (NEGATIVE) 03/31/20 03/31/20 Range/Units 08:13 12:36 WBC (3.8-10.6) k/uL Neutrophils # (1.3-7.7) k/uL Basophils # (0-0.2) k/uL Dil Chacorta Viper Venom (<44) Sec(s) Chloride 108 H (98-107) mmol/L Glucose 241 H (74-99) mg/dL POC Glucose (mg/dL) 217 H (75-99) mg/dL Pyhf-2-Lezpixamaxpci (0.61-2.37) mg/L Cardiolipin IgM Interp (NEGATIVE) Assessment and Plan Assessment: * Acute stroke, with left homonymous hemianopia and perhaps worsening of left hemiparesis and dysphagia * Right MCA stenosis, severe degree, likely symptomatic. * Dysphagia due to above. * Elevated cardiac enzymes * History of multiple strokes in the past. * Diabetes, not well controlled * Hypertension * Hyperlipidemia * Tobacco use Plan: * Continue dual antiplatelet medication (on ASA 325mg daily and Plavix 75mg daily). Patient failed home ASA. I will start the patient on Lipitor 80 mg daily via NG tube (likely he did not receive it prior because of dysphagia). * MRI of the brain could not be taken, as patient was not able to lay flat. I will attempt to get MRI Brain again and if unsuccessful then will get repeat CT head. * 2-D echo showed normal left and regular size. Mild concentric LVH, EF is between 50-55%. * Telemetry monitoring in the last 24 hour showing sinus rhythm with sinus t achycardia. No atrial fibrillation at this time. * Tobacco cessation. * Hemoglobin A1c 7.9. Recommend optimize control of diabetes to target A1c <7.0 * Lipid panel with cholesterol 216, LDL 149, HDL 45, triglycerides 109. For strokes the LDL goal is less than 70. * Cardiology on board for elevated cardiac enzymes. I spoke with the cardiology team for an event monitor as no events seen then recommend loop recorder. I will ask cardiology to perform LAURA since patient has acute stroke with prior stroke to rule out left atrial appendage clot or large PFO. * Continue close neuro checks, if symptoms worsens, consider consulting neuro intervention for possible right MCA stenting. * hypercoagulable workup: The strength and DNA antibodies negative, anticardiolipin been IgG antibody is 5.6 which is considered normal, anti- cardiolipin IgM antibody is more than 112 which is considered abnormal and the normal is less than 20. Anti-Cardiolite been IgM antibody is positive. Lupus at the carotid is 42 and the normal is less than 43 so this is normal. The dilute Chacorta's viper venom lupus 50 (normal <44). Lupus anticoagulant is not detected. Pending rest of the hypercoagulable workup ordered by Dr. Norman. Recommend oncology consult. * Recommend normotensive. * * * Time with Patient: Greater than 30
[2020-03-31 16:52] LABS: Glucose,Whole Blood 154 mg/dL (75-99)
[2020-03-31 20:15] LABS: Glucose,Whole Blood 161 mg/dL (75-99)
--- NOTE | 2020-03-31 20:51 | P.CONS ---
History of Present Illness - Reason for Consult Consult date: 03/31/20 Hypercoaguable - Strokes Requesting physician: Jean Claude Dinh - Chief Complaint Stroke - History of Present Illness Mr. Norris is a 49-year-old male patient who presented to emergency department with altered mentation and generalized weakness. Apparently the patient was fou nd on floor. He could not recall specifics to the event and was uite lethargic at time of interview. CT Brain in emergency revealed bilateral multiple old infarcts. CT angiogram of the neck showed no acute process. Computed tomography angiogram of the brain showed stenosis proximal right cerebral artery. He has a known history of tobacco abuse. Hematology has been consulted regarding hypercoaguable work-up with evidence of recurrent CVAs, neurology is following as well and has ordered hypercoaguable work-up at this time. 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, occasional difficulty swallowing which pt attributes to mucous build up, aspiration pneumonia, 2001 DVT L knee, lymphatic system infection, past anemia Review of Systems ROS unobtainable: due to mental status Past Medical History Past Medical History: COPD, CVA/TIA, Diabetes Mellitus, Deep Vein Thrombosis (DVT), Hyperlipidemia, Pneumonia, Vascular Disorder Additional Past Medical History / Comment(s): NIDDM type II, severe neuropathy bilateral hands and feet, past merlos L foot wound, 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 Past Anesthesia/Blood Transfusion Reactions: No Reported Reaction Past Psychological History: Depression Additional Psychological History / Comment(s): Pt's son lives there too. Pt uses a cane to ambulate. He drives. He has a glucometer. Smoking Status: Current every day smoker Past Alcohol Use History: None Reported Additional Past Alcohol Use History / Comment(s): Started smoking in late teens, smokes 1.5 ppd, Past Drug Use History: Marijuana Additional Drug Use History / Comment(s): States uses daily. - Past Family History Father History Unknown: Yes Family Medical History: Coronary Artery Disease (CAD) Additional Family Medical History / Comment(s): Father had CABG and never came home from the hospital. Mother History Unknown: Yes Family Medical History: Cancer, Deep Vein Thrombosis (DVT) Additional Family Medical History / Comment(s): Mother had squamous cell carcinoma. Medications and Allergies Home Medications Medication Instructions Recorded Confirmed Type glipiZIDE [Glipizide] 10 mg PO BID 08/18/15 03/28/20 History metFORMIN HCL 1,000 mg PO AC-BID 01/30/16 03/28/20 History Aspirin EC [Ecotrin] 325 mg PO DAILY 03/12/19 03/28/20 History Fluticasone Nasal Sherman [Flonase 1 spray EA NOSTRIL BID 03/12/19 03/28/20 History Nasal Sherman] Gabapentin 1,200 mg PO TID 03/12/19 03/28/20 History HYDROcodone/APAP 10-325MG [Murdo 1 tab PO BID 03/12/19 03/28/20 History 10-325] Albuterol Sulfate [Ventolin HFA] 2 puff INHALATION RT-QID PRN 03/28/20 03/28/20 History Allergies Allergy/AdvReac Type Severity Reaction Status Date / Time Penicillins Allergy Severe Anaphylaxis Verified 03/28/20 19:53 talc Allergy Swelling Verified 03/28/20 19:53 pregabalin [From Lyrica] AdvReac Severe Stroke (no Verified 03/28/20 19:53 issue with neurontin) adhesive tape AdvReac Itching Verified 03/28/20 19:53 Physical Exam Vitals: Vital Signs Temp Pulse Pulse Resp BP Pulse Ox 03/31/20 16:18 99.1 F 87 20 148/72 100 03/31/20 11:28 98.4 F 97 20 121/63 97 03/31/20 08:34 80 03/31/20 08:00 98.6 F 83 20 145/82 95 03/31/20 04:10 88 03/31/20 04:01 88 03/31/20 04:00 69 19 118/64 98 03/31/20 02:00 96 20 03/31/20 00:16 84 03/31/20 00:07 84 03/31/20 00:00 96 20 135/63 96 Intake and Output 03/31/20 03/31/20 03/31/20 06:59 14:59 22:59 Intake Total 500 Balance 500 Intake: Intake, IV Titration 500 Amount Dextrose 5%-0.45% NaCl 1, 400 000 ml @ 50 mls/hr IV . Q20H [facility] Rx#:[id number] Levofloxacin 500Mg-D5w 100 Pmx 500 mg In Dextrose/ Water 1 100ml.bag @ 100 mls/hr IVPB Q24H [facility] Rx#: [id number] Other: Voiding Method Toilet Toilet Urinal Urinal Diaper Diaper # Voids 2 Weight 92.4 kg 92.4 kg - Constitutional NG tube in place General appearance: no acute distress, thin - EENT Eyes: normal appearance ENT: NA/AT - Respiratory Respiratory: bilateral: diminished (bilateral bases) - Cardiovascular Rhythm: regular Heart sounds: normal: S1, S2 - Gastrointestinal General gastrointestinal: distended, soft - Integumentary Integumentary: jaundiced, pale - Neurologic Left weakness - Musculoskeletal Musculoskeletal: left sided weakness - Psychiatric Lethargic, awakens to stimulation, but doses back to sleep Results CBC & Chem 7: 03/31/20 08:13 03/31/20 08:13 Labs: Abnormal Lab Results - Last 24 Hours (Table) 03/30/20 03/30/20 03/31/20 Range/Units 14:45 14:45 06:20 WBC (3.8-10.6) k/uL Neutrophils # (1.3-7.7) k/uL Basophils # (0-0.2) k/uL Dil Chacorta Viper Venom 50 H (<44) Sec(s) Chloride (98-107) mmol/L Glucose (74-99) mg/dL POC Glucose (mg/dL) 215 H (75-99) mg/dL Tsty-4-Oohpipusjgtth 3.38 H (0.61-2.37) mg/L Cardiolipin IgM Interp Positive A (NEGATIVE) 03/31/20 03/31/20 03/31/20 Range/Units 08:13 08:13 12:36 WBC 15.9 H (3.8-10.6) k/uL Neutrophils # 12.2 H (1.3-7.7) k/uL Basophils # 0.3 H (0-0.2) k/uL Dil Chacorta Viper Venom (<44) Sec(s) Chloride 108 H (98-107) mmol/L Glucose 241 H (74-99) mg/dL POC Glucose (mg/dL) 217 H (75-99) mg/dL Zbla-4-Ebxvooluqeerf (0.61-2.37) mg/L Cardiolipin IgM Interp (NEGATIVE) 03/31/20 03/31/20 Range/Units 16:51 20:14 WBC (3.8-10.6) k/uL Neutrophils # (1.3-7.7) k/uL Basophils # (0-0.2) k/uL Dil Chacorta Viper Venom (<44) Sec(s) Chloride (98-107) mmol/L Glucose (74-99) mg/dL POC Glucose (mg/dL) 154 H 161 H (75-99) mg/dL Xoup-5-Esslzrjgexdln (0.61-2.37) mg/L Cardiolipin IgM Interp (NEGATIVE) CT Scan - head: report reviewed Assessment and Plan (1) Uncontrolled diabetes mellitus Current Visit: No Status: Acute Code(s): E11.65 - TYPE 2 DIABETES MELLITUS WITH HYPERGLYCEMIA SNOMED Code(s): 71460604 Plan: Neurology has ordered hypercoaguable work-up at this time, will await results Recommend Cardiac work-up as etiology from recurrent CVAs are most likely related to underlying cardiac disease, diabetes, tobacco abuse. PLan appears to e rehabilitation after hospitalization. Thank you for allowing us to participate in the care of this patient we will follow along with you
[2020-03-31] MEDS: FAMOTIDINE 20 MG TAB PO SCH (21:03)
[2020-03-31] MEDS: ATORVASTATIN 80 MG TAB NG-TUBE SCH (21:05)
[2020-03-31] MEDS: HYDROcodone/APAP 5-325MG 1 EACH TAB PO PRN (21:07)
--- NOTE | 2020-03-31 23:00 | US ---
EXAMINATION TYPE: US venous doppler duplex LE DATE OF EXAM: 03/31/2020 9:50 PM COMPARISON: US CLINICAL HISTORY: rule out DVT with history of multiple strokes. R/O DVT. Patient on Plavix and aspir in. Hx DVT. SIDE PERFORMED: Bilateral TECHNIQUE: The lower extremity deep venous system is examined utilizing real time linear array sonog breanna with graded compression, doppler sonography and color-flow sonography. VESSELS IMAGED: Common Femoral Vein Deep Femoral Vein Greater Saphenous Vein * Femoral Vein Popliteal Vein Small Saphenous Vein * Proximal Calf Veins (* superficial vessels) Right Leg: Color defect/thready flow seen distal segment of femoral vein. Possible internal echoes. All remaining veins appear to have color flow and to compress. Left Leg: No evidence of DVT in veins imaged at this time from prox calf veins to CFV/GSV. IMPRESSION: There is evidence for chronic deep vein thrombosis in the right femoral vein. No evidence of deep vein thrombosis in the left leg.
--- NOTE | 2020-03-31 23:45 | US ---
EXAMINATION TYPE: US venous doppler duplex UE RT DATE OF EXAM: 03/31/2020 COMPARISON: NONE CLINICAL HISTORY: rule out DVT with history of multiple strokes. Hx DVT in leg. Patient takes Plavix and aspirin. SIDE PERFORMED: Right Right Arm: No evidence of DVT in veins imaged at this time within the right arm. Exam limited due to patient movement and positioning. There is patency of the jugular subclavian axillary and brachial veins. Impression No evidence of deep vein thrombosis in the right arm.
--- NOTE | 2020-03-31 23:58 | US ---
EXAMINATION TYPE: US venous doppler duplex UE LT DATE OF EXAM: 03/31/2020 COMPARISON: NONE CLINICAL HISTORY: rule out DVT with history of multiple strokes. R/O DVT. Hx DVT in leg. Patient take s Plavix and aspirin. SIDE PERFORMED: Left Left Arm: Left medial subclavian vein not visualized. There appears to be internal echoes within some segments of the cephalic vein. Cephalic vein does not compress in some segments. Remaining vessels a ppear to compress and to show color flow. Exam limited due to patient movement and positioning. Impression There is evidence of superficial vein thrombosis in the cephalic vein of the left arm. No sign of blanco p vein thrombosis. IMPRESSION:
[2020-04-01] MEDS: IPRATROPIUM-ALBUTEROL 3 ML NEB INHALATION SCH ×5 (01:21→19:34)
[2020-04-01 06:14] LABS: Glucose,Whole Blood 176 mg/dL (75-99)
--- NOTE | 2020-04-01 07:40 | MR ---
"EXAMINATION TYPE: MR brain wo/w con DATE OF EXAM: 04/01/2020 COMPARISON: NONE HISTORY: CVA, Stroke: worsening left sided weakness and dysphagia TECHNIQUE: Multiplanar, multisequence images of the brain and brainstem is performed without and with IV contras t, utilizing 10 mL intravenous Gadavist . FINDINGS: Diffusion weighted images demonstrate multifocal areas of increased signal on diffusion-angella ghted images with diminished signal on ADC mapping showing T1 hypointensity and T2 hyperintensity inv olving the right frontal and temporal lobes and small portion of the anterior parietal lobe. Area beg ins superiorly anterior to the wedge-shaped defect possible resection cavity or focal encephalomalaci a in the right parietal region axial image 19. There is mild to moderate diffuse ventricular and sulcal prominence. There are scattered areas of T2 hyperintensity seen throughout the white matter bilaterally. There are few additional old lacunar inf arcts in the right middle cerebral artery distribution.. Midline structures demonstrate normal morphology. The craniocervical junction appears within normal limits. Post contrast images demonstrate no abnormal enhancement. The dural venous sinuses appear pa tent. The visualized sinuses are clear and the globes are intact. IMPRESSION: 1. Significant involving acute infarct in the right middle cerebral artery distribution involving pro minently frontal and temporal lobes. 2. Background xdsa-au-jwyatypp diffuse cerebral atrophy and chronic small vessel ischemic changes brook ng with chronic posterior watershed resection cavity or focal encephalomalacia. Old right-sided lacun ar infarcts. Findings somewhat pronounced for patient's age. A Yellow level critical message alert has been initiated for Sherie Gayle MD via the [employer] | Critical Results System on 04/01/2020 7:37 AM. This message alert has been sent to Sherie Gayle MD via the preferences provided by the clinician for the receipt of Radiology Critical Find ings. Message ID [id number]."
[2020-04-01] MEDS: MORPHINE SULFATE 2 MG/ML SYRINGE IVP PRN ×2 (09:50→20:36)
[2020-04-01] MEDS: DEXTROSE 5%-0.45% NACL 1,000 ML IV SCH ×2 (10:09→21:44)
[2020-04-01] MEDS: INSULIN ASPART (NovoLOG) 100 UNIT/ML VIAL SQ SCH ×4 (10:41→21:48)
[2020-04-01] MEDS: glipiZIDE 10 MG TAB PO SCH ×2 (10:41→17:12)
[2020-04-01] MEDS: metFORMIN 850 MG TAB PO SCH ×3 (10:41→17:12)
[2020-04-01 11:43] LABS: Basophils # (A) 0.1 k/uL (0-0.2); Basophils % (A) 1 %; Eosinophils # (A) 0.1 k/uL (0-0.7); Eosinophils % (A) 1 %; HCT 45.4 % (39.0-53.0); HGB 14.6 gm/dL (13.0-17.5); Lymphocytes # (A) 2.9 k/uL (1.0-4.8); Lymphocytes % (A) 25 %; MCHC 32.1 g/dL (31.0-37.0); MCV 90.1 fL (80.0-100.0); Mean Platelet Volume 7.3; Monocytes # (A) 0.7 k/uL (0-1.0); Monocytes % (A) 6 %; Neutrophils # (A) 7.2 k/uL (1.3-7.7); Neutrophils % (A) 63 %; Platelet Count 192 k/uL (150-450); RBC 5.04 m/uL (4.30-5.90); WBC 11.4 k/uL (3.8-10.6)
[2020-04-01 11:47] LABS: Protein C (Activity) 101 % (71-138)
[2020-04-01 11:48] LABS: Anti-Thrombin III Activity 84 % (79-109)
[2020-04-01 11:55] LABS: Albumin 3.7 g/dL (3.5-5.0); Calcium 9.1 mg/dL (8.4-10.2); Total Bilirubin 0.9 mg/dL (0.2-1.3); Total Protein 6.1 g/dL (6.3-8.2)
[2020-04-01 12:20] LABS: Glucose,Whole Blood 185 mg/dL (75-99)
[2020-04-01] MEDS: LEVOFLOXACIN 500MG-D5W PMX 500 MG in DEXTROSE/WATER 1 100ML.BAG IVPB SCH (12:32)
[2020-04-01] MEDS: NICOTINE 21MG/24HR PATCH TRANSDERM SCH (12:32)
[2020-04-01] MEDS: HEPARIN SODIUM,PORCINE 5,000 UNIT/ML 1 ML VIAL SQ SCH ×2 (12:33→21:48)
[2020-04-01] MEDS: FLUTICASONE 50MCG/SPRAY NASAL 16GM EA NOSTRIL SCH ×2 (12:33→21:50)
[2020-04-01] MEDS: GABAPENTIN 400 MG CAP PO SCH ×3 (13:08→21:38)
[2020-04-01] MEDS: CYANOCOBALAMIN 500 MCG TAB PO SCH (13:08)
--- NOTE | 2020-04-01 13:44 | P.GSCN ---
History of Present Illness Consult date: 04/01/20 History of present illness: Reason for consult: PEG tube placement HISTORY OF PRESENT ILLNESS: This is a 49-year-old male with a known past medical history of CVA, diabetes mellitus, DVT, COPD, hyperlipidemia, diabetic neuropathy, nicotine dependence. Patient presented to the hospital with altered mental status and generalized weakness. Patient was found to have had an acute stroke with residual weakness and dysphagia. He is followed by neurology. They currently have him on aspirin and Plavix. Patient had MRI of the brain showing significant involving acute infarct in the right middle cerebral artery distribution involving prominently frontal and temporal lobes. Background mid to moderate diffuse cerebral atrophy and chronic small vessel ischemic changes. Old right-sided lacunar infarcts. Patient failed his modified barium swallow. There were signs of aspiration. Speech therapy had recommended to keep patient strict nothing by mouth with alternative feeding methods such as PEG tube placement. Surgery has been consulted in regards to PEG tube placement. Patient is followed by multiple specialists. He is undergoing a hypercoagulable workup with hematology. Patient is scheduled for a LAURA today. PAST MEDICAL HISTORY: See list. PAST SURGICAL HISTORY: See list. MEDICATIONS: See list. ALLERGIES: See list. SOCIAL HISTORY: No illicit drug use. REVIEW OF SYSTEMS: CONSTITUTIONAL: Denies fever or chills. HEENT: Denies blurred vision, vision changes, or eye pain. Denies hemoptysis CARDIOVASCULAR: Denies chest pain or pressure. RESPIRATORY: No shortness of breath. GASTROINTESTINAL: Denies any abdominal pain, nausea or vomiting or change in bowel movements HEMATOLOGIC: Denies bleeding disorders. GENITOURINARY: Denies any blood in urine or increased urinary frequency. SKIN: Denies pruitis. Denies rash. PHYSICAL EXAM: VITAL SIGNS: Reviewed GENERAL: Well-developed in no acute distress. HEENT: No sclera icterus. Extraocular movements grossly intact. Moist buccal mucosa. Head is atraumatic, normocephalic. No nasal drainage. ABDOMEN: Soft. Nondistended. Nontender NEUROLOGIC: Alert and oriented 3 LABORATORY DATA: WBC 11.4 hemoglobin 14.6 platelets 193 Sodium 142 potassium 4.0 creatinine 1.61 glucose 185 IMAGING: MRI of the brain showing significant involving acute infarct in the right middle cerebral artery distribution involving prominently frontal and temporal lobes. Background mid to moderate diffuse cerebral atrophy and chronic small vessel ischemic changes. Old right-sided lacunar infarcts. CTA of the neck no evidence of any significant stenosis. CTA of the head there is hemodynamic stenosis of the proximal right middle cerebral artery. There is also decreased size of the left posterior cerebral artery compared to the right. No aneurysm. Venous Doppler bilateral lower extremities there is evidence of chronic DVT in the right femoral vein. No evidence of DVT in left leg Doppler of right arm negative for DVT Venous Doppler of left arm superficial vein thrombosis left arm, no DVT ASSESSMENT: 1. Acute CVA 2. Dysphagia. Patient failed modified barium swallow. There were signs of aspiration. PLAN: -Plan for PEG tube placement on 04/04/[address] Acosta Physician Rinkman note has been reviewed by physician. Signing provider agrees with the documented findings, assessment, and plan of care. 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 Past Anesthesia/Blood Transfusion Reactions: No Reported Reaction Past Psychological History: Depression Additional Psychological History / Comment(s): Pt's son lives there too. Pt uses a cane to ambulate. He drives. He has a glucometer. Smoking Status: Current every day smoker Past Alcohol Use History: None Reported Additional Past Alcohol Use History / Comment(s): Started smoking in late teens, smokes 1.5 ppd, Past Drug Use History: Marijuana Additional Drug Use History / Comment(s): States uses daily. - Past Family History Father History Unknown: Yes Family Medical History: Coronary Artery Disease (CAD) Additional Family Medical History / Comment(s): Father had CABG and never came home from the hospital. Mother History Unknown: Yes Family Medical History: Cancer, Deep Vein Thrombosis (DVT) Additional Family Medical History / Comment(s): Mother had squamous cell carcinoma. Medications and Allergies Home Medications Medication Instructions Recorded Confirmed Type glipiZIDE [Glipizide] 10 mg PO BID 08/18/15 03/28/20 History metFORMIN HCL 1,000 mg PO AC-BID 01/30/16 03/28/20 History Aspirin EC [Ecotrin] 325 mg PO DAILY 03/12/19 03/28/20 History Fluticasone Nasal [place] [Flonase 1 spray EA NOSTRIL BID 03/12/19 03/28/20 History Nasal [place]] Gabapentin 1,200 mg PO TID 03/12/19 03/28/20 History HYDROcodone/APAP 10-325MG [[place] 1 tab PO BID 03/12/19 03/28/20 History 10-325] Albuterol Sulfate [Ventolin HFA] 2 puff INHALATION RT-QID PRN 03/28/20 03/28/20 History Allergies Allergy/AdvReac Type Severity Reaction Status Date / Time Penicillins Allergy Severe Anaphylaxis Verified 03/28/20 19:53 talc Allergy Swelling Verified 03/28/20 19:53 pregabalin [From Lyrica] AdvReac Severe Stroke (no Verified 03/28/20 19:53 issue with neurontin) adhesive tape AdvReac Itching Verified 03/28/20 19:53 Surgical - Exam Vital Signs Temp Pulse Resp BP Pulse Ox 99.6 F 89 20 151/107 100 03/28/20 18:44 03/28/20 18:44 03/28/20 18:44 03/28/20 18:44 03/28/20 18:44 Results - Labs 04/01/20 11:02 04/01/20 11:02 Abnormal Lab Results - Last 24 Hours (Table) 03/31/20 03/31/20 04/01/20 Range/Units 16:51 20:14 06:13 WBC (3.8-10.6) k/uL BUN (9-20) mg/dL Creatinine (0.66-1.25) mg/dL Glucose (74-99) mg/dL POC Glucose (mg/dL) 154 H 161 H 176 H (75-99) mg/dL Total Protein (6.3-8.2) g/dL 04/01/20 04/01/20 04/01/20 Range/Units 11:02 11:02 12:04 WBC 11.4 H (3.8-10.6) k/uL BUN 30 H (9-20) mg/dL Creatinine 1.61 H (0.66-1.25) mg/dL Glucose 201 H (74-99) mg/dL POC Glucose (mg/dL) 185 H (75-99) mg/dL Total Protein 6.1 L (6.3-8.2) g/dL Diabetes panel 04/01/20 Range/Units 11:02 Sodium 142 (137-145) mmol/L Potassium 4.0 (3.5-5.1) mmol/L Chloride 107 (98-107) mmol/L Carbon Dioxide 25 (22-30) mmol/L BUN 30 H (9-20) mg/dL Creatinine 1.61 H (0.66-1.25) mg/dL Glucose 201 H (74-99) mg/dL Calcium 9.1 (8.4-10.2) mg/dL AST 20 (17-59) U/L ALT 19 (4-49) U/L Alkaline Phosphatase 78 (38-126) U/L Total Protein 6.1 L (6.3-8.2) g/dL Albumin 3.7 (3.5-5.0) g/dL Calcium panel 04/01/20 Range/Units 11:02 Calcium 9.1 (8.4-10.2) mg/dL Albumin 3.7 (3.5-5.0) g/dL Pituitary panel 04/01/20 Range/Units 11:02 Sodium 142 (137-145) mmol/L Potassium 4.0 (3.5-5.1) mmol/L Chloride 107 (98-107) mmol/L Carbon Dioxide 25 (22-30) mmol/L BUN 30 H (9-20) mg/dL Creatinine 1.61 H (0.66-1.25) mg/dL Glucose 201 H (74-99) mg/dL Calcium 9.1 (8.4-10.2) mg/dL Adrenal panel 04/01/20 Range/Units 11:02 Sodium 142 (137-145) mmol/L Potassium 4.0 (3.5-5.1) mmol/L Chloride 107 (98-107) mmol/L Carbon Dioxide 25 (22-30) mmol/L BUN 30 H (9-20) mg/dL Creatinine 1.61 H (0.66-1.25) mg/dL Glucose 201 H (74-99) mg/dL Calcium 9.1 (8.4-10.2) mg/dL Total Bilirubin 0.9 (0.2-1.3) mg/dL AST 20 (17-59) U/L ALT 19 (4-49) U/L Alkaline Phosphatase 78 (38-126) U/L Total Protein 6.1 L (6.3-8.2) g/dL Albumin 3.7 (3.5-5.0) g/dL
--- NOTE | 2020-04-01 14:54 | P.PN ---
Subjective This is a pleasant 49 years old male with past medical history of CVA/TIA, diabetes mellitus, deep venous thrombosis, COPD, hyperlipidemia, diabetic neuropathy. Also has history of depression and cigarette smoker, presents because of fall off the toilet as per patient without losing consciousness . he denies chest pain , he has some dyspnea and cough with clear phlegm for about two weeks. He usually uses a cane because of his left hemiparesis from a stroke. He denies diarrhea, nausea vomiting, no burning in his urination. No new weakness or numbness. No slurred speech or blurred vision. No headache History smokes about 1.5 pack per day, no alcohol and he uses marijuana as well On admission patient is afebrile, rest of vitals are stable, blood pressure on the high side 175/92 Labs showing mild leukocytosis of 15.4. INR 0.9, BMP is unremarkable except for elevated glucose of 274 and 236. Liver enzymes not elevated, troponin is el evated at 1.3. In the emergency room patient was started on aspirin 325 mg and neurology team were consulted. Also patient was started on 100 mL/hr Cardiology consult was placed who called pulmonary as well. MAPS and he is on [place] 10 twice a day and gabapentin 600 mg 3 times a day 03/30/2020 is fully awake to time, place and person. He knows he came to the hospital because of fall as he states. He denies any specific complaint, denies chest pain or dyspnea or abdominal complaint. He is afebrile. Saturating 99% until with oxygen via nasal cannula. His blood pressure is better today. Patient has leukocytosis of 14.5 K. BMP is unremarkable. Magnesium 1.6 Patient failed swallow evaluation today, we will check it tomorrow again. The probe calcitonin is slightly elevated at 0.11, Levaquin was startedChest x-ray shows CHF versus interstitial pneumonitis. NG tube is in place and there is brown discharge about 500 mm Hemoglobin A1c is elevated at 7.9, currently is in the glipizide 10 mg twice daily. We will increase his metformin 1000 thousand twice daily to 850 mg 3 times a day. PT/OT is pending as well as MRI of the brain 03/31/2020 Patient was sleepy today, he had bad sleep overnight and he just occurs [place], as per staff he was more awake and alert this morning and also as per pulmonary team. History of from weakness in his left side, Patient is underwent modified barium swallow showing aspiration with nectar thick liquids, significant hesitancy of bullous swallowing initiation and pulling within the vallecula . Pulmonary on the case for possible aspiration pneumonitis and he is on Levaquin, he is afebrile. WBC is still elevated at 15.9 K. Office Bookkeeper team signed off the case and the recommended patient to follow-up with Dr. Caldera upon discharge Physical therapist recommended home health care however occupational therapy recommended subacute rehab, social services counselor on the case Neurology on the case and the recommended hypercoagulable workup B12 is low normal at 355, replacement initiated 04/01/2020 Patient still with left sided weakness, his alert and awake. MRI of the brain showing significant acute infarct in the right middle cerebral artery distribution involving frontal and temporal lobes. Neurologist team already on the case, he continued on aspirin and Plavix . He is failing swallow evaluation and I discussed the case with speech and swallow team and they recommended PEG tube placement even if temporarily for 4-6 weeks and then reevaluate. Patient cannot even drink water or eat. However he can use some small amount of ice chips per speech team. Cardiology team are on board with recommendation for a LAURA by neurologist team Patient continued on Levaquin also for possible aspiration component. His WBCs down to 11.4 today Glucose is controlled. Continue with the 5 half-normal saline at 50 mL per hour Surgery team are planning for PEG placement on Saturday patient will benefit from inpatient rehab after workup is done CONSTITUTIONAL: No fever, no malaise, no fatigue. HEENT: No recent visual problems or hearing problems. Denied any sore throat. CARDIOVASCULAR: No orthopnea, PND, no palpitations, no syncope. PULMONARY: No shortness of breath, no cough, no hemoptysis. GASTROINTESTINAL: No diarrhea, no nausea, no vomiting, no abdominal pain. Normoactive bowel sounds. NEUROLOGICAL: No headaches, no weakness, no numbness. Active Medications Generic Name Dose Route Start Last Admin Trade Name Freq PRN Reason Stop Dose Admin Hydrocodone Bitart/Acetaminophen 2 each 03/31/20 12:55 03/31/20 21:07 Hydrocodone/Apap 5-325mg 1 Each Tab PO 2 each Q12HR PRN Administration Pain Albuterol Sulfate 2.5 mg 03/29/20 10:52 Albuterol Nebulized 2.5 Mg/3 Ml INHALATION RT-QID PRN Shortness Of Breath Albuterol/Ipratropium 3 ml 03/29/20 12:00 04/01/20 11:58 Ipratropium-Albuterol 3 Ml Neb INHALATION 3 ml RT-Q4H RICH Administration Albuterol/Ipratropium 3 ml 03/29/20 10:17 Ipratropium-Albuterol 3 Ml Neb INHALATION RT-Q1H PRN Shortness Of Breath Or Wheezing Aspirin 325 mg 03/30/20 09:00 03/31/20 08:54 Aspirin 325 Mg Tab PO 325 mg DAILY RICH Administration Atorvastatin Calcium 80 mg 03/31/20 21:00 03/31/20 21:05 Atorvastatin 80 Mg Tab NG-TUBE 80 mg HS RICH Administration Clopidogrel Bisulfate 75 mg 03/30/20 14:45 03/31/20 08:54 Clopidogrel 75 Mg Tab PO 75 mg DAILY RICH Administration Cyanocobalamin 1,000 mcg 03/31/20 10:30 04/01/20 13:08 Cyanocobalamin 500 Mcg Tab PO Not Given DAILY RICH Famotidine 20 mg 03/31/20 21:00 03/31/20 21:03 Famotidine 20 Mg Tab PO 20 mg Q12HR RICH Administration Fluticasone Propionate 1 spray 03/29/20 21:00 04/01/20 12:33 Fluticasone 50mcg/[place] Nasal 16gm EA NOSTRIL 1 spray BID RICH Administration Gabapentin 1,200 mg 03/29/20 16:00 04/01/20 13:08 Gabapentin 400 Mg Cap PO Not Given TID RICH Glipizide 10 mg 03/29/20 17:30 04/01/20 10:41 Glipizide 10 Mg Tab PO Not Given AC-BID RICH Heparin Sodium (Porcine) 5,000 unit 03/29/20 21:00 04/01/20 12:33 Heparin Sodium,Porcine 5,000 Unit/Ml 1 Ml Vial SQ 5,000 unit Q12HR RICH Administration Dextrose/Sodium Chloride 1,000 mls @ 50 mls/hr 03/29/20 11:00 04/01/20 10:09 Dextrose 5%-1/2ns Iv Soln IV 50 mls/hr .Q20H RICH Administration Levofloxacin 500 mg/ IV 100 mls @ 100 mls/hr 03/30/20 10:00 04/01/20 12:32 Solution IVPB 100 mls/hr Q24H RICH Administration Insulin Aspart 0 unit 03/28/20 21:00 04/01/20 13:29 Insulin Aspart (Novolog) 100 Unit/Ml Vial SQ 2 unit ACHS RICH Administration Protocol Metformin HCl 850 mg 03/30/20 12:30 04/01/20 13:08 Metformin 850 Mg Tab PO Not Given AC-TID RICH Morphine Sulfate 2 mg 03/29/20 11:41 04/01/20 09:50 Morphine Sulfate 2 Mg/Ml Syringe IVP 2 mg Q6H PRN Administration Pain/Discomfort Nicotine 1 patch 03/29/20 11:15 04/01/20 12:32 Nicotine 21mg/24hr Patch TRANSDERM 1 patch DAILY RICH Administration Objective - Vital Signs Vital signs: Vital Signs Temp 98.9 F 04/01/20 09:49 Pulse 76 04/01/20 12:30 Resp 16 04/01/20 12:30 BP 156/85 04/01/20 12:30 Pulse Ox 97 04/01/20 12:30 Intake & Output 03/31/20 04/01/20 04/01/20 18:59 06:59 18:59 Intake Total 500 Balance 500 Weight 92.4 kg 91.6 kg Intake: Intake, IV Titration 500 Amount Dextrose 5%-0.45% NaCl 1, 400 000 ml @ 50 mls/hr IV . Q20H ON LICENSE OF [facility] Rx#:[id number] Levofloxacin 500Mg-D5w 100 Pmx 500 mg In Dextrose/ Water 1 100ml.bag @ 100 mls/hr IVPB Q24H ON LICENSE OF [facility] Rx#: [id number] Other: Voiding Method Toilet Toilet Urinal Urinal Diaper Diaper # Voids 1 # Bowel Movements 1 - Exam GENERAL: The patient is alert and oriented x3, not in any acute distress. Well developed, well nourished. HEENT: Pupils are round and equally reacting to light. EOMI. No scleral icterus. No conjunctival pallor. Normocephalic, atraumatic. No pharyngeal erythema. No thyromegaly. CARDIOVASCULAR: S1 and S2 present. No murmurs, rubs, or gallops. PULMONARY: Chest is clear to auscultation, no wheezing or crackles. ABDOMEN: Soft, nontender, nondistended, normoactive bowel sounds. No palpable organomegaly. MUSCULOSKELETAL: No joint swelling or deformity. EXTREMITIES: No cyanosis, clubbing, or pedal edema. -NEUROLOGICAL: Gross neurological examination did not reveal any focal deficits except for Mild dysarthria and mild left hemiparesis which looks better today SKIN: No rashes. No petechiae - Labs CBC & Chem 7: 04/01/20 11:02 04/01/20 11:02 Labs: Abnormal Lab Results - Last 24 Hours (Table) 03/31/20 03/31/20 04/01/20 Range/Units 16:51 20:14 06:13 WBC (3.8-10.6) k/uL BUN (9-20) mg/dL Creatinine (0.66-1.25) mg/dL Glucose (74-99) mg/dL POC Glucose (mg/dL) 154 H 161 H 176 H (75-99) mg/dL Total Protein (6.3-8.2) g/dL 04/01/20 04/01/20 04/01/20 Range/Units 11:02 11:02 12:04 WBC 11.4 H (3.8-10.6) k/uL BUN 30 H (9-20) mg/dL Creatinine 1.61 H (0.66-1.25) mg/dL Glucose 201 H (74-99) mg/dL POC Glucose (mg/dL) 185 H (75-99) mg/dL Total Protein 6.1 L (6.3-8.2) g/dL Assessment and Plan Assessment: Fall without losing consciousness. Concerns for recurrent stroke possible aspiration pneumonitis Uncontrolled diabetes mellitus with hyperglycemia Swallowing difficulty elevated troponin, noncardiac per customs entry writer History of multiple CVA , with left hemiparesis. No recent worsening as per patient nicotine dependence Substance abuse with marijuana Chronic feet pain mostly secondary to diabetic neuropathy Hyperlipidemia Hypertension History of deep venous thrombosis Diabetic neuropathy Plan: This is a pleasant 49 years old male who presents withfall. Continue with aspirin, neurology consult. Patient could not do MRI of the brain because he cannot lie flat. Plavix was added by neurology team. Continue with Levaquin for possible aspiration pneumonitis, a shunt has abnormal swallow evaluation, continue with NG tube and possible need for feeding tube Her rehab is recommended by occupational therapist. Continue to follow up the hypercoagulable workup as per neurology service. And vitamin B12 Continue with gabapentin and lowered [place] to 5.0-325 mg, patient was asking to get this pain medication and I discussed with him to lower the [place] as they increase his risk of falling Labs and medication were reviewed.. Continue same treatment. Continue with symptomatic treatment. Resume home medication. Monitor lytes and vitals. DVT and GI prophylaxis. Further recommendations depends on the clinical course of the patient DVT prophylaxis: Subcutaneous heparin GI Prophylaxis: Pepcid PT/OT: Subacute rehab Prognosis is guarded
[2020-04-01] MEDS ORDERED: fentaNYL (PF) 50 MCG/ML 2 ML AMP ONE (16:47)
[2020-04-01] MEDS ORDERED: BENZOCAINE SPRAY 1 CAN TOPICAL ONE (16:53)
[2020-04-01] MEDS ORDERED: MIDAZOLAM 2 MG/2 ML VIAL IV ONE ×3 (16:54→17:00)
[2020-04-01] MEDS ORDERED: fentaNYL (PF) 50 MCG/ML 2 ML AMP IV ONE ×2 (16:54)
[2020-04-01] MEDS ORDERED: IV FLUID CONTINUATION 700 ML IV ONE (17:03)
--- NOTE | 2020-04-01 17:10 | P.PN ---
Subjective Progress Note Date: 04/01/20 49-year-old male patient came into the emergency department with altered mentation and generalized weakness. There was a concern for stroke. The patient was found on the floor prior to him arriving to the emergency. It was unclear when he was awake last. The patient felt that he was on the floor for at least half an hour. He was apparently a poor historian. He denies having any injuries of falling. A computed tomography scan of the brain was done and the patient was found to have bilateral multiple old infarcts. No significant abnormalities. CT angiogram of the neck showed no acute process. Computed tomography angiogram of the brain showed stenosis proximal right cerebral artery. There was slight decrease in the flow in the posterior cerebral artery also. The patient was admitted to the floor. I was asked to evaluate the patient this morning as the patient was still unresponsive, and he was having noisy breathing, and he was also found to be some degree of respiratory distres s. At the time of arrival, the patient's BP was 194/93. He was on 2 L of oxygen by nasal cannula with a pulse is 96%. He was afebrile. His troponin was at 1.3 from yesterday. ProBNP level is 1017. LDL cholesterol is 149. Chest x- ray showingsome mild interstitial edema. I was able to communicate minimally with the patient. He was following some simple commands. He was quite lethargic. His speech was a bit garbled. Some obvious weakness on the left siderefusing is related to previous CVA. No reported aspiration. On 03/30/2020 patient was again reevaluated on selective care unit. He is resting in bed, apparently his been having some hallucinations and altered mentation earlier today, patient appears to be lethargic but arousable, he is answering simple questions, he denies acute distress, he is still having issues with swallowing, he failed a swallow evaluation currently has a G-tube in place for administration of medications. His been nothing by mouth, he still having copious secretions that are yellowish colored, he has a Enrico seen catheter that he has been self suctioning, his left side weakness seems to have improved, still has the left facial weakness. Currently on 2 L of oxygen with pulse ox of 98%, hemodynamically he has been stable, his been afebrile, lung sounds reveal congested rhonchi throughout, no significant wheezing, we started the patient on breathing treatments yesterday, we will add antibiotics for empiric antibiotic coverage although for calcitonin level was low at 0.11. IV fluids with D5 half- normal saline at a rate of 50 ML per hour. She does on the daily dose of aspirin, and he received 150 milligrams of Plavix yesterday, neurology's following On today's evaluation of [facility] 2019 the patient is being seen for a follow-up. He still has a weak cough and congestion. The patient is much more awake. Is oriented to time place and people. He is not having any altered mentation. Has no respiratory distress.. He continues to have left-sided weakness related to his recent right MCA distribution CVA. The motor function in the left upper and lower extremities quite. Furthermore, the patient failed a swallow evaluation. An NG tube was inserted and currently the patient is still nothing by mouth. After insertion of the NG tube, the patient had approximately 500 MO's of output. He is taken his medications through the NG tube for now. I was concerned of an aspiration pneumonia and I started him yesterday on Levaquin. He continues to be on a combination of aspirin and Plavix. On 04/01/2020, the patient while in the MRI, accidentally pulled out his NG tube. In any rate, the NG tube is out currently and the patient remains nothing by mouth. The patient will need a PEG tube insertion for nutritional support. He is unable to swallow and has failed swallow evaluation. He has an adequate cough. He is producing some limited amount of sputum. He is working with physical therapy. He is doing some ambulation today. The patient reports improvement in the motor function in his left upper extremity. Left upper extremities still weak. There is also ongoing weakness and left lower extremity. MRI of the brain was done and showed significant infarct in the right MCA distribution involving also the front of the temporal lobes. He is on aspirin and Plavix. He is able to swallow. Affect tube insertion is in progress. He continues to be on Levaquin for any possible aspiration. His white cell count 11.4. He is half-normal saline today to 50 mL an hour. As mentioned, NG tube was accidentally pulled out. Objective - Vital Signs Vital signs: Vital Signs Temp 98.4 F 04/01/20 16:15 Pulse 78 04/01/20 17:04 Resp 14 04/01/20 17:04 BP 111/57 04/01/20 17:04 Pulse Ox 99 04/01/20 17:04 Intake & Output 03/31/20 04/01/20 04/01/20 18:59 06:59 18:59 Intake Total 500 Balance 500 Weight 92.4 kg 91.6 kg Intake: Intake, IV Titration 500 Amount Dextrose 5%-0.45% NaCl 1, 400 000 ml @ 50 mls/hr IV . Q20H RICH Rx#:[id number] Levofloxacin 500Mg-D5w 100 Pmx 500 mg In Dextrose/ Water 1 100ml.bag @ 100 mls/hr IVPB Q24H RICH Rx#: [id number] Other: Voiding Method Toilet Toilet Toilet Urinal Urinal Urinal Diaper Diaper Diaper # Voids 1 # Bowel Movements 1 - Exam GENERAL EXAM: Alert, active, 49y old white male, congested comfortable in no apparent distress. HEAD: Normocephalic/atraumatic. EYES: Normal reaction of pupils, equal size. Conjunctiva pink, sclera white. NOSE: Clear with pink turbinates. THROAT: No erythema or exudates. NECK: No masses, no JVD, no thyroid enlargement, no adenopathy. CHEST: No chest wall deformity. Symmetrical expansion. LUNGS: Equal air entry with Diffuse rhonchi CVS: Regular rate and rhythm, normal S1 and S2, no gallops, no murmurs, no rubs ABDOMEN: Soft, nontender. No hepatosplenomegaly, normal bowel sounds, no guarding or rigidity. EXTREMITIES: No clubbing, no edema, no cyanosis, 2+ pulses and upper and lower extremities. MUSCULOSKELETAL: Muscle strength and tone normal. SPINE: No scoliosis or deformity SKIN: No rashes CENTRAL NERVOUS SYSTEM: Alert and oriented -3. Slight left arm weakness and left facial droop, improved from yesterday, tone is normal in all 4 extremities.the patient is alert and oriented 3. His communicating. He is able to sit up on a chair. PSYCHIATRIC: Alert and oriented -3. Appropriate affect. Intact judgment and insight. - Labs CBC & Chem 7: 04/01/20 11:02 04/01/20 11:02 Labs: Abnormal Lab Results - Last 24 Hours (Table) 03/31/20 04/01/20 04/01/20 Range/Units 20:14 06:13 11:02 WBC 11.4 H (3.8-10.6) k/uL BUN (9-20) mg/dL Creatinine (0.66-1.25) mg/dL Glucose (74-99) mg/dL POC Glucose (mg/dL) 161 H 176 H (75-99) mg/dL Total Protein (6.3-8.2) g/dL 04/01/20 04/01/20 Range/Units 11:02 12:04 WBC (3.8-10.6) k/uL BUN 30 H (9-20) mg/dL Creatinine 1.61 H (0.66-1.25) mg/dL Glucose 201 H (74-99) mg/dL POC Glucose (mg/dL) 185 H (75-99) mg/dL Total Protein 6.1 L (6.3-8.2) g/dL Assessment and Plan Plan: 1 altered mental status, improved. The patient's mental status improved considerably and his currently communicating and is alert and oriented 3. The patient is a recurrent CVA. The patient underwent a CTA of the head and neck CTA shows previous CVA in addition to that There is hemodynamic stenosis of the proximal right middle cerebral artery. There is also slight decreased size of the left posterior cerebral artery compared to the right. No intracranial aneurysm. Stenosis of the right middle cerebral artery appears increased com pared to old exam. Diminished flow left posterior cerebral artery similar to old exam. neurology consultation done, and there is a concern that the patient has had a stroke along the right MCA distribution. The follow-up MRI showed infarct along the right MCA distribution involving the frontal and temporal lobes. The patient continues to be on aspirin and Plavix. Motor function is also improved and the patient is doing some activity and mobility and walking with the physical therapist. Meanwhile, the patient is unable to swallow and the patient will need a PEG tube insertion for enteral feeding and nutritional support. NG tube has been removed. 2 COPD 3 mild pulmonary edema,, consider aspiration, currently on Levaquin, currently on 2 L of oxygen by nasal cannula with a pulse ox of 99%. 4 diabetes mellitus type 2 5 hypertension 6 hyperlipidemia 7 peripheral neuropathy 8 history of CVA on multiple occasions 9 history of difficulty swallowing and the patient has been involved in an aspiration pneumonia in the past 10 history of DVT in the LLE in 2001 11 troponin leak plan MRI of the brain was noted. GI will be consulted regarding PEG tube insertion. Clinically improved and the patient's is doing better. Is able to sit up on a chair. Motor function the left upper extremity is improved. He is ambulating. Mental status is improved. Neurologist on the case. Watch for aspiration. Continue the Levaquin for now. Pulmonary critical services we'll sign off at th is point in time.
[2020-04-01] MEDS: CLOPIDOGREL 75 MG TAB PO SCH (17:12)
--- NOTE | 2020-04-01 17:27 | P.PN ---
Subjective Progress Note Date: 04/01/20 Patient was seen at bedside he said that he feels about the same met today compared to yesterday. He denies any worsening of his weakness, numbness. He pulled his NG tube out. MRI the brain was a performed on 04/01/2020 and was reported as significant involving acute infarct in the right middle cerebral artery distribution involving predominantly frontal and temporal lobes. Background mild to moderate diffuse cerebral atrophy and chronic small vessel ischemic changes along with chronic posterior watershed the resection cavity or focal encephalomalacia. Old right sided lacunar infarcts. Finding somewhat pronounced for patient age. Venous duplex of bilateral lower extremity shows that there is evidence of chronic DVT in the right femoral vein. While no evidence of DVT in the left leg. Venous duplex of bilateral upper extremity shows a that there is evidence of superficial vein thrombosis boluses in the cephalic vein in the of the left arm. Objective - Vital Signs Vital signs: Vital Signs Temp 98.4 F 04/01/20 16:15 Pulse 78 04/01/20 17:04 Resp 14 04/01/20 17:04 BP 111/57 04/01/20 17:04 Pulse Ox 99 04/01/20 17:04 Intake & Output 03/31/20 04/01/20 04/01/20 18:59 06:59 18:59 Intake Total 500 75 Balance 500 75 Weight 92.4 kg 91.6 kg Intake: IV 75 Intake, IV Titration 500 Amount Dextrose 5%-0.45% NaCl 1, 400 000 ml @ 50 mls/hr IV . Q20H RICH Rx#:[id number] Levofloxacin 500Mg-D5w 100 Pmx 500 mg In Dextrose/ Water 1 100ml.bag @ 100 mls/hr IVPB Q24H RICH Rx#: [id number] Other: Voiding Method Toilet Toilet Toilet Urinal Urinal Urinal Diaper Diaper Diaper # Voids 1 # Bowel Movements 1 - Exam On examination patient is a middle aged male, in mild respiratory distress, coughing, a lot of phlegm. Higher mental function: Awake, alert, oriented to self, place and time. No aphasia. No neglect. Cranial nerve: Pupils are round, equal about 4mm bilaterally and reactive to light. Visual ojeda still showed left upper quadrant hemianopsia. He has left facial weakness, tongue protrudes to the left. Speech is mildly dysarthric. The strength is normal in the right arm and right leg distally and proximally. 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 On muscle strength testing patient has left pronator drift. Hip flexion is 5-, knee 5, ankle 5 normal. Patient has mild ataxia for [id number] on the left. Sensations: Still slightly decreased over the left side. Reflexes hard to assess because of lack of cooperation and kept on saying stop. - Labs CBC & Chem 7: 04/01/20 11:02 04/01/20 11:02 Labs: Abnormal Lab Results - Last 24 Hours (Table) 03/31/20 04/01/20 04/01/20 Range/Units 20:14 06:13 11:02 WBC 11.4 H (3.8-10.6) k/uL BUN (9-20) mg/dL Creatinine (0.66-1.25) mg/dL Glucose (74-99) mg/dL POC Glucose (mg/dL) 161 H 176 H (75-99) mg/dL Total Protein (6.3-8.2) g/dL 04/01/20 04/01/20 Range/Units 11:02 12:04 WBC (3.8-10.6) k/uL BUN 30 H (9-20) mg/dL Creatinine 1.61 H (0.66-1.25) mg/dL Glucose 201 H (74-99) mg/dL POC Glucose (mg/dL) 185 H (75-99) mg/dL Total Protein 6.1 L (6.3-8.2) g/dL Assessment and Plan Assessment: MRI the brain was a performed on 04/01/2020 and was reported as significant involving acute infarct in the right middle cerebral artery distribution involving predominantly frontal and temporal lobes. Background mild to moderate diffuse cerebral atrophy and chronic small vessel ischemic changes along with chronic posterior watershed the resection cavity or focal encephalomalacia. Old right sided lacunar infarcts. Finding somewhat pronounced for patient age. Venous duplex of bilateral lower extremity shows that there is evidence of ch ronic DVT in the right femoral vein. While no evidence of DVT in the left leg. Venous duplex of bilateral upper extremity shows a that there is evidence of superficial vein thrombosis in the cephalic vein in the of the left arm. * Acute right MCA stroke (mostly right frontal and temporal), with left homonymous hemianopia and perhaps worsening of left hemiparesis and dysphagia * Right MCA stenosis, severe degree. * Dysphagia due to above. 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 * Elevated cardiac enzymes * History of multiple strokes in the past. * Diabetes, not well controlled * Hypertension * Hyperlipidemia * Tobacco use Plan: * Continue dual antiplatelet medication (on ASA 325mg daily and Plavix 75mg daily). Patient failed home ASA. I believe the patient needs to be on anticoagulation especially with a history of DVTs and the abnormal anti- coagulation workup so far. If Anticoagulation needs to be started then the recommend holding off until 7-10 days after that initial stroke to avoid hemorrhagic conversion (recommend repeat CT head on 11/03/2019 and will decide about anticoagulation use). which we need to repeat CT of the head to make sure there is no intraparenchymal hemorrhage. If heparin drip that is needed and the benefits outweigh the risk then recommend avoiding the heparin boluses and they keep in the PTT between 45-60. Continue Lipitor 80 mg daily. NG tube came off as a result patient is only getting the rectal aspirin 300 mg at. Patient is scheduled to get a PEG tube not 04/04/2020. * 2-D echo showed normal left and regular size. Mild concentric LVH, EF is between 50-55%. * Telemetry monitoring in the last 24 hour showing sinus rhythm with sinus tachycardia. No atrial fibrillation at this time. * Tobacco cessation. * Hemoglobin A1c 7.9. Recommend optimize control of diabetes to target A1c <7.0 * Lipid panel with cholesterol 216, LDL 149, HDL 45, triglycerides 109. For strokes the LDL goal is less than 70. * Cardiology on board for elevated cardiac enzymes. I spoke with the cardiology team for an event monitor as no events seen then recommend loop recorder. Today the patient had a LAURA and that pending report. * Continue close neuro checks, if symptoms worsens, consider consulting neuro intervention for possible right MCA stenting. * hypercoagulable workup: The strength and DNA antibodies negative, anticardiolipin been IgG antibody is 5.6 which is considered normal, anti- cardiolipin IgM antibody is more than 112 which is considered abnormal and the normal is less than 20. Anti-Cardiolite been IgM antibody is positive. Lupus at the carotid is 42 and the normal is less than 43 so this is normal. The dilute Chacorta's viper venom lupus 50 (normal <44). Lupus anticoagulant is not detected. Proteinc C activity 101 (normal). Anti-thrombin 84 normal). Beta2 microglobulin 3.38 (elevated). Pending rest of the hypercoagulable workup ordered by Dr. Norman. Oncology consulted. * Recommend normotensive. * * Dr. Johnson is on service for neurology service this weekend Time with Patient: Less than 30
[2020-04-01 17:32] LABS: Glucose,Whole Blood 197 mg/dL (75-99)
--- NOTE | 2020-04-01 17:50 | P.TEE ---
Description of Procedure(s): Procedure performed: Transesophageal Echocardiogram with color flow doppler, pulsed wave doppler and continuous wave doppler, moderate conscious sedation Moderate conscious sedation: Moderate conscious sedation was supplied with direct supervision of myself using Versed and Fentanyl. Complications: none Indications: Cardiac source of emboli History: Patient is a pleasant 49-year-old male with history of diabetes mellitus, peripheral vascular disease, history of stroke, chronic tobacco abuse, hypertension who presented with altered mental status and had a MRI performed which showed acute stroke. Initial echocardiogram showed ejection fraction 55% without significant valvular disease. Cardiology was asked to perform LAURA to rule out cardiac source of emboli. PROCEDURE: After the risks, benefits and alternatives of the above mentioned procedure was explained in detail with the patient, informed consent was obtained. Patient was brought to the lab in a fasting state. Patient was given IV Versed and Fentanyl for sedation. The throat was sprayed with Hurricane to anesthetize the throat. A lubricated Omni probe was then introduced into the esophagus and stomach and multiple views were obtained. 2D echo with color flow doppler, pulsed wave doppler and continuous wave doppler was utilized. Agitated saline bubbles were injected to assess for any intra-atrial shunt. The probe was then removed. Patient tolerated the procedure well. Patient was transferred to the post procedure area in stable and satisfactory condition. FINDINGS: 1. The aortic valve is tricuspid without significant aortic stenosis or aortic insufficiency. 2. The mitral valve appears be normal with trace mitral regurgitation. 3. Tricuspid valve appears to be normal with mild tricuspid regurgitation. 4. The interatrial septum is intact. No evidence of PFO. There are late bubbles noted in the left atrium after greater than 5 cardiac cycles consistent with a possible pulmonary AV malformation. 5. Left atrial appendage is free of clot. 6. Left ventricular size and function appear to be normal with ejection fraction 55%.
[2020-04-01 20:42] LABS: Glucose,Whole Blood 180 mg/dL (75-99)
[2020-04-01] MEDS: FAMOTIDINE 20 MG TAB PO SCH (21:37)
[2020-04-01] MEDS: ATORVASTATIN 80 MG TAB NG-TUBE SCH (21:37)
[2020-04-01] MEDS: ASPIRIN 300 MG SUPP RECTAL SCH (21:50)
[2020-04-01] MEDS: ASPIRIN 325 MG TAB PO SCH (23:01)
[2020-04-02] MEDS: IPRATROPIUM-ALBUTEROL 3 ML NEB INHALATION SCH ×6 (00:08→19:29)
[2020-04-02] MEDS: MORPHINE SULFATE 2 MG/ML SYRINGE IVP PRN ×4 (03:49→22:16)
[2020-04-02] MEDS: DEXTROSE 5%-0.45% NACL 1,000 ML IV SCH ×2 (03:55→08:06)
[2020-04-02 06:00] LABS: Glucose,Whole Blood 196 mg/dL (75-99)
[2020-04-02] MEDS: INSULIN ASPART (NovoLOG) 100 UNIT/ML VIAL SQ SCH ×4 (06:20→21:39)
[2020-04-02] MEDS: metFORMIN 850 MG TAB PO SCH ×3 (06:21→17:56)
[2020-04-02] MEDS: glipiZIDE 10 MG TAB PO SCH ×2 (06:21→17:56)
[2020-04-02] MEDS: HEPARIN SODIUM,PORCINE 5,000 UNIT/ML 1 ML VIAL SQ SCH ×2 (08:06→21:40)
[2020-04-02] MEDS: ASPIRIN 300 MG SUPP RECTAL SCH (08:06)
[2020-04-02] MEDS: FLUTICASONE 50MCG/SPRAY NASAL 16GM EA NOSTRIL SCH ×2 (08:07→21:41)
[2020-04-02] MEDS: LEVOFLOXACIN 500MG-D5W PMX 500 MG in DEXTROSE/WATER 1 100ML.BAG IVPB SCH (08:07)
[2020-04-02] MEDS: FAMOTIDINE 20 MG TAB PO SCH ×2 (09:42→21:40)
[2020-04-02] MEDS: CLOPIDOGREL 75 MG TAB PO SCH (09:42)
[2020-04-02] MEDS: CYANOCOBALAMIN 500 MCG TAB PO SCH (09:42)
[2020-04-02] MEDS: GABAPENTIN 400 MG CAP PO SCH ×3 (09:42→21:41)
[2020-04-02] MEDS: NICOTINE 21MG/24HR PATCH TRANSDERM SCH (09:44)
[2020-04-02 10:37] LABS: Calcium 9.2 mg/dL (8.4-10.2); Potassium 4.2 mmol/L (3.5-5.1)
[2020-04-02 11:11] LABS: Basophils # (A) 0.1 k/uL (0-0.2); Basophils % (A) 1 %; Eosinophils # (A) 0.1 k/uL (0-0.7); Eosinophils % (A) 1 %; HCT 42.5 % (39.0-53.0); HGB 14.4 gm/dL (13.0-17.5); Lymphocytes # (A) 3.4 k/uL (1.0-4.8); Lymphocytes % (A) 33 %; MCH 30.1 pg (25.0-35.0); MCV 88.4 fL (80.0-100.0); Mean Platelet Volume 7.3; Monocytes # (A) 0.6 k/uL (0-1.0); Monocytes % (A) 6 %; Neutrophils # (A) 5.8 k/uL (1.3-7.7); Neutrophils % (A) 56 %; Platelet Count 202 k/uL (150-450); RDW 13.4 % (11.5-15.5); WBC 10.4 k/uL (3.8-10.6)
[2020-04-02 11:56] LABS: Glucose,Whole Blood 180 mg/dL (75-99)
--- NOTE | 2020-04-02 12:28 | P.PN ---
Progress Note - Text Progress Note Date: 04/02/20 Patient remained stable. He'll be scheduled for PEG tube placement on Saturday
--- NOTE | 2020-04-02 16:36 | P.PN ---
Subjective This is a pleasant 49 years old male with past medical history of CVA/TIA, diabetes mellitus, deep venous thrombosis, COPD, hyperlipidemia, diabetic neuropathy. Also has history of depression and cigarette smoker, presents because of fall off the toilet as per patient without losing consciousness . he denies chest pain , he has some dyspnea and cough with clear phlegm for about two weeks. He usually uses a cane because of his left hemiparesis from a stroke. He denies diarrhea, nausea vomiting, no burning in his urination. No new weakness or numbness. No slurred speech or blurred vision. No headache History smokes about 1.5 pack per day, no alcohol and he uses marijuana as well On admission patient is afebrile, rest of vitals are stable, blood pressure on the high side 175/92 Labs showing mild leukocytosis of 15.4. INR 0.9, BMP is unremarkable except for elevated glucose of 274 and 236. Liver enzymes not elevated, troponin is el evated at 1.3. In the emergency room patient was started on aspirin 325 mg and neurology team were consulted. Also patient was started on 100 mL/hr Cardiology consult was placed who called pulmonary as well. MAPS and he is on [place] 10 twice a day and gabapentin 600 mg 3 times a day 03/30/2020 is fully awake to time, place and person. He knows he came to the hospital because of fall as he states. He denies any specific complaint, denies chest pain or dyspnea or abdominal complaint. He is afebrile. Saturating 99% until with oxygen via nasal cannula. His blood pressure is better today. Patient has leukocytosis of 14.5 K. BMP is unremarkable. Magnesium 1.6 Patient failed swallow evaluation today, we will check it tomorrow again. The probe calcitonin is slightly elevated at 0.11, Levaquin was startedChest x-ray shows CHF versus interstitial pneumonitis. NG tube is in place and there is brown discharge about 500 mm Hemoglobin A1c is elevated at 7.9, currently is in the glipizide 10 mg twice daily. We will increase his metformin 1000 thousand twice daily to 850 mg 3 times a day. PT/OT is pending as well as MRI of the brain 03/31/2020 Patient was sleepy today, he had bad sleep overnight and he just occurs [place], as per staff he was more awake and alert this morning and also as per pulmonary team. History of from weakness in his left side, Patient is underwent modified barium swallow showing aspiration with nectar thick liquids, significant hesitancy of bullous swallowing initiation and pulling within the vallecula . Pulmonary on the case for possible aspiration pneumonitis and he is on Levaquin, he is afebrile. WBC is still elevated at 15.9 K. Land Acquisition Specialist team signed off the case and the recommended patient to follow-up with Dr. Caldera upon discharge Physical therapist recommended home health care however occupational therapy recommended subacute rehab, social services director on the case Neurology on the case and the recommended hypercoagulable workup B12 is low normal at 355, replacement initiated 04/01/2020 Patient still with left sided weakness, his alert and awake. MRI of the brain showing significant acute infarct in the right middle cerebral artery distribution involving frontal and temporal lobes. Neurologist team already on the case, he continued on aspirin and Plavix . He is failing swallow evaluation and I discussed the case with speech and swallow team and they recommended PEG tube placement even if temporarily for 4-6 weeks and then reevaluate. Patient cannot even drink water or eat. However he can use some small amount of ice chips per speech team. Cardiology team are on board with recommendation for a LAURA by neurologist team Patient continued on Levaquin also for possible aspiration component. His WBCs down to 11.4 today Glucose is controlled. Continue with the 5 half-normal saline at 50 mL per hour Surgery team are planning for PEG placement on Saturday patient will benefit from inpatient rehab after workup is done 04/02/2020 Patient is more awake and, today, he was thinking of going home but I talked to him and he agrees to stay but he wants more pain medication as he was on [place] at home, we decreased his morphine to 4 mg from 2 mg previously, also we will give him some benzodiazepine at bedtime to help him sleep NG tube is pulled out by the patient and patient refusing to be placed back, the patient is planned for PEG tube placement with Dr. Roosevelt resendez on Saturday, Plavix cannot be given his stated he was given only aspirin which he switch from orally to rectally. Hemodynamically stable. Labs looks stable. LAURA showed no clot in the appendages, no PFO and stable ejection fraction at 55%. Land Acquisition Specialist also recommended event monitor Hematology on the case for choroidal workup Objective - Vital Signs Vital signs: Vital Signs Temp 98.3 F 04/02/20 08:00 Pulse 72 04/02/20 15:50 Resp 18 04/02/20 12:00 BP 129/64 04/02/20 12:00 Pulse Ox 98 04/02/20 12:00 Intake & Output 04/01/20 04/02/20 04/02/20 18:59 06:59 18:59 Intake Total 75 Balance 75 Weight 92.8 kg Intake: IV 75 Other: Voiding Method Toilet Toilet Toilet Urinal Urinal Urinal Diaper Diaper Diaper # Voids 1 - Exam GENERAL: The patient is alert and oriented x3, not in any acute distress. Well developed, well nourished. HEENT: Pupils are round and equally reacting to light. EOMI. No scleral icterus. No conjunctival pallor. Normocephalic, atraumatic. No pharyngeal erythema. No thyromegaly. CARDIOVASCULAR: S1 and S2 present. No murmurs, rubs, or gallops. PULMONARY: Chest is clear to auscultation, no wheezing or crackles. ABDOMEN: Soft, nontender, nondistended, normoactive bowel sounds. No palpable organomegaly. MUSCULOSKELETAL: No joint swelling or deformity. EXTREMITIES: No cyanosis, clubbing, or pedal edema. -NEUROLOGICAL: Gross neurological examination did not reveal any focal deficits except for Mild dysarthria and mild left hemiparesis which looks better today SKIN: No rashes. No petechiae - Labs CBC & Chem 7: 04/02/20 09:50 04/02/20 09:50 Labs: Abnormal Lab Results - Last 24 Hours (Table) 04/01/20 04/01/20 04/02/20 Range/Units 17:31 20:40 05:59 Chloride (98-107) mmol/L BUN (9-20) mg/dL Glucose (74-99) mg/dL POC Glucose (mg/dL) 197 H 180 H 196 H (75-99) mg/dL 04/02/20 04/02/20 Range/Units 09:50 11:55 Chloride 108 H (98-107) mmol/L BUN 25 H (9-20) mg/dL Glucose 207 H (74-99) mg/dL POC Glucose (mg/dL) 180 H (75-99) mg/dL Assessment and Plan Assessment: Fall without losing consciousness. 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 No recent worsening as per patient nicotine dependence Substance abuse with marijuana Chronic feet pain mostly secondary to diabetic neuropathy Hyperlipidemia Hypertension History of deep venous thrombosis Diabetic neuropathy Plan: This is a pleasant 49 years old male who presents withfall. Continue with aspirin, neurology consult. Patient could not do MRI of the brain because he cannot lie flat. Plavix was added by neurology team. Continue with Levaquin for possible aspiration pneumonitis, a shunt has abnormal swallow evaluation, continue with NG tube and possible need for feeding tube Her rehab is recommended by occupational therapist. Continue to follow up the hypercoagulable workup as per neurology service. And vitamin B12 Continue with gabapentin and lowered [place] to 5.0-325 mg, patient was asking to get this pain medication and I discussed with him to lower the [place] as they increase his risk of falling Labs and medication were reviewed.. Continue same treatment. Continue with symptomatic treatment. Resume home medication. Monitor lytes and vitals. DVT and GI prophylaxis. Further recommendations depends on the clinical course of the patient DVT prophylaxis: Subcutaneous heparin GI Prophylaxis: Pepcid PT/OT: Subacute rehab Prognosis is guarded
[2020-04-02 17:54] LABS: Glucose,Whole Blood 180 mg/dL (75-99)
[2020-04-02 19:50] LABS: Glucose,Whole Blood 189 mg/dL (75-99)
[2020-04-02] MEDS: ATORVASTATIN 80 MG TAB NG-TUBE SCH (21:40)
[2020-04-02] MEDS ORDERED: TEMAZEPAM 7.5 MG CAP PO PRN (23:09)
[2020-04-02] MEDS ORDERED: diphenhydrAMINE 25 MG CAP PO PRN (23:10)
[2020-04-03] MEDS: diphenhydrAMINE 50 MG/ML 1 ML VIAL IVP PRN ×2 (00:26→20:15)
[2020-04-03] MEDS: IPRATROPIUM-ALBUTEROL 3 ML NEB INHALATION SCH ×6 (02:53→20:44)
[2020-04-03] MEDS: MORPHINE SULFATE 2 MG/ML SYRINGE IVP PRN ×4 (05:24→22:07)
[2020-04-03] MEDS: DEXTROSE 5%-0.45% NACL 1,000 ML IV SCH (05:28)
[2020-04-03] MEDS: ASPIRIN 300 MG SUPP RECTAL SCH ×2 (07:06→11:02)
[2020-04-03] MEDS: HEPARIN SODIUM,PORCINE 5,000 UNIT/ML 1 ML VIAL SQ SCH ×2 (07:09→20:15)
[2020-04-03 07:38] LABS: Glucose,Whole Blood 198 mg/dL (75-99)
[2020-04-03] MEDS: GABAPENTIN 400 MG CAP PO SCH ×4 (10:14→22:03)
[2020-04-03] MEDS: glipiZIDE 10 MG TAB PO SCH ×3 (10:15→17:02)
[2020-04-03] MEDS: CYANOCOBALAMIN 500 MCG TAB PO SCH ×2 (10:18→10:40)
[2020-04-03] MEDS: FAMOTIDINE 20 MG TAB PO SCH ×3 (10:19→20:13)
[2020-04-03] MEDS: metFORMIN 850 MG TAB PO SCH ×4 (10:19→17:03)
[2020-04-03] MEDS: HYDROcodone/APAP 5-325MG 1 EACH TAB PO PRN (10:28)
[2020-04-03] MEDS: CLOPIDOGREL 75 MG TAB PO SCH (10:40)
[2020-04-03] MEDS: NICOTINE 21MG/24HR PATCH TRANSDERM SCH (10:50)
[2020-04-03] MEDS: INSULIN ASPART (NovoLOG) 100 UNIT/ML VIAL SQ SCH ×4 (10:50→22:07)
[2020-04-03] MEDS: FLUTICASONE 50MCG/SPRAY NASAL 16GM EA NOSTRIL SCH ×2 (10:57→20:17)
[2020-04-03] MEDS: LEVOFLOXACIN 500MG-D5W PMX 500 MG in DEXTROSE/WATER 1 100ML.BAG IVPB SCH (11:48)
--- NOTE | 2020-04-03 11:49 | P.PN ---
Progress Note - Text Progress Note Date: 04/03/20 Patient been stable. He is scheduled for PEG tube placement tomorrow.
[2020-04-03 11:50] LABS: Glucose,Whole Blood 200 mg/dL (75-99)
[2020-04-03 16:56] LABS: Glucose,Whole Blood 171 mg/dL (75-99)
--- NOTE | 2020-04-03 17:39 | P.PN ---
Subjective Progress Note Date: 04/03/20 The patient is a 49-year-old male who is seen in neurologic follow-up on April 03, 2020 via teleneurology. Patient reports feeling fine. When I state that is my understanding that he had a stroke he states "That's what they tell me". The patient reports that he will have his PEG tube placed tomorrow. He is anxious for discharge to the acute rehabilitation floor. Objective - Vital Signs Vital signs: Vital Signs Temp 97.4 F L 04/03/20 14:00 Pulse 57 L 04/03/20 14:00 Resp 19 04/03/20 14:00 BP 145/81 04/03/20 14:00 Pulse Ox 99 04/03/20 14:00 Intake & Output 04/02/20 04/03/20 04/03/20 18:59 06:59 18:59 Intake Total 300 60 Output Total 450 Balance 300 -390 Weight 90.8 kg Intake: Intake, IV Titration 300 Amount Dextrose 5%-0.45% NaCl 1, 300 000 ml @ 50 mls/hr IV . Q20H [facility] Rx#:[id number] Oral 60 Output: Urine 450 Other: Voiding Method Toilet Toilet Toilet Urinal Urinal Urinal Diaper Diaper Diaper # Voids 1 - Exam Gen.: Upon entry to the room, the patient is askew in the bed. He is in no distress. He does report that his whole body is "sore". There is a sitter in the room. HEENT: Head is atraumatic, normocephalic. Fundus not visualized. There is no scleral icterus. Mucous membranes are dry. Neurological examination Mental status: The patient is awake and alert. His speech is slightly slurred. Cranial nerves: Pupils are equal, round and reactive to light. Visual field testing is intact. Extraocular movements are intact. There is no nystagmus. T here is a left upper motor neuron facial droop. Hearing is grossly intact. Shoulder shrug is symmetric. Tongue protrudes midline. Motor: Right upper and lower extremity strength is 5/5. Left proximal upper extremity strength is 4/5. Biceps, triceps and quality assurance qa lab technician strength is 5/5 bilaterally. Left hip flexor 4/5. Coordination: Finger to nose testing is intact. [id number] testing is intact. Deep tendon reflexes: 2-3+/4+ in the left upper extremity. 1+/4+ in the right upper extremity. Left patellar reflex is absent. Bilateral Achilles reflexes are absent. Right patellar reflex was not assessed secondary to pain. Plantar responses are flexor bilaterally. - Labs CBC & Chem 7: 04/02/20 09:50 04/02/20 09:50 Labs: Abnormal Lab Results - Last 24 Hours (Table) 04/02/20 04/02/20 04/03/20 Range/Units 17:51 19:48 07:33 POC Glucose (mg/dL) 180 H 189 H 198 H (75-99) mg/dL 04/03/20 Range/Units 11:17 POC Glucose (mg/dL) 200 H (75-99) mg/dL Assessment and Plan Assessment: 1. Acute right middle cerebral artery infarct with left facial droop, dysphagia and mild left hemiparesis. There also seems to be a component of unawareness of deficits 2. Patient reports a history of a previous stroke 3. History of diabetes with elevated hemoglobin A1c of 7.9 4. Hyperlipidemia 5. Elevated homocystine anticardiolipin antibody-possible hypercoagulable state Plan: 1. Agree with PEG tube placement 2. Agree with acute inpatient rehabilitation placement 3. Continue aspirin and Plavix 4. Continue high-dose statin 5. Heart healthy diet and control of blood sugar is recommended 6. Daily exercise is recommended Time with Patient: Less than 30 (spent 25 minutes with patient via teleneurology)
[2020-04-03] MEDS: ATORVASTATIN 80 MG TAB NG-TUBE SCH (20:14)
[2020-04-03 20:19] LABS: Glucose,Whole Blood 154 mg/dL (75-99)
--- NOTE | 2020-04-03 20:41 | P.PN ---
Subjective This is a pleasant 49 years old male with past medical history of CVA/TIA, diabetes mellitus, deep venous thrombosis, COPD, hyperlipidemia, diabetic neuropathy. Also has history of depression and cigarette smoker, presents because of fall off the toilet as per patient without losing consciousness . he denies chest pain , he has some dyspnea and cough with clear phlegm for about two weeks. He usually uses a cane because of his left hemiparesis from a stroke. He denies diarrhea, nausea vomiting, no burning in his urination. No new weakness or numbness. No slurred speech or blurred vision. No headache History smokes about 1.5 pack per day, no alcohol and he uses marijuana as well On admission patient is afebrile, rest of vitals are stable, blood pressure on the high side 175/92 Labs showing mild leukocytosis of 15.4. INR 0.9, BMP is unremarkable except for elevated glucose of 274 and 236. Liver enzymes not elevated, troponin is el evated at 1.3. In the emergency room patient was started on aspirin 325 mg and neurology team were consulted. Also patient was started on 100 mL/hr Cardiology consult was placed who called pulmonary as well. MAPS and he is on [place] 10 twice a day and gabapentin 600 mg 3 times a day 03/30/2020 is fully awake to time, place and person. He knows he came to the hospital because of fall as he states. He denies any specific complaint, denies chest pain or dyspnea or abdominal complaint. He is afebrile. Saturating 99% until with oxygen via nasal cannula. His blood pressure is better today. Patient has leukocytosis of 14.5 K. BMP is unremarkable. Magnesium 1.6 Patient failed swallow evaluation today, we will check it tomorrow again. The probe calcitonin is slightly elevated at 0.11, Levaquin was startedChest x-ray shows CHF versus interstitial pneumonitis. NG tube is in place and there is brown discharge about 500 mm Hemoglobin A1c is elevated at 7.9, currently is in the glipizide 10 mg twice daily. We will increase his metformin 1000 thousand twice daily to 850 mg 3 times a day. PT/OT is pending as well as MRI of the brain 03/31/2020 Patient was sleepy today, he had bad sleep overnight and he just occurs [place], as per staff he was more awake and alert this morning and also as per pulmonary team. History of from weakness in his left side, Patient is underwent modified barium swallow showing aspiration with nectar thick liquids, significant hesitancy of bullous swallowing initiation and pulling within the vallecula . Pulmonary on the case for possible aspiration pneumonitis and he is on Levaquin, he is afebrile. WBC is still elevated at 15.9 K. Church [employer] Administrator team signed off the case and the recommended patient to follow-up with Dr. Caldera upon discharge Physical therapist recommended home health care however occupational therapy recommended subacute rehab, social services director on the case Neurology on the case and the recommended hypercoagulable workup B12 is low normal at 355, replacement initiated 04/01/2020 Patient still with left sided weakness, his alert and awake. MRI of the brain showing significant acute infarct in the right middle cerebral artery distribution involving frontal and temporal lobes. Neurologist team already on the case, he continued on aspirin and Plavix . He is failing swallow evaluation and I discussed the case with speech and swallow team and they recommended PEG tube placement even if temporarily for 4-6 weeks and then reevaluate. Patient cannot even drink water or eat. However he can use some small amount of ice chips per speech team. Cardiology team are on board with recommendation for a LAURA by neurologist team Patient continued on Levaquin also for possible aspiration component. His WBCs down to 11.4 today Glucose is controlled. Continue with the 5 half-normal saline at 50 mL per hour Surgery team are planning for PEG placement on Saturday patient will benefit from inpatient rehab after workup is done 04/02/2020 Patient is more awake and, today, he was thinking of going home but I talked to him and he agrees to stay but he wants more pain medication as he was on [place] at home, we decreased his morphine to 4 mg from 2 mg previously, also we will give him some benzodiazepine at bedtime to help him sleep NG tube is pulled out by the patient and patient refusing to be placed back, the patient is planned for PEG tube placement with Dr. Roosevelt resendez on Saturday, Plavix cannot be given his stated he was given only aspirin which he switch from orally to rectally. Hemodynamically stable. Labs looks stable. LAURA showed no clot in the appendages, no PFO and stable ejection fraction at 55%. Church [employer] Administrator also recommended event monitor Hematology on the case for choroidal workup 04/03/2020 Patient is awake and alert, no worsening in his left hemiparesis. He still has better sleep with Benadryl and he was willing to continue with it, his pain is better controlled on morphine 4 mg Patient was refusing NG tube and is willing to proceed with a PEG tube tomorrow In the meantime patient refusing NG tube placement so oral medication could not be given, also refused rectal aspirin. I talked to the patient with the risk of recurrent stroke and he agrees for rectal aspirin but is still refusing NG tube History WBC is back to normal yesterday. And his creatinine was normal at 1.1 yesterday as well. Other than that he continue on D5 half-normal saline at 50 and oral Levaquin. Because he is nothing by mouth his diabetes medication on hold and continue with sliding scale and his sugar is controlled patient agrees to go to inpatient rehab at [facility] after PEG tube placement tomorrow Objective - Vital Signs Vital signs: Vital Signs Temp 97.4 F L 04/03/20 14:00 Pulse 57 L 04/03/20 14:00 Resp 19 04/03/20 14:00 BP 145/81 04/03/20 14:00 Pulse Ox 99 04/03/20 14:00 Intake & Output 04/02/20 04/03/20 04/03/20 18:59 06:59 18:59 Intake Total 300 60 Output Total 450 Balance 300 -390 Weight 90.8 kg Intake: Intake, IV Titration 300 Amount Dextrose 5%-0.45% NaCl 1, 300 000 ml @ 50 mls/hr IV . Q20H [facility] Rx#:[id number] Oral 60 Output: Urine 450 Other: Voiding Method Toilet Toilet Toilet Urinal Urinal Urinal Diaper Diaper Diaper # Voids 1 - Exam GENERAL: The patient is alert and oriented x3, not in any acute distress. Well developed, well nourished. HEENT: Pupils are round and equally reacting to light. EOMI. No scleral icterus. No conjunctival pallor. Normocephalic, atraumatic. No pharyngeal erythema. No thyromegaly. CARDIOVASCULAR: S1 and S2 present. No murmurs, rubs, or gallops. PULMONARY: Chest is clear to auscultation, no wheezing or crackles. ABDOMEN: Soft, nontender, nondistended, normoactive bowel sounds. No palpable organomegaly. MUSCULOSKELETAL: No joint swelling or deformity. EXTREMITIES: No cyanosis, clubbing, or pedal edema. -NEUROLOGICAL: Gross neurological examination did not reveal any focal deficits except for Mild dysarthria and mild left hemiparesis which looks better today SKIN: No rashes. No petechiae - Labs CBC & Chem 7: 04/02/20 09:50 04/02/20 09:50 Labs: Abnormal Lab Results - Last 24 Hours (Table) 04/02/20 04/02/20 04/03/20 Range/Units 17:51 19:48 07:33 POC Glucose (mg/dL) 180 H 189 H 198 H (75-99) mg/dL 04/03/20 04/03/20 Range/Units 11:17 16:50 POC Glucose (mg/dL) 200 H 171 H (75-99) mg/dL Assessment and Plan Assessment: Fall without losing consciousness. Concerns for recurrent stroke possible aspiration pneumonitis Uncontrolled diabetes mellitus with hyperglycemia Swallowing difficulty elevated troponin, noncardiac per senior etl developer History of multiple CVA , with left hemiparesis. No recent worsening as per patient nicotine dependence Substance abuse with marijuana Chronic feet pain mostly secondary to diabetic neuropathy Hyperlipidemia Hypertension History of deep venous thrombosis Diabetic neuropathy Plan: This is a pleasant 49 years old male who presents withfall. Continue with aspirin, neurology consult. Patient could not do MRI of the brain because he cannot lie flat. Plavix was added by neurology team. Continue with Levaquin for possible aspiration pneumonitis, a shunt has abnormal swallow evaluation, continue with NG tube and possible need for feeding tube Her rehab is recommended by occupational therapist. Continue to follow up the hypercoagulable workup as per neurology service. And vitamin B12 Continue with gabapentin and lowered [place] to 5.0-325 mg, patient was asking to get this pain medication and I discussed with him to lower the [place] as they increase his risk of falling Labs and medication were reviewed.. Continue same treatment. Continue with symptomatic treatment. Resume home medication. Monitor lytes and vitals. DVT and GI prophylaxis. Further recommendations depends on the clinical course of the patient DVT prophylaxis: Subcutaneous heparin GI Prophylaxis: Pepcid PT/OT: Subacute rehab Prognosis is guarded
[2020-04-04] MEDS: IPRATROPIUM-ALBUTEROL 3 ML NEB INHALATION SCH ×6 (00:16→19:31)
[2020-04-04] MEDS: MORPHINE SULFATE 2 MG/ML SYRINGE IVP PRN ×4 (05:01→23:10)
[2020-04-04 07:33] LABS: Glucose,Whole Blood 238 mg/dL (75-99)
[2020-04-04] MEDS: INSULIN ASPART (NovoLOG) 100 UNIT/ML VIAL SQ SCH ×4 (08:27→21:08)
[2020-04-04] MEDS: HEPARIN SODIUM,PORCINE 5,000 UNIT/ML 1 ML VIAL SQ SCH ×2 (08:27→21:08)
[2020-04-04] MEDS: NICOTINE 21MG/24HR PATCH TRANSDERM SCH (08:28)
[2020-04-04] MEDS: glipiZIDE 10 MG TAB PO SCH ×2 (08:33→15:53)
[2020-04-04] MEDS: CYANOCOBALAMIN 500 MCG TAB PO SCH (08:33)
[2020-04-04] MEDS: FAMOTIDINE 20 MG TAB PO SCH ×2 (08:33→20:24)
[2020-04-04] MEDS: CLOPIDOGREL 75 MG TAB PO SCH (08:33)
[2020-04-04] MEDS: metFORMIN 850 MG TAB PO SCH ×3 (08:33→16:36)
[2020-04-04] MEDS: ASPIRIN 300 MG SUPP RECTAL SCH (08:33)
[2020-04-04] MEDS: GABAPENTIN 400 MG CAP PO SCH ×3 (08:34→20:24)
[2020-04-04] MEDS: LEVOFLOXACIN 500MG-D5W PMX 500 MG in DEXTROSE/WATER 1 100ML.BAG IVPB SCH (10:34)
[2020-04-04 11:27] VITALS: BMI 29.2
[2020-04-04 11:28] LABS: Glucose,Whole Blood 226 mg/dL (75-99)
[2020-04-04] MEDS: FLUTICASONE 50MCG/SPRAY NASAL 16GM EA NOSTRIL SCH ×2 (13:00→21:09)
[2020-04-04] MEDS ORDERED: PROPOFOL 10 MG/ML 20 ML VIAL IV ONE (13:56)
[2020-04-04] MEDS ORDERED: LIDOCAINE 1% INJ 10MG/ML (20 ML MDV) ONE (13:56)
[2020-04-04] MEDS ORDERED: MIDAZOLAM 2 MG/2 ML VIAL ONE (13:56)
[2020-04-04] MEDS ORDERED: fentaNYL (PF) 50 MCG/ML 2 ML AMP ONE (13:56)
[2020-04-04] MEDS ORDERED: IV FLUID CONTINUATION 1,000 ML IV ONE (14:03)
--- NOTE | 2020-04-04 14:12 | CDI ---
Documentation Clarification Form Date: 04/04/2020 01:52:57 PM From: Cassandra Narvaez CCS, CCDS Admit Date: 03/28/2020 07:51:00 PM Patient Name: Maximo Norris Visit Number: [id number] Discharge Date: ATTENTION: The Clinical Documentation Specialists (CDI) and [facility] Coding Staff appreciate your assistance in clarifying documentation. Please respond to the clarification below the line at the bottom and electronically sign. The CDI & [facility] Coding staff will review the response and follow-up if needed. Please note: Queries are made part of the Legal Health Record. If you have any questions, please contact the author of this message via ITS. Dr. Samir Chaney: CHF is documented in the 03/30 through 04/03 Attending Progress Notes: "CXR shows CHF versus interstitial pneumonitis." Per the 03/29 Cardiology Consult: Consulted regarding elevated troponin. Troponin abnormality, no EKG evidence of ischemia and no wall motion abnormalities on ECHO. Hypertension, new onset. 1+ peripheral pulses, no lower extremity edema & no calf tenderness. CHF or Heart Failure is not further documented or specified. History/Risk Factors: COPD, NIDDM II with severe neuropathy bilateral hands & feet, History of [place] Left foot wound, DVT left knee, Hyperlipidemia, Pneumonia, PVD, CVA x2 with left side hemiparesis, occasional difficult swallowing, Previous Aspiration Pneumonia, Lymph system infection, Anemia. Clinical Indicators: Presented to the ED on 03/28 via EMS with weakness & concern for possible stroke. Admit with CVA. VS 03/28: T 99.6, P 89 - 106^, R 20, BP 151/017, PO 100 RA BNP 03/29: 1070 03/30 CXR: Stable Xray correlate for CHF versus interstitial pneumonia. 03/31 CXR: Stable CHF 03/28 EKG: NSR w/nonspecific abnormalities, R 91 Echocardiogram Results 03/29: Mild LVH, Left ventricular systolic function low normal w/EF 50-55%, Trace MR & TR, small generalized pericardial effusion. Treatment: IV Lasix 1 40 mg x1 ordered 03/29 by Cardiology, Telemetry to assess if underlying atrial fibrillation. 03/29: INH Ventolin, IV Dextrose/Na Cl, Nicotine patch, IV Morphine, INH Duoneb, po Plavix, Heparin sq, IV MagSulfate. In your professional opinion, can you please clarify the acuity and type of CHF if known? Heart Failure is ruled out Heart Failure is ruled in, please specify: Systolic Heart Failure: o Acute o Chronic o Acute on Chronic Diastolic Heart Failure: o Acute o Chronic o Acute on Chronic Systolic & Diastolic Heart Failure: o Acute o Chronic o Acute on Chronic Heart Failure Unable to Determine Other, please specify____Unable to Determine (Last Revision: July 2017) MTDD
--- NOTE | 2020-04-04 15:19 | P.PN ---
Subjective Progress Note Date: 04/04/20 This is a pleasant 49 years old male with past medical history of CVA/TIA, diabetes mellitus, deep venous thrombosis, COPD, hyperlipidemia, diabetic neuropathy. Also has history of depression and cigarette smoker, presents because of fall off the toilet as per patient without losing consciousness . he denies chest pain , he has some dyspnea and cough with clear phlegm for about two weeks. He usually uses a cane because of his left hemiparesis from a stroke. He denies diarrhea, nausea vomiting, no burning in his urination. No new weakness or numbness. No slurred speech or blurred vision. No headache History smokes about 1.5 pack per day, no alcohol and he uses marijuana as well On admission patient is afebrile, rest of vitals are stable, blood pressure on the high side 175/92 Labs showing mild leukocytosis of 15.4. INR 0.9, BMP is unremarkable except for elevated glucose of 274 and 236. Liver enzymes not elevated, troponin is elevated at 1.3. In the emergency room patient was started on aspirin 325 mg and neurology team were consulted. Also patient was started on 100 mL/hr Cardiology consult was placed who called pulmonary as well. MAPS and he is on Surveyor 10 twice a day and gabapentin 600 mg 3 times a day 03/30/2020 is fully awake to time, place and person. He knows he came to the hospital because of fall as he states. He denies any specific complaint, denies chest pain or dyspnea or abdominal complaint. He is afebrile. Saturating 99% until with oxygen via nasal cannula. His blood pressure is better today. Patient has leukocytosis of 14.5 K. BMP is unremarkable. Magnesium 1.6 Patient failed swallow evaluation today, we will check it tomorrow again. The probe calcitonin is slightly elevated at 0.11, Levaquin was startedChest x-ray shows CHF versus interstitial pneumonitis. NG tube is in place and there is brown discharge about 500 mm Hemoglobin A1c is elevated at 7.9, currently is in the glipizide 10 mg twice daily. We will increase his metformin 1000 thousand twice daily to 850 mg 3 times a day. PT/OT is pending as well as MRI of the brain 03/31/2020 Patient was sleepy today, he had bad sleep overnight and he just occurs Surveyor, as per staff he was more awake and alert this morning and also as per pulmonary team. History of from weakness in his left side, Patient is underwent modified barium swallow showing aspiration with nectar thick liquids, significant hesitancy of bullous swallowing initiation and pulling within the vallecula . Pulmonary on the case for possible aspiration pneumonitis and he is on Levaquin, he is afebrile. WBC is still elevated at 15.9 K. Engineering Document Control Clerk team signed off the case and the recommended patient to follow-up with Dr. Caldera upon discharge Physical therapist recommended home health care however occupational therapy recommended subacute rehab, psychiatric social worker supervisor on the case Neurology on the case and the recommended hypercoagulable workup B12 is low normal at 355, replacement initiated 04/01/2020 Patient still with left sided weakness, his alert and awake. MRI of the brain showing significant acute infarct in the right middle cerebral artery distribution involving frontal and temporal lobes. Neurologist team already on the case, he continued on aspirin and Plavix . He is failing swallow evaluation and I discussed the case with speech and swallow team and they recommended PEG tube placement even if temporarily for 4-6 weeks and then reevaluate. Patient cannot even drink water or eat. However he can use some small amount of ice chips per speech team. Cardiology team are on board with recommendation for a LAURA by neurologist team Patient continued on Levaquin also for possible aspiration component. His WBCs down to 11.4 today Glucose is controlled. Continue with the 5 half-normal saline at 50 mL per hour Surgery team are planning for PEG placement on Saturday patient will benefit from inpatient rehab after workup is done 04/02/2020 Patient is more awake and, today, he was thinking of going home but I talked to him and he agrees to stay but he wants more pain medication as he was on Surveyor at home, we decreased his morphine to 4 mg from 2 mg previously, also we will give him some benzodiazepine at bedtime to help him sleep NG tube is pulled out by the patient and patient refusing to be placed back, the patient is planned for PEG tube placement with Dr. Roosevelt resendez on Saturday, Plavix cannot be given his stated he was given only aspirin which he switch from orally to rectally. Hemodynamically stable. Labs looks stable. LAURA showed no clot in the appendages, no PFO and stable ejection fraction at 55%. Engineering Document Control Clerk also recommended event monitor Hematology on the case for choroidal workup 04/03/2020 Patient is awake and alert, no worsening in his left hemiparesis. He still has better sleep with Benadryl and he was willing to continue with it, his pain is better controlled on morphine 4 mg Patient was refusing NG tube and is willing to proceed with a PEG tube tomorrow In the meantime patient refusing NG tube placement so oral medication could not be given, also refused rectal aspirin. I talked to the patient with the risk of recurrent stroke and he agrees for rectal aspirin but is still refusing NG tube History WBC is back to normal yesterday. And his creatinine was normal at 1.1 yesterday as well. Other than that he continue on D5 half-normal saline at 50 and oral Levaquin. Because he is nothing by mouth his diabetes medication on hold and continue with sliding scale and his sugar is controlled patient agrees to go to inpatient rehab at [facility] after PEG tube placement tomorrow 04/04/2020 Patient is seen and evaluated and follow-up with no acute overnight issues. Patient is scheduled to receive a PEG tube for nutrition as he continues to have issues with swallowing. Patient does have ice chips although continues to have difficulty with swallowing and continues to use a Yonker with suction at the bedside. Patient was seen and evaluated for [facility] inpatient rehab although was denied in case management and social work currently reviewing accepting facilities for continued rehab in the outpatient setting. Will await surgical recommendations on initiating PEG tube feedings along with medication administration. Patient will need to resume aspirin and Plavix via PEG tube as soon as possible given high risk of recurrent strokes. Review of systems: Constitutional: No reports of fatigue, fever, or chills Cardiovascular: No reports of chest pain or palpitations Respiratory: No reports of shortness of breath or cough GI: No reports of nausea, vomiting, or diarrhea : No reports of dysuria or retention Neurovascular: Reports continued weakness All medications have been reviewed Objective - Vital Signs Vital signs: Vital Signs Temp 98.4 F 04/04/20 08:00 Pulse 78 04/04/20 11:21 Resp 18 04/04/20 08:00 BP 159/74 04/04/20 08:00 Pulse Ox 99 04/04/20 08:00 Intake & Output 04/03/20 04/04/20 04/04/20 18:59 06:59 18:59 Intake Total 300 600 Balance 300 600 Weight 89.8 kg 89.8 kg Intake: Intake, IV Titration 600 Amount Dextrose 5%-0.45% NaCl 1, 600 000 ml @ 50 mls/hr IV . Q20H [facility] Rx#:[id number] Oral 300 Other: Voiding Method Toilet Urinal Diaper # Voids 2 # Bowel Movements 1 - Exam GENERAL: The patient is alert and oriented x3, not in any acute distress. Well developed, well nourished. Sitting up in the chair HEENT: Pupils are round and equally reacting to light. EOMI. No scleral icterus. No conjunctival pallor. Normocephalic, atraumatic. No pharyngeal erythema. No thyromegaly. CARDIOVASCULAR: S1 and S2 present. No murmurs, rubs, or gallops. PULMONARY: Chest is clear to auscultation, no wheezing or crackles. ABDOMEN: Soft, nontender, nondistended, normoactive bowel sounds. No palpable organomegaly. MUSCULOSKELETAL: No joint swelling or deformity. EXTREMITIES: No cyanosis, clubbing, or pedal edema. NEUROLOGICAL: Gross neurological examination did not reveal any focal deficits except for Mild dysarthria and mild left hemiparesis which remains SKIN: No rashes. No petechiae - Labs CBC & Chem 7: 04/02/20 09:50 04/02/20 09:50 Labs: Abnormal Lab Results - Last 24 Hours (Table) 04/03/20 04/03/20 04/03/20 Range/Units 11:17 16:50 20:18 POC Glucose (mg/dL) 200 H 171 H 154 H (75-99) mg/dL 04/04/20 04/04/20 Range/Units 07:23 11:26 POC Glucose (mg/dL) 238 H 226 H (75-99) mg/dL Assessment and Plan Assessment: Fall without losing consciousness. Concerns for recurrent stroke possible aspiration pneumonitis Uncontrolled diabetes mellitus with hyperglycemia Swallowing difficulty elevated troponin, noncardiac per medical csr History of multiple CVA , with left hemiparesis. No recent worsening as per patient nicotine dependence Substance abuse with marijuana Chronic feet pain mostly secondary to diabetic neuropathy Hyperlipidemia Hypertension History of deep venous thrombosis Diabetic neuropathy GI prophylaxis: Pepcid DVT prophylaxis: Subcutaneous heparin Plan: This is a pleasant 49 years old male who presents with fall. Continue with aspirin although currently on hold as patient has been nothing by mouth and refused rectal aspirin and patient is to receive a PEG tube today neurology surgery following. Patient could not do MRI of the brain because he cannot lie flat. Plavix was added by neurology team. Plavix also on hold and will discuss with surgery team about resuming via PEG tube. Continue with Levaquin for possible aspiration pneumonitis, patient has abnormal swallow evaluation, patient receiving a PEG tube today Subacute rehab is recommended by occupational therapist. Continue to follow up the hypercoagulable workup as per neurology service. And vitamin B12 Continue with gabapentin and lowered Surveyor to 5.0-325 mg, patient was asking to get this pain medication and I discussed with him to lower the Surveyor as they increase his risk of falling Labs and medication were reviewed.. Continue same treatment. Continue with symptomatic treatment. Resume home medication. Monitor lytes and vitals. DVT and GI prophylaxis. Further recommendations depends on the clinical course of the patient PT/OT: Subacute rehab, social work and case management following working on accepting facilities as [facility] has denied the patient Prognosis is guarded
--- NOTE | 2020-04-04 16:06 | P.OP ---
Date of Procedure: 04/04/20 Preoperative Diagnosis: Malnutrition Postoperative Diagnosis: Malnutrition Procedure(s) Performed: EGD with PEG tube placement Anesthesia: MAC Surgeon: Yasir Acosta Pathology: none sent Condition: stable Disposition: PACU Description of Procedure: Patient's placed on the endoscopy table lateral position. He received IV station. The gastroscope placed oropharynx passed in the esophagus and stomach. A suitable light reflux seen the anterior abdominal wall. The skin was incised 1% local Xylocaine and then using a 11 blade the skin was incised. [place] placed and stomach under direct visualization. A wire then placed through the needle and the wire was snared and brought the oropharynx. The PEG tube was cut to the wire and brought wire was then brought back down into the stomach and the PEG tube was then secured at the 3 cm demetria. The patient was secured one-piece bolster. Patient top she will was sent to recovery room stable condition.
[2020-04-04] MEDS: DEXTROSE 5%-0.45% NACL 1,000 ML IV SCH (16:37)
[2020-04-04 16:42] LABS: Glucose,Whole Blood 210 mg/dL (75-99)
--- NOTE | 2020-04-04 17:23 | P.PN ---
Subjective Progress Note Date: 04/04/20 Principal diagnosis: Recurrent CVA Pt has no acute c/o today, no fevers, he is having a PEG tube placed for malnutrition Objective - Vital Signs Vital signs: Vital Signs Temp 98.4 F 04/04/20 08:00 Pulse 79 04/04/20 08:00 Resp 18 04/04/20 08:00 BP 159/74 04/04/20 08:00 Pulse Ox 99 04/04/20 08:00 Intake & Output 04/03/20 04/04/20 04/04/20 18:59 06:59 18:59 Intake Total 300 600 Balance 300 600 Weight 89.8 kg Intake: Intake, IV Titration 600 Amount Dextrose 5%-0.45% NaCl 1, 600 000 ml @ 50 mls/hr IV . Q20H [facility] Rx#:[id number] Oral 300 Other: Voiding Method Toilet Urinal Diaper # Voids 2 # Bowel Movements 1 - Constitutional General appearance: Present: average body habitus, cooperative, no acute distress - EENT Eyes: Present: anicteric sclerae, EOMI, poor dentition ENT: Present: hearing grossly normal - Cardiovascular Heart sounds: normal: S1, S2 - Peripheral edema leg Peripheral Edema: bilateral: Trace - Gastrointestinal General gastrointestinal: Present: normal bowel sounds, soft - Integumentary Integumentary Comment(s): BLE dependent rubor, discoloration of the skin 2/2 poor venous and arterial circulation, lt foot wound - Neurologic Neurologic: Present: CNII-XII intact - Musculoskeletal Musculoskeletal: Present: strength equal bilaterally - Psychiatric Psychiatric: Present: A&O x's 3, appropriate affect - Labs CBC & Chem 7: 04/02/20 09:50 04/02/20 09:50 Labs: Abnormal Lab Results - Last 24 Hours (Table) 04/03/20 04/03/20 04/03/20 Range/Units 11:17 16:50 20:18 POC Glucose (mg/dL) 200 H 171 H 154 H (75-99) mg/dL 04/04/20 Range/Units 07:23 POC Glucose (mg/dL) 238 H (75-99) mg/dL Assessment and Plan (1) Cerebrovascular accident Current Visit: Yes Status: Acute Priority: High Onset Date: ~03/17/16 Code(s): I63.9 - CEREBRAL INFARCTION, UNSPECIFIED SNOMED Code(s): 448349605 Plan: Pt is currently on dual antiplatelet therapy for recurrent CVA. Pt has cardiovascular risk factors place him at a significant risk for arterial thrombosis. Agree with treatment. Recommend treatment/mgmt of underlying medical conditions to erduce cardiovascular risk. F/U with Dr. Sutherland. Pt has been seen by Dr. Sutherland. Initially for a low grade NHL, Dx in 2009, on watchful approach. LN Bx 01/29 was negative for lymphoma. Hx of stable LAD. He has been treated for iron deficiency. Hx of below left knee DVT in 2003, treated with coumadin for 6 months, no DVT/PE since. Hx of thrombocytopenia with platelet clumping in vitro. He has had recurrent stroke. 2016 hypercoaguable work up was positive for IgM anticardiolipin antibodies. This has been positive on more then 1 lab draw. Heterzygous for MTHFR [id number] no longer is consider significant in Hematology literature. It is no longer part of the hypercoaguable work up. He had normal homocysteine levels, negative prothrombin gene mutation. Pt is supposed to follow with Dr. Chaney for monitoring of pulm nodules. Smoking cessation recommended B2 glycoprotein level ordered.
[2020-04-04 20:13] LABS: Glucose,Whole Blood 168 mg/dL (75-99)
--- NOTE | 2020-04-04 20:16 | P.PN ---
Subjective Progress Note Date: 04/04/20 Patient is doing much better. His speech is much more clear. Offers no complaint is. Patient had PEG placed today. Patient is sitting on edge of the bed. Denies headache. Objective - Vital Signs Vital signs: Vital Signs Temp 98.2 F 04/04/20 14:37 Pulse 75 04/04/20 19:40 Resp 17 04/04/20 14:37 BP 147/71 04/04/20 17:00 Pulse Ox 99 04/04/20 17:00 Intake & Output 04/04/20 04/04/20 04/05/20 06:59 18:59 06:59 Intake Total 600 100 Balance 600 100 Weight 89.8 kg 89.8 kg Intake: IV 100 Intake, IV Titration 600 Amount Dextrose 5%-0.45% NaCl 1, 600 000 ml @ 50 mls/hr IV . Q20H [facility] Rx#:[id number] Other: # Voids 2 # Bowel Movements 1 - Exam On examination patient is a middle aged male, appears much more comfortable. Patient's mental status, speech and language functions has much improved. Patient able to speak much more clearly with less dysarthria. No aphasia. On cranial nerve examination pupils are round and reacting, visual ojeda reveals no deficits at this time, no visual field neglect, extraocular muscles are intact. Face appears symmetric. Tongue protrudes to the midline. On muscle strength testing, patient has mild left pronation, but no drift. The strength is normal in the arms and legs except left hip flexion which is 5-as compared to the right. Sensory touch is equal. No ataxia for [id number] testing. Tone is mildly increased on the left. Bulk of muscles normal. Gait deferred. On general examination there is no carotid bruit, S1 and S2 audible. - Labs CBC & Chem 7: 04/02/20 09:50 04/02/20 09:50 Labs: Abnormal Lab Results - Last 24 Hours (Table) 04/03/20 04/04/20 04/04/20 Range/Units 20:18 07:23 11:26 POC Glucose (mg/dL) 154 H 238 H 226 H (75-99) mg/dL 04/04/20 Range/Units 16:41 POC Glucose (mg/dL) 210 H (75-99) mg/dL Assessment and Plan Assessment: * Probable acute stroke, with left homonymous hemianopia and perhaps worsening of left hemiparesis, now much improved. * Right MCA stenosis, severe degree, likely symptomatic. * Elevated cardiolipin antibodies IgM. Rule out hypercoagulable state. * Status post PEG placement 04/04/2020. * Elevated cardiac enzymes * History of multiple strokes in the past. * Diabetes, not well controlled * Hypertension * Hyperlipidemia * Tobacco use Plan: * Patient has clinically much improved as compared to last seen 03/30/2020. Continue dual antiplatelet medication. * Patient has failed swallow, status post PEG placement today. * MRI of the brain 04/01/2020 revealed significant acute infarct in the right middle cerebral artery distribution involving prominently frontal and temporal lobes. * 2-D echo showed normal left and regular size. Mild concentric LVH, EF is between 50-55%. * Patient had a LAURA on 04/01/2020, which revealed aortic valve is tricuspid without significant aortic stenosis or aortic insufficiency. Mitral valve appears normal with trace MR. The interatrial septum is intact. No evidence of PFO. There are related bubbles noted in the left atrium after greater than 5 cardiac cycles, consistent with possible pulmonary AV malformation. Left atrial appendage is free of clot. LVEF is 55%. * Tobacco cessation. * Hemoglobin A1c 7.9. Recommend optimize control of diabetes to target A1c <7.0 * Lipid panel with cholesterol 216, LDL 149, HDL 45, triglycerides 109. Continue Lipitor 80 mg. * Hypercoagulable workup revealed negative factor V Leiden mutation, protein C activity, lupus anticoagulant, RAFAT, dsDNA. Cardiolipin antibodies IgM 112 (<20), cardiolipin IgG 5.6 and IgA 3.5 normal. Prothrombin gene mutation negative. MTHFR revealed heterozygous for [id number] variant and negative for the C677T variant. This result is not associated with increased risk for coronary artery disease, venous thromboembolism. Recommend hematology follow- up for elevated anticardiolipin antibodies.
[2020-04-04] MEDS: ATORVASTATIN 80 MG TAB NG-TUBE SCH (20:23)
[2020-04-05] MEDS: IPRATROPIUM-ALBUTEROL 3 ML NEB INHALATION SCH ×6 (00:27→19:35)
[2020-04-05 07:06] LABS: Glucose,Whole Blood 243 mg/dL (75-99)
[2020-04-05] MEDS: MORPHINE SULFATE 2 MG/ML SYRINGE IVP PRN (08:14)
[2020-04-05] MEDS: INSULIN ASPART (NovoLOG) 100 UNIT/ML VIAL SQ SCH ×4 (08:24→20:51)
--- NOTE | 2020-04-05 09:38 | CDI ---
Documentation Clarification Form Date: 04/05/2020 09:22:28 AM From: Cassandra NarvaezJD vargas, CCDS Admit Date: 03/28/2020 07:51:00 PM Patient Name: Maximo Norris Visit Number: [id number] Discharge Date: ATTENTION: The Clinical Documentation Specialists (CDI) and [facility] Coding Staff appreciate your assistance in clarifying documentation. Please respond to the clarification below the line at the bottom and electronically sign. The CDI & [facility] Coding staff will review the response and follow-up if needed. Please note: Queries are made part of the Legal Health Record. If you have any questions, please contact the author of this message via ITS. Dr. Ernesto Stephens. Sheet: The patient had a PEG tube placed on 04/04 for malnutrition, not further specified. Per the 04/04 Attending Progress Note: "... patient has been nothing by mouth and refused rectal aspirin and patient is to receive a PEG tube today. Neurology and Surgery following. Patient could not do MRI of the brain because he cannot lie flat. Plavix was added by neurology team. Plavix also on hold and will discuss with surgery team about resuming via PEG tube. Continue with Levaquin for possible aspiration pneumonitis, patient has abnormal swallow evaluation, patient receiving a PEG tube today." History/Risk Factors: CVA w/left side weakness, occasional difficulty swallowing & mucous build up, Aspiration Pneumonia, NIDDM II and neuropathy, DVT, COPD, Hyperlipidemia, Depression, Smoker. Clinical Indicators: Presented to the ED on 03/28 with weakness via EMS with concern for stroke, patient was found on the floor by family, usually walks with a cane due to hemiparesis. Admit with CVA. Procedure 04/04: PEG tube placement Current BMI: 29.2 Weight 92.4 kg, Height 5 ft 9 in, BMI 30.0, Obese, [place] weight 72.575 kg, 127% of ideal body weight. Treatment: 03/28 Swallow evaluation, 03/29 NGT, 03/31 Bedside swallow evaluation & enteral tube feeding. 03/31 Nutritional Assessment: Dysphagia, NPO x3 days, meeting 75% of nutritional goals, Recommend NG tube for Enteral Nutrition, Glucerna. Nutrition intake is poor, difficulty swallowing. In your professional opinion, can you please clarify if these findings signify one of the following conditions? Mild Protein-Calorie Malnutrition Moderate Protein-Calorie Malnutrition Severe Protein-Calorie Malnutrition Other condition, please specify Unable to determine (Last Revision: October 2018) 04/07 Query response: Per Dr Gayle in the Discharge Summary 04/06: Swallowing difficulty with no protein calorie deficits. MTDD
[2020-04-05] MEDS: LEVOFLOXACIN 500MG-D5W PMX 500 MG in DEXTROSE/WATER 1 100ML.BAG IVPB SCH (09:47)
[2020-04-05] MEDS: GABAPENTIN 400 MG CAP PO SCH ×3 (09:48→21:06)
[2020-04-05] MEDS: NICOTINE 21MG/24HR PATCH TRANSDERM SCH (09:49)
[2020-04-05] MEDS: CLOPIDOGREL 75 MG TAB PO SCH (09:49)
[2020-04-05] MEDS: glipiZIDE 10 MG TAB PO SCH ×2 (09:49→16:57)
[2020-04-05] MEDS: CYANOCOBALAMIN 500 MCG TAB PO SCH (09:49)
[2020-04-05] MEDS: metFORMIN 850 MG TAB PO SCH ×3 (09:49→16:57)
[2020-04-05] MEDS: FAMOTIDINE 20 MG TAB PO SCH ×2 (09:50→19:41)
[2020-04-05] MEDS: HEPARIN SODIUM,PORCINE 5,000 UNIT/ML 1 ML VIAL SQ SCH ×2 (09:50→19:41)
--- NOTE | 2020-04-05 10:02 | P.PN ---
Subjective Progress Note Date: 04/05/20 CHIEF COMPLAINT: CVA HISTORY OF PRESENT ILLNESS: Patient is status post PEG tube placement yesterday with Dr. ceron. He complains of a little discomfort in the area. No evidence of bleeding. Afebrile. PHYSICAL EXAM: VITAL SIGNS: Reviewed. GENERAL: Well-developed in no acute distress. HEENT: No sclera icterus. Extraocular movements grossly intact. Moist buccal mucosa. Head is atraumatic, normocephalic. ABDOMEN: Soft. Nondistended. Nontender. PEG tube site clean dry and intact NEUROLOGIC: Alert and oriented. Cranial nerves II through XII grossly intact. ASSESSMENT: 1. Dysphagia and mild protein calorie malnutrition status post PEG tube placement 2. Acute CVA PLAN: -Okay to use PEG tube for medications -tube feedings to be started today around 4:00, 24 hours after PEG tube placed -Consult dietitian for tube feeding recommendations Physician Hunting Guide note has been reviewed by physician. Signing provider agrees with the documented findings, assessment, and plan of care. Objective - Vital Signs Vital signs: Vital Signs Temp 97.6 F 04/05/20 07:32 Pulse 77 04/05/20 07:32 Resp 18 04/05/20 08:33 BP 159/93 04/05/20 07:32 Pulse Ox 97 04/05/20 07:32 Intake & Output 04/04/20 04/05/20 04/05/20 18:59 06:59 18:59 Intake Total 100 Balance 100 Weight 89.8 kg Intake: IV 100 Other: Voiding Method Toilet Urinal Diaper # Voids 2 - Labs CBC & Chem 7: 04/02/20 09:50 04/02/20 09:50 Labs: Abnormal Lab Results - Last 24 Hours (Table) 04/04/20 04/04/20 04/04/20 Range/Units 11:26 16:41 20:12 POC Glucose (mg/dL) 226 H 210 H 168 H (75-99) mg/dL 04/05/20 Range/Units 07:05 POC Glucose (mg/dL) 243 H (75-99) mg/dL
[2020-04-05 11:42] LABS: Glucose,Whole Blood 200 mg/dL (75-99)
[2020-04-05] MEDS: ASPIRIN 325 MG TAB PO SCH (12:10)
[2020-04-05] MEDS: FLUTICASONE 50MCG/SPRAY NASAL 16GM EA NOSTRIL SCH ×2 (12:10→19:41)
[2020-04-05] MEDS: ASPIRIN 300 MG SUPP RECTAL SCH (13:10)
--- NOTE | 2020-04-05 15:51 | P.PN ---
Subjective Progress Note Date: 04/05/20 Patient was laying comfortably in the bed. Offers no complaints. Denies headache. Patient is doing much better. His speech is much more clear. Offers no complaint is. Patient had PEG placed 04/04/2020. Objective - Vital Signs Vital signs: Vital Signs Temp 98.1 F 04/05/20 14:00 Pulse 72 04/05/20 14:00 Resp 18 04/05/20 14:00 BP 172/79 04/05/20 14:00 Pulse Ox 100 04/05/20 14:00 Intake & Output 04/04/20 04/05/20 04/05/20 18:59 06:59 18:59 Intake Total 100 Balance 100 Weight 89.8 kg Intake: IV 100 Other: Voiding Method Toilet Urinal Diaper # Voids 2 - Exam On examination patient is a middle aged male, appears much more comfortable. Patient's mental status, speech and language functions has much improved. Patient able to speak much more clearly, no obvious dysarthria. No aphasia. On cranial nerve examination pupils are round and reacting, visual ojeda reveals no deficits at this time, no visual field neglect, extraocular muscles are intact. Face appears symmetric. Tongue protrudes to the midline. On muscle strength testing, patient has mild left pronation, but no drift. The strength is normal in the arms and legs except left hip flexion which is 5-as compared to the right. Sensory touch is equal. No ataxia for [id number] testing. Tone is mildly increased on the left. Bulk of muscles normal. Gait deferred. On general examination there is no carotid bruit, S1 and S2 audible. - Labs CBC & Chem 7: 04/02/20 09:50 04/02/20 09:50 Labs: Abnormal Lab Results - Last 24 Hours (Table) 04/04/20 04/04/20 04/05/20 Range/Units 16:41 20:12 07:05 POC Glucose (mg/dL) 210 H 168 H 243 H (75-99) mg/dL 04/05/20 Range/Units 11:40 POC Glucose (mg/dL) 200 H (75-99) mg/dL Assessment and Plan Assessment: * Probable acute stroke, with left homonymous hemianopia and perhaps worsening of left hemiparesis, now much improved. * Right MCA stenosis, severe degree, likely symptomatic. * Elevated cardiolipin antibodies IgM. Rule out hypercoagulable state. * Status post PEG placement 04/04/2020. * Elevated cardiac enzymes * History of multiple strokes in the past. * Diabetes, not well controlled * Hypertension * Hyperlipidemia * Tobacco use Plan: * Patient has clinically much improved. Continue dual antiplatelet medication. * Patient has failed swallow, status post PEG placement 04/04/2020. * MRI of the brain 04/01/2020 revealed significant acute infarct in the right middle cerebral artery distribution involving prominently frontal and temporal lobes. * 2-D echo showed normal left and regular size. Mild concentric LVH, EF is between 50-55%. * Patient had a LAURA on 04/01/2020, which revealed aortic valve is tricuspid without significant aortic stenosis or aortic insufficiency. Mitral valve appears normal with trace MR. The interatrial septum is intact. No evidence of PFO. There are related bubbles noted in the left atrium after greater than 5 cardiac cycles, consistent with possible pulmonary AV malformation. Left atrial appendage is free of clot. LVEF is 55%. * Tobacco cessation. * Hemoglobin A1c 7.9. Recommend optimize control of diabetes to target A1c <7.0 * Lipid panel with cholesterol 216, LDL 149, HDL 45, triglycerides 109. Continue Lipitor 80 mg. * Hypercoagulable workup revealed negative factor V Leiden mutation, protein C activity, lupus anticoagulant, RAFAT, dsDNA. Cardiolipin antibodies IgM 112 (<20), cardiolipin IgG 5.6 and IgA 3.5 normal. Prothrombin gene mutation negative. MTHFR revealed heterozygous for [id number] variant and negative for the C677T variant. This result is not associated with increased risk for coronary artery disease, venous thromboembolism. Recommend hematology follow- up for elevated anticardiolipin antibodies, if would be a candidate for anticoagulation. * Follow-up with local neurologist as an outpatient in one to 2 weeks.
--- NOTE | 2020-04-05 16:05 | P.PN ---
Subjective Progress Note Date: 04/05/20 This is a pleasant 49 years old male with past medical history of CVA/TIA, diabetes mellitus, deep venous thrombosis, COPD, hyperlipidemia, diabetic neuropathy. Also has history of depression and cigarette smoker, presents because of fall off the toilet as per patient without losing consciousness . he denies chest pain , he has some dyspnea and cough with clear phlegm for about two weeks. He usually uses a cane because of his left hemiparesis from a stroke. He denies diarrhea, nausea vomiting, no burning in his urination. No new weakness or numbness. No slurred speech or blurred vision. No headache History smokes about 1.5 pack per day, no alcohol and he uses marijuana as well On admission patient is afebrile, rest of vitals are stable, blood pressure on the high side 175/92 Labs showing mild leukocytosis of 15.4. INR 0.9, BMP is unremarkable except for elevated glucose of 274 and 236. Liver enzymes not elevated, troponin is elevated at 1.3. In the emergency room patient was started on aspirin 325 mg and neurology team were consulted. Also patient was started on 100 mL/hr Cardiology consult was placed who called pulmonary as well. MAPS and he is on [place] 10 twice a day and gabapentin 600 mg 3 times a day 03/30/2020 is fully awake to time, place and person. He knows he came to the hospital because of fall as he states. He denies any specific complaint, denies chest pain or dyspnea or abdominal complaint. He is afebrile. Saturating 99% until with oxygen via nasal cannula. His blood pressure is better today. Patient has leukocytosis of 14.5 K. BMP is unremarkable. Magnesium 1.6 Patient failed swallow evaluation today, we will check it tomorrow again. The probe calcitonin is slightly elevated at 0.11, Levaquin was startedChest x-ray shows CHF versus interstitial pneumonitis. NG tube is in place and there is brown discharge about 500 mm Hemoglobin A1c is elevated at 7.9, currently is in the glipizide 10 mg twice daily. We will increase his metformin 1000 thousand twice daily to 850 mg 3 times a day. PT/OT is pending as well as MRI of the brain 03/31/2020 Patient was sleepy today, he had bad sleep overnight and he just occurs Kent, as per staff he was more awake and alert this morning and also as per pulmonary team. History of from weakness in his left side, Patient is underwent modified barium swallow showing aspiration with nectar thick liquids, significant hesitancy of bullous swallowing initiation and pulling within the vallecula . Pulmonary on the case for possible aspiration pneumonitis and he is on Levaquin, he is afebrile. WBC is still elevated at 15.9 K. Crop Quantitative Geneticist team signed off the case and the recommended patient to follow-up with Dr. Caldera upon discharge Physical therapist recommended home health care however occupational therapy recommended subacute rehab, child protective services social worker on the case Neurology on the case and the recommended hypercoagulable workup B12 is low normal at 355, replacement initiated 04/01/2020 Patient still with left sided weakness, his alert and awake. MRI of the brain showing significant acute infarct in the right middle cerebral artery distribution involving frontal and temporal lobes. Neurologist team already on the case, he continued on aspirin and Plavix . He is failing swallow evaluation and I discussed the case with speech and swallow team and they recommended PEG tube placement even if temporarily for 4-6 weeks and then reevaluate. Patient cannot even drink water or eat. However he can use some small amount of ice chips per speech team. Cardiology team are on board with recommendation for a LAURA by neurologist team Patient continued on Levaquin also for possible aspiration component. His WBCs down to 11.4 today Glucose is controlled. Continue with the 5 half-normal saline at 50 mL per hour Surgery team are planning for PEG placement on Saturday patient will benefit from inpatient rehab after workup is done 04/02/2020 Patient is more awake and, today, he was thinking of going home but I talked to him and he agrees to stay but he wants more pain medication as he was on Kent at home, we decreased his morphine to 4 mg from 2 mg previously, also we will give him some benzodiazepine at bedtime to help him sleep NG tube is pulled out by the patient and patient refusing to be placed back, the patient is planned for PEG tube placement with Dr. Roosevelt resendez on Saturday, Plavix cannot be given his stated he was given only aspirin which he switch from orally to rectally. Hemodynamically stable. Labs looks stable. LAURA showed no clot in the appendages, no PFO and stable ejection fraction at 55%. Crop Quantitative Geneticist also recommended event monitor Hematology on the case for choroidal workup 04/03/2020 Patient is awake and alert, no worsening in his left hemiparesis. He still has better sleep with Benadryl and he was willing to continue with it, his pain is better controlled on morphine 4 mg Patient was refusing NG tube and is willing to proceed with a PEG tube tomorrow In the meantime patient refusing NG tube placement so oral medication could not be given, also refused rectal aspirin. I talked to the patient with the risk of recurrent stroke and he agrees for rectal aspirin but is still refusing NG tube History WBC is back to normal yesterday. And his creatinine was normal at 1.1 yesterday as well. Other than that he continue on D5 half-normal saline at 50 and oral Levaquin. Because he is nothing by mouth his diabetes medication on hold and continue with sliding scale and his sugar is controlled patient agrees to go to inpatient rehab at [facility] after PEG tube placement tomorrow 04/04/2020 Patient is seen and evaluated and follow-up with no acute overnight issues. Patient is scheduled to receive a PEG tube for nutrition as he continues to have issues with swallowing. Patient does have ice chips although continues to have difficulty with swallowing and continues to use a Yonker with suction at the bedside. Patient was seen and evaluated for [facility] inpatient rehab although was denied in case management and social work currently reviewing accepting facilities for continued rehab in the outpatient setting. Will await surgical recommendations on initiating PEG tube feedings along with medication administration. Patient will need to resume aspirin and Plavix via PEG tube as soon as possible given high risk of recurrent strokes. 04/05/2020 Patient is seen in follow-up and has received a PEG tube yesterday and awaiting to start the use of it for tube feedings per surgery recommendations. Medication administration has been initiated and tolerating thus far. Patient is very agitated and would like to go home. He is refusing any form of rehab and states his family can help with him taking care of tube feedings. Will monitor for tube feeding tolerance with anticipation of discharge tomorrow. Aspirin and Plavix have been resumed. Review of systems: Constitutional: No reports of fatigue, fever, or chills Cardiovascular: No reports of chest pain or palpitations Respiratory: No reports of shortness of breath or cough GI: No reports of nausea, vomiting, or diarrhea : No reports of dysuria or retention Neurovascular: no Reports of weakness All medications have been reviewed Objective - Vital Signs Vital signs: Vital Signs Temp 97.6 F 04/05/20 07:32 Pulse 77 04/05/20 07:32 Resp 18 04/05/20 08:33 BP 159/93 04/05/20 07:32 Pulse Ox 97 04/05/20 07:32 Intake & Output 04/04/20 04/05/20 04/05/20 18:59 06:59 18:59 Intake Total 100 Balance 100 Weight 89.8 kg Intake: IV 100 Other: Voiding Method Toilet Urinal Diaper # Voids 2 - Exam GENERAL: The patient is alert and oriented x3, not in any acute distress. Well developed, well nourished. Sitting up in the chair HEENT: Pupils are round and equally reacting to light. EOMI. No scleral icterus. No conjunctival pallor. Normocephalic, atraumatic. No pharyngeal erythema. No thyromegaly. CARDIOVASCULAR: S1 and S2 present. No murmurs, rubs, or gallops. PULMONARY: Chest is clear to auscultation, no wheezing or crackles. ABDOMEN: Soft, nontender, nondistended, normoactive bowel sounds. No palpable organomegaly. PEG tube noted with no bleeding or surrounding redness MUSCULOSKELETAL: No joint swelling or deformity. EXTREMITIES: No cyanosis, clubbing, or pedal edema. NEUROLOGICAL: Gross neurological examination did not reveal any focal deficits except for Mild dysarthria and mild left hemiparesis which remains SKIN: No rashes. No petechiae - Labs CBC & Chem 7: 04/02/20 09:50 04/02/20 09:50 Labs: Abnormal Lab Results - Last 24 Hours (Table) 04/04/20 04/04/20 04/04/20 Range/Units 11:26 16:41 20:12 POC Glucose (mg/dL) 226 H 210 H 168 H (75-99) mg/dL 04/05/20 Range/Units 07:05 POC Glucose (mg/dL) 243 H (75-99) mg/dL Assessment and Plan Assessment: Fall without losing consciousness. Concerns for recurrent stroke possible aspiration pneumonitis Status post PEG tube placement Uncontrolled diabetes mellitus with hyperglycemia Swallowing difficulty with no protein malnutrition deficits elevated troponin, noncardiac per merchandise deliverer History of multiple CVA , with left hemiparesis. No recent worsening as per patient nicotine dependence Substance abuse with marijuana Chronic feet pain mostly secondary to diabetic neuropathy Hyperlipidemia Hypertension History of deep venous thrombosis Diabetic neuropathy GI prophylaxis: Pepcid DVT prophylaxis: Subcutaneous heparin Plan: Continue current medications. Aspirin and Plavix have been resumed and administration of medications through PEG tube has been tolerated thus far. Patient to begin tube feedings per surgery recommendations this afternoon. Will monitor for tolerance. Discussed with social work along with case management as patient is refusing rehab and will be going home with home care and infusion help in the outpatient setting. Further recommendations to follow. Anticipate discharge in 24 hours.
[2020-04-05 16:41] LABS: Glucose,Whole Blood 74 mg/dL (75-99)
[2020-04-05] MEDS: HYDROcodone/APAP 5-325MG 1 EACH TAB PO PRN (16:52)
[2020-04-05 19:38] VITALS: RESP 16
[2020-04-05] MEDS: ATORVASTATIN 80 MG TAB NG-TUBE SCH (19:41)
[2020-04-05 20:34] LABS: Glucose,Whole Blood 116 mg/dL (75-99)
[2020-04-05] MEDS: DEXTROSE 5%-0.45% NACL 1,000 ML IV SCH (21:06)
[2020-04-06] MEDS: HYDROcodone/APAP 5-325MG 1 EACH TAB PO PRN (04:05)
[2020-04-06 07:13] LABS: Glucose,Whole Blood 213 mg/dL (75-99)
[2020-04-06 08:19] VITALS: BP 118/76; TEMP 97.9
[2020-04-06] MEDS: NICOTINE 21MG/24HR PATCH TRANSDERM SCH (08:38)
[2020-04-06] MEDS: HEPARIN SODIUM,PORCINE 5,000 UNIT/ML 1 ML VIAL SQ SCH (08:38)
[2020-04-06] MEDS: GABAPENTIN 400 MG CAP PO SCH (08:38)
[2020-04-06] MEDS: CYANOCOBALAMIN 500 MCG TAB PO SCH (08:38)
[2020-04-06] MEDS: ASPIRIN 325 MG TAB PO SCH (08:38)
[2020-04-06] MEDS: CLOPIDOGREL 75 MG TAB PO SCH (08:38)
[2020-04-06] MEDS: FAMOTIDINE 20 MG TAB PO SCH (08:38)
[2020-04-06] MEDS: metFORMIN 850 MG TAB PO SCH (08:39)
[2020-04-06] MEDS: glipiZIDE 10 MG TAB PO SCH (08:39)
[2020-04-06] MEDS: INSULIN ASPART (NovoLOG) 100 UNIT/ML VIAL SQ SCH (08:39)
[2020-04-06] MEDS: LEVOFLOXACIN 500MG-D5W PMX 500 MG in DEXTROSE/WATER 1 100ML.BAG IVPB SCH (08:40)
[2020-04-06] MEDS: FLUTICASONE 50MCG/SPRAY NASAL 16GM EA NOSTRIL SCH (09:02)
[2020-04-06] MEDS: IPRATROPIUM-ALBUTEROL 3 ML NEB INHALATION SCH ×2 (10:04→11:03)
--- NOTE | 2020-04-06 10:35 | P.PN ---
Subjective Progress Note Date: 04/06/20 CHIEF COMPLAINT: CVA HISTORY OF PRESENT ILLNESS: Patient is status post PEG tube placement. Tube feedings were started yesterday. Patient tolerating tube feedings. No residual. No evidence of bleeding. Afebrile. PHYSICAL EXAM: VITAL SIGNS: Reviewed. GENERAL: Well-developed in no acute distress. HEENT: No sclera icterus. Extraocular movements grossly intact. Moist buccal mucosa. Head is atraumatic, normocephalic. ABDOMEN: Soft. Nondistended. Nontender. PEG tube site clean dry and intact NEUROLOGIC: Alert and oriented. Cranial nerves II through XII grossly intact. ASSESSMENT: 1. Dysphagia and mild protein calorie malnutrition status post PEG tube placement 2. Acute CVA PLAN: -Continue tube feedings per dietitian recommendations -Continue supportive care -Patient can be discharge from surgical standpoint Physician Software Developer Intern note has been reviewed by physician. Signing provider agrees with the documented findings, assessment, and plan of care. Objective - Vital Signs Vital signs: Vital Signs Temp 97.9 F 04/06/20 08:00 Pulse 86 04/06/20 08:00 Resp 16 04/06/20 08:00 BP 118/76 04/06/20 08:00 Pulse Ox 98 04/06/20 01:42 Intake & Output 04/05/20 04/06/20 04/06/20 18:59 06:59 18:59 Intake Total 240 Balance 240 Weight 90.1 kg Intake: Tube Feeding 240 Other: Voiding Method Toilet Urinal Diaper # Voids 1 - Labs CBC & Chem 7: 04/02/20 09:50 04/02/20 09:50 Labs: Abnormal Lab Results - Last 24 Hours (Table) 04/05/20 04/05/20 04/05/20 Range/Units 11:40 16:38 20:33 POC Glucose (mg/dL) 200 H 74 L 116 H (75-99) mg/dL 04/06/20 Range/Units 07:12 POC Glucose (mg/dL) 213 H (75-99) mg/dL
[2020-04-06 11:17] VITALS: PULSE 76
[2020-04-06 11:24] LABS: Glucose,Whole Blood 181 mg/dL (75-99)
--- NOTE | 2020-04-06 12:28 | P.DS ---
Providers Date of admission: 03/28/20 19:51 Expected date of discharge: 04/06/20 Attending physician: Sherie Gayle Consults: 03/28/20 19:51 Consult Physician Urgent Consulting Provider: Jurgen Norman Consult Reason/Comments: cva Do you want consulting provider notified?: Yes 03/29/20 07:22 Consult Physician Urgent Consulting Provider: Jude Thorne Consult Reason/Comments: Elevated troponin Do you want consulting provider notified?: Yes 03/29/20 09:17 Consult Physician Routine Consulting Provider: Roland Ratliff Consult Reason/Comments: shortness of breath, cva, airway protection Do you want consulting provider notified?: Yes 03/31/20 14:25 Consult Physician Routine Consulting Provider: Billy Jimenez Consult Reason/Comments: eval for inpatient rehab Do you want consulting provider notified?: Yes 03/31/20 15:52 Consult Physician Routine Consulting Provider: Waqas Serna Consult Reason/Comments: hypercoagulable in patient with recurrent strokes Do you want consulting provider notified?: Yes 04/01/20 10:29 Consult Physician Routine Consulting Provider: Yasir Acosta Consult Reason/Comments: PEG tube insertion Do you want consulting provider notified?: Yes 04/01/20 12:29 Consult Physician Routine Consulting Provider: Samir Chaney Consult Reason/Comments: LAURA Do you want consulting provider notified?: Already Contacted Primary care physician: Adryan Romano [facility] Course: Final diagnosis Fall without losing consciousness. Concerns for recurrent stroke possible aspiration pneumonitis Status post PEG tube placement Uncontrolled diabetes mellitus with hyperglycemia Swallowing difficulty with no protein malnutrition deficits elevated troponin, noncardiac per business process analyst History of multiple CVA , with left hemiparesis. No recent worsening as per patient nicotine dependence Substance abuse with marijuana Chronic feet pain mostly secondary to diabetic neuropathy Hyperlipidemia Hypertension History of deep venous thrombosis Diabetic neuropathy GI prophylaxis DVT prophylaxis Discharge disposition Patient is being discharged in a stable condition with guarded prognosis to home. Patient will continue with home care in the outpatient setting along with Ai infusion. Patient will follow-up with Dr. Romano in the outpatient setting upon discharge. Patient will also continue with nothing by mouth status and tube feedings. Patient to follow-up with cardiology Dr. Arrington along with Dr. Gallegos hematology in the outpatient setting. Total time taken is greater than 35 minutes. History of present illness This is a 49-year-old male who was recently admitted with CVA and was being closely monitored. Patient was also seen and evaluated by pulmonary for possible aspiration pneumonitis as patient continued to have difficulty in swallowing and initially had an NG tube although patient refused. Patient was seen and evaluated by surgery and underwent PEG tube placement as he continued to have difficulty in swallowing. Patient will continue with PEG tube per dietitian recommendations as mentioned below. Patient will continue with home care along with Ai infusion in the outpatient setting. She was seen and evaluated by PT/OT recommending rehab as he continued to have some left-sided weakness and would likely benefit for strength and mobility. Originally patient was willing to go to rehab although became more agitated at being hospitalized and further refused rehab and stated he will go home with his family and is agreeable to home care in the outpatient setting. Patient's MRI of the brain during hospitalization showed significant acute infarct in the right middle cerebral artery distribution involving frontal and temporal lobes. Patient was started back on aspirin and Plavix along with statin and will continue in the outpatient setting. Patient will need to follow-up with cardiology in the outpatient setting and establish with neurology and hematology as mentioned pre viously. Patient states he would like to go home today. Currently no reports of chest pain, shortness of breath, or palpitations. Patient is afebrile. Patient will be going home today. On exam vital signs are stable. Temp is 97.9F, pulse is 86, respirations are 16, blood pressure is 118/76, oxygen saturation is 98% on room air. Cardio S1, S2 are muffled. Respiratory system shows diminished breath sounds at the bases with no wheezing or rhonchi noted. Abdomen is soft and nontender. Nervous system shows no focal deficits. Please refer to medication reconciliation sheet for a list of medications. Patient Condition at Discharge: Stable Plan - Discharge Summary Discharge Rx Participant: Yes New Discharge Prescriptions: New metFORMIN HCL [Glucophage] 850 mg PO AC-TID 30 Days #90 tab Atorvastatin [Lipitor] 80 mg NG-TUBE HS 30 Days #30 tab Famotidine [Pepcid] 20 mg PO Q12HR 30 Days #60 tab Clopidogrel [Plavix] 75 mg PO DAILY 30 Days #30 tab Cyanocobalamin [Vitamin B-12] 1,000 mcg PO DAILY 30 Days #60 tab Continue glipiZIDE [Glipizide] 10 mg PO BID Aspirin EC [Ecotrin] 325 mg PO DAILY HYDROcodone/APAP 10-325MG [[place] 10-325] 1 tab PO BID Fluticasone Nasal [place] [Flonase Nasal [place]] 1 spray EA NOSTRIL BID Gabapentin 1,200 mg PO TID Albuterol Sulfate [Ventolin HFA] 2 puff INHALATION RT-QID PRN PRN Reason: Shortness Of Breath Discontinued metFORMIN HCL 1,000 mg PO AC-BID Discharge Medication List glipiZIDE [Glipizide] 10 mg PO BID 08/18/15 [History] Aspirin EC [Ecotrin] 325 mg PO DAILY 03/12/19 [History] Fluticasone Nasal [place] [Flonase Nasal [place]] 1 spray EA NOSTRIL BID 03/12/19 [History] Gabapentin 1,200 mg PO TID 03/12/19 [History] HYDROcodone/APAP 10-325MG [[place] 10-325] 1 tab PO BID 03/12/19 [History] Albuterol Sulfate [Ventolin HFA] 2 puff INHALATION RT-QID PRN 03/28/20 [History] Atorvastatin [Lipitor] 80 mg NG-TUBE HS 30 Days #30 tab 04/06/20 [Rx] Clopidogrel [Plavix] 75 mg PO DAILY 30 Days #30 tab 04/06/20 [Rx] Cyanocobalamin [Vitamin B-12] 1,000 mcg PO DAILY 30 Days #60 tab 04/06/20 [Rx] Famotidine [Pepcid] 20 mg PO Q12HR 30 Days #60 tab 04/06/20 [Rx] metFORMIN HCL [Glucophage] 850 mg PO AC-TID 30 Days #90 tab 04/06/20 [Rx] Follow up Appointment(s)/Referral(s): Adryan Romano III, MD [Primary Care Provider] - 1-2 days (Please call office to make follow up appointment) [facility], [REFERRING] - As Needed Ranulfo Arrington MD [STAFF PHYSICIAN] - 2 Weeks (Office will call with appointment day and time ) Марина Sutherland MD [STAFF PHYSICIAN] - 07/13/20 8:00 am Patient Instructions/Handouts: How to Use and Care for Your PEG Tube (DC), Chronic Dysphagia (DC), Stroke (DC) Activity/Diet/Wound Care/Special Instructions: per orders - event monitor at d/c. Activity Limited until follow-up Follow-up with primary care provider upon discharge Follow-up with neurology in the outpatient setting Continue with home care and tube feedings as discussed and instructed Discharge Disposition: HOME WITH HOME HEALTH SERVICES Care Plan Goals (MU): Enteral nutrition- Glucerna 1.2 1,680 mL/day = 7 cans per day Bolus feed 240 mL bolus feeds, 7 times per day (RD recommends doing bolus feedings) [place] 6 drops every 15 seconds or 24 drops per minute 30 mL free water bolus every 4 hours
== END 2020-04-06 12:14 | disposition home health service (06) | DRG 64 ==
LOC: EC 18:43 → 3SCARD 19:51 → 5NMEDONC 04-02 13:27
PROVIDERS: ADMIT Internal Medicine; ATTEND Internal Medicine
PROC: B246ZZ4 Ultrasonography of Right and Left Heart, Transesophageal (ICD-10-PCS; 2020-04-01)
PROC: 0DH67UZ Insertion of Feeding Device into Stomach, Via Natural or Artificial Opening (ICD-10-PCS; principal; 2020-04-04 11:50)
PROC: 3E0G76Z Introduction of Nutritional Substance into Upper GI, Via Natural or Artificial Opening (ICD-10-PCS; principal; 2020-04-04 11:50)
DX: I63.511 Cerebral infarction due to unspecified occlusion or stenosis of right middle cerebral artery (principal); J69.0 Pneumonitis due to inhalation of food and vomit; I69.354 Hemiplegia and hemiparesis following cerebral infarction affecting left non-dominant side; I82.612 Acute embolism and thrombosis of superficial veins of left upper extremity; E44.1 Mild protein-calorie malnutrition; E11.40 Type 2 diabetes mellitus with diabetic neuropathy, unspecified; E11.65 Type 2 diabetes mellitus with hyperglycemia; E11.51 Type 2 diabetes mellitus with diabetic peripheral angiopathy without gangrene; J44.9 Chronic obstructive pulmonary disease, unspecified; I11.0 Hypertensive heart disease with heart failure; I50.9 Heart failure, unspecified; H53.462 Homonymous bilateral field defects, left side; R13.10 Dysphagia, unspecified; E78.5 Hyperlipidemia, unspecified; F32.9 Major depressive disorder, single episode, unspecified; F12.10 Cannabis abuse, uncomplicated; F17.200 Nicotine dependence, unspecified, uncomplicated; Z68.29 Body mass index [BMI] 29.0-29.9, adult; Z71.6 Tobacco abuse counseling; Z90.49 Acquired absence of other specified parts of digestive tract; Z98.890 Other specified postprocedural states; Z88.0 Allergy status to penicillin; Z88.8 Allergy status to other drugs, medicaments and biological substances; Z91.048 Other nonmedicinal substance allergy status; Z79.899 Other long term (current) drug therapy; Z79.84 Long term (current) use of oral hypoglycemic drugs; Z79.82 Long term (current) use of aspirin; Z79.52 Long term (current) use of systemic steroids; Z85.828 Personal history of other malignant neoplasm of skin; Z87.01 Personal history of pneumonia (recurrent); Z82.49 Family history of ischemic heart disease and other diseases of the circulatory system; Z83.2 Family history of diseases of the blood and blood-forming organs and certain disorders involving the immune mechanism; Z80.9 Family history of malignant neoplasm, unspecified; Z90.89 Acquired absence of other organs
CPT/HCPCS: 36415; 36600; 43246; 70450; 70496; 70498; 70553; 71045; 71046; 74230; 80048; 80053; 80061; 81001; 81240; 81241; 81291; 82232; 82550; 82607; 82746; 82805; 83036; 83735; 83880; 83921; 84145; 84484; 85025; 85300; 85303; 85306; 85610; 85613; 85730; 86146; 86147; 86225; 93005; 93306; 93312; 93320; 93325; 93880; 93970; 94640; 94760; 99285

== ENCOUNTER → 2020-05-05 | Outpatient (CLI) | payer MEDICARE ==
--- NOTE | 2020-05-05 11:53 | FL ---
EXAMINATION TYPE: FL barium swallow w video DATE OF EXAM: 05/05/2020 CLINICAL HISTORY: 49-year-old male R13.12, patient with a PEG tube after aspiration developing follow ing a CVA a few weeks ago . Total fluoroscopy time: 3 minutes 58 seconds Total images: None. Real-time fluoroscopy support was provided to speech pathology. TECHNIQUE: Deglutition study is performed utilizing thin liquid barium, nectar thick liquid barium, barium thick applesauce, and barium coated cracker. COMPARISON: None. FINDINGS: Patient is edentulous and tends to take large mouthfuls. There is aspiration with thin liquids. This is improved with a smaller swallow utilizing chin tuck ma neuver. The patient took a large mouthful of nectar liquid which again resulted in deep penetration with trac e aspiration despite the chin tuck. Intermittent penetration with pureed and solid consistency but no aspiration. IMPRESSION: 1. Aspiration of thin liquids that is improved with smaller swallows utilizing chin tuck maneuver. We note that the patient tends to take large mouthfuls. 2. On the trial of nectar liquid, the patient again took a large mouthful which resulted in deep pene tration and trace aspiration. Please refer to speech therapist notes for further details if necessary.
== END | disposition home or self-care (01) ==
LOC: RADUSWWP 04-29 10:46 → RADFLMAIN 11:12
PROVIDERS: ATTEND Family Medicine
DX: R13.12 Dysphagia, oropharyngeal phase (principal)
CPT/HCPCS: 74230

== ENCOUNTER 2020-05-09 13:31 | Emergency (ER) | payer MEDICARE ==
[2020-05-09 13:41] VITALS: TEMP 98.2
[2020-05-09] MEDS ORDERED: SODIUM CHLORIDE 0.9% 1,000 ML IV STA ×2 (14:22→15:04)
--- NOTE | 2020-05-09 14:25 | ED ---
General Adult HPI - General Chief complaint: Fall Stated complaint: Fall, Head Injury Time Seen by Provider: 05/09/20 13:54 Source: patient, family, RN notes reviewed Mode of arrival: wheelchair Limitations: no limitations - History of Present Illness Initial comments: Patient is a pleasant 49-year-old male presenting to the emergency department following a fall. Patient did have a fall yesterday morning and family found him lying on the floor. Patient has been slightly fatigued and drowsy since that time. Patient complains of mild discomfort left forehead otherwise no complaints. On exam patient amiss to having some neck discomfort. No chest pain or dyspnea. No abdominal pain. Patient does have chronic left-sided weakness however no worse than normal. - Related Data Home Medications Medication Instructions Recorded Confirmed glipiZIDE [Glipizide] 10 mg PO BID 08/18/15 05/09/20 Aspirin EC [Ecotrin] 325 mg PO DAILY 03/12/19 05/09/20 Fluticasone Nasal [place] [Flonase 1 spray EA NOSTRIL BID 03/12/19 05/09/20 Nasal [place]] Gabapentin 1,200 mg PO TID 03/12/19 05/09/20 HYDROcodone/APAP 10-325MG [[place] 1 tab PO BID 03/12/19 05/09/20 10-325] Albuterol Sulfate [Ventolin HFA] 2 puff INHALATION RT-QID PRN 03/28/20 05/09/20 Atorvastatin [Lipitor] 80 mg PO HS 05/09/20 05/09/20 traZODone HCL [Desyrel] 50 mg PO HS 05/09/20 05/09/20 Previous Rx's Medication Instructions Recorded Clopidogrel [Plavix] 75 mg PO DAILY 30 Days #30 tab 04/06/20 Cyanocobalamin [Vitamin B-12] 1,000 mcg PO DAILY 30 Days #60 tab 04/06/20 Famotidine [Pepcid] 20 mg PO Q12HR 30 Days #60 tab 04/06/20 metFORMIN HCL [Glucophage] 850 mg PO AC-TID 30 Days #90 tab 04/06/20 Allergies Allergy/AdvReac Type Severity Reaction Status Date / Time Penicillins Allergy Severe Anaphylaxis Verified 05/09/20 15:12 talc Allergy Swelling Verified 05/09/20 15:12 pregabalin [From Lyrica] AdvReac Severe Stroke (no Verified 05/09/20 15:12 issue with neurontin) adhesive tape AdvReac Itching Verified 05/09/20 15:12 Review of Systems ROS Statement: Those systems with pertinent positive or pertinent negative responses have been documented in the HPI. ROS Other: All systems not noted in ROS Statement are negative. Constitutional: Denies: fever Eyes: Denies: eye pain ENT: Denies: ear pain Respiratory: Denies: cough, dyspnea Cardiovascular: Denies: chest pain Endocrine: Reports: fatigue Gastrointestinal: Denies: abdominal pain Genitourinary: Denies: dysuria Musculoskeletal: Denies: back pain Skin: Denies: rash Neurological: Reports: as per HPI, headache Past Medical History Past Medical History: COPD, CVA/TIA, Diabetes Mellitus, Deep Vein Thrombosis (DVT), Hyperlipidemia, Pneumonia, Vascular Disorder Additional Past Medical History / Comment(s): NIDDM type II, severe neuropathy bilateral hands and feet, past merlos L foot wound, 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 Past Anesthesia/Blood Transfusion Reactions: No Reported Reaction Past Psychological History: Depression Smoking Status: Current every day smoker Past Alcohol Use History: None Reported Past Drug Use History: Marijuana - Past Family History Father History Unknown: Yes Family Medical History: Coronary Artery Disease (CAD) Additional Family Medical History / Comment(s): Father had CABG and never came home from the hospital. Mother History Unknown: Yes Family Medical History: Cancer, Deep Vein Thrombosis (DVT) Additional Family Medical History / Comment(s): Mother had squamous cell carcinoma. General Exam Limitations: no limitations General appearance: alert, in no apparent distress Head exam: Present: other (Soft tissue swelling left forehead) Eye exam: Present: normal appearance, PERRL, EOMI. Absent: nystagmus ENT exam: Present: normal oropharynx Neck exam: Present: tenderness (Mild diffuse tenderness) Respiratory exam: Present: normal lung sounds bilaterally Cardiovascular Exam: Present: regular rate, normal rhythm GI/Abdominal exam: Present: soft. Absent: tenderness Extremities exam: Present: normal inspection Neurological exam: Present: alert, oriented X3, CN II-XII intact. Absent: motor sensory deficit Expanded Neurological exam: Present: other (No significant weakness on exam) Speech: Present: fluid speech Cranial nerves: EOM's Intact: Normal Motor strength exam: RUE: 5, LUE: 5, RLE: 5, LLE: 5 Eye Response: (4) open spontaneously Motor Response: (6) obeys commands Verbal Response: (5) oriented Psychiatric exam: Present: normal affect, normal mood Skin exam: Present: normal color Course Vital Signs 05/09/20 05/09/20 13:34 14:47 Temperature 98.2 F Pulse Rate 66 82 Respiratory 16 18 Rate Blood Pressure 109/68 110/70 O2 Sat by Pulse 96 Oximetry EKG Findings - EKG Comments: EKG Findings:: Normal sinus rhythm at 64. NH 140. QRS 84. QT 420. QTc 433. Normal axis. Normal QRS. No acute ST change. Medical Decision Making - Medical Decision Making Patient reevaluated and remained symptom-free. Patient feels comfortable with discharge home. Son feels the same. Patient and son both deny any syncopal episode. They state patient does fall frequently and this is not abnormal. They're advised need for close follow-up with primary care physician. - Lab Data Result diagrams: 05/09/20 14:47 05/09/20 14:47 Lab Results 05/09/20 05/09/20 05/09/20 Range/Units 14:47 14:47 14:47 WBC 8.8 (3.8-10.6) k/uL RBC 4.17 L (4.30-5.90) m/uL Hgb 12.7 L (13.0-17.5) gm/dL Hct 36.9 L (39.0-53.0) % MCV 88.6 (80.0-100.0) fL MCH 30.4 (25.0-35.0) pg MCHC 34.3 (31.0-37.0) g/dL RDW 14.8 (11.5-15.5) % Plt Count 182 (150-450) k/uL MPV 7.3 Neutrophils % 51 % Lymphocytes % 35 % Monocytes % 5 % Eosinophils % 5 % Basophils % 1 % Neutrophils # 4.5 (1.3-7.7) k/uL Lymphocytes # 3.1 (1.0-4.8) k/uL Monocytes # 0.4 (0-1.0) k/uL Eosinophils # 0.5 (0-0.7) k/uL Basophils # 0.1 (0-0.2) k/uL PT 9.5 (9.0-12.0) sec INR 0.9 (<1.2) APTT 22.3 (22.0-30.0) sec Sodium 138 (137-145) mmol/L Potassium 4.2 (3.5-5.1) mmol/L Chloride 104 (98-107) mmol/L Carbon Dioxide 24 (22-30) mmol/L Anion Gap 10 mmol/L BUN 23 H (9-20) mg/dL Creatinine 1.33 H (0.66-1.25) mg/dL Est GFR (CKD-EPI)AfAm 72 (>60 ml/min/1.73 sqM) Est GFR (CKD-EPI)NonAf 62 (>60 ml/min/1.73 sqM) Glucose 106 H (74-99) mg/dL Plasma Lactic Acid Bharath (0.7-2.0) mmol/L Calcium 9.3 (8.4-10.2) mg/dL Magnesium 1.7 (1.6-2.3) mg/dL Total Bilirubin 1.0 (0.2-1.3) mg/dL AST 81 H (17-59) U/L ALT 49 (4-49) U/L Alkaline Phosphatase 99 (38-126) U/L Troponin I (0.000-0.034) ng/mL NT-Pro-B Natriuret Pep pg/mL Total Protein 6.8 (6.3-8.2) g/dL Albumin 3.9 (3.5-5.0) g/dL Urine Color Urine Appearance (Clear) Urine pH (5.0-8.0) Ur Specific [place] (1.001-1.035) Urine Protein (Negative) Urine Glucose (UA) (Negative) Urine Ketones (Negative) Urine Blood (Negative) Urine Nitrite (Negative) Urine Bilirubin (Negative) Urine Urobilinogen (<2.0) mg/dL Ur Leukocyte Esterase (Negative) Urine RBC (0-5) /hpf Ur Squamous Epith Cells (0-4) /hpf Calcium Oxalate Crystal (None) /hpf Amorphous Sediment (None) /hpf Hyaline Casts (0-2) /lpf Urine Mucus (None) /hpf 05/09/20 05/09/20 05/09/20 Range/Units 14:47 14:47 14:47 WBC (3.8-10.6) k/uL RBC (4.30-5.90) m/uL Hgb (13.0-17.5) gm/dL Hct (39.0-53.0) % MCV (80.0-100.0) fL MCH (25.0-35.0) pg MCHC (31.0-37.0) g/dL RDW (11.5-15.5) % Plt Count (150-450) k/uL MPV Neutrophils % % Lymphocytes % % Monocytes % % Eosinophils % % Basophils % % Neutrophils # (1.3-7.7) k/uL Lymphocytes # (1.0-4.8) k/uL Monocytes # (0-1.0) k/uL Eosinophils # (0-0.7) k/uL Basophils # (0-0.2) k/uL PT (9.0-12.0) sec INR (<1.2) APTT (22.0-30.0) sec Sodium (137-145) mmol/L Potassium (3.5-5.1) mmol/L Chloride (98-107) mmol/L Carbon Dioxide (22-30) mmol/L Anion Gap mmol/L BUN (9-20) mg/dL Creatinine (0.66-1.25) mg/dL Est GFR (CKD-EPI)AfAm (>60 ml/min/1.73 sqM) Est GFR (CKD-EPI)NonAf (>60 ml/min/1.73 sqM) Glucose (74-99) mg/dL Plasma Lactic Acid Bharath 2.1 H* (0.7-2.0) mmol/L Calcium (8.4-10.2) mg/dL Magnesium (1.6-2.3) mg/dL Total Bilirubin (0.2-1.3) mg/dL AST (17-59) U/L ALT (4-49) U/L Alkaline Phosphatase (38-126) U/L Troponin I <0.012 (0.000-0.034) ng/mL NT-Pro-B Natriuret Pep 978 pg/mL Total Protein (6.3-8.2) g/dL Albumin (3.5-5.0) g/dL Urine Color Urine Appearance (Clear) Urine pH (5.0-8.0) Ur Specific [place] (1.001-1.035) Urine Protein (Negative) Urine Glucose (UA) (Negative) Urine Ketones (Negative) Urine Blood (Negative) Urine Nitrite (Negative) Urine Bilirubin (Negative) Urine Urobilinogen (<2.0) mg/dL Ur Leukocyte Esterase (Negative) Urine RBC (0-5) /hpf Ur Squamous Epith Cells (0-4) /hpf Calcium Oxalate Crystal (None) /hpf Amorphous Sediment (None) /hpf Hyaline Casts (0-2) /lpf Urine Mucus (None) /hpf 05/09/20 Range/Units 15:00 WBC (3.8-10.6) k/uL RBC (4.30-5.90) m/uL Hgb (13.0-17.5) gm/dL Hct (39.0-53.0) % MCV (80.0-100.0) fL MCH (25.0-35.0) pg MCHC (31.0-37.0) g/dL RDW (11.5-15.5) % Plt Count (150-450) k/uL MPV Neutrophils % % Lymphocytes % % Monocytes % % Eosinophils % % Basophils % % Neutrophils # (1.3-7.7) k/uL Lymphocytes # (1.0-4.8) k/uL Monocytes # (0-1.0) k/uL Eosinophils # (0-0.7) k/uL Basophils # (0-0.2) k/uL PT (9.0-12.0) sec INR (<1.2) APTT (22.0-30.0) sec Sodium (137-145) mmol/L Potassium (3.5-5.1) mmol/L Chloride (98-107) mmol/L Carbon Dioxide (22-30) mmol/L Anion Gap mmol/L BUN (9-20) mg/dL Creatinine (0.66-1.25) mg/dL Est GFR (CKD-EPI)AfAm (>60 ml/min/1.73 sqM) Est GFR (CKD-EPI)NonAf (>60 ml/min/1.73 sqM) Glucose (74-99) mg/dL Plasma Lactic Acid Bharath (0.7-2.0) mmol/L Calcium (8.4-10.2) mg/dL Magnesium (1.6-2.3) mg/dL Total Bilirubin (0.2-1.3) mg/dL AST (17-59) U/L ALT (4-49) U/L Alkaline Phosphatase (38-126) U/L Troponin I (0.000-0.034) ng/mL NT-Pro-B Natriuret Pep pg/mL Total Protein (6.3-8.2) g/dL Albumin (3.5-5.0) g/dL Urine Color Yellow Urine Appearance Clear (Clear) Urine pH 5.5 (5.0-8.0) Ur Specific [place] 1.031 (1.001-1.035) Urine Protein 1+ H (Negative) Urine Glucose (UA) Negative (Negative) Urine Ketones Negative (Negative) Urine Blood Negative (Negative) Urine Nitrite Negative (Negative) Urine Bilirubin 1+ H (Negative) Urine Urobilinogen 4.0 (<2.0) mg/dL Ur Leukocyte Esterase Negative (Negative) Urine RBC 2 (0-5) /hpf Ur Squamous Epith Cells 1 (0-4) /hpf Calcium Oxalate Crystal Occasional H (None) /hpf Amorphous Sediment Rare H (None) /hpf Hyaline Casts 296 H (0-2) /lpf Urine Mucus Occasional H (None) /hpf Disposition Clinical Impression: Fall Disposition: HOME SELF-CARE Condition: Stable Instructions (If sedation given, give patient instructions): Fall Prevention (ED) Additional Instructions: Please follow-up with primary care physician in the next day or 2 for recheck. Return for change in mental status, weakness, worsening or change in symptoms or any other concerns. Is patient prescribed a controlled substance at d/c from ED?: No Referrals: Crista Carrington MD [Primary Care Provider] - 1-2 days Time of Disposition: 16:47
[2020-05-09 14:48] VITALS: RESP 18
[2020-05-09 14:50] LABS: Basophils # (A) 0.1 k/uL (0-0.2); Basophils % (A) 1 %; Eosinophils # (A) 0.5 k/uL (0-0.7); Eosinophils % (A) 5 %; HCT 36.9 % (39.0-53.0); HGB 12.7 gm/dL (13.0-17.5); Lymphocytes # (A) 3.1 k/uL (1.0-4.8); Lymphocytes % (A) 35 %; MCH 30.4 pg (25.0-35.0); MCHC 34.3 g/dL (31.0-37.0); MCV 88.6 fL (80.0-100.0); Mean Platelet Volume 7.3; Monocytes # (A) 0.4 k/uL (0-1.0); Monocytes % (A) 5 %; Neutrophils # (A) 4.5 k/uL (1.3-7.7); Neutrophils % (A) 51 %; Platelet Count 182 k/uL (150-450); RBC 4.17 m/uL (4.30-5.90); RDW 14.8 % (11.5-15.5); WBC 8.8 k/uL (3.8-10.6)
[2020-05-09 14:58] LABS: Albumin 3.9 g/dL (3.5-5.0); Calcium 9.3 mg/dL (8.4-10.2); Magnesium 1.7 mg/dL (1.6-2.3); Potassium 4.2 mmol/L (3.5-5.1); Total Protein 6.8 g/dL (6.3-8.2)
[2020-05-09 15:06] LABS: INR 0.9 (<1.2); Partial Thromboplastin Time 22.3 sec (22.0-30.0); Prothrombin Time 9.5 sec (9.0-12.0)
[2020-05-09 15:26] LABS: Amorphous Sediment,Urine Rare /hpf; Appearance,Urine Clear (Clear); Bilirubin,Urine 1+ (Negative); Blood,Urine Negative (Negative); Calcium Oxalate Crystals,Urine Occasional /hpf; Color,Urine Yellow; Glucose,Urine (UA) Negative (Negative); Hyaline Casts,Urine 296 /lpf (0-2); Ketones,Urine Negative (Negative); Leukocyte Esterase,Urine Negative (Negative); Mucus,Urine Occasional /hpf; Nitrite,Urine Negative (Negative); PH, Urine 5.5 (5.0-8.0); Protein,Urine 1+ (Negative); RBC,Urine 2 /hpf (0-5); Specific Gravity,Urine 1.031 (1.001-1.035); Squamous Epithelial Cell,Urine 1 /hpf (0-4)
--- NOTE | 2020-05-09 15:27 | CT ---
EXAMINATION TYPE: CT brain cspine wo con DATE OF EXAM: 05/09/2020 COMPARISON: CT brain March 28, 2020 HISTORY: Fall, left facial swelling and confusion. Neck pain after trauma injury. CT DLP: 1443.1 mGycm. Automated Exposure Control for Dose Reduction was Utilized. TECHNIQUE: CT scan of the head and cervical spine are performed without contrast. FINDINGS: There is no acute intracranial hemorrhage or midline shift identified. Mild ventricular a nd sulcal prominence greatest over bilateral frontal lobes redemonstrated. Old infarct right frontal parietal region axial image 34 redemonstrated. Old infarct left parietal posterior watershed axilla i mage 32 redemonstrated. Areas of low-attenuation throughout the white matter involving the left basal ganglia and external capsule and right frontal lobe are redemonstrated, the latter is more prominent from prior. Subacute infarct at this level not excluded. The calvarium is intact. The globes are int act and the visualized sinuses are clear. Stable cerebellar tonsils terminating at level of foramen m agnum. Cervical spine is visualized in its entirety from C1 through upper thoracic levels and demonstrates s coliotic curvature without evidence of acute fracture or dislocation. Prevertebral soft tissue appea rs within normal limits. The C1-C2 articulation is within normal limits on the coronal images. Vert ebral body heights are maintained. Mild multilevel disc space narrowing. [id number] multilevel anterior spurring. Spinal canal shows anterior effacement C5-C6 and C6-C7 levels due to spur disc com plexes. There is emphysematous change in visualized upper lungs with nonspecific groundglass opacitie s. IMPRESSION: 1. There is no acute fracture or dislocation evident in the cervical spine. 2. No acute intracranial hemorrhage or midline shift is seen.
--- NOTE | 2020-05-09 15:28 | XR ---
EXAMINATION TYPE: XR chest 2V DATE OF EXAM: 05/09/2020 COMPARISON: Chest x-ray March 30, 2020 HISTORY: Weakness. TECHNIQUE: Frontal and lateral views of the chest are obtained. FINDINGS: Persistent mild cardiomegaly. Overlying heart monitor. [id number] central opacities b ilaterally. No pleural effusion or pneumothorax. Osseous structures are intact. IMPRESSION: Correlate for CHF exacerbation as there is mild cardiomegaly with mild central alveolar edema thought present bilaterally.
[2020-05-09 16:58] VITALS: BP 115/71; PULSE 70
== END 2020-05-09 16:58 | disposition home or self-care (01) ==
LOC: EC 13:31
DX: Z04.3 Encounter for examination and observation following other accident (principal); E78.5 Hyperlipidemia, unspecified; E11.40 Type 2 diabetes mellitus with diabetic neuropathy, unspecified; J44.9 Chronic obstructive pulmonary disease, unspecified; F32.9 Major depressive disorder, single episode, unspecified; F17.200 Nicotine dependence, unspecified, uncomplicated; Z79.82 Long term (current) use of aspirin; Z79.51 Long term (current) use of inhaled steroids; Z79.84 Long term (current) use of oral hypoglycemic drugs; Z79.899 Other long term (current) drug therapy; Z88.0 Allergy status to penicillin; Z88.8 Allergy status to other drugs, medicaments and biological substances; Z91.048 Other nonmedicinal substance allergy status; Z86.718 Personal history of other venous thrombosis and embolism; Z86.73 Personal history of transient ischemic attack (TIA), and cerebral infarction without residual deficits
CPT/HCPCS: 36415; 70450; 71046; 72125; 80053; 81001; 83605; 83735; 83880; 84484; 85025; 85610; 85730; 93005; 96360; 96361; 99284

== ENCOUNTER 2021-02-01 07:11 | Emergency (ER) | payer MEDICARE ==
[2021-02-01 07:17] VITALS: BP 178/80; PULSE 94; RESP 16; TEMP 97.7
--- NOTE | 2021-02-01 07:36 | ED ---
General Adult HPI - General Chief complaint: Wound/Laceration Stated complaint: Fever, foot wound Time Seen by Provider: 02/01/21 07:20 Source: patient, RN notes reviewed, old records reviewed Mode of arrival: wheelchair Limitations: no limitations - History of Present Illness Initial comments: 50-year-old male presenting with bilateral lower extremity cellulitis and drainage. Patient had noticed over the past 24 hours some increased cellulitis. He did also note a small ulceration to the lateral aspect of his third toe left foot. He is a known diabetic. He denies fever or constitutional symptoms. Denies injury. No chest pain or shortness of breath. - Related Data Home Medications Medication Instructions Recorded Confirmed glipiZIDE [Glipizide] 10 mg PO BID 08/18/15 05/09/20 Aspirin EC [Ecotrin] 325 mg PO DAILY 03/12/19 05/09/20 Fluticasone Nasal [place] [Flonase 1 spray EA NOSTRIL BID 03/12/19 05/09/20 Nasal [place]] Gabapentin 1,200 mg PO TID 03/12/19 05/09/20 HYDROcodone/APAP 10-325MG [[place] 1 tab PO BID 03/12/19 05/09/20 10-325] Albuterol Sulfate [Ventolin HFA] 2 puff INHALATION RT-QID PRN 03/28/20 05/09/20 Atorvastatin [Lipitor] 80 mg PO HS 05/09/20 05/09/20 traZODone HCL [Desyrel] 50 mg PO HS 05/09/20 05/09/20 Previous Rx's Medication Instructions Recorded Clopidogrel [Plavix] 75 mg PO DAILY 30 Days #30 tab 04/06/20 Cyanocobalamin [Vitamin B-12] 1,000 mcg PO DAILY 30 Days #60 tab 04/06/20 Famotidine [Pepcid] 20 mg PO Q12HR 30 Days #60 tab 04/06/20 metFORMIN HCL [Glucophage] 850 mg PO AC-TID 30 Days #90 tab 04/06/20 Clindamycin [Cleocin] 450 mg PO TID 10 Days cap 02/01/21 Mupirocin 2% Oint [Bactroban 2% 1 applic TOPICAL TID 10 Days #60 gm 02/01/21 Oint] Sulfamethox-Tmp 800-160Mg [Bactrim 1 tab PO Q12HR #20 tab 02/01/21 DS 800-160 mg] Allergies Allergy/AdvReac Type Severity Reaction Status Date / Time Penicillins Allergy Severe Anaphylaxis Verified 02/01/21 07:13 talc Allergy Swelling Verified 02/01/21 07:13 pregabalin [From Lyrica] AdvReac Severe Stroke (no Verified 02/01/21 07:13 issue with neurontin) adhesive tape AdvReac Itching Verified 02/01/21 07:13 Review of Systems ROS Statement: Those systems with pertinent positive or pertinent negative responses have been documented in the HPI. ROS Other: All systems not noted in ROS Statement are negative. 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 Past Anesthesia/Blood Transfusion Reactions: No Reported Reaction Past Psychological History: Depression Smoking Status: Current every day smoker Past Alcohol Use History: None Reported Past Drug Use History: Marijuana - Past Family History Father History Unknown: Yes Family Medical History: Coronary Artery Disease (CAD) Additional Family Medical History / Comment(s): Father had CABG and never came home from the hospital. Mother History Unknown: Yes Family Medical History: Cancer, Deep Vein Thrombosis (DVT) Additional Family Medical History / Comment(s): Mother had squamous cell carcinoma. General Exam Limitations: no limitations General appearance: alert, in no apparent distress Head exam: Present: atraumatic, normocephalic Eye exam: Present: normal appearance, PERRL ENT exam: Present: normal exam Neck exam: Present: normal inspection. Absent: tenderness, meningismus Respiratory exam: Present: normal lung sounds bilaterally. Absent: respiratory distress, wheezes Cardiovascular Exam: Present: regular rate, normal rhythm Extremities exam: Present: pedal edema, other (Bilateral yellow crusting and drainage mild erythema) Neurological exam: Present: alert, oriented X3, CN II-XII intact. Absent: motor sensory deficit Psychiatric exam: Present: normal affect, normal mood Skin exam: Present: warm, dry Course Vital Signs 02/01/21 07:13 Temperature 97.7 F Pulse Rate 94 Respiratory 16 Rate Blood Pressure 178/80 O2 Sat by Pulse 98 Oximetry Medical Decision Making - Medical Decision Making 50-year-old male with bilateral lower extremity cellulitis, suspect there is degree of chronic venous stasis in this patient. He did have a ulceration to the lateral aspect of the third toe on the left foot. He is afebrile. I did offer her a trial of outpatient oral antibiotics with close return parameters versus admission for IV antibiotics and at this time the patient will be discharged with close follow-up. He started on mupirocin topical as well as oral antibiotics. Return parameters discussed at length. Disposition Clinical Impression: Cellulitis Disposition: HOME SELF-CARE Condition: Fair Instructions (If sedation given, give patient instructions): Cellulitis (ED) Prescriptions: Sulfamethox-Tmp 800-160Mg [Bactrim DS 800-160 mg] 1 tab PO Q12HR #20 tab Mupirocin 2% Oint [Bactroban 2% Oint] 1 applic TOPICAL TID 10 Days #60 gm Clindamycin [Cleocin] 450 mg PO TID 10 Days cap Is patient prescribed a controlled substance at d/c from ED?: No Referrals: Crista Carrington MD [Primary Care Provider] - 1-2 days [facility] [NON-STAFF] - 1-2 days Time of Disposition: 07:33
== END 2021-02-01 07:53 | disposition home or self-care (01) ==
LOC: EC 07:11
DX: L03.115 Cellulitis of right lower limb (principal); L03.116 Cellulitis of left lower limb; E11.621 Type 2 diabetes mellitus with foot ulcer; L97.529 Non-pressure chronic ulcer of other part of left foot with unspecified severity; J44.9 Chronic obstructive pulmonary disease, unspecified; E78.5 Hyperlipidemia, unspecified; F32.9 Major depressive disorder, single episode, unspecified; F17.200 Nicotine dependence, unspecified, uncomplicated; F12.90 Cannabis use, unspecified, uncomplicated; Z79.82 Long term (current) use of aspirin; Z79.02 Long term (current) use of antithrombotics/antiplatelets; Z79.84 Long term (current) use of oral hypoglycemic drugs; Z88.0 Allergy status to penicillin; Z86.73 Personal history of transient ischemic attack (TIA), and cerebral infarction without residual deficits; Z86.718 Personal history of other venous thrombosis and embolism; Z90.49 Acquired absence of other specified parts of digestive tract; Z90.89 Acquired absence of other organs
CPT/HCPCS: 99283

== ENCOUNTER 2021-08-27 20:51 | Inpatient (IN) | payer MEDICARE ==
[2021-08-27] MEDS ORDERED: IPRATROPIUM-ALBUTEROL 3 ML NEB INHALATION STA (21:27)
[2021-08-27] MEDS ORDERED: predniSONE 20 MG TAB PO STA (21:27)
--- NOTE | 2021-08-27 21:30 | ED ---
SOB HPI - General Chief Complaint: Shortness of Breath Stated Complaint: COPD, Diff Breathing, Bilateral Leg Pain Time Seen by Provider: 08/27/21 21:12 Source: patient, family Mode of arrival: wheelchair Limitations: no limitations - History of Present Illness Initial Comments: This patient is 51-year-old man who presents with worsening what he believes is his COPD. He states that he has been having a cough and shortness of breath. Symptoms getting progressively worse. He has not noted fever or chills. he states the cough is productive of some "phlegm." No hemoptysis. No chest pain. No leg pain or swelling. No change in urination or bowel movements. MD Complaint: shortness of breath, cough Onset/Timin -: days(s) Consistency: constant Improves With: nothing Worsens With: nothing Known History Of: COPD Associated Symptoms: cough, sputum production Treatments Prior to Arrival: bronchodilator - Related Data Home Medications Medication Instructions Recorded Confirmed Aspirin EC [Ecotrin] 325 mg PO DAILY 03/12/19 08/27/21 Gabapentin 1,200 mg PO TID 03/12/19 08/27/21 HYDROcodone/APAP 10-325MG [[place] 1 tab PO QID PRN 03/12/19 08/27/21 10-325] Albuterol Sulfate [Ventolin HFA] 2 puff INHALATION RT-QID PRN 03/28/20 08/27/21 Atorvastatin [Lipitor] 80 mg PO HS 05/09/20 08/27/21 traZODone HCL [Desyrel] 50 mg PO HS 05/09/20 08/27/21 Ascorbic Acid [Vitamin C] 1,000 mg PO DAILY 08/27/21 08/27/21 Cholecalciferol [Vitamin D3 (25 25 mcg PO DAILY 08/27/21 08/27/21 Mcg = 1000 Iu)] Dulaglutide [Trulicity] 1.5 mg SQ TU 08/27/21 08/27/21 metFORMIN HCL [Glucophage] 1,000 mg PO BID 08/27/21 08/27/21 Previous Rx's Medication Instructions Recorded Clopidogrel [Plavix] 75 mg PO DAILY 30 Days #30 tab 04/06/20 Levofloxacin [Levaquin] 500 mg PO DAILY 7 Days #7 tab 08/29/21 predniSONE 0 mg PO DIRECTED 12 Days #30 tab 08/29/21 Allergies Allergy/AdvReac Type Severity Reaction Status Date / Time Penicillins Allergy Severe Anaphylaxis Verified 08/27/21 22:00 talc Allergy Swelling Verified 08/27/21 22:00 pregabalin [From Lyrica] AdvReac Severe Stroke (no Verified 08/27/21 22:00 issue with neurontin) adhesive tape AdvReac Itching Verified 08/27/21 22:00 Review of Systems ROS Statement: Those systems with pertinent positive or pertinent negative responses have been documented in the HPI. ROS Other: All systems not noted in ROS Statement are negative. Constitutional: Reports: chills, weakness. Denies: fever Respiratory: Reports: cough, dyspnea, wheezes. 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 Past Anesthesia/Blood Transfusion Reactions: No Reported Reaction Past Psychological History: Depression Smoking Status: Current every day smoker Past Alcohol Use History: None Reported Past Drug Use History: Marijuana - Past Family History Father History Unknown: Yes Family Medical History: Coronary Artery Disease (CAD) Additional Family Medical History / Comment(s): Father had CABG and never came home from the hospital. Mother History Unknown: Yes Family Medical History: Cancer, Deep Vein Thrombosis (DVT) Additional Family Medical History / Comment(s): Mother had squamous cell carcinoma. General Exam Limitations: no limitations General appearance: alert, in no apparent distress Head exam: Present: atraumatic, normocephalic Eye exam: Present: normal appearance. Absent: scleral icterus, conjunctival injection ENT exam: Present: normal oropharynx Neck exam: Present: normal inspection Respiratory exam: Present: wheezes, rales, rhonchi, other (Patient is able to speak in full sentences). Absent: respiratory distress (Respiratory rate is 20 at my exam.), stridor, accessory muscle use, decreased breath sounds, prolonged expiratory Cardiovascular Exam: Present: regular rate, normal rhythm, normal heart sounds. Absent: systolic murmur, diastolic murmur, rubs, gallop GI/Abdominal exam: Present: soft. Absent: distended, tenderness, guarding, rebound, rigid, mass Extremities exam: Present: normal inspection, normal capillary refill, other (There are chronic stasis changes to the lower extremities bilaterally). Absent: pedal edema, calf tenderness Back exam: Present: normal inspection. Absent: CVA tenderness (R), CVA tenderness (L) Neurological exam: Present: alert Skin exam: Present: warm, dry, intact. Absent: rash Course Vital Signs 08/27/21 08/27/21 08/27/21 21:07 21:36 21:48 Temperature 99.2 F Pulse Rate 96 82 Respiratory 34 H 18 Rate Blood Pressure 158/81 O2 Sat by Pulse 96 Oximetry 08/27/21 08/28/21 21:54 00:10 Temperature Pulse Rate 84 85 Respiratory 20 Rate Blood Pressure 158/93 O2 Sat by Pulse Oximetry Medical Decision Making - Medical Decision Making Patient's 51-year-old man with dyspnea probably multifactorial some underlying COPD and superimposed pneumonia. Patient has improved since arrival but not near his baseline. Will admit for further treatment. - Lab Data Result diagrams: 08/29/21 05:32 08/29/21 05:32 Lab Results 08/27/21 08/27/21 08/27/21 Range/Units 21:32 21:32 21:32 WBC 12.3 H (3.8-10.6) k/uL RBC 4.80 (4.30-5.90) m/uL Hgb 13.0 (13.0-17.5) gm/dL Hct 41.4 (39.0-53.0) % MCV 86.4 (80.0-100.0) fL MCH 27.1 (25.0-35.0) pg MCHC 31.4 (31.0-37.0) g/dL RDW 15.3 (11.5-15.5) % Plt Count 232 (150-450) k/uL MPV 7.2 Neutrophils % 65 % Lymphocytes % 26 % Monocytes % 6 % Eosinophils % 1 % Basophils % 1 % Neutrophils # 7.9 H (1.3-7.7) k/uL Lymphocytes # 3.1 (1.0-4.8) k/uL Monocytes # 0.8 (0-1.0) k/uL Eosinophils # 0.1 (0-0.7) k/uL Basophils # 0.1 (0-0.2) k/uL PT 10.4 (9.0-12.0) sec INR 0.9 (<1.2) APTT 22.5 (22.0-30.0) sec D-Dimer (<0.60) mg/L FEU Sodium 133 L (137-145) mmol/L Potassium 3.4 L (3.5-5.1) mmol/L Chloride 96 L (98-107) mmol/L Carbon Dioxide 31 H (22-30) mmol/L Anion Gap 6 mmol/L BUN 10 (9-20) mg/dL Creatinine 0.92 (0.66-1.25) mg/dL Est GFR (CKD-EPI)AfAm >90 (>60 ml/min/1.73 sqM) Est GFR (CKD-EPI)NonAf >90 (>60 ml/min/1.73 sqM) Glucose 307 H (74-99) mg/dL Plasma Lactic Acid Bharath (0.7-2.0) mmol/L Calcium 7.9 L (8.4-10.2) mg/dL Magnesium 1.6 (1.6-2.3) mg/dL Total Bilirubin 0.8 (0.2-1.3) mg/dL AST 32 (17-59) U/L ALT 22 (4-49) U/L Alkaline Phosphatase 159 H (38-126) U/L Troponin I (0.000-0.034) ng/mL NT-Pro-B Natriuret Pep pg/mL Total Protein 5.2 L (6.3-8.2) g/dL Albumin 2.9 L (3.5-5.0) g/dL Influenza Type A RNA (Not Detectd) Influenza Type B (PCR) (Not Detectd) 08/27/21 08/27/21 08/27/21 Range/Units 21:32 21:32 21:32 WBC (3.8-10.6) k/uL RBC (4.30-5.90) m/uL Hgb (13.0-17.5) gm/dL Hct (39.0-53.0) % MCV (80.0-100.0) fL MCH (25.0-35.0) pg MCHC (31.0-37.0) g/dL RDW (11.5-15.5) % Plt Count (150-450) k/uL MPV Neutrophils % % Lymphocytes % % Monocytes % % Eosinophils % % Basophils % % Neutrophils # (1.3-7.7) k/uL Lymphocytes # (1.0-4.8) k/uL Monocytes # (0-1.0) k/uL Eosinophils # (0-0.7) k/uL Basophils # (0-0.2) k/uL PT (9.0-12.0) sec INR (<1.2) APTT (22.0-30.0) sec D-Dimer (<0.60) mg/L FEU Sodium (137-145) mmol/L Potassium (3.5-5.1) mmol/L Chloride (98-107) mmol/L Carbon Dioxide (22-30) mmol/L Anion Gap mmol/L BUN (9-20) mg/dL Creatinine (0.66-1.25) mg/dL Est GFR (CKD-EPI)AfAm (>60 ml/min/1.73 sqM) Est GFR (CKD-EPI)NonAf (>60 ml/min/1.73 sqM) Glucose (74-99) mg/dL Plasma Lactic Acid Bharath 1.7 (0.7-2.0) mmol/L Calcium (8.4-10.2) mg/dL Magnesium (1.6-2.3) mg/dL Total Bilirubin (0.2-1.3) mg/dL AST (17-59) U/L ALT (4-49) U/L Alkaline Phosphatase (38-126) U/L Troponin I 0.031 (0.000-0.034) ng/mL NT-Pro-B Natriuret Pep 18371 pg/mL Total Protein (6.3-8.2) g/dL Albumin (3.5-5.0) g/dL Influenza Type A RNA (Not Detectd) Influenza Type B (PCR) (Not Detectd) 08/27/21 08/27/21 Range/Units 21:32 22:16 WBC (3.8-10.6) k/uL RBC (4.30-5.90) m/uL Hgb (13.0-17.5) gm/dL Hct (39.0-53.0) % MCV (80.0-100.0) fL MCH (25.0-35.0) pg MCHC (31.0-37.0) g/dL RDW (11.5-15.5) % Plt Count (150-450) k/uL MPV Neutrophils % % Lymphocytes % % Monocytes % % Eosinophils % % Basophils % % Neutrophils # (1.3-7.7) k/uL Lymphocytes # (1.0-4.8) k/uL Monocytes # (0-1.0) k/uL Eosinophils # (0-0.7) k/uL Basophils # (0-0.2) k/uL PT (9.0-12.0) sec INR (<1.2) APTT (22.0-30.0) sec D-Dimer 2.56 H (<0.60) mg/L FEU Sodium (137-145) mmol/L Potassium (3.5-5.1) mmol/L Chloride (98-107) mmol/L Carbon Dioxide (22-30) mmol/L Anion Gap mmol/L BUN (9-20) mg/dL Creatinine (0.66-1.25) mg/dL Est GFR (CKD-EPI)AfAm (>60 ml/min/1.73 sqM) Est GFR (CKD-EPI)NonAf (>60 ml/min/1.73 sqM) Glucose (74-99) mg/dL Plasma Lactic Acid Bharath (0.7-2.0) mmol/L Calcium (8.4-10.2) mg/dL Magnesium (1.6-2.3) mg/dL Total Bilirubin (0.2-1.3) mg/dL AST (17-59) U/L ALT (4-49) U/L Alkaline Phosphatase (38-126) U/L Troponin I (0.000-0.034) ng/mL NT-Pro-B Natriuret Pep pg/mL Total Protein (6.3-8.2) g/dL Albumin (3.5-5.0) g/dL Influenza Type A RNA Not Detected (Not Detectd) Influenza Type B (PCR) Not Detected (Not Detectd) - EKG Data -: EKG Interpreted by Or EKG shows normal: sinus rhythm, axis (Indeterminate), intervals (Normal) Rate: normal (Rate 91 bpm) Disposition Clinical Impression: COPD (chronic obstructive pulmonary disease), Pneumonia Disposition: ADMITTED IP TO THIS HOSP Condition: Fair Is patient prescribed a controlled substance at d/c from ED?: No
[2021-08-27 21:55] LABS: Basophils # (A) 0.1 k/uL (0-0.2); Basophils % (A) 1 %; Eosinophils # (A) 0.1 k/uL (0-0.7); Eosinophils % (A) 1 %; HCT 41.4 % (39.0-53.0); Lymphocytes # (A) 3.1 k/uL (1.0-4.8); Lymphocytes % (A) 26 %; MCH 27.1 pg (25.0-35.0); MCHC 31.4 g/dL (31.0-37.0); MCV 86.4 fL (80.0-100.0); Mean Platelet Volume 7.2; Monocytes # (A) 0.8 k/uL (0-1.0); Monocytes % (A) 6 %; Neutrophils # (A) 7.9 k/uL (1.3-7.7); Neutrophils % (A) 65 %; Platelet Count 232 k/uL (150-450); RDW 15.3 % (11.5-15.5); WBC 12.3 k/uL (3.8-10.6)
--- NOTE | 2021-08-27 21:57 | XR ---
EXAMINATION TYPE: XR chest 2V DATE OF EXAM: 08/27/2021 COMPARISON: 05/09/2020 HISTORY: 2 views TECHNIQUE: FINDINGS: Heart and mediastinum are normal. There is some mild right pleural effusion and interstitial infiltr ate right lower lobe. Left lung is clear. There are no hilar masses. There are chest leads. IMPRESSION: Small right pleural effusion and interstitial pneumonia right lower lobe which is increas ed compared to the old exam. Normal heart.
[2021-08-27 22:06] LABS: ALT 22 U/L (4-49); AST 32 U/L (17-59); African American GFR (CKD) >90 (>60 ml/min/1.73 sqM); Albumin 2.9 g/dL (3.5-5.0); Alkaline Phosphatase 159 U/L (38-126); Anion Gap 6 mmol/L; Blood Urea Nitrogen 10 mg/dL (9-20); Calcium 7.9 mg/dL (8.4-10.2); Carbon Dioxide 31 mmol/L (22-30); Chloride 96 mmol/L (98-107); Glucose 307 mg/dL (74-99); Magnesium 1.6 mg/dL (1.6-2.3); Non-African American GFR(CKD) >90 (>60 ml/min/1.73 sqM); Potassium 3.4 mmol/L (3.5-5.1); Sodium 133 mmol/L (137-145); Total Bilirubin 0.8 mg/dL (0.2-1.3); Total Protein 5.2 g/dL (6.3-8.2)
[2021-08-27 22:15] LABS: INR 0.9 (<1.2); Partial Thromboplastin Time 22.5 sec (22.0-30.0); Prothrombin Time 10.4 sec (9.0-12.0)
[2021-08-27] MEDS ORDERED: ALBUTEROL NEBULIZED 2.5 MG/3 ML INHALATION PRN (23:50)
[2021-08-27] MEDS ORDERED: AZITHROMYCIN 500 MG TAB PO STA (23:54)
[2021-08-28] MEDS ORDERED: HYDROcodone/APAP 5-325MG 1 EACH TAB PO STA (00:03)
[2021-08-28] MEDS ORDERED: ALBUTEROL HFA INHALER INHALATION PRN (07:27)
[2021-08-28] MEDS: HYDROcodone/APAP 10-325MG 1 EACH TAB PO PRN ×3 (07:58→22:19)
[2021-08-28] MEDS: metFORMIN 500 MG TAB PO SCH ×2 (07:58→21:50)
[2021-08-28] MEDS: GABAPENTIN 400 MG CAP PO SCH ×3 (07:58→21:50)
[2021-08-28] MEDS: CLOPIDOGREL 75 MG TAB PO SCH (07:59)
[2021-08-28] MEDS: HEPARIN SODIUM,PORCINE/PF 5,000 UNIT/0.5 ML SYRINGE SQ SCH ×2 (07:59→21:50)
[2021-08-28] MEDS: predniSONE 20 MG TAB PO SCH (07:59)
[2021-08-28] MEDS ORDERED: IPRATROPIUM-ALBUTEROL 3 ML NEB INHALATION SCH (08:00)
[2021-08-28 08:02] LABS: Glucose,Whole Blood 357 mg/dL (75-99)
[2021-08-28] MEDS: INSULIN ASPART (NovoLOG) 100 UNIT/ML VIAL SQ SCH ×4 (08:10→21:50)
[2021-08-28] MEDS ORDERED: FAMOTIDINE 20 MG/2 ML VIAL IV SCH (09:00)
[2021-08-28] MEDS ORDERED: predniSONE 20 MG TAB PO SCH (09:00)
[2021-08-28] MEDS ORDERED: AZITHROMYCIN 500 MG TAB PO SCH (09:00)
[2021-08-28] MEDS ORDERED: ENOXAPARIN 40 MG/0.4 ML SYRINGE SQ SCH ×2 (09:00)
[2021-08-28] MEDS: IPRATROPIUM-ALBUTEROL 3 ML NEB INHALATION SCH ×4 (09:01→20:59)
--- NOTE | 2021-08-28 09:13 | US ---
EXAMINATION TYPE: US venous doppler duplex LE BI DATE OF EXAM: 08/28/2021 8:37 AM COMPARISON: 03/31/2020 CLINICAL HISTORY: leg swelling. leg pain and swelling SIDE PERFORMED: Bilateral TECHNIQUE: The lower extremity deep venous system is examined utilizing real time linear array sonog breanna with graded compression, doppler sonography and color-flow sonography. VESSELS IMAGED: Common Femoral Vein Deep Femoral Vein Greater Saphenous Vein * Femoral Vein Popliteal Vein Small Saphenous Vein * Proximal Calf Veins (* superficial vessels) Right Leg: Negative for DVT Left Leg: Negative for DVT IMPRESSION: Grayscale, color doppler, spectral doppler imaging performed of the deep veins of the lo wer extremities. There is normal flow, compressibility, vascular waveforms.
[2021-08-28] MEDS: AZITHROMYCIN 500 MG TAB PO SCH (10:07)
--- NOTE | 2021-08-28 10:50 | P.HPIM ---
History of Present Illness This is a pleasant 51 years old male with past medical history of type 2 diabetes mellitus, hyperlipidemia, COPD, CVA/TIA, deep venous thrombosis, not on anticoagulation, diabetic neuropathy, Depression, nicotine dependence. He fo llows up with Dr. Sutherland. He has history of DVT in 2006, Dr. Perez operative room on aspirin and Plavix. patient presents stating he was feeling progressively congested over the last few days with little cough and yellow phlegm. And lower arterial chest pain associated with coughing only. He denies headache or weakness or numbness. No vomiting or abdominal pain but he has little watery diarrhea. No dysuria or urgency. Patient also is a smoker, less than a pack per day. He denies alcohol or i llicit drugs other than marijuana. 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 Vitals on admission are stable, he is saturating 99% on room air. Afebrile. Somewhat tachypneic with a breathing rate 16-20. mild leukocytosis of 12.3, rest of cbc is unremarkable. d-dimer is elevated at 2.5, inr is normal 0.9. sodium 133, potassium 3.4, creatinine normal 0.9. glucose is elevated 307. Liver enzymes not elevated. Troponin is -0.03 and proBNP is elevated 1-200. Influenza and Covid are undetected EKG showing normal sinus rhythm at [address]-T changes and QTC 491. Chest x-ray: Small right pleural effusion and interstitial pneumonia right lower lobe which increased compared to old exam. Normal heart In the emergency room patient received Zithromax and ceftriaxone and prednisone 60 mg 1 and continued on 40 mg daily MAPS is checked and he is on [place] 10 and gabapentin Review of Systems CONSTITUTIONAL: No fever, no malaise, no fatigue. HEENT: No recent visual problems or hearing problems. Denied any sore throat. CARDIOVASCULAR: No orthopnea, PND, no palpitations, no syncope. PULMONARY: No chest wall tenderness, no hemoptysis. GASTROINTESTINAL: No diarrhea, no nausea, no vomiting, no abdominal pain. No rmoactive bowel sounds. NEUROLOGICAL: No headaches, no weakness, no numbness. HEMATOLOGICAL: Denies any bleeding or petechiae. GENITOURINARY: Denies any burning micturition, frequency, or urgency. MUSCULOSKELETAL/RHEUMATOLOGICAL: Denies any joint pain, swelling, or any muscle pain. ENDOCRINE: Denies any polyuria or polydipsia. 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 Past Anesthesia/Blood Transfusion Reactions: No Reported Reaction Past Psychological History: Depression Additional Psychological History / Comment(s): Pt uses a cane to ambulate. He drives. He has a glucometer. Smoking Status: Current every day smoker Past Alcohol Use History: None Reported Additional Past Alcohol Use History / Comment(s): Started smoking in late teens, smokes 1.5 ppd, Past Drug Use History: Marijuana Additional Drug Use History / Comment(s): States uses daily. - Past Family History Father History Unknown: Yes Family Medical History: Coronary Artery Disease (CAD) Additional Family Medical History / Comment(s): Father had CABG and never came home from the hospital. Mother History Unknown: Yes Family Medical History: Cancer, Deep Vein Thrombosis (DVT) Additional Family Medical History / Comment(s): Mother had squamous cell carcinoma. Medications and Allergies Home Medications Medication Instructions Recorded Confirmed Type Aspirin EC [Ecotrin] 325 mg PO DAILY 03/12/19 08/27/21 History Gabapentin 1,200 mg PO TID 03/12/19 08/27/21 History HYDROcodone/APAP 10-325MG [[place] 1 tab PO QID PRN 03/12/19 08/27/21 History 10-325] Albuterol Sulfate [Ventolin HFA] 2 puff INHALATION RT-QID PRN 03/28/20 08/27/21 History Clopidogrel [Plavix] 75 mg PO DAILY 30 Days #30 tab 04/06/20 08/27/21 Rx Atorvastatin [Lipitor] 80 mg PO HS 05/09/20 08/27/21 History traZODone HCL [Desyrel] 50 mg PO HS 05/09/20 08/27/21 History Ascorbic Acid [Vitamin C] 1,000 mg PO DAILY 08/27/21 08/27/21 History Cholecalciferol [Vitamin D3 (25 25 mcg PO DAILY 08/27/21 08/27/21 History Mcg = 1000 Iu)] Dulaglutide [Trulicity] 1.5 mg SQ TU 08/27/21 08/27/21 History metFORMIN HCL [Glucophage] 1,000 mg PO BID 08/27/21 08/27/21 History Allergies Allergy/AdvReac Type Severity Reaction Status Date / Time Penicillins Allergy Severe Anaphylaxis Verified 08/27/21 22:00 talc Allergy Swelling Verified 08/27/21 22:00 pregabalin [From Lyrica] AdvReac Severe Stroke (no Verified 08/27/21 22:00 issue with neurontin) adhesive tape AdvReac Itching Verified 08/27/21 22:00 Physical Exam Vitals: Vital Signs Temp Pulse Pulse Resp BP BP Pulse Ox 08/28/21 01:35 98.1 F 87 16 129/66 99 08/28/21 00:10 85 20 158/93 08/27/21 21:54 84 08/27/21 21:48 82 08/27/21 21:36 18 08/27/21 21:07 99.2 F 96 34 H 158/81 96 Intake and Output 08/27/21 08/28/21 08/28/21 22:59 06:59 14:59 Other: # Voids 1 # Bowel Movements 1 Weight 81.647 kg 81.647 kg GENERAL: The patient is alert and oriented x3, not in any acute distress. Well developed, well nourished. HEENT: Pupils are round and equally reacting to light. EOMI. No scleral icterus. No conjunctival pallor. Normocephalic, atraumatic. No pharyngeal erythema. No thyromegaly. CARDIOVASCULAR: S1 and S2 present. No murmurs, rubs, or gallops. -PULMONARY: Chest is clear to auscultation, mild bilateral wheezing. No crackles. ABDOMEN: Soft, nontender, nondistended, normoactive bowel sounds. No palpable organomegaly. MUSCULOSKELETAL: No joint swelling or deformity. -EXTREMITIES: No cyanosis, clubbing, or pedal edema. Both legs are greater than with scaly, slightly warm which looks chronic as per patient (several weeks) NEUROLOGICAL: Gross neurological examination did not reveal any focal deficits. SKIN: No rashes. No petechiae Results CBC & Chem 7: 08/27/21 21:32 08/27/21 21:32 Labs: Abnormal Lab Results - Last 24 Hours (Table) 08/27/21 08/27/21 08/27/21 Range/Units 21:32 21:32 21:32 WBC 12.3 H (3.8-10.6) k/uL Neutrophils # 7.9 H (1.3-7.7) k/uL D-Dimer 2.56 H (<0.60) mg/L FEU Sodium 133 L (137-145) mmol/L Potassium 3.4 L (3.5-5.1) mmol/L Chloride 96 L (98-107) mmol/L Carbon Dioxide 31 H (22-30) mmol/L Glucose 307 H (74-99) mg/dL Calcium 7.9 L (8.4-10.2) mg/dL Alkaline Phosphatase 159 H (38-126) U/L Total Protein 5.2 L (6.3-8.2) g/dL Albumin 2.9 L (3.5-5.0) g/dL Thrombosis Risk Factor Assmnt - Choose All That Apply Each Factor Represents 1 point: Abnormal pulmonary function (COPD), Age 41-60 years, Obesity (BMI >25) Each Risk Factor Represents 3 Points: History of DVT/PE Thrombosis Risk Factor Assessment Total Risk Factor Score: 6 Thrombosis Risk Factor Assessment Level: High Risk Assessment and Plan Assessment: The right lower lobe pneumonia Acute COPD exacerbation Nicotine dependence Bilateral lower extremity dermatitis with scheduling Type 2 diabetes mellitus Hyperlipidemia History of deep venous thrombosis History of CVA Plan: This is a pleasant 51 years old male who presents with COPD exacerbation and pneumonia continue with ceftriaxone and Zithromax. Follow-up culture results Continue with steroids, bronchodilators and oxygen as needed. Check pro-calcitonin Pulmonary consult Doppler of the lower extremities Labs and medication were reviewed.. Continue same treatment. Continue with symptomatic treatment. Resume home medication. Monitor lytes and vitals. DVT and GI prophylaxis. Further recommendations depends on the clinical course of the patient DVT prophylaxis: Subcutaneous heparin GI Prophylaxis: Pepcid PT/OT: Pending Prognosis is guarded
[2021-08-28] MEDS: guaiFENesin-DM 100-10MG/5ML 10 ML CUP PO SCH ×2 (11:45→16:27)
--- NOTE | 2021-08-28 14:04 | P.CNPUL ---
History of Present Illness Consult date: 08/28/21 Requesting physician: Saba Jauregui Reason for consult: dyspnea, cough, COPD, hypoxemia, pneumonia, abnormal CXR/CT Chief complaint: Shortness of breath. History of present illness: Pulmonary consult dated 08/28/2021. 51-year-old male who comes to the emergency room on August 27, complaining of shor tness of breath, cough, chest congestion, and phlegm production. The patient was seen in the emergency department, and admitted with a diagnosis of COPD exacerbation, and pneumonia. The patient has a history of heavy tobacco use. He's been smoking for more than 35 years. He continues to smoke up until the time of his admission. He has a history of COPD, CVA, diabetes, DVT, hyperlipidemia, and cellulitis of the lower extremities. He also has a history of diabetic neuropathy, and depression. White count 12.3, hemoglobin hematocrit and platelet count all normal. D-dimer was 2.56. Sodium 133, potassium 3.4, chlorides 96, CO2 31, anion gap 6, BUN 10, creatinine 0.92. His N-terminal proB MAT REPAIRER was 12,200. His troponin was 0.031. His pro-calcitonin level was 0.88. His albumin level was 2.9. He tested negative for coronavirus. His chest x-ray was consistent with right lower lobe pneumonia. Dopplers of the lower extremities were negative for DVT. When asked, the patient does feel a bit better today than when he first came in. Review of Systems REVIEW OF SYSTEMS: CONSTITUTIONAL: [Negative.] NEUROLOGIC: [ Negative.] HEENT: [ Negative.] CARDIAC: Chronic cellulitis of lower extremities. PULMONARY: Shortness of breath, cough, wheezing, chest congestion, and phlegm production. GI: [Negative.] : [Negative.] RHEUMATOLOGIC: [ Negative.] IMMUNOLOGIC: [ Negative.] ENDOCRINE: [Negative. 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 Past Anesthesia/Blood Transfusion Reactions: No Reported Reaction Past Psychological History: Depression Additional Psychological History / Comment(s): Pt uses a cane to ambulate. He drives. He has a glucometer. Smoking Status: Current every day smoker Past Alcohol Use History: None Reported Additional Past Alcohol Use History / Comment(s): Started smoking in late teens, smokes 1.5 ppd, Past Drug Use History: Marijuana Additional Drug Use History / Comment(s): States uses daily. - Past Family History Father History Unknown: Yes Family Medical History: Coronary Artery Disease (CAD) Additional Family Medical History / Comment(s): Father had CABG and never came home from the hospital. Mother History Unknown: Yes Family Medical History: Cancer, Deep Vein Thrombosis (DVT) Additional Family Medical History / Comment(s): Mother had squamous cell carcinoma. Medications and Allergies Home Medications Medication Instructions Recorded Confirmed Type Aspirin EC [Ecotrin] 325 mg PO DAILY 03/12/19 08/27/21 History Gabapentin 1,200 mg PO TID 03/12/19 08/27/21 History HYDROcodone/APAP 10-325MG [Depauw 1 tab PO QID PRN 03/12/19 08/27/21 History 10-325] Albuterol Sulfate [Ventolin HFA] 2 puff INHALATION RT-QID PRN 03/28/20 08/27/21 History Clopidogrel [Plavix] 75 mg PO DAILY 30 Days #30 tab 04/06/20 08/27/21 Rx Atorvastatin [Lipitor] 80 mg PO HS 05/09/20 08/27/21 History traZODone HCL [Desyrel] 50 mg PO HS 05/09/20 08/27/21 History Ascorbic Acid [Vitamin C] 1,000 mg PO DAILY 08/27/21 08/27/21 History Cholecalciferol [Vitamin D3 (25 25 mcg PO DAILY 08/27/21 08/27/21 History Mcg = 1000 Iu)] Dulaglutide [Trulicity] 1.5 mg SQ TU 08/27/21 08/27/21 History metFORMIN HCL [Glucophage] 1,000 mg PO BID 08/27/21 08/27/21 History Allergies Allergy/AdvReac Type Severity Reaction Status Date / Time Penicillins Allergy Severe Anaphylaxis Verified 08/27/21 22:00 talc Allergy Swelling Verified 08/27/21 22:00 pregabalin [From Lyrica] AdvReac Severe Stroke (no Verified 08/27/21 22:00 issue with neurontin) adhesive tape AdvReac Itching Verified 08/27/21 22:00 Physical Exam Osteopathic Statement: *. No significant issues noted on an osteopathic structural exam other than those noted in the History and Physical/Consult. Vitals: Vital Signs Temp Pulse Pulse Resp BP BP Pulse Ox 08/28/21 12:18 72 08/28/21 12:08 68 08/28/21 09:13 80 08/28/21 09:01 80 08/28/21 06:50 98.5 F 67 17 148/56 98 08/28/21 01:35 98.1 F 87 16 129/66 99 08/28/21 00:10 85 20 158/93 08/27/21 21:54 84 08/27/21 21:48 82 08/27/21 21:36 18 08/27/21 21:07 99.2 F 96 34 H 158/81 96 Intake and Output 08/27/21 08/28/21 08/28/21 22:59 06:59 14:59 Other: # Voids 1 # Bowel Movements 1 Weight 81.647 kg 81.647 kg No acute distress, oriented 3. No conversational dyspnea or use of accessory muscles. The patient's on 2 L of nasal cannula. HEENT examination is grossly unremarkable. Neck supple. Full range of motion. No adenopathy thyromegaly or neck vein distention. Cardiovascular examination reveals regular rhythm rate. S1-S2 normal. No S3 or S4. No discernible murmur noted. Heart rate 72 bpm. Lungs reveal coarse inspiratory and expiratory wheezes and rhonchi. Crackles at the right base. Breath sounds are diminished throughout. Saturations are 94% on 2 L. Abdomen soft bowel sounds are heard. No masses or tenderness. Extremities are intact. No cyanosis or clubbing. Chronic cellulitis and chronic venous stasis changes noted to the lower extremities. Skin is without rash or lesion. Neurologic examination is brief but nonfocal. Results - Laboratory Findings CBC and BMP: 08/27/21 21:32 08/27/21 21:32 PT/INR, D-dimer PT 10.4 sec (9.0-12.0) 08/27/21 21:32 INR 0.9 (<1.2) 08/27/21 21:32 D-Dimer 2.56 mg/L FEU (<0.60) H 08/27/21 21:32 Abnormal lab findings: Abnormal Labs 08/27/21 08/27/21 08/27/21 21:32 21:32 21:32 WBC 12.3 H Neutrophils # 7.9 H D-Dimer 2.56 H Sodium 133 L Potassium 3.4 L Chloride 96 L Carbon Dioxide 31 H Glucose 307 H POC Glucose (mg/dL) Calcium 7.9 L Alkaline Phosphatase 159 H Total Protein 5.2 L Albumin 2.9 L Procalcitonin 08/28/21 08/28/21 07:47 08:00 WBC Neutrophils # D-Dimer Sodium Potassium Chloride Carbon Dioxide Glucose POC Glucose (mg/dL) 357 H Calcium Alkaline Phosphatase Total Protein Albumin Procalcitonin 0.88 H - Diagnostic Findings Chest x-ray: image reviewed U/S of Legs: image reviewed Assessment and Plan Assessment: Acute hypoxemic respiratory failure secondary to COPD exacerbation, complicated by right lower lobe pneumonia. Ongoing tobacco use, and nicotine addiction. History of CVA. History of diabetes mellitus and diabetic neuropathy. History of DVT. History of hyperlipidemia. History of pneumonia. Plan: Plan dated 08/28/2021. The patient's on Rocephin and azithromycin. The patient is also getting DuoNeb treatments. Patient is getting prednisone 60 mg a day. We added Symbicort 160/4.5, 2 puffs twice a day. The patient is counseled about the importance of smoking cessation. No additional recommendations are made. X-rays and ultrasounds of the lower extremities are reviewed. Labs and medications are reviewed. We will continue to follow and make recommendations where appropriate. Prognosis is guarded. Time with Patient: Greater than 30
[2021-08-28 16:24] LABS: Glucose,Whole Blood 447 mg/dL (75-99)
[2021-08-28] MEDS: SYMBICORT 160-4.5 MCG INHALER INHALATION SCH (20:59)
[2021-08-28 21:29] LABS: Glucose,Whole Blood 292 mg/dL (75-99)
[2021-08-28] MEDS: traZODone HCL 50 MG TAB PO SCH (21:50)
[2021-08-28] MEDS: ATORVASTATIN 80 MG TAB PO SCH (21:51)
[2021-08-28] MEDS: FAMOTIDINE 20 MG TAB PO SCH (21:51)
[2021-08-29] MEDS: guaiFENesin-DM 100-10MG/5ML 10 ML CUP PO SCH ×3 (00:49→17:50)
[2021-08-29 00:52] VITALS: RESP 16
[2021-08-29] MEDS: HYDROcodone/APAP 10-325MG 1 EACH TAB PO PRN ×3 (05:13→17:49)
[2021-08-29 06:48] LABS: Glucose,Whole Blood 221 mg/dL (75-99)
[2021-08-29] MEDS: AZITHROMYCIN 500 MG TAB PO SCH (07:52)
[2021-08-29] MEDS: predniSONE 20 MG TAB PO SCH (07:52)
[2021-08-29] MEDS: metFORMIN 500 MG TAB PO SCH ×2 (07:52→20:22)
[2021-08-29] MEDS: HEPARIN SODIUM,PORCINE/PF 5,000 UNIT/0.5 ML SYRINGE SQ SCH ×2 (07:52→20:22)
[2021-08-29] MEDS: CLOPIDOGREL 75 MG TAB PO SCH (07:52)
[2021-08-29] MEDS: GABAPENTIN 400 MG CAP PO SCH ×3 (07:52→20:22)
[2021-08-29] MEDS: LINAGLIPTIN 5 MG TABLET PO SCH (07:53)
[2021-08-29] MEDS: FAMOTIDINE 20 MG TAB PO SCH ×2 (07:53→20:22)
[2021-08-29] MEDS: INSULIN ASPART (NovoLOG) 100 UNIT/ML VIAL SQ SCH ×4 (07:56→23:31)
[2021-08-29] MEDS: SYMBICORT 160-4.5 MCG INHALER INHALATION SCH ×2 (09:00→20:16)
[2021-08-29] MEDS: IPRATROPIUM-ALBUTEROL 3 ML NEB INHALATION SCH ×4 (09:00→20:16)
[2021-08-29 09:33] LABS: Basophils # (A) 0.02 X 10*3/uL (0.00-0.10); Basophils % (A) 0.2 %; Eosinophils # (A) 0.05 X 10*3/uL (0.04-0.35); Eosinophils % (A) 0.5 %; HCT 35.6 % (39.6-50.0); HGB 11.3 g/dL (13.0-17.0); Immature Grans, Automated 0.4 %; Lymphocytes # (A) 3.56 X 10*3/uL (0.90-5.00); Lymphocytes % (A) 36.5 %; MCHC 31.7 g/dL (32.0-37.0); MCV 85.2 fL (80.0-97.0); Mean Platelet Volume 9.7 fL (9.5-12.2); Monocytes # (A) 0.71 X 10*3/uL (0.20-1.00); Monocytes % (A) 7.3 %; NRBC Per 100 WBC 0 /100 WBCS (0.0-0.0); Neutrophils # (A) 5.37 X 10*3/uL (1.80-7.70); Neutrophils % (A) 55.1 %; Platelet Count 220 X 10*3/uL (140-440); RBC 4.18 X 10*6/uL (4.40-5.60); RDW 15.3 % (11.5-14.5); WBC 9.75 X 10*3/uL (4.50-10.00)
[2021-08-29 09:43] LABS: African American GFR (CKD) 113.4 (60.0-200.0); Anion Gap 10.9 mmol/L (10.00-18.00); BUN/Creat Ratio 11.44 Ratio (12.00-20.00); Blood Urea Nitrogen 10.3 mg/dL (9.0-27.0); Carbon Dioxide 28.1 mmol/L (20.0-27.5); Magnesium 1.8 mg/dL (1.5-2.4); Non-African American GFR(CKD) 97.9 (60.0-200.0); Potassium 3.3 mmol/L (3.5-5.5)
[2021-08-29 11:00] LABS: Glucose,Whole Blood 135 mg/dL (75-99)
--- NOTE | 2021-08-29 13:24 | P.PN ---
Subjective Progress Note Date: 08/29/21 Principal diagnosis: Shortness of breath 51-year-old male who comes to the emergency room on August 27, complaining of shortness of breath, cough, chest congestion, and phlegm production. The patient was seen in the emergency department, and admitted with a diagnosis of COPD exacerbation, and pneumonia. The patient has a history of heavy tobacco use. He's been smoking for more than 35 years. He continues to smoke up until the time of his admission. He has a history of COPD, CVA, diabetes, DVT, hyperlipidemia, and cellulitis of the lower extremities. He also has a history of diabetic neuropathy, and depression. White count 12.3, hemoglobin hematocrit and platelet count all normal. D-dimer was 2.56. Sodium 133, potassium 3.4, chlorides 96, CO2 31, anion gap 6, BUN 10, creatinine 0.92. His N-terminal proBNP was 12,200. His troponin was 0.031. His pro-calcitonin level was 0.88. His albumin level was 2.9. He tested negative for coronavirus. His chest x-ray was consistent with right lower lobe pneumonia. Dopplers of the lower extremities were negative for DVT. When asked, the patient does feel a bit better today than when he first came in. On 08/29/2021 patient is seen in follow-up on medical surgical floor. Patient states she is doing better, breathing easier, room air pulse ox is 97%, she is being treated for right lower lobe pneumonia, she is on azithromycin and Rocephin for antibiotic coverage, her pro-calcitonin level did come back elevated to 0.55, but clinically patient is stable, and seems to be improving. Vital signs have been stable, blood cultures have been sent and pending. Patient remains on nebulized bronchodilators and oral prednisone. Objective - Vital Signs Vital signs: Vital Signs Temp 97.6 F 08/29/21 08:00 Pulse 70 08/29/21 09:11 Resp 16 08/29/21 00:51 BP 134/64 08/29/21 08:00 Pulse Ox 97 08/29/21 08:00 Intake & Output 08/28/21 08/29/21 08/29/21 18:59 06:59 18:59 Output Total 675 Balance -675 Output: Urine 675 Other: # Voids 2 - Exam GENERAL EXAM: Alert, very pleasant, 51-year-old white female, on room air with a pulse ox of 97% comfortable in no apparent distress. HEAD: Normocephalic/atraumatic. EYES: Normal reaction of pupils, equal size. Conjunctiva pink, sclera white. NOSE: Clear with pink turbinates. THROAT: No erythema or exudates. NECK: No masses, no JVD, no thyroid enlargement, no adenopathy. CHEST: No chest wall deformity. Symmetrical expansion. LUNGS: Equal air entry with no crackles, wheeze, rhonchi or dullness. CVS: Regular rate and rhythm, normal S1 and S2, no gallops, no murmurs, no rubs ABDOMEN: Soft, nontender. No hepatosplenomegaly, normal bowel sounds, no guarding or rigidity. EXTREMITIES: No clubbing, no edema, no cyanosis, 2+ pulses and upper and lower extremities. MUSCULOSKELETAL: Muscle strength and tone normal. SPINE: No scoliosis or deformity SKIN: No rashes CENTRAL NERVOUS SYSTEM: Alert and oriented -3. No focal deficits, tone is normal in all 4 extremities. PSYCHIATRIC: Alert and oriented -3. Appropriate affect. Intact judgment and insight. - Labs CBC & Chem 7: 08/29/21 05:32 08/29/21 05:32 Labs: Abnormal Lab Results - Last 24 Hours (Table) 08/28/21 08/28/21 08/29/21 Range/Units 16:21 21:28 05:32 RBC (4.40-5.60) X 10*6/uL Hgb (13.0-17.0) g/dL Hct (39.6-50.0) % MCHC (32.0-37.0) g/dL RDW (11.5-14.5) % Potassium (3.5-5.5) mmol/L Carbon Dioxide (20.0-27.5) mmol/L BUN/Creatinine Ratio (12.00-20.00) Ratio Glucose (70-110) mg/dL POC Glucose (mg/dL) 447 H 292 H (75-99) mg/dL Calcium (8.7-10.3) mg/dL Procalcitonin 0.55 H (0.02-0.09) ng/mL 08/29/21 08/29/21 08/29/21 Range/Units 05:32 05:32 06:47 RBC 4.18 L (4.40-5.60) X 10*6/uL Hgb 11.3 L (13.0-17.0) g/dL Hct 35.6 L (39.6-50.0) % MCHC 31.7 L (32.0-37.0) g/dL RDW 15.3 H (11.5-14.5) % Potassium 3.3 L (3.5-5.5) mmol/L Carbon Dioxide 28.1 H (20.0-27.5) mmol/L BUN/Creatinine Ratio 11.44 L (12.00-20.00) Ratio Glucose 252 H (70-110) mg/dL POC Glucose (mg/dL) 221 H (75-99) mg/dL Calcium 8.0 L (8.7-10.3) mg/dL Procalcitonin (0.02-0.09) ng/mL 08/29/21 Range/Units 10:59 RBC (4.40-5.60) X 10*6/uL Hgb (13.0-17.0) g/dL Hct (39.6-50.0) % MCHC (32.0-37.0) g/dL RDW (11.5-14.5) % Potassium (3.5-5.5) mmol/L Carbon Dioxide (20.0-27.5) mmol/L BUN/Creatinine Ratio (12.00-20.00) Ratio Glucose (70-110) mg/dL POC Glucose (mg/dL) 135 H (75-99) mg/dL Calcium (8.7-10.3) mg/dL Procalcitonin (0.02-0.09) ng/mL Microbiology - Last 24 Hours (Table) 08/27/21 23:42 Blood Culture - Preliminary Blood No Growth after 24 hours 08/27/21 23:42 Blood Culture - Preliminary Blood No Growth after 24 hours Assessment and Plan Plan: Assessment: #1. Acute hypoxic respiratory failure secondary to acute exacerbation of COPD, complicated by right lower lobe pneumonia, possibly aspiration related #2. Chronic and ongoing history of tobacco use and nicotine addiction #3. History of COPD #4. History of CVA/TIA #5. History of DVT not any anticoagulation #6. Diabetes mellitus type 2 with diabetic neuropathy #7. Depression #8. Occasional chronic dysphagia, with previous history of aspiration pneumonia Plan: Continue current antibiotic coverage Clinically stable, and feeling better Patient is on room air, no acute events overnight Follow-up LEVEL IS IMPROVING No fever or chills Patient can be considered for discharge home today on seven-day course of oral Levaquin 500 mg daily, prednisone taper, and patient can continue on home ne bulized albuterol I have personally seen and examined the patient, performed the documentation and the assessment and plan as written. Number of minutes spent on the visit: [10] Time with Patient: Less than 30
[2021-08-29 16:39] LABS: Glucose,Whole Blood 296 mg/dL (75-99)
[2021-08-29] MEDS ORDERED: POTASSIUM CHLORIDE ER 20 MEQ TAB.ER PO STA (19:25)
--- NOTE | 2021-08-29 19:25 | P.PN ---
Subjective This is a pleasant 51 years old male with past medical history of type 2 diabetes mellitus, hyperlipidemia, COPD, CVA/TIA, deep venous thrombosis, not on anticoagulation, diabetic neuropathy, Depression, nicotine dependence. He follows up with Dr. Sutherland. He has history of DVT in 2006, Dr. Perez operative room on aspirin and Plavix. patient presents stating he was feeling progressively congested over the last few days with little cough and yellow phlegm. And lower arterial chest pain associated with coughing only. He denies headache or weakness or numbness. No vomiting or abdominal pain but he has little watery diarrhea. No dysuria or urgency. Patient also is a smoker, less than a pack per day. He denies alcohol or illicit drugs other than marijuana. He does not follow up with service consultant, he is not on home oxygen on steroids. Vitals on admission are stable, he is saturating 99% on room air. Afebrile. Somewhat tachypneic with a breathing rate 16-20. mild leukocytosis of 12.3, rest of cbc is unremarkable. d-dimer is elevated at 2.5, inr is normal 0.9. sodium 133, potassium 3.4, creatinine normal 0.9. glucose is elevated 307. Liver enzymes not elevated. Troponin is -0.03 and proBNP is elevated 1-200. Influenza and Covid are undetected EKG showing normal sinus rhythm at [address]-T changes and QTC 491. Chest x-ray: Small right pleural effusion and interstitial pneumonia right lower lobe which increased compared to old exam. Normal heart In the emergency room patient received Zithromax and ceftriaxone and prednisone 60 mg 1 and continued on 40 mg daily MAPS is checked and he is on [place] 10 and gabapentin 08/29/2021 Patient is a woman clinically, no dyspnea or chest pain. He is walking fine on room air. He remains on Zithromax and ceftriaxone and prednisone Discharge once cleared by pulmonary team Objective - Vital Signs Vital signs: Vital Signs Temp 97.6 F 08/29/21 08:00 Pulse 70 08/29/21 09:11 Resp 16 08/29/21 00:51 BP 134/64 08/29/21 08:00 Pulse Ox 97 08/29/21 08:00 Intake & Output 08/28/21 08/29/21 08/29/21 18:59 06:59 18:59 Output Total 675 Balance -675 Output: Urine 675 Other: # Voids 2 - Exam GENERAL: The patient is alert and oriented x3, not in any acute distress. Well developed, well nourished. HEENT: Pupils are round and equally reacting to light. EOMI. No scleral icterus. No conjunctival pallor. Normocephalic, atraumatic. No pharyngeal erythema. No thyromegaly. CARDIOVASCULAR: S1 and S2 present. No murmurs, rubs, or gallops. PULMONARY: Chest is clear to auscultation, no wheezing or crackles. ABDOMEN: Soft, nontender, nondistended, normoactive bowel sounds. No palpable organomegaly. MUSCULOSKELETAL: No joint swelling or deformity. EXTREMITIES: No cyanosis, clubbing, or pedal edema. NEUROLOGICAL: Gross neurological examination did not reveal any focal deficits. SKIN: No rashes. no petechiae. - Labs CBC & Chem 7: 08/29/21 05:32 08/29/21 05:32 Labs: Abnormal Lab Results - Last 24 Hours (Table) 08/28/21 08/28/21 08/29/21 Range/Units 16:21 21:28 05:32 RBC (4.40-5.60) X 10*6/uL Hgb (13.0-17.0) g/dL Hct (39.6-50.0) % MCHC (32.0-37.0) g/dL RDW (11.5-14.5) % Potassium (3.5-5.5) mmol/L Carbon Dioxide (20.0-27.5) mmol/L BUN/Creatinine Ratio (12.00-20.00) Ratio Glucose (70-110) mg/dL POC Glucose (mg/dL) 447 H 292 H (75-99) mg/dL Calcium (8.7-10.3) mg/dL Procalcitonin 0.55 H (0.02-0.09) ng/mL 08/29/21 08/29/21 08/29/21 Range/Units 05:32 05:32 06:47 RBC 4.18 L (4.40-5.60) X 10*6/uL Hgb 11.3 L (13.0-17.0) g/dL Hct 35.6 L (39.6-50.0) % MCHC 31.7 L (32.0-37.0) g/dL RDW 15.3 H (11.5-14.5) % Potassium 3.3 L (3.5-5.5) mmol/L Carbon Dioxide 28.1 H (20.0-27.5) mmol/L BUN/Creatinine Ratio 11.44 L (12.00-20.00) Ratio Glucose 252 H (70-110) mg/dL POC Glucose (mg/dL) 221 H (75-99) mg/dL Calcium 8.0 L (8.7-10.3) mg/dL Procalcitonin (0.02-0.09) ng/mL 08/29/21 Range/Units 10:59 RBC (4.40-5.60) X 10*6/uL Hgb (13.0-17.0) g/dL Hct (39.6-50.0) % MCHC (32.0-37.0) g/dL RDW (11.5-14.5) % Potassium (3.5-5.5) mmol/L Carbon Dioxide (20.0-27.5) mmol/L BUN/Creatinine Ratio (12.00-20.00) Ratio Glucose (70-110) mg/dL POC Glucose (mg/dL) 135 H (75-99) mg/dL Calcium (8.7-10.3) mg/dL Procalcitonin (0.02-0.09) ng/mL Microbiology - Last 24 Hours (Table) 08/27/21 23:42 Blood Culture - Preliminary Blood No Growth after 24 hours 08/27/21 23:42 Blood Culture - Preliminary Blood No Growth after 24 hours Assessment and Plan Assessment: The right lower lobe pneumonia Acute COPD exacerbation Nicotine dependence Bilateral lower extremity dermatitis with scheduling Type 2 diabetes mellitus Hyperlipidemia History of deep venous thrombosis History of CVA Plan: This is a pleasant 51 years old male who presents with COPD exacerbation and pneumonia continue with ceftriaxone and Zithromax. Follow-up culture results Continue with steroids, bronchodilators and oxygen as needed. Check pro-calcitonin Pulmonary consult Doppler of the lower extremities Labs and medication were reviewed.. Continue same treatment. Continue with symptomatic treatment. Resume home medication. Monitor lytes and vitals. DVT and GI prophylaxis. Further recommendations depends on the clinical course of the patient DVT prophylaxis: Subcutaneous heparin GI Prophylaxis: Pepcid PT/OT: Pending Prognosis is guarded
[2021-08-29] MEDS: traZODone HCL 50 MG TAB PO SCH (20:22)
[2021-08-29] MEDS: ATORVASTATIN 80 MG TAB PO SCH (20:22)
[2021-08-29 22:04] LABS: Glucose,Whole Blood 246 mg/dL (75-99)
[2021-08-30] MEDS: guaiFENesin-DM 100-10MG/5ML 10 ML CUP PO SCH ×2 (01:09→09:13)
[2021-08-30] MEDS: HYDROcodone/APAP 10-325MG 1 EACH TAB PO PRN ×2 (01:11→08:41)
[2021-08-30 07:18] LABS: Glucose,Whole Blood 160 mg/dL (75-99)
[2021-08-30] MEDS: IPRATROPIUM-ALBUTEROL 3 ML NEB INHALATION SCH (08:22)
[2021-08-30] MEDS: SYMBICORT 160-4.5 MCG INHALER INHALATION SCH (08:22)
[2021-08-30 08:54] VITALS: BP 157/87; PULSE 76; TEMP 98.5
[2021-08-30] MEDS: predniSONE 20 MG TAB PO SCH (09:12)
[2021-08-30] MEDS: metFORMIN 500 MG TAB PO SCH (09:12)
[2021-08-30] MEDS: AZITHROMYCIN 500 MG TAB PO SCH (09:12)
[2021-08-30] MEDS: GABAPENTIN 400 MG CAP PO SCH (09:12)
[2021-08-30] MEDS: FAMOTIDINE 20 MG TAB PO SCH (09:12)
[2021-08-30] MEDS: CLOPIDOGREL 75 MG TAB PO SCH (09:12)
[2021-08-30] MEDS: LINAGLIPTIN 5 MG TABLET PO SCH (09:12)
[2021-08-30] MEDS: INSULIN ASPART (NovoLOG) 100 UNIT/ML VIAL SQ SCH (09:12)
[2021-08-30] MEDS: HEPARIN SODIUM,PORCINE/PF 5,000 UNIT/0.5 ML SYRINGE SQ SCH (09:13)
[2021-08-30 09:18] LABS: Magnesium 1.8 mg/dL (1.5-2.4)
--- NOTE | 2021-08-30 14:14 | P.PN ---
Subjective Progress Note Date: 08/30/21 Principal diagnosis: Shortness of breath 51-year-old male who comes to the emergency room on August 27, complaining of shortness of breath, cough, chest congestion, and phlegm production. The patient was seen in the emergency department, and admitted with a diagnosis of COPD exacerbation, and pneumonia. The patient has a history of heavy tobacco use. He's been smoking for more than 35 years. He continues to smoke up until the time of his admission. He has a history of COPD, CVA, diabetes, DVT, hyperlipidemia, and cellulitis of the lower extremities. He also has a history of diabetic neuropathy, and depression. White count 12.3, hemoglobin hematocrit and platelet count all normal. D-dimer was 2.56. Sodium 133, potassium 3.4, chlorides 96, CO2 31, anion gap 6, BUN 10, creatinine 0.92. His N-terminal proBNP was 12,200. His troponin was 0.031. His pro-calcitonin level was 0.88. His albumin level was 2.9. He tested negative for coronavirus. His chest x-ray was consistent with right lower lobe pneumonia. Dopplers of the lower extremities were negative for DVT. When asked, the patient does feel a bit better today than when he first came in. On 08/29/2021 patient is seen in follow-up on medical surgical floor. Patient states she is doing better, breathing easier, room air pulse ox is 97%, she is being treated for right lower lobe pneumonia, she is on azithromycin and Rocephin for antibiotic coverage, her pro-calcitonin level did come back elevated to 0.55, but clinically patient is stable, and seems to be improving. Vital signs have been stable, blood cultures have been sent and pending. Patient remains on nebulized bronchodilators and oral prednisone. On 08/30/2021 patient seen in follow-up on medical surgical floor. He is awake and alert, in no acute distress, breathing comfortably, feeling much better, room air pulse ox is 96-97%, afebrile, hemodynamically stable. His had no acute events overnight, no fever or chills. Cultures have shown no growth, patient has been treated with Rocephin and azithromycin, oral steroids and nebulized bronchodilators. This follow-up pro-calcitonin level was improving and is down to 0.55 yesterday's labs. No complaints of chest discomfort, no hemoptysis. From pulmonary perspective patient has been stable, improved, and can go home today Objective - Vital Signs Vital signs: Vital Signs Temp 98.5 F 08/30/21 08:00 Pulse 80 08/30/21 08:36 Resp 16 08/30/21 02:00 BP 157/87 08/30/21 08:00 Pulse Ox 96 08/30/21 08:00 Intake & Output 08/29/21 08/30/21 08/30/21 18:59 06:59 18:59 Output Total 450 Balance -450 Output: Urine 450 Other: Voiding Method Urinal # Voids 6 2 - Exam GENERAL EXAM: Alert, very pleasant, 51-year-old white female, on room air with a pulse ox of 97% comfortable in no apparent distress. HEAD: Normocephalic/atraumatic. EYES: Normal reaction of pupils, equal size. Conjunctiva pink, sclera white. NOSE: Clear with pink turbinates. THROAT: No erythema or exudates. NECK: No masses, no JVD, no thyroid enlargement, no adenopathy. CHEST: No chest wall deformity. Symmetrical expansion. LUNGS: Equal air entry with no crackles, wheeze, rhonchi or dullness. CVS: Regular rate and rhythm, normal S1 and S2, no gallops, no murmurs, no rubs ABDOMEN: Soft, nontender. No hepatosplenomegaly, normal bowel sounds, no guarding or rigidity. EXTREMITIES: No clubbing, no edema, no cyanosis, 2+ pulses and upper and lower extremities. MUSCULOSKELETAL: Muscle strength and tone normal. SPINE: No scoliosis or deformity SKIN: No rashes CENTRAL NERVOUS SYSTEM: Alert and oriented -3. No focal deficits, tone is normal in all 4 extremities. PSYCHIATRIC: Alert and oriented -3. Appropriate affect. Intact judgment and insight. - Labs CBC & Chem 7: 08/29/21 05:32 08/30/21 04:54 Labs: Abnormal Lab Results - Last 24 Hours (Table) 08/29/21 08/29/21 08/30/21 Range/Units 16:38 22:02 07:11 POC Glucose (mg/dL) 296 H 246 H 160 H (75-99) mg/dL Microbiology - Last 24 Hours (Table) 08/27/21 23:42 Blood Culture - Preliminary Blood No Growth after 48 hours 08/27/21 23:42 Blood Culture - Preliminary Blood No Growth after 48 hours Assessment and Plan Plan: Assessment: #1. Acute hypoxic respiratory failure secondary to acute exacerbation of COPD, complicated by right lower lobe pneumonia, possibly aspiration related #2. Chronic and ongoing history of tobacco use and nicotine addiction #3. History of COPD #4. History of CVA/TIA #5. History of DVT not any anticoagulation #6. Diabetes mellitus type 2 with diabetic neuropathy #7. Depression #8. Occasional chronic dysphagia, with previous history of aspiration pneumonia Plan: No acute events overnight Vital signs have been stable clean Breathing easier, tolerating ambulation Follow-up is improving No growth on blood cultures Clear for discharge home today Patient can complete a seven-day course of oral Levaquin, prednisone taper Outpatient follow-up with Dr. Dinh in the office in 7-10 days I have personally seen and examined the patient, performed the documentation and the assessment and plan as written. Number of minutes spent on the visit: [10] Time with Patient: Less than 30
--- NOTE | 2021-08-30 16:58 | P.DS ---
Providers Date of admission: 08/27/21 23:50 Attending physician: Saba Jauregui Consults: 08/28/21 07:31 Consult Physician Urgent Consulting Provider: Michael Dinh Consult Reason/Comments: pna Do you want consulting provider notified?: Yes Primary care physician: Crista Carrington Hospital Course: Diagnoses: right lower lobe pneumonia Acute COPD exacerbation Nicotine dependence Bilateral lower extremity dermatitis with scheduling Type 2 diabetes mellitus Hyperlipidemia History of deep venous thrombosis History of CVA Hospital course: This is a pleasant 51 years old male with past medical history of type 2 diabetes mellitus, hyperlipidemia, COPD, CVA/TIA, deep venous thrombosis, not on anticoagulation, diabetic neuropathy, Depression, nicotine dependence. He follows up with Dr. Sutherland. He has history of DVT in 2005, he is on aspirin and Plavix by his PCP. He presents with mild respiratory symptoms found to be secondary to right lower lobe pneumonia and acute COPD exacerbation responded to treatment with prednisone treatment and antibiotic Zithromax and ceftriaxone. Patient developed also by pulmonary service. He was doing well and continued to improve. He was cleared for discharge by pulmonary team area on the day of discharge she denies chest pain or dyspnea. No abdominal pain. No change in urine or bowel habits. No fever. Patient was agreeable to go home today and follow-up as an outpatient. Problems and management plan were discussed with the patient and he verbalized understanding and acceptance Patient was found stable and can be discharged home however he needs follow-up as an outpatient. Patient was instructed to follow up with PCP Dr. Sutheralnd/Dr. Crista gallo within one week and patient agrees Patient was instructed to follow up with [employer] [address] [employer] [address] Dinh in 1-2 weeks and he agrees to call and make appointment Physical exam Gen: patient is a AAOx3, no distress CVS: S1-S2, RRR, no murmur Lungs: B/L CTA, no wheezing Abdomen: soft, no distention, no tenderness, positive bowel sounds Extremity: no leg edema or induration Time spent more than 35 minutes Patient Condition at Discharge: Fair Plan - Discharge Summary Discharge Rx Participant: Yes New Discharge Prescriptions: New Famotidine [Pepcid] 20 mg PO BID #60 tab Levofloxacin [Levaquin] 500 mg PO DAILY 7 Days #7 tab predniSONE 0 mg PO DIRECTED 12 Days #30 tab Continue Aspirin EC [Ecotrin] 325 mg PO DAILY HYDROcodone/APAP 10-325MG [[place] 10-325] 1 tab PO QID PRN PRN Reason: Pain Gabapentin 1,200 mg PO TID Albuterol Sulfate [Ventolin HFA] 2 puff INHALATION RT-QID PRN PRN Reason: Shortness Of Breath Clopidogrel [Plavix] 75 mg PO DAILY 30 Days #30 tab traZODone HCL [Desyrel] 50 mg PO HS Atorvastatin [Lipitor] 80 mg PO HS Cholecalciferol [Vitamin D3 (25 Mcg = 1000 Iu)] 25 mcg PO DAILY Ascorbic Acid [Vitamin C] 1,000 mg PO DAILY metFORMIN HCL [Glucophage] 1,000 mg PO BID Dulaglutide [Trulicity] 1.5 mg SQ TU Discharge Medication List Aspirin EC [Ecotrin] 325 mg PO DAILY 03/12/19 [History] Gabapentin 1,200 mg PO TID 03/12/19 [History] HYDROcodone/APAP 10-325MG [[place] 10-325] 1 tab PO QID PRN 03/12/19 [History] Albuterol Sulfate [Ventolin HFA] 2 puff INHALATION RT-QID PRN 03/28/20 [History] Clopidogrel [Plavix] 75 mg PO DAILY 30 Days #30 tab 04/06/20 [Rx] Atorvastatin [Lipitor] 80 mg PO HS 05/09/20 [History] traZODone HCL [Desyrel] 50 mg PO HS 05/09/20 [History] Ascorbic Acid [Vitamin C] 1,000 mg PO DAILY 08/27/21 [History] Cholecalciferol [Vitamin D3 (25 Mcg = 1000 Iu)] 25 mcg PO DAILY 08/27/21 [History] Dulaglutide [Trulicity] 1.5 mg SQ TU 08/27/21 [History] metFORMIN HCL [Glucophage] 1,000 mg PO BID 08/27/21 [History] Levofloxacin [Levaquin] 500 mg PO DAILY 7 Days #7 tab 08/29/21 [Rx] predniSONE 0 mg PO DIRECTED 12 Days #30 tab 08/29/21 [Rx] Famotidine [Pepcid] 20 mg PO BID #60 tab 08/30/21 [Rx] Follow up Appointment(s)/Referral(s): Crista Carrington MD [Primary Care Provider] - 09/04/21 2:00 pm (with Pooja) Michael Dinh DO [Doctor of Osteopathic Medicine] - 09/27/21 9:00 am Patient Instructions/Handouts: COPD (Chronic Obstructive Pulmonary Disease) (DC) Activity/Diet/Wound Care/Special Instructions: Low carbohydrate diet 1800 kcal per day Activity is restricted till you see your doctor we recommend to check your glucose four times per day , before each meal and at bed time, keep the results in a log book and bring it to your doctor on your appointment date if your glucose is more than 400 or less than 70 then call 911 and come to emergency room Discharge Disposition: HOME SELF-CARE
--- NOTE | 2021-09-01 09:55 | CDI ---
Documentation Clarification Form Date: 09/01/21 From: Patricia Sheets Admit Date: 08/27/2021 11:50:00 PM Patient Name: Maximo Norris Visit Number: [id number] Discharge Date: 08/30/2021 11:14:00 AM ATTENTION: The Clinical Documentation Specialists (CDI) and [facility] Coding Staff appreciate your assistance in clarifying documentation. Please respond to the clarification below the line at the bottom and electronically sign. The CDI & [facility] Coding staff will review the response and follow-up if needed. Please note: Queries are made part of the Legal Health Record. If you have any questions, please contact the author of this message via ITS. Dr. Orozco E Sheet, Right lower lobe pneumonia is documented in the H&P. Additional clarification regarding the type of pneumonia is requested. History/Risk Factors: Hx of aspiration pneumonia, dysphagia, COPD, DM Type II, smokes cigarettes Clinical Indicators: Patient presents stating he was feeling progressively congested over the last few days with little cough and yellow phlegm. And lower arterial chest pain associated with coughing only. WBC/Left shift: 12.3/7.9 X-ray: 08/27: Small right pleural effusion and interstitial pneumonia right lower lobe which is increased compared to the old exam. Treatment: Zithromax PO, IV Ceftriaxone & Prednisone PO O2 Please clarify the type of pneumonia, if known: [ ] Aspiration Pneumonia, Due to food or vomitus [ ] Bacterial Pneumonia, specify causal organism (if known) [ ] Gram Negative Bacterial Pneumonia [ ] Other bacteria (please specify) [ ] Unable to determine Gram Negative Bacterial Pneumonia MTDD
== END 2021-08-30 11:14 | disposition home or self-care (01) | DRG 177 ==
LOC: EC 20:51 → 4SSUR 23:50 → EC 08-28 00:40
PROVIDERS: ADMIT Hospitalist; ATTEND Hospitalist
DX: J15.6 Pneumonia due to other Gram-negative bacteria (principal); J96.01 Acute respiratory failure with hypoxia; J44.0 Chronic obstructive pulmonary disease with (acute) lower respiratory infection; J44.1 Chronic obstructive pulmonary disease with (acute) exacerbation; E11.51 Type 2 diabetes mellitus with diabetic peripheral angiopathy without gangrene; E11.40 Type 2 diabetes mellitus with diabetic neuropathy, unspecified; D64.9 Anemia, unspecified; Z20.822 Contact with and (suspected) exposure to COVID-19; E78.5 Hyperlipidemia, unspecified; L30.9 Dermatitis, unspecified; R13.10 Dysphagia, unspecified; R19.7 Diarrhea, unspecified; F32.A Depression, unspecified; F17.210 Nicotine dependence, cigarettes, uncomplicated; Z71.6 Tobacco abuse counseling; Z79.82 Long term (current) use of aspirin; Z79.02 Long term (current) use of antithrombotics/antiplatelets; Z79.84 Long term (current) use of oral hypoglycemic drugs; Z79.899 Other long term (current) drug therapy; Z86.718 Personal history of other venous thrombosis and embolism; Z86.73 Personal history of transient ischemic attack (TIA), and cerebral infarction without residual deficits; Z87.01 Personal history of pneumonia (recurrent); Z86.31 Personal history of diabetic foot ulcer; Z90.49 Acquired absence of other specified parts of digestive tract; Z87.19 Personal history of other diseases of the digestive system; Z90.89 Acquired absence of other organs; Z87.39 Personal history of other diseases of the musculoskeletal system and connective tissue; Z98.890 Other specified postprocedural states; Z88.0 Allergy status to penicillin; Z88.8 Allergy status to other drugs, medicaments and biological substances; Z91.048 Other nonmedicinal substance allergy status; Z82.49 Family history of ischemic heart disease and other diseases of the circulatory system; Z80.9 Family history of malignant neoplasm, unspecified
CPT/HCPCS: 36415; 71046; 80048; 80053; 83605; 83735; 83880; 84132; 84145; 84484; 85025; 85379; 85610; 85730; 87040; 87502; 87635; 93005; 93970; 94640; 96365; 99285

== ENCOUNTER 2021-09-07 19:21 | Inpatient (IN) | payer MEDICARE ==
[2021-09-07 20:39] LABS: Basophils # (A) 0.1 k/uL (0-0.2); Basophils % (A) 1 %; Eosinophils # (A) 0.1 k/uL (0-0.7); Eosinophils % (A) 1 %; HCT 42.5 % (39.0-53.0); HGB 13.4 gm/dL (13.0-17.5); Lymphocytes # (A) 2.3 k/uL (1.0-4.8); Lymphocytes % (A) 32 %; MCH 27.6 pg (25.0-35.0); MCHC 31.5 g/dL (31.0-37.0); MCV 87.9 fL (80.0-100.0); Mean Platelet Volume 8.4; Monocytes # (A) 0.7 k/uL (0-1.0); Monocytes % (A) 9 %; Neutrophils # (A) 3.9 k/uL (1.3-7.7); Neutrophils % (A) 54 %; Platelet Count 139 k/uL (150-450); RBC 4.83 m/uL (4.30-5.90); RDW 14.8 % (11.5-15.5); WBC 7.3 k/uL (3.8-10.6)
[2021-09-07 20:49] LABS: ALT 37 U/L (4-49); AST 27 U/L (17-59); African American GFR (CKD) >90 (>60 ml/min/1.73 sqM); Albumin 3.7 g/dL (3.5-5.0); Alkaline Phosphatase 131 U/L (38-126); Anion Gap 6 mmol/L; Blood Urea Nitrogen 16 mg/dL (9-20); Calcium 8.4 mg/dL (8.4-10.2); Carbon Dioxide 28 mmol/L (22-30); Chloride 93 mmol/L (98-107); Glucose 451 mg/dL (74-99); Non-African American GFR(CKD) >90 (>60 ml/min/1.73 sqM); Sodium 127 mmol/L (137-145); Total Bilirubin 0.6 mg/dL (0.2-1.3); Total Protein 5.9 g/dL (6.3-8.2)
[2021-09-07 20:55] LABS: INR 0.8 (<1.2); Partial Thromboplastin Time 22.8 sec (22.0-30.0); Prothrombin Time 9.5 sec (9.0-12.0)
--- NOTE | 2021-09-07 21:17 | ED ---
General Adult HPI - General Chief complaint: Neck Pain/Injury Stated complaint: Pain In neck Time Seen by Provider: 09/07/21 20:05 Source: patient, RN notes reviewed, old records reviewed Mode of arrival: wheelchair Limitations: no limitations - History of Present Illness Initial comments: 51-year-old male presenting with acute onset right sided neck pain. Patient is able to point to a specific location that hurts. He also developed some blurry vision. He denies focal numbness or weakness. Denies headache. He is on dual antiplatelets with history of CVA. No chest pain or abdominal pain. - Related Data Home Medications Medication Instructions Recorded Confirmed Aspirin EC [Ecotrin] 325 mg PO DAILY 03/12/19 09/07/21 Gabapentin 1,200 mg PO TID 03/12/19 09/07/21 HYDROcodone/APAP 10-325MG [[place] 1 tab PO QID PRN 03/12/19 09/07/21 10-325] Albuterol Sulfate [Ventolin HFA] 2 puff INHALATION RT-QID PRN 03/28/20 09/07/21 Atorvastatin [Lipitor] 80 mg PO HS 05/09/20 09/07/21 traZODone HCL [Desyrel] 50 mg PO HS 05/09/20 09/07/21 Ascorbic Acid [Vitamin C] 1,000 mg PO DAILY 08/27/21 09/07/21 Cholecalciferol [Vitamin D3 (25 25 mcg PO DAILY 08/27/21 09/07/21 Mcg = 1000 Iu)] Dulaglutide [Trulicity] 1.5 mg SQ TU 08/27/21 09/07/21 metFORMIN HCL [Glucophage] 1,000 mg PO BID 08/27/21 09/07/21 Previous Rx's Medication Instructions Recorded Clopidogrel [Plavix] 75 mg PO DAILY 30 Days #30 tab 04/06/20 Famotidine [Pepcid] 20 mg PO BID #60 tab 08/30/21 Allergies Allergy/AdvReac Type Severity Reaction Status Date / Time Penicillins Allergy Severe Rash/Hives Verified 09/07/21 21:45 talc Allergy Swelling Verified 09/07/21 21:45 pregabalin [From Lyrica] AdvReac Severe Stroke (no Verified 09/07/21 21:45 issue with neurontin) adhesive tape AdvReac Itching Verified 09/07/21 21:45 Review of Systems ROS Statement: Those systems with pertinent positive or pertinent negative responses have been documented in the HPI. ROS Other: All systems not noted in ROS Statement are negative. 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 Past Anesthesia/Blood Transfusion Reactions: No Reported Reaction Past Psychological History: Depression Smoking Status: Current every day smoker Past Alcohol Use History: None Reported Past Drug Use History: Marijuana - Past Family History Father History Unknown: Yes Family Medical History: Coronary Artery Disease (CAD) Additional Family Medical History / Comment(s): Father had CABG and never came home from the hospital. Mother History Unknown: Yes Family Medical History: Cancer, Deep Vein Thrombosis (DVT) Additional Family Medical History / Comment(s): Mother had squamous cell carcinoma. General Exam Limitations: no limitations General appearance: alert, in no apparent distress Head exam: Present: atraumatic, normocephalic Eye exam: Present: normal appearance, PERRL ENT exam: Present: normal exam Neck exam: Present: normal inspection, tenderness (Right anterior neck tenderness. There is no pulsatile mass, no skin changes, no induration, no stridor). Absent: meningismus, full ROM, lymphadenopathy Respiratory exam: Present: normal lung sounds bilaterally. Absent: respiratory distress, wheezes Cardiovascular Exam: Present: regular rate, normal rhythm GI/Abdominal exam: Present: soft. Absent: distended, tenderness, guarding Extremities exam: Present: normal inspection, normal capillary refill Back exam: Present: normal inspection Neurological exam: Present: alert, oriented X3, CN II-XII intact. Absent: motor sensory deficit Psychiatric exam: Present: normal affect, normal mood Skin exam: Present: warm, dry, intact. Absent: cyanosis, diaphoretic Course Vital Signs 09/07/21 09/07/21 19:58 21:00 Temperature 97.9 F Pulse Rate 89 75 Respiratory 20 18 Rate Blood Pressure 145/77 150/74 O2 Sat by Pulse 99 98 Oximetry EKG Findings - EKG Comments: EKG Findings:: EKG: Sinus rhythm right bundle branch block, rate of 78, NC interval 137, QRS duration 86, QTC 359, no ST segment elevation. Medical Decision Making - Medical Decision Making 51-year-old male with right-sided neck pain, and bilateral blurry vision. Patient has an NIH of 0 however he has history of multiple CVA and he states he did not take his medication today. He is a known diabetic, blood sugar is 450. He is mildly hypertensive with otherwise stable vitals. He is in sinus rhythm. Head CT source significant encephalomalacia from prior CVA as well as new areas of encephalomalacia of compared to 2020. His angiogram is negative for an acute occlusion or stenosis. Patient's will be kept for neurology consultation, blood glucose monitoring, further evaluation treatment. Case discussed with Myriam french for [facility] - Lab Data Result diagrams: 09/07/21 20:23 09/07/21 20:23 Lab Results 09/07/21 09/07/21 09/07/21 Range/Units 20:23 20:23 20:23 WBC 7.3 (3.8-10.6) k/uL RBC 4.83 (4.30-5.90) m/uL Hgb 13.4 (13.0-17.5) gm/dL Hct 42.5 (39.0-53.0) % MCV 87.9 (80.0-100.0) fL MCH 27.6 (25.0-35.0) pg MCHC 31.5 (31.0-37.0) g/dL RDW 14.8 (11.5-15.5) % Plt Count 139 L (150-450) k/uL MPV 8.4 Neutrophils % 54 % Lymphocytes % 32 % Monocytes % 9 % Eosinophils % 1 % Basophils % 1 % Neutrophils # 3.9 (1.3-7.7) k/uL Lymphocytes # 2.3 (1.0-4.8) k/uL Monocytes # 0.7 (0-1.0) k/uL Eosinophils # 0.1 (0-0.7) k/uL Basophils # 0.1 (0-0.2) k/uL PT 9.5 (9.0-12.0) sec INR 0.8 (<1.2) APTT 22.8 (22.0-30.0) sec Sodium 127 L (137-145) mmol/L Potassium 4.0 (3.5-5.1) mmol/L Chloride 93 L (98-107) mmol/L Carbon Dioxide 28 (22-30) mmol/L Anion Gap 6 mmol/L BUN 16 (9-20) mg/dL Creatinine 0.82 (0.66-1.25) mg/dL Est GFR (CKD-EPI)AfAm >90 (>60 ml/min/1.73 sqM) Est GFR (CKD-EPI)NonAf >90 (>60 ml/min/1.73 sqM) Glucose 451 H (74-99) mg/dL POC Glucose (mg/dL) (75-99) mg/dL POC [employer] Consultant ID Calcium 8.4 (8.4-10.2) mg/dL Total Bilirubin 0.6 (0.2-1.3) mg/dL AST 27 (17-59) U/L ALT 37 (4-49) U/L Alkaline Phosphatase 131 H (38-126) U/L Troponin I (0.000-0.034) ng/mL Total Protein 5.9 L (6.3-8.2) g/dL Albumin 3.7 (3.5-5.0) g/dL 09/07/21 09/07/21 Range/Units 20:23 22:07 WBC (3.8-10.6) k/uL RBC (4.30-5.90) m/uL Hgb (13.0-17.5) gm/dL Hct (39.0-53.0) % MCV (80.0-100.0) fL MCH (25.0-35.0) pg MCHC (31.0-37.0) g/dL RDW (11.5-15.5) % Plt Count (150-450) k/uL MPV Neutrophils % % Lymphocytes % % Monocytes % % Eosinophils % % Basophils % % Neutrophils # (1.3-7.7) k/uL Lymphocytes # (1.0-4.8) k/uL Monocytes # (0-1.0) k/uL Eosinophils # (0-0.7) k/uL Basophils # (0-0.2) k/uL PT (9.0-12.0) sec INR (<1.2) APTT (22.0-30.0) sec Sodium (137-145) mmol/L Potassium (3.5-5.1) mmol/L Chloride (98-107) mmol/L Carbon Dioxide (22-30) mmol/L Anion Gap mmol/L BUN (9-20) mg/dL Creatinine (0.66-1.25) mg/dL Est GFR (CKD-EPI)AfAm (>60 ml/min/1.73 sqM) Est GFR (CKD-EPI)NonAf (>60 ml/min/1.73 sqM) Glucose (74-99) mg/dL POC Glucose (mg/dL) 414 H (75-99) mg/dL POC [employer] Consultant ID Oralia Garcia Calcium (8.4-10.2) mg/dL Total Bilirubin (0.2-1.3) mg/dL AST (17-59) U/L ALT (4-49) U/L Alkaline Phosphatase (38-126) U/L Troponin I 0.015 (0.000-0.034) ng/mL Total Protein (6.3-8.2) g/dL Albumin (3.5-5.0) g/dL Disposition Clinical Impression: Hyperglycemia, Diabetes, Cerebrovascular accident Disposition: ADMITTED IP TO THIS HOSP Condition: Stable Is patient prescribed a controlled substance at d/c from ED?: No Referrals: Crista Carrington MD [Primary Care Provider] - 1-2 days Time of Disposition: 22:37
[2021-09-07] MEDS ORDERED: SODIUM CHLORIDE 0.9% 500 ML 500 ML IV ONE (21:22)
[2021-09-07] MEDS ORDERED: INSULIN REGULAR 100 UNIT/ML VIAL (IV) IV ONE (21:22)
--- NOTE | 2021-09-07 21:33 | XR ---
EXAMINATION TYPE: XR chest 2V DATE OF EXAM: 09/07/2021 8:56 PM COMPARISON: Multiple radiographs, with the most recent on June 13 TECHNIQUE: XR chest 2V Frontal and lateral views of the chest. CLINICAL INDICATION:Male, 51 years old with history of altered mental status; FINDINGS: Lungs/Pleura: Scattered subtle reticular and hazy opacities. No evidence of pneumothorax, focal conso lidation or pleural effusion. Pulmonary vascularity: Pulmonary vascular congestion. Heart/mediastinum: Cardiomediastinal silhouette is prominent in size. Musculoskeletal: No acute osseous pathology. IMPRESSION: Bibasilar airspace opacities could represent pneumonia versus pulmonary edema.
--- NOTE | 2021-09-07 21:41 | CT ---
EXAMINATION TYPE: CT brain wo con CT DLP: 1173.6 mGycm, Automated exposure control for dose reduction was used. DATE OF EXAM: 09/07/2021 9:18 PM COMPARISON: Prior CT Brain from 05/09/2020. CLINICAL INDICATION:Male, 51 years old with history of Neuro deficit, acute, stroke suspected, neuro deficit. hx of 2 strokes. Left facial swelling confusion. TECHNIQUE: Brain: Multiple axial CT images of the brain were obtained without IV contrast. FINDINGS: Brain: Extra-axial spaces: No abnormal extra-axial fluid collections. Ventricular system: Within normal limits Cerebral parenchyma: Scattered areas of encephalomalacia including right posterior frontal/parietal l obe, right temporal lobe, and left parietal . Additional basal ganglia lacunar injuries bilaterally. Matter changes of the centrum semiovale and pastrana radiata sternotomy unchanged from prior. No defini tive areas of vasogenic edema to suggest acute/subacute infarct. No acute intraparenchymal hemorrhage or mass effect. The remainder of the prado-white junctions are well differentiated. Cerebellum: Unremarkable. Mass effect: No evidence of midline shift. Intracranial vasculature: Atherosclerotic calcifications of the intracranial vessels. Soft tissues: Normal. Calvarium/osseous structures: No depressed skull fracture. Paranasal sinuses and mastoid air cells: Mild scattered paranasal sinus disease. Visualized orbits: Orbital contents are intact. IMPRESSION: 1. No acute intracranial process. 2. Scattered areas of encephalomalacia from remote injuries some of which are new from prior on 05/09.
[2021-09-07 22:11] LABS: Glucose,Whole Blood 414 mg/dL (75-99)
--- NOTE | 2021-09-07 22:19 | CT ---
EXAMINATION TYPE: CT angio head neck CT DLP: 465.9 mGycm, Automated exposure control for dose reduction was used. DATE OF EXAM: 09/07/2021 9:34 PM COMPARISON: CT brain same day, MRI brain 04/01/2020. CLINICAL INDICATION:Male, 51 years old with history of Neuro deficit, acute, stroke suspected, neuro deficit. hx of 2 strokes TECHNIQUE: Axially acquired helical CT angiogram of the head and neck was obtained with contrast util izing 75 cc of Isovue-370 administered intravenously. Axial images are supplemented with 3D reconstru ctions which were post-processed at an independent workstation. NASCET criteria used. FINDINGS: CTA HEAD: No evidence of acute intracranial hemorrhage, mass effect, or midline shift. The ventricles, sulci, a nd cisterns are unremarkable. Areas of encephalomalacia are better characterized on CT brain same day . The visualized portions of the internal carotid arteries, middle cerebral arteries, anterior cerebral arteries, and posterior cerebral arteries are patent. The basilar and vertebral arteries are patent. There is a left dominant vertebral artery. The distal right vertebral artery terminates as a posterior inferior cerebellar artery. No definitive connection to the basilar artery. CTA NECK: Right Carotid System: The common carotid artery and external carotid artery are patent. The carotid bifurcation demonstrate s no evidence of hemodynamically significant stenosis. The remaining portions of the internal carotid artery demonstrate normal size without significant narrowing. Left Carotid System: The common carotid artery and external carotid artery are patent. The carotid bifurcation demonstrate s no evidence of hemodynamically significant stenosis. The remaining portions of the internal carotid artery demonstrate normal size without significant narrowing. Vertebral arteries are patent without evidence hemodynamically significant stenosis. There is a three-vessel aortic arch. The origins of the great vessels are patent. No evidence of hemo dynamically significant stenosis. Mild centrilobular emphysema changes are seen in the lung apices. IMPRESSION: 1. No evidence of dissection of the cervical internal carotid arteries or vertebral arteries or any e vidence of significant stenosis at the carotid bifurcations. 2. No evidence of high-grade stenosis or intracranial aneurysm. 3. Areas of remote injury are better characterized on CT brain same day.
[2021-09-07] MEDS ORDERED: ASPIRIN 325 MG TAB PO STA (22:31)
[2021-09-07] MEDS ORDERED: ALBUTEROL NEBULIZED 2.5 MG/3 ML INHALATION PRN (22:34)
[2021-09-07] MEDS ORDERED: SODIUM CHLORIDE 0.9% 1,000 ML IV SCH (22:45)
[2021-09-07 22:53] LABS: Glucose,Whole Blood 173 mg/dL (75-99)
[2021-09-07] MEDS: GABAPENTIN 400 MG CAP PO SCH (23:12)
[2021-09-07] MEDS: HYDROcodone/APAP 10-325MG 1 EACH TAB PO PRN (23:12)
[2021-09-07] MEDS ORDERED: traZODone HCL 50 MG TAB PO SCH (23:19)
[2021-09-08 00:23] VITALS: RESP 18
[2021-09-08] MEDS: HYDROcodone/APAP 10-325MG 1 EACH TAB PO PRN ×2 (04:22→12:26)
[2021-09-08 06:24] LABS: Glucose,Whole Blood 371 mg/dL (75-99)
[2021-09-08] MEDS: INSULIN ASPART (NovoLOG) 100 UNIT/ML VIAL SQ SCH ×2 (06:44→12:25)
[2021-09-08] MEDS ORDERED: INSULIN ASPART (NovoLOG) 100 UNIT/ML VIAL SQ SCH (07:30)
[2021-09-08] MEDS: GABAPENTIN 400 MG CAP PO SCH (08:32)
[2021-09-08] MEDS ORDERED: CLOPIDOGREL 75 MG TAB PO SCH (09:00)
[2021-09-08] MEDS ORDERED: FAMOTIDINE 20 MG TAB PO SCH (09:00)
[2021-09-08] MEDS ORDERED: metFORMIN 500 MG TAB PO SCH (09:00)
[2021-09-08] MEDS ORDERED: ASPIRIN 325 MG TAB PO SCH (09:00)
[2021-09-08] MEDS ORDERED: NON FORMULARY DRUG (Gabapentin [Gabapentin] 600 MG Tablet) PO SCH (09:00)
[2021-09-08 09:07] VITALS: TEMP 98.3
[2021-09-08 09:14] LABS: Chol/HDL Ratio 3.27 Ratio; LDL Cholesterol,Calculated 95.2 mg/dL (0.0-131.0)
[2021-09-08 11:47] VITALS: BP 126/72; PULSE 62
[2021-09-08 12:08] LABS: Glucose,Whole Blood 228 mg/dL (75-99)
[2021-09-08] MEDS ORDERED: HYDROcodone/APAP 10-325MG 1 EACH TAB PO PRN (12:29)
--- NOTE | 2021-09-08 13:35 | P.CNNES ---
History of Present Illness Consult date: 09/08/21 Requesting physician: Michael Jiménez Reason for Consult: CVA History of Present Illness: Patient is a 51-year-old male came to the hospital yesterday at 7:21 PM for evaluation of pain in the neck, pressure in head and blurred vision. Patient states that 2 PM yesterday he was sitting in his home, not doing anything particular, when he developed pain in the right side of neck, pointing to the junction of sternocleidomastoid muscle with the clavicle. He also noticed pressure in the head and the vision was cloudy. Denies any loss of vision, double vision. The cloudy vision was all around. He never tried to close one or the other eye. He states that when he was touching the neck, it felt like a "bruise", although there was no visible bruise. The pain in the neck was 10/10. The neck pain, and cloudy vision lasted for 2 hours and then resolved. Patient states that he has recently recovered from pneumonia, completed antibiotics 2 days ago. Vital signs arrival blood pressure 145/77, pulse rate 89, temperature 97.9. CT head revealed no acute intracranial process. Scattered areas of encephalomalac ia from remote injuries, some of which are new from prior on 05/09/2020. I personally reviewed CT of the head and agree with the findings were EKG shows sinus rhythm. CTA showed no significant abnormality. Chest x-ray revealed bibasilar airspace opacities could represent pneumonia versus pulmonary edema. Patient's blood test shows normal CBC PT/PTT, sodium 127 potassium 4.0, and normal renal and hepatic panel. Troponin negative. Patient has been seen by myself previously on 03/29/2020 when he has presented with an acute stroke with left homonymous hemianopia and worsening of left hemiparesis. Patient did have severe right MCA stenosis. Patient has failed aspirin regimen and he was placed on dual antiplatelet medication. Patient's MRI of the brain 04/01/2020 reveal significant acute infarct in the right middle cerebral artery distribution involving prominently frontal and temporal lobes. Patient's A1c was 7.9, his cardiolipin antibodies IgM was elevated 112/20. Rest of the hypercoagulable workup was negative, including factor V Leiden, prothrombin gene mutation, MTHFR, protein C, protein S, antithrombin III, lupus anticoagulants. Patient had a LAURA on 04/01/2020 which revealed aortic valve is tricuspid without significant aortic stenosis or aortic insufficiency. Mitral valve appears normal with trace MR. The interatrial septum was intact. No evidence of PFO. There are bubbles noted in the left atrium after greater than 5 cardiac cycles, consistent with possible pulmonary AV malformation. Left atrial appendage is free of clot. LVEF 55%. Patient was currently taking aspirin 325 mg, Plavix 75 mg, Lipitor 80 mg besides other medication. He states that he may miss his dose only a couple times a month. Otherwise he takes it regularly. Patient has smoked 1 pack per day for 25 years. He drinks beer occasionally. Review of Systems All 14 point of previous and reviewed and unremarkable except as mentioned in HPI. 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 Past Anesthesia/Blood Transfusion Reactions: No Reported Reaction Past Psychological History: Depression Additional Psychological History / Comment(s): Pt uses a cane to ambulate. He drives. He has a glucometer. Smoking Status: Current every day smoker Past Alcohol Use History: None Reported Additional Past Alcohol Use History / Comment(s): Started smoking in late teens, smokes 1.5 ppd, Past Drug Use History: Marijuana Additional Drug Use History / Comment(s): States uses daily. - Past Family History Father History Unknown: Yes Family Medical History: Coronary Artery Disease (CAD) Additional Family Medical History / Comment(s): Father had CABG and never came home from the hospital. Mother History Unknown: Yes Family Medical History: Cancer, Deep Vein Thrombosis (DVT) Additional Family Medical History / Comment(s): Mother had squamous cell carcinoma. Medications and Allergies Home Medications Medication Instructions Recorded Confirmed Type Aspirin EC [Ecotrin] 325 mg PO DAILY 03/12/19 09/07/21 History Gabapentin 1,200 mg PO TID 03/12/19 09/07/21 History HYDROcodone/APAP 10-325MG [[place] 1 tab PO QID PRN 03/12/19 09/07/21 History 10-325] Albuterol Sulfate [Ventolin HFA] 2 puff INHALATION RT-QID PRN 03/28/20 09/07/21 History Clopidogrel [Plavix] 75 mg PO DAILY 30 Days #30 tab 04/06/20 09/07/21 Rx Atorvastatin [Lipitor] 80 mg PO HS 05/09/20 09/07/21 History traZODone HCL [Desyrel] 50 mg PO HS 05/09/20 09/07/21 History Ascorbic Acid [Vitamin C] 1,000 mg PO DAILY 08/27/21 09/07/21 History Cholecalciferol [Vitamin D3 (25 25 mcg PO DAILY 08/27/21 09/07/21 History Mcg = 1000 Iu)] Dulaglutide [Trulicity] 1.5 mg SQ TU 08/27/21 09/07/21 History metFORMIN HCL [Glucophage] 1,000 mg PO BID 08/27/21 09/07/21 History Famotidine [Pepcid] 20 mg PO BID #60 tab 08/30/21 09/07/21 Rx Allergies Allergy/AdvReac Type Severity Reaction Status Date / Time Penicillins Allergy Severe Rash/Hives Verified 09/07/21 21:45 talc Allergy Swelling Verified 09/07/21 21:45 pregabalin [From Lyrica] AdvReac Severe Stroke (no Verified 09/07/21 21:45 issue with neurontin) adhesive tape AdvReac Itching Verified 09/07/21 21:45 Physical Examination - Vital Signs Vital Signs: Vital Signs Temp Pulse Pulse Resp BP BP Pulse Ox 09/08/21 08:00 98.3 F 74 18 152/73 98 09/08/21 04:00 98.1 F 76 18 133/63 97 09/08/21 00:00 98.0 F 84 18 167/78 96 09/07/21 22:51 78 16 129/68 09/07/21 21:00 75 18 150/74 98 09/07/21 19:58 97.9 F 89 20 145/77 99 Intake and Output 09/07/21 09/08/21 09/08/21 22:59 06:59 14:59 Intake Total 10 Balance 10 Intake: IV 10 Invasive Line 1 10 Other: Voiding Method Toilet Toilet # Voids 3 Weight 83.915 kg 83.915 kg Patient is a middle aged male, in no acute distress. Patient is alert awake oriented to time place and person. Speech and language functions are normal. Patient can name and repeat well developed. No aphasia or dysarthria. Attention, concentration and fund of knowledge is adequate. On cranial examination, pupils are equal, round and reacting to light, visual ojeda are full on confrontation, with no neglect. His extraocular muscles are intact with no nystagmus. Face is symmetric, tongue protrudes to the midline. Palatal elevation and sensation normal, hearing and shoulder shrug normal, facial sensation normal. Shoulder shrug normal. On muscle strength testing, there is no pronator drift and the strength is normal in arms and legs distally and proximally. Deep tendon reflexes are diminished and plantars are downgoing. Sensory to touch is equal with no neglect. Cerebellar function showed no ataxia for [id number] testing. No dysdiadochokinesia. Tone and bulk of muscles normal. Gait normal. On general examination, there is no carotid bruit or murmur, S1-S2 audible. Abdomen is soft nontender. No organomegaly, bowel sounds present. Chest is clear to auscultation. Peripheral pulses are present. No edema. Results - Laboratory Findings CBC and BMP: 09/07/21 20:23 09/07/21 20:23 Abnormal Lab Findings: Abnormal Labs 09/07/21 09/07/21 09/07/21 20:23 20:23 22:07 Plt Count 139 L Sodium 127 L Chloride 93 L Glucose 451 H POC Glucose (mg/dL) 414 H Alkaline Phosphatase 131 H Total Protein 5.9 L 09/07/21 09/08/21 22:50 06:05 Plt Count Sodium Chloride Glucose POC Glucose (mg/dL) 173 H 371 H Alkaline Phosphatase Total Protein Assessment and Plan Assessment: * Acute onset of right anterior neck pain, with some blurred vision, both of these symptoms lasted for couple hours and then resolved. Anterior neck pain appears musculoskeletal in nature. Possible muscle spasm, whereas the blurred vision of unclear cause. Doubt TIA. * Hypertension * Diabetes, not well controlled * Tobacco use 1 pack per day * Hyperlipidemia * History of multiple strokes in the past. Plan: * Patient's symptoms have resolved. No evidence of CVA. Doubt actual TIA. Need to aggressively control all stroke risk factors. * CTA of neck showed no evidence of dissection of the cervical internal carotid arteries or vertebral arteries or any evidence of significant stenosis at the carotid bifurcation. * CTA of the head showed no evidence of high-grade stenosis or intracranial aneurysm. * Lipid panel with cholesterol 172, LDL 95, HDL 52 and triglycerides 121. Continue Lipitor 80 mg daily. * Hemoglobin A1c 8.8. Need to optimize control of diabetes to target A1c < 7.0. * Continue dual antiplatelet medications. * Telemetry monitoring showing sinus rhythm in the 60s to 70s with no other arrhythmia. * Check 2-D echo. If normal, then we will be clear for discharge. * Patient's blood pressure is well controlled. * Patient smokes one pack per day. Recommend complete tobacco cessation. * Thank you for the consult. Addendum: 2-D echo revealed normal left-ventricular size and systolic function with concentric LVH. There is evidence of significant pulmonary hypertension. There is also thickening of both mitral valve leaflets. Posterior mitral valve leaflets appeared to be more myxomatous. Mild mitral regurgitation. There is mitral annular calcification and aortic sclerosis without stenosis.
--- NOTE | 2021-09-08 15:11 | P.HPIM ---
History of Present Illness H&P Date: 09/08/21 Patient is a 51-year-old male with a known history of severe with right MCA stenosis and reading and comprehension problems, diabetes type 2, hypertension, hyperlipidemia, COPD, diabetic peripheral neuropathy, currently everyday smoker and depression and daily marijuana use presents to ER with complaints of acute onset of right-sided neck pain and associated blurry vision. Patient immediately presented to ER. Symptoms lasted about 2 hours. Denied any focal weakness or numbness. No headache. Patient is currently on dual antiplatelet agents due to previous history of CVA x2. Denies any fever or chills. No recent illnesses. Chest x-ray showed bibasilar airspace opacities could represent pneumonia versus pulmonary edema. CT head showed no acute intracranial process. Scattered areas of e ncephalomalacia from remote injuries some of which are new from prior on 05/09/2020. CT angiogram of the head and neck showed no evidence of dissection of the cervical internal carotid arteries or vertebral arteries or any evidence of significant stenosis. No evidence of high-grade stenosis. Areas of remote injury are better characterized on the CT of the brain. Laboratory showed WBC 7.3 hemoglobin 13.4 and platelets 139 sodium 127 potassium 4.0 chloride 93 bicarb is 28 BUN 16 and creatinine 0.82 and blood sugar was 451 on admission LDL 95.2. 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 Past Anesthesia/Blood Transfusion Reactions: No Reported Reaction Past Psychological History: Depression Additional Psychological History / Comment(s): Pt uses a cane to ambulate. He drives. He has a glucometer. Smoking Status: Current every day smoker Past Alcohol Use History: None Reported Additional Past Alcohol Use History / Comment(s): Started smoking in late teens, smokes 1.5 ppd, Past Drug Use History: Marijuana Additional Drug Use History / Comment(s): States uses daily. - Past Family History Father History Unknown: Yes Family Medical History: Coronary Artery Disease (CAD) Additional Family Medical History / Comment(s): Father had CABG and never came home from the hospital. Mother History Unknown: Yes Family Medical History: Cancer, Deep Vein Thrombosis (DVT) Additional Family Medical History / Comment(s): Mother had squamous cell carcinoma. Medications and Allergies Home Medications Medication Instructions Recorded Confirmed Type Aspirin EC [Ecotrin] 325 mg PO DAILY 03/12/19 09/07/21 History Gabapentin 1,200 mg PO TID 03/12/19 09/07/21 History HYDROcodone/APAP 10-325MG [[place] 1 tab PO QID PRN 03/12/19 09/07/21 History 10-325] Albuterol Sulfate [Ventolin HFA] 2 puff INHALATION RT-QID PRN 03/28/20 09/07/21 History Clopidogrel [Plavix] 75 mg PO DAILY 30 Days #30 tab 04/06/20 09/07/21 Rx Atorvastatin [Lipitor] 80 mg PO HS 05/09/20 09/07/21 History traZODone HCL [Desyrel] 50 mg PO HS 05/09/20 09/07/21 History Ascorbic Acid [Vitamin C] 1,000 mg PO DAILY 08/27/21 09/07/21 History Cholecalciferol [Vitamin D3 (25 25 mcg PO DAILY 08/27/21 09/07/21 History Mcg = 1000 Iu)] Dulaglutide [Trulicity] 1.5 mg SQ TU 08/27/21 09/07/21 History metFORMIN HCL [Glucophage] 1,000 mg PO BID 08/27/21 09/07/21 History Famotidine [Pepcid] 20 mg PO BID #60 tab 08/30/21 09/07/21 Rx Allergies Allergy/AdvReac Type Severity Reaction Status Date / Time Penicillins Allergy Severe Rash/Hives Verified 09/07/21 21:45 talc Allergy Swelling Verified 09/07/21 21:45 pregabalin [From Lyrica] AdvReac Severe Stroke (no Verified 09/07/21 21:45 issue with neurontin) adhesive tape AdvReac Itching Verified 09/07/21 21:45 Physical Exam Vitals: Vital Signs Temp Pulse Pulse Resp BP BP Pulse Ox 09/08/21 08:00 98.3 F 74 18 152/73 98 09/08/21 04:00 98.1 F 76 18 133/63 97 09/08/21 00:00 98.0 F 84 18 167/78 96 09/07/21 22:51 78 16 129/68 09/07/21 21:00 75 18 150/74 98 09/07/21 19:58 97.9 F 89 20 145/77 99 Intake and Output 09/07/21 09/08/21 09/08/21 22:59 06:59 14:59 Intake Total 10 Balance 10 Intake: IV 10 Invasive Line 1 10 Other: Voiding Method Toilet # Voids 3 Weight 83.915 kg 83.915 kg Results CBC & Chem 7: 09/07/21 20:23 09/07/21 20:23 Labs: Abnormal Lab Results - Last 24 Hours (Table) 09/07/21 09/07/21 09/07/21 Range/Units 20:23 20:23 22:07 Plt Count 139 L (150-450) k/uL Sodium 127 L (137-145) mmol/L Chloride 93 L (98-107) mmol/L Glucose 451 H (74-99) mg/dL POC Glucose (mg/dL) 414 H (75-99) mg/dL Alkaline Phosphatase 131 H (38-126) U/L Total Protein 5.9 L (6.3-8.2) g/dL 09/07/21 09/08/21 Range/Units 22:50 06:05 Plt Count (150-450) k/uL Sodium (137-145) mmol/L Chloride (98-107) mmol/L Glucose (74-99) mg/dL POC Glucose (mg/dL) 173 H 371 H (75-99) mg/dL Alkaline Phosphatase (38-126) U/L Total Protein (6.3-8.2) g/dL Thrombosis Risk Factor Assmnt - Choose All That Apply Any of the Below Risk Factors Present?: Yes Each Factor Represents 1 point: Abnormal pulmonary function (COPD), Age 41-60 years Other Risk Factors: No Other congenital or acquired thrombophilia - If yes, enter type in comment: No Thrombosis Risk Factor Assessment Total Risk Factor Score: 2 Thrombosis Risk Factor Assessment Level: Low Risk Assessment and Plan Assessment: Right-sided neck pain associate with blurry vision lasted for 2 hours. Ruled out CVA. Right-sided neck pain likely due to muscle spasms. Hyperglycemia with uncontrolled diabetes type 2 Hyponatremia likely pseudohyponatremia Hypertension History of CVA x2 with residual difficulty with comprehension. COPD Ongoing nicotine addiction Depression Daily marijuana use History of DVT Hyperlipidemia Diabetic peripheral neuropathy DVT prophylaxis. Plan: Patient will be continued on telemetry monitoring. Continue with dual antiplatelet agents. Blood pressure is controlled at this time. Neurologic wo rk-up including CT head and CTA head and neck was done showed no significant stenosis. Patient was seen by neurology and recommended 2D echocardiogram and continue with dual antiplatelet agents. Patient would like to be discharged home. Discussed with the patient and his at bedside in detail. Time with Patient: Greater than 30
[2021-09-08] MEDS ORDERED: ATORVASTATIN 80 MG TAB PO SCH (21:00)
[2021-09-08] MEDS ORDERED: traZODone HCL 50 MG TAB PO SCH (21:00)
--- NOTE | 2021-09-09 14:38 | CA ---
Transthoracic Echo Report Name: Maximo Norris Age: 51 Gender: M : 1970 Exam Date: 09/08/2021 14:20 Exam Location: [facility] Ht (in): 69 Wt (lb): 185 Ordering Physician: Jurgen Norman MD Attending/Referring Phys: Slot Technician Monica Cisneros RDCS Procedure CPT: Indications: tia Cardiac Hx: Technical Quality: Good Contrast 1: Total Dose (mL): Contrast 2: Total Dose (mL): MEASUREMENTS (Male / Female) Normal Values 2D ECHO LV Diastolic Diameter PLAX 4.4 cm 4.2 - 5.9 / 3.9 - 5.3 cm LV Systolic Diameter PLAX 2.9 cm IVS Diastolic Thickness 1.1 cm 0.6 - 1.0 / 0.6 - 0.9 cm LVPW Diastolic Thickness 1.2 cm 0.6 - 1.0 / 0.6 - 0.9 cm LV Relative Wall Thickness 0.5 RV Internal Dim ED PLAX 3.0 cm LA Systolic Diameter LX 3.9 cm 3.0 - 4.0 / 2.7 - 3.8 cm LA Volume 82.9 cm??? 18 - 58 / 22 - 52 cm??? M-MODE Aortic Root Diameter MM 2.9 cm MV E Point Septal Separation 0.7 cm AV Cusp Separation MM 1.6 cm DOPPLER AV Peak Velocity 162.2 cm/s AV Peak Gradient 10.5 mmHg MV Area PHT 1.6 cm??? Mitral E Point Velocity 167.7 cm/s Mitral A Point Velocity 155.9 cm/s Mitral E to A Ratio 1.1 MV Deceleration Time 464.8 ms MV E' Velocity 4.6 cm/s Mitral E to MV E' Ratio 36.4 TR Peak Velocity 409.1 cm/s TR Peak Gradient 66.9 mmHg Right Ventricular Systolic Press 71.9 mmHg FINDINGS Left Ventricle Left ventricular ejection fraction is estimated at 55-60 %. Left ventricular cavity size normal. Borderline left ventricular hypertrophy. Flatenning of ventricular septum in systole and diastole Right Ventricle Normal right ventricular size. Severe pulmonary hypertension. Right Atrium Normal right atrial size. Left Atrium Severely increased left atrial volume. Mildly increased left atrial area. No evidence for an atrial septal defect. Mitral Valve Moderate thickening/calcification of the anterior mitral valve leaflet. Moderate thickening/calcification of the posterior mitral valve leaflet. Mild mitral regurgitation. Aortic Valve Trileaflet aortic valve. No aortic valve stenosis or regurgitation. Tricuspid Valve [id number] tricuspid regurgitation. Pulmonic Valve Trace pulmonic regurgitation. Pericardium Normal pericardium. Aorta Normal size aortic root and proximal ascending aorta. CONCLUSIONS Normal LV size and systolic function with concentric LVH. There is evidence of significant pulmonary hypertension. There is also thickening of both mitral valve leaflets. Posterior mitral valve leaflets appears to be more myxomatous. It is mild mitral regurgitation. There is mitral annular calcification and aortic sclerosis without stenosis. No pericardial effusion Previewed by: Dr. Samir Chaney MD (Electronically Signed) Final Date: 09 Sep 2021 14:38
== END 2021-09-08 15:00 | disposition home or self-care (01) | DRG 556 ==
LOC: EC 19:21 → 3SCARD 22:31
PROVIDERS: ADMIT Hospitalist; ATTEND Hospitalist
DX: M62.838 Other muscle spasm (principal); D68.51 Activated protein C resistance; D68.52 Prothrombin gene mutation; E87.1 Hypo-osmolality and hyponatremia; I69.354 Hemiplegia and hemiparesis following cerebral infarction affecting left non-dominant side; M54.2 Cervicalgia; E11.42 Type 2 diabetes mellitus with diabetic polyneuropathy; E11.65 Type 2 diabetes mellitus with hyperglycemia; E78.5 Hyperlipidemia, unspecified; F12.90 Cannabis use, unspecified, uncomplicated; F17.210 Nicotine dependence, cigarettes, uncomplicated; F32.A Depression, unspecified; I69.312 Visuospatial deficit and spatial neglect following cerebral infarction; H53.462 Homonymous bilateral field defects, left side; G93.89 Other specified disorders of brain; I10 Essential (primary) hypertension; I27.20 Pulmonary hypertension, unspecified; I70.0 Atherosclerosis of aorta; I69.398 Other sequelae of cerebral infarction; Z79.02 Long term (current) use of antithrombotics/antiplatelets; Z79.82 Long term (current) use of aspirin; Z79.84 Long term (current) use of oral hypoglycemic drugs; Z79.899 Other long term (current) drug therapy; Z82.49 Family history of ischemic heart disease and other diseases of the circulatory system; Z86.718 Personal history of other venous thrombosis and embolism
CPT/HCPCS: 36415; 70450; 70496; 70498; 71046; 80053; 80061; 83036; 84484; 85025; 85610; 85730; 93005; 93306; 96374; 99285

== ENCOUNTER 2021-11-09 19:15 | Inpatient (IN) | payer MEDICARE ==
[2021-11-09 19:36] LABS: Glucose,Whole Blood 101 mg/dL (70-110)
[2021-11-09 19:39] LABS: Basophils # (A) 0.1 k/uL (0-0.2); Basophils % (A) 1 %; Eosinophils # (A) 0.3 k/uL (0-0.7); Eosinophils % (A) 2 %; HCT 46.1 % (39.0-53.0); HGB 14.8 gm/dL (13.0-17.5); Lymphocytes # (A) 3.1 k/uL (1.0-4.8); Lymphocytes % (A) 25 %; MCH 27.8 pg (25.0-35.0); MCV 86.9 fL (80.0-100.0); Mean Platelet Volume 7.6; Monocytes # (A) 0.7 k/uL (0-1.0); Monocytes % (A) 5 %; Neutrophils # (A) 8.2 k/uL (1.3-7.7); Neutrophils % (A) 66 %; Platelet Count 147 k/uL (150-450); RDW 15.3 % (11.5-15.5); WBC 12.5 k/uL (3.8-10.6)
[2021-11-09 19:48] LABS: Albumin 4.6 g/dL (3.5-5.0); Calcium 9.4 mg/dL (8.4-10.2); Potassium 3.9 mmol/L (3.5-5.1); Total Bilirubin 1.5 mg/dL (0.2-1.3)
--- NOTE | 2021-11-09 19:50 | ED ---
General Adult HPI - General Chief complaint: Neuro Symptoms/Deficit Stated complaint: Stroke-like symptoms Source: patient, family Mode of arrival: wheelchair Limitations: no limitations - History of Present Illness Initial comments: 51-year-old male with past medical history of COPD, CVA, diabetes presents to the emergency department with concern that he had another stroke. Patient's was normal at 5:00 PM when his came home. Over the course of an hour and a half the patient began having more apical disease with his speech. His previous strokes did affect his speech however the states that it was much worse. He was also having some weakness in his right upper and bilateral lower extremities. Patient is on Plavix. Denies missing any doses. No head trauma. Denies any headaches or visual changes. No chest pain or shortness of breath. No other alleviating, precipitating or modifying factors - Related Data Home Medications Medication Instructions Recorded Confirmed Aspirin EC [Ecotrin] 325 mg PO DAILY 03/12/19 09/07/21 Gabapentin 1,200 mg PO TID 03/12/19 09/07/21 HYDROcodone/APAP 10-325MG [[place] 1 tab PO QID PRN 03/12/19 09/07/21 10-325] Albuterol Sulfate [Ventolin HFA] 2 puff INHALATION RT-QID PRN 03/28/20 09/07/21 Atorvastatin [Lipitor] 80 mg PO HS 05/09/20 09/07/21 traZODone HCL [Desyrel] 50 mg PO HS 05/09/20 09/07/21 Ascorbic Acid [Vitamin C] 1,000 mg PO DAILY 08/27/21 09/07/21 Cholecalciferol [Vitamin D3 (25 25 mcg PO DAILY 08/27/21 09/07/21 Mcg = 1000 Iu)] Dulaglutide [Trulicity] 1.5 mg SQ TU 08/27/21 09/07/21 metFORMIN HCL [Glucophage] 1,000 mg PO BID 08/27/21 09/07/21 Previous Rx's Medication Instructions Recorded Clopidogrel [Plavix] 75 mg PO DAILY 30 Days #30 tab 04/06/20 Famotidine [Pepcid] 20 mg PO BID #60 tab 08/30/21 Allergies Allergy/AdvReac Type Severity Reaction Status Date / Time Penicillins Allergy Severe Rash/Hives Verified 11/09/21 19:20 talc Allergy Swelling Verified 11/09/21 19:20 pregabalin [From Lyrica] AdvReac Severe Stroke (no Verified 11/09/21 19:20 issue with neurontin) adhesive tape AdvReac Itching Verified 11/09/21 19:20 Review of Systems ROS Statement: Those systems with pertinent positive or pertinent negative responses have been documented in the HPI. ROS Other: All systems not noted in ROS Statement are negative. 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 Past Anesthesia/Blood Transfusion Reactions: No Reported Reaction Past Psychological History: Depression Smoking Status: Current every day smoker Past Alcohol Use History: None Reported Past Drug Use History: Marijuana - Past Family History Father History Unknown: Yes Family Medical History: Coronary Artery Disease (CAD) Additional Family Medical History / Comment(s): Father had CABG and never came home from the hospital. Mother History Unknown: Yes Family Medical History: Cancer, Deep Vein Thrombosis (DVT) Additional Family Medical History / Comment(s): Mother had squamous cell ca rcinoma. General Exam Limitations: no limitations Course Vital Signs 11/09/21 11/09/21 11/09/21 19:17 20:15 20:37 Temperature 98.1 F Pulse Rate 89 88 84 Respiratory 18 18 18 Rate Blood Pressure 129/79 122/81 109/71 O2 Sat by Pulse 98 96 96 Oximetry Medical Decision Making - Medical Decision Making Upon arrival patient was placed into room 1. Thorough history and physical exam was performed. IV access was established. Code alteplase is activated as his last known well was within the past 3 hours. Patient taken for CT. CT and CT angiography did not demonstrate stroke. Laboratory studies are reviewed. Troponin elevated. Patient will be admitted to [facility] with neurology consultation. He did not receive TPA due to low NIH of 2. Dr. Osorio recommended medical managment. Spoke with Dr. Moore who agreed to admit the patient - Lab Data Result diagrams: 11/09/21 19:24 11/09/21 19:24 Lab Results 11/09/21 11/09/21 11/09/21 Range/Units 19:24 19:24 19:24 WBC 12.5 H (3.8-10.6) k/uL RBC 5.30 (4.30-5.90) m/uL Hgb 14.8 (13.0-17.5) gm/dL Hct 46.1 (39.0-53.0) % MCV 86.9 (80.0-100.0) fL MCH 27.8 (25.0-35.0) pg MCHC 32.0 (31.0-37.0) g/dL RDW 15.3 (11.5-15.5) % Plt Count 147 L (150-450) k/uL MPV 7.6 Neutrophils % 66 % Lymphocytes % 25 % Monocytes % 5 % Eosinophils % 2 % Basophils % 1 % Neutrophils # 8.2 H (1.3-7.7) k/uL Lymphocytes # 3.1 (1.0-4.8) k/uL Monocytes # 0.7 (0-1.0) k/uL Eosinophils # 0.3 (0-0.7) k/uL Basophils # 0.1 (0-0.2) k/uL PT 10.7 (9.0-12.0) sec INR 1.0 (<1.2) APTT 23.6 (22.0-30.0) sec Sodium 134 L (137-145) mmol/L Potassium 3.9 (3.5-5.1) mmol/L Chloride 100 (98-107) mmol/L Carbon Dioxide 24 (22-30) mmol/L Anion Gap 10 mmol/L BUN 11 (9-20) mg/dL Creatinine 1.21 (0.66-1.25) mg/dL Est GFR (CKD-EPI)AfAm 79 (>60 ml/min/1.73 sqM) Est GFR (CKD-EPI)NonAf 69 (>60 ml/min/1.73 sqM) Glucose 101 H (74-99) mg/dL POC Glucose (mg/dL) (70-110) mg/dL POC Glu Soa Architect ID Calcium 9.4 (8.4-10.2) mg/dL Total Bilirubin 1.5 H (0.2-1.3) mg/dL AST 16 L (17-59) U/L ALT 7 (4-49) U/L Alkaline Phosphatase 85 (38-126) U/L Troponin I (0.000-0.034) ng/mL Total Protein 7.0 (6.3-8.2) g/dL Albumin 4.6 (3.5-5.0) g/dL 11/09/21 11/09/21 Range/Units 19:24 19:35 WBC (3.8-10.6) k/uL RBC (4.30-5.90) m/uL Hgb (13.0-17.5) gm/dL Hct (39.0-53.0) % MCV (80.0-100.0) fL MCH (25.0-35.0) pg MCHC (31.0-37.0) g/dL RDW (11.5-15.5) % Plt Count (150-450) k/uL MPV Neutrophils % % Lymphocytes % % Monocytes % % Eosinophils % % Basophils % % Neutrophils # (1.3-7.7) k/uL Lymphocytes # (1.0-4.8) k/uL Monocytes # (0-1.0) k/uL Eosinophils # (0-0.7) k/uL Basophils # (0-0.2) k/uL PT (9.0-12.0) sec INR (<1.2) APTT (22.0-30.0) sec Sodium (137-145) mmol/L Potassium (3.5-5.1) mmol/L Chloride (98-107) mmol/L Carbon Dioxide (22-30) mmol/L Anion Gap mmol/L BUN (9-20) mg/dL Creatinine (0.66-1.25) mg/dL Est GFR (CKD-EPI)AfAm (>60 ml/min/1.73 sqM) Est GFR (CKD-EPI)NonAf (>60 ml/min/1.73 sqM) Glucose (74-99) mg/dL POC Glucose (mg/dL) 101 (70-110) mg/dL POC Glu Soa Architect ID Aurelio Mitchell Calcium (8.4-10.2) mg/dL Total Bilirubin (0.2-1.3) mg/dL AST (17-59) U/L ALT (4-49) U/L Alkaline Phosphatase (38-126) U/L Troponin I 0.069 H* (0.000-0.034) ng/mL Total Protein (6.3-8.2) g/dL Albumin (3.5-5.0) g/dL - EKG Data EKG Comments: EKG demonstrates sinus rhythm with a rate of 92. HI interval 129. QRS 85. QTC of 400. No acute ST segment elevations or depressions Disposition Clinical Impression: Aphasia, TIA (transient ischemic attack), Elevated troponin Disposition: ADMITTED IP TO THIS [facility] Condition: Stable Is patient prescribed a controlled substance at d/c from ED?: No Referrals: Crista Carrington MD [Primary Care Provider] - 1-2 days Time of Disposition: 21:34 Decision to Admit Reason: Admit from EC Decision Date: 11/09/21 Decision Time: 21:34
--- NOTE | 2021-11-09 20:02 | CT ---
EXAMINATION TYPE: CT brain wo con for TPA DATE OF EXAM: 11/09/2021 HISTORY: Neuro deficit, acute, stroke suspected CT DLP: 1165 mGycm. Automated Exposure Control for Dose Reduction was Utilized. TECHNIQUE: CT scan of the head is performed without contrast. COMPARISON: 09/07/2021 FINDINGS: The previously seen encephalomalacia zones, in the right parietal, right frontal, left frontal, and l eft parietal lobes, are unchanged. There is no intracranial hemorrhage. There is no definite new attenuation defect. The skull is unremarkable. The paranasal sinuses, mastoid sinus air cells, and middle ear cavities ar e clear. Orbits are unremarkable. IMPRESSION: No acute CT process..
[2021-11-09 20:10] LABS: Partial Thromboplastin Time 23.6 sec (22.0-30.0); Prothrombin Time 10.7 sec (9.0-12.0)
--- NOTE | 2021-11-09 20:29 | CT ---
EXAMINATION TYPE: CT angio head neck with contrast and with 3-D Reconstruction renderings DATE OF EXAM: 11/09/2021 HISTORY: Neuro deficit, acute, stroke suspected COMPARISON: 09/07/2021 CT DLP: 1697.2 mGycm. Automated Exposure Control for Dose Reduction was Utilized. TECHNIQUE: CTA scan of the head and neck is performed with IV Contrast, patient injected with 65ml m L of Isovue 370, axial images are obtained, coronal and sagittal reformatted images are reviewed. 3D reconstructed images are created on an independent workstation and reviewed. FINDINGS: CTA NECK: Carotid arterial systems: Bilateral carotid systems are patent, without hemodynamic stenosi s or dissection. Vertebral arterial systems are bilaterally widely patent, without dissection or othe r abnormality. These structures are unremarkable. Other: No incidental findings. CTA BRAIN: Both the anterior and posterior arterial circulations are widely patent. No hemodynamicall y significant stenosis, aneurysm, filling defect, or dissection. Dural venous sinuses are unremarkabl e. Other: No incidental findings. IMPRESSION: No significant abnormality is seen. NASCET criteria was used in interpretation of this exam?
--- NOTE | 2021-11-09 21:07 | XR ---
EXAMINATION: XR chest 2V DATE AND TIME: 11/09/2021 8:40 PM CLINICAL INDICATION: altered mental status TECHNIQUE: Departmental protocol COMPARISON: 09/07/2021 FINDINGS: The lungs show a few scattered ill-defined central opacities which partially silhouette the surendra and the left heart border, with occasional septal lines in the periphery bilaterally and with increased d ensity, to a mild degree, partially silhouetting the pulmonary vasculature symmetrically. These are m ild bilateral findings and are nonspecific, but could correlate with a clinical diagnosis of mild in terstitial phase pulmonary edema. There is minimal blunting of the right costophrenic angle, irregular right pleural space unremarkable . The left pleural spaces negative. The cardiac silhouette appears top normal in size. The skeletal structures and soft tissues are negative for acute findings. IMPRESSION: Mild bilateral findings.
[2021-11-09] MEDS ORDERED: ASPIRIN 325 MG TAB PO STA (21:34)
[2021-11-09] MEDS ORDERED: ATORVASTATIN 40 MG TAB PO SCH (21:45)
[2021-11-09 22:47] LABS: Glucose,Whole Blood 120 mg/dL (70-110)
[2021-11-10] MEDS ORDERED: HEPARIN SODIUM 1,000 UN/ML (10ML VL) IV PRN (00:31)
[2021-11-10] MEDS ORDERED: HEPARIN SODIUM 1,000 UN/ML (10ML VL) IV ONE (00:31)
[2021-11-10] MEDS ORDERED: ATORVASTATIN 80 MG TAB PO SCH ×2 (00:45→21:00)
[2021-11-10] MEDS ORDERED: HEPARIN SOD,PORK IN 0.45% NACL 25,000 UNIT in 0.45% NACL 1 250ML.BAG IV SCH (00:45)
[2021-11-10 02:39] LABS: Basophils # (A) 0.1 k/uL (0-0.2); Basophils % (A) 1 %; Eosinophils # (A) 0.3 k/uL (0-0.7); Eosinophils % (A) 2 %; HCT 43.5 % (39.0-53.0); HGB 13.9 gm/dL (13.0-17.5); Lymphocytes # (A) 3.4 k/uL (1.0-4.8); Lymphocytes % (A) 29 %; MCH 28.2 pg (25.0-35.0); MCHC 31.9 g/dL (31.0-37.0); MCV 88.2 fL (80.0-100.0); Mean Platelet Volume 7.9; Monocytes # (A) 0.9 k/uL (0-1.0); Monocytes % (A) 7 %; Neutrophils # (A) 6.8 k/uL (1.3-7.7); Neutrophils % (A) 58 %; Platelet Count 149 k/uL (150-450); RBC 4.94 m/uL (4.30-5.90); RDW 15.5 % (11.5-15.5); WBC 11.7 k/uL (3.8-10.6)
[2021-11-10 02:47] LABS: Partial Thromboplastin Time 26.3 sec (22.0-30.0); Prothrombin Time 10.8 sec (9.0-12.0)
--- NOTE | 2021-11-10 03:02 | P.HPIM ---
History of Present Illness H&P Date: 11/09/21 The patient is a 51-year-old male with a PMH of type II DM with peripheral neuropathy, hyperlipidemia, history of DVT, history of multiple CVAs, COPD, who presents to the emergency room for concerns of a possible stroke. The patient reports that ever since he woke up this morning, he felt more tired than usual. When the patient's girlfriend arrived at home at around 5 PM, she noticed that he was slurring his speech and that he experienced some right upper extremity weakness as well as generalized fatigue. This prompted her to bring him to the emergency room. The patient reports that his symptoms are similar to when he had prior CVAs. Code stroke was activated in the emergency room, and neuro auto body repairman was contacted who recommended no TPA as the patient's NIH score was [address] angiogram of head and neck revealed no acute CVA. At time of interview, the patient reports continuing to feel tired but states that his speech has improved. Denied experiencing chest discomfort, shortness of breath, cough, fever, chills, abdominal pain, diarrhea. Also reports bilateral foot ulcers for which he was supposed to have an appointment at the wound care clinic tomorrow. Chest x-ray in the emergency room revealed possible mild pulmonary edema bilaterally. EKG reveals sinus rhythm at [address]/T-wave changes noted as reviewed by me. After evaluation was remarkable for WBC count 12.5 and troponin 0.069. Review of systems: Pertinent positives and negatives as discussed in HPI, a complete review of systems was performed and all other systems are negative. Physical examination: General: Disheveled male in no acute distress, appears significantly older than stated age, normal weight Derm: Right foot plantar surface 3 cm stage III ulcer with left foot plantar grimes rface 2 unstageable ulcers with minimal surrounding erythema and a purulent base, warm Head: atraumatic, normocephalic, symmetric Eyes: EOMI, no lid lag, anicteric sclera, pupils equal round reactive to light ENT: Nose and ears atraumatic Neck: No cervical lymphadenopathy, trachea midline, supple Mouth: no lip lesion, mucus membranes moist Cardiovascular: S1S2 reg, no murmur, positive dorsalis pedis pulse bilateral, no edema Lungs: CTA bilateral, no rhonchi, no rales, no accessory muscle use Abdominal: soft, nontender to palpation, no guarding Ext: muscle strength 3 out of 5 bilateral lower extremity strength 5 out of 5 in bilateral upper extremities, no gross muscle atrophy, no contractures, Neuro: CN II-XI grossly intact, no gross focal neuro deficits, no aphasia or dysarthria noted, no pronator drift with finger to nose unremarkable Psych: Alert, oriented, appropriate affect Assessment/plan CVA versus TIA -Neuro checks -Continue with aspirin, statin -Neurology consulted -Fall precautions Elevated troponin -Patient denying chest discomfort or shortness of breath at this time -Continue to trend for now next -Cardiac monitoring Bilateral foot ulcers unstageable -Wound care consult -Obtain lactic acid levels Chronic conditions: COPD, hypertension, hyperlipidemia, type II DM -Insulin sliding scale and blood glucose monitoring -Continue with remaining home medications DVT prophylaxis -Heparin infusion The patient is admitted with an anticipated less than 2 midnight stay for evaluation of TIA CODE STATUS: Full Code Discussed with: Patient Anticipated discharge date: in am Anticipated discharge place: Home Past Medical History Past Medical History: COPD, CVA/TIA, Diabetes Mellitus, Deep Vein Thrombosis (DVT), Hyperlipidemia, Pneumonia, Vascular Disorder Additional Past Medical History / Comment(s): NIDDM type II, severe neuropathy bilateral hands and feet, past merlos L foot wound, 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 Past Anesthesia/Blood Transfusion Reactions: No Reported Reaction Past Psychological History: Depression Smoking Status: Current every day smoker Past Alcohol Use History: None Reported Past Drug Use History: Marijuana - Past Family History Father History Unknown: Yes Family Medical History: Coronary Artery Disease (CAD) Additional Family Medical History / Comment(s): Father had CABG and never came home from the hospital. Mother History Unknown: Yes Family Medical History: Cancer, Deep Vein Thrombosis (DVT) Additional Family Medical History / Comment(s): Mother had squamous cell carcino ma. Medications and Allergies Home Medications Medication Instructions Recorded Confirmed Type Aspirin EC [Ecotrin] 325 mg PO DAILY 03/12/19 11/09/21 History Gabapentin 1,200 mg PO TID 03/12/19 11/09/21 History HYDROcodone/APAP 10-325MG [[place] 1 tab PO QID PRN 03/12/19 11/09/21 History 10-325] Albuterol Sulfate [Ventolin HFA] 2 puff INHALATION RT-QID PRN 03/28/20 11/09/21 History Clopidogrel [Plavix] 75 mg PO DAILY 30 Days #30 tab 04/06/20 11/09/21 Rx Atorvastatin [Lipitor] 80 mg PO HS 05/09/20 11/09/21 History traZODone HCL [Desyrel] 50 mg PO HS 05/09/20 11/09/21 History Ascorbic Acid [Vitamin C] 1,000 mg PO DAILY 08/27/21 11/09/21 History Cholecalciferol [Vitamin D3 (25 25 mcg PO DAILY 08/27/21 11/09/21 History Mcg = 1000 Iu)] Dulaglutide [Trulicity] 1.5 mg SQ TU 08/27/21 11/09/21 History metFORMIN HCL [Glucophage] 1,000 mg PO BID 08/27/21 11/09/21 History Famotidine [Pepcid] 20 mg PO BID #60 tab 08/30/21 11/09/21 Rx Allergies Allergy/AdvReac Type Severity Reaction Status Date / Time Penicillins Allergy Severe Rash/Hives Verified 11/09/21 21:31 talc Allergy Swelling Verified 11/09/21 21:31 pregabalin [From Lyrica] AdvReac Severe Stroke (no Verified 11/09/21 21:31 issue with neurontin) adhesive tape AdvReac Itching Verified 11/09/21 21:31 Physical Exam Vitals: Vital Signs Temp Pulse Resp BP Pulse Ox 11/09/21 21:31 73 17 116/78 97 11/09/21 20:37 84 18 109/71 96 11/09/21 20:15 88 18 122/81 96 11/09/21 19:17 98.1 F 89 18 129/79 98 Intake and Output 11/09/21 11/09/21 11/10/21 14:59 22:59 06:59 Other: Weight 69.037 kg Results CBC & Chem 7: 11/10/21 01:43 11/09/21 19:24 Labs: Abnormal Lab Results - Last 24 Hours (Table) 11/09/21 11/09/21 11/09/21 Range/Units 19:24 19:24 19:24 WBC 12.5 H (3.8-10.6) k/uL Plt Count 147 L (150-450) k/uL Neutrophils # 8.2 H (1.3-7.7) k/uL Sodium 134 L (137-145) mmol/L Glucose 101 H (74-99) mg/dL POC Glucose (mg/dL) (70-110) mg/dL Total Bilirubin 1.5 H (0.2-1.3) mg/dL AST 16 L (17-59) U/L Troponin I 0.069 H* (0.000-0.034) ng/mL 11/09/21 Range/Units 22:45 WBC (3.8-10.6) k/uL Plt Count (150-450) k/uL Neutrophils # (1.3-7.7) k/uL Sodium (137-145) mmol/L Glucose (74-99) mg/dL POC Glucose (mg/dL) 120 H (70-110) mg/dL Total Bilirubin (0.2-1.3) mg/dL AST (17-59) U/L Troponin I (0.000-0.034) ng/mL
[2021-11-10] MEDS: HYDROcodone/APAP 10-325MG 1 EACH TAB PO PRN ×3 (04:51→17:10)
[2021-11-10] MEDS: INSULIN ASPART (NovoLOG) 100 UNIT/ML VIAL SQ SCH ×4 (06:24→20:45)
[2021-11-10 06:25] LABS: Glucose,Whole Blood 127 mg/dL (70-110)
[2021-11-10] MEDS: ASPIRIN 325 MG TAB PO SCH (09:25)
[2021-11-10] MEDS: CLOPIDOGREL 75 MG TAB PO SCH (09:25)
--- NOTE | 2021-11-10 09:54 | P.CNNES ---
History of Present Illness Consult date: 11/10/21 Requesting physician: Tahmina Shi Reason for Consult: new aphasia, possible tia, hx of cva History of Present Illness: This is a 51-year-old gentleman with medical history of multiple strokes, hypertension, diabetes, hyperlipidemia, tobacco use who presented emergency department because of difficulty of his speech and weakness. Patient yesterday at 5pm was having difficulty with speech, getting his words out drooling of both sides and felt he had generalized weakness. Patient denies any numbness. Denies any loss of consciousness, urinary or bowel incontinence. Per ED it was noted he was having weakness over right upper and lower extremity. Patient is on Plavix 75mg, ASA 325mg and Lipitor 80mg daily and denies missing his medication. He felt his symptoms has lasted a couple hours and feels back to baseline. At baseline he walks with a cane. Currently denies any new weakness or speech difficulty. He continues to smoke 1 pack daily and uses marijuana. Patient denies any illicit drug use. He denies following-up with a neurologist since he stated he cannot afford it. Of note the patient was seen in our facility multiple times and that he is a known to Dr. Norman (Neuro-Hospitalist and he was last seen on 09/11/2021. Please refer to his notes for further details. But it seems patient has had LAURA in our facility on 03/28/2020 and it is reported as left atrial appendage is free of clot. Ejection fraction is normal and EF is 55%. The inter-atrial septum is intact and no evidence of PFO. P ossible pulmonary AV malformation. RAFAT was negative, [id number] DNA was negative. Cardiolipin IgG is negative while IgM is positive. 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 [id number] 1 IGM Ab >150 (abnormal). Homocystine is elevated in 2016 and the beta 2:00 glycoprotein is as well as elevated. Methylmalonic acid in 2019 is normal Most recent hemoglobin A1c is 8.8 on 09/07/2021 14 C and S activity is within normal limits. Antithrombin III activity is within normal limits Lupus anticoagulants aPTT is within normal limits. Factor V Leiden is not detected Some of the workup during this hospital visit consisted of: Initial vital signs is normal White blood cell 12.5, platelet is 147 Initial serum glucose is 101, AST of 16 ALT of 7, sodium is 134. Patient initial troponins 0.069 and was slightly trending up PT, PT and INR is within normal limits CT of the head is reported as no acute the process. I personally reviewed the CT of the head and I feel the patient has encephalomalacia over the right frontal/parietal as well as temporal region as well as left temporal region. The encephalomalacia is worse over the right hemisphere than the left. CT angiography of the head and neck was reported as no significant abnormality is seen. Review of Systems Review of system: The 12 point system was reviewed and apparent positive and negative per HPI. 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 Past Anesthesia/Blood Transfusion Reactions: No Reported Reaction Past Psychological History: Depression Smoking Status: Current every day smoker Past Alcohol Use History: None Reported Past Drug Use History: Marijuana - Past Family History Father History Unknown: Yes Family Medical History: Coronary Artery Disease (CAD) Additional Family Medical History / Comment(s): Father had CABG and never came home from the hospital. Mother History Unknown: Yes Family Medical History: Cancer, Deep Vein Thrombosis (DVT) Additional Family Medical History / Comment(s): Mother had squamous cell carcinoma. Medications and Allergies Home Medications Medication Instructions Recorded Confirmed Type Aspirin EC [Ecotrin] 325 mg PO DAILY 03/12/19 11/09/21 History Gabapentin 1,200 mg PO TID 03/12/19 11/09/21 History HYDROcodone/APAP 10-325MG [[place] 1 tab PO QID PRN 03/12/19 11/09/21 History 10-325] Albuterol Sulfate [Ventolin HFA] 2 puff INHALATION RT-QID PRN 03/28/20 11/09/21 History Clopidogrel [Plavix] 75 mg PO DAILY 30 Days #30 tab 04/06/20 11/09/21 Rx Atorvastatin [Lipitor] 80 mg PO HS 05/09/20 11/09/21 History traZODone HCL [Desyrel] 50 mg PO HS 05/09/20 11/09/21 History Ascorbic Acid [Vitamin C] 1,000 mg PO DAILY 08/27/21 11/09/21 History Cholecalciferol [Vitamin D3 (25 25 mcg PO DAILY 08/27/21 11/09/21 History Mcg = 1000 Iu)] Dulaglutide [Trulicity] 1.5 mg SQ TU 08/27/21 11/09/21 History metFORMIN HCL [Glucophage] 1,000 mg PO BID 08/27/21 11/09/21 History Famotidine [Pepcid] 20 mg PO BID #60 tab 08/30/21 11/09/21 Rx Allergies Allergy/AdvReac Type Severity Reaction Status Date / Time Penicillins Allergy Severe Rash/Hives Verified 11/09/21 21:31 talc Allergy Swelling Verified 11/09/21 21:31 pregabalin [From Lyrica] AdvReac Severe Stroke (no Verified 11/09/21 21:31 issue with neurontin) adhesive tape AdvReac Itching Verified 11/09/21 21:31 Physical Examination - Vital Signs Vital Signs: Vital Signs Temp Pulse Pulse Resp BP BP Pulse Ox 11/10/21 04:00 98.2 F 69 19 135/75 97 11/10/21 00:00 97.8 F 88 17 142/86 98 11/09/21 21:31 73 17 116/78 97 11/09/21 20:37 84 18 109/71 96 11/09/21 20:15 88 18 122/81 96 11/09/21 19:17 98.1 F 89 18 129/79 98 Intake and Output 11/09/21 11/10/21 11/10/21 22:59 06:59 14:59 Other: Voiding Method Urinal # Voids 1 Weight 69.037 kg GENERAL: The patient is lying in bed and is not in acute distress. CHEST: The heart rate is regular rate rhythm. No murmurs to auscultation. LUNG: Clear to auscultation bilaterally no wheezing noted throughout. Not labored breathing. ABDOMEN/GI: Bowel sounds present in all 4 quadrants. No tenderness to palpation throughout. NEUROLOGICAL: Higher mental function: The patient is awake, alert, oriented to self, place and time. Patient is following commands. No aphasia and no neglect. Cranial nerves: The pupils are round, equal and reactive to light and accommodation. Visual ojeda are full to confrontation throughout. Extraocular movement is intact no nystagmus is noted. Facial sensation is normal to touch throughout. The facial strength is normal throughout. Hearing is normal bilaterally to hand rub. Tongue is midline and moved [id number] without any difficulty. No dysarthria is noted. Shoulder shrug is normal bilaterally. Motor: Gait is slight drift over the right lower (he stated baseline). The strength is right hip is 4+ to 5- and left arm extension is 5- (both old according to him). Otherwise 5 over 5 throughout. Normal tone and bulk. Cerebellum: Normal finger to nose bilaterally. Sensation: Sensation is normal to touch throughout. Reflexes (right/left): Plantars are mute bilaterally. Results - Laboratory Findings CBC and BMP: 11/10/21 01:43 11/09/21 19:24 Abnormal Lab Findings: Abnormal Labs 11/09/21 11/09/21 11/09/21 19:24 19:24 19:24 WBC 12.5 H Plt Count 147 L Neutrophils # 8.2 H Sodium 134 L Glucose 101 H POC Glucose (mg/dL) Total Bilirubin 1.5 H AST 16 L Troponin I 0.069 H* 11/09/21 11/09/21 11/10/21 22:45 23:11 01:43 WBC Plt Count Neutrophils # Sodium Glucose POC Glucose (mg/dL) 120 H Total Bilirubin AST Troponin I 0.073 H* 0.072 H* 11/10/21 11/10/21 01:43 06:24 WBC 11.7 H Plt Count 149 L Neutrophils # Sodium Glucose POC Glucose (mg/dL) 127 H Total Bilirubin AST Troponin I Assessment and Plan Assessment: Acute transient aphasia. Appears Probable Transient ischemic attack. History of multiple stroke (Right MCA > left MCA). Has positive for cardiolipin ab, MTHF reductase is positivie for one copy of [id number] variant, bet2 glycoprotein IGM from prior study. Mildly elevated troponins Uncontrolled diabetes mellitus Hypertension and during his hospital visit his blood pressure is controlled Hyperlipidemia Tobacco use Plan: I ordered MRI of the brain without to rule out any acute stroke I ordered a routine EEG to rule out any epileptiform discharges or seizure Limited 2-D echo was ordered, lipid panel is ordered and is pending Currently the patient is on aspirin 325 daily, Plavix 75 mg daily. I consulted hematology for his some of hypercoaguable work-up. I will not modify his medication until I get hematology input. Patient is in financial hardship and having difficulty following-up with physician as outpatients and that would go for medication if we modify medication we have to make sure he can afford it. On Lipitor 40mg daily and I increased it to 80mg qhs (home dose). Continue neuro checks On cardiac monitoring PT OT and POT ROOM T[employer]PER are consulted Cardiology is consulted by the primary team for concern of NSTEMI. It seems that the patient was given IV heparin for concern of an NSTEMI by the primary team. Patient had LAURA in past in 2019 and was negative for clot or PFO. I spoke with Dr. Thorne regarding case and agreed not to pursue with LAURA at this time. Patient was counseled on smoking cessation. We'll defer the rest of the medical management to the primary team Patient was notified he needs to follow-up with neurologist as outpatient within 1-2 weeks but he stated he cannot afford following up as outpatient. The plan is discussed with patient. Thank you for the consultation. Jean Claude Dinh M.D. Neuro-hospitalist Time with Patient: Greater than 30
--- NOTE | 2021-11-10 10:35 | P.CONS ---
History of Present Illness - Reason for Consult Consult date: 11/10/21 wound care - History of Present Illness This is a 51-year-old gentleman who had a appointment with the wound care center however he is now in the hospital is unable to make it. Patient has multiple ulcerations that have been there for a couple weeks now. He's been utilizing Neosporin and gauze to the site. Patient does have history of diabetes. Patient has a left plantar ulceration to the forefoot with significant amount of callus measuring approximately 1 x 1 x 2 cm with fat layer exposure. Minimal granulation noted and significant amount of slough, patient has a left plantar lateral ulceration measuring approximately 1 x 1 x 0.1 cm with callus and slough noted, patient has a right plantar medial ulceration measuring 0.4 x 0.5 x 0.1 cm fat layer exposure and callus. Review Of Systems: Constitutional: No fever, no chills, no night sweats. No weight change. No weakness, fatigue or lethargy. No daytime sleepiness. Integumentary:reports wounds, no lesions. No rash or pruritus. No unusual bruising. No change in hair or nails. Physical exam: General Appearance: Alert, cooperative, no distress, appears stated age. Skin: See HPI all other Skin color, texture, tugor normal, no rashes or lesions. Neurologic: Alert oriented x3 Assessment: 1. Non-pressure ulceration of left forefoot with fat layer exposure 2. Nonpressure ulceration of right foot with fatty layer exposure 3. Diabetic foot ulcer Plan 1. Apply Santyl to all ulcerations, feeling was gauze, dry gauze, rolled gauze and secure. 2. Change daily. Patient would benefit from advanced wound care and outpatient setting. We'll be happy to see him in the wound care center. 2. Left foot x-ray to rule out osteomyelitis Thank you for the consultation any questions please contact the wound care center DNP note has been reviewed and discussed with Dr. Lima and the impression and plan of care has been directed as dictated. 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 Past Anesthesia/Blood Transfusion Reactions: No Reported Reaction Past Psychological History: Depression Smoking Status: Current every day smoker Past Alcohol Use History: None Reported Past Drug Use History: Marijuana - Past Family History Father History Unknown: Yes Family Medical History: Coronary Artery Disease (CAD) Additional Family Medical History / Comment(s): Father had CABG and never came home from the hospital. Mother History Unknown: Yes Family Medical History: Cancer, Deep Vein Thrombosis (DVT) Additional Family Medical History / Comment(s): Mother had squamous cell carcinoma. Medications and Allergies Home Medications Medication Instructions Recorded Confirmed Type Aspirin EC [Ecotrin] 325 mg PO DAILY 03/12/19 11/09/21 History Gabapentin 1,200 mg PO TID 03/12/19 11/09/21 History HYDROcodone/APAP 10-325MG [[place] 1 tab PO QID PRN 03/12/19 11/09/21 History 10-325] Albuterol Sulfate [Ventolin HFA] 2 puff INHALATION RT-QID PRN 03/28/20 11/09/21 History Clopidogrel [Plavix] 75 mg PO DAILY 30 Days #30 tab 04/06/20 11/09/21 Rx Atorvastatin [Lipitor] 80 mg PO HS 05/09/20 11/09/21 History traZODone HCL [Desyrel] 50 mg PO HS 05/09/20 11/09/21 History Ascorbic Acid [Vitamin C] 1,000 mg PO DAILY 08/27/21 11/09/21 History Cholecalciferol [Vitamin D3 (25 25 mcg PO DAILY 08/27/21 11/09/21 History Mcg = 1000 Iu)] Dulaglutide [Trulicity] 1.5 mg SQ TU 08/27/21 11/09/21 History metFORMIN HCL [Glucophage] 1,000 mg PO BID 08/27/21 11/09/21 History Famotidine [Pepcid] 20 mg PO BID #60 tab 08/30/21 11/09/21 Rx Allergies Allergy/AdvReac Type Severity Reaction Status Date / Time Penicillins Allergy Severe Rash/Hives Verified 11/09/21 21:31 talc Allergy Swelling Verified 11/09/21 21:31 pregabalin [From Lyrica] AdvReac Severe Stroke (no Verified 11/09/21 21:31 issue with neurontin) adhesive tape AdvReac Itching Verified 11/09/21 21:31 Physical Exam Vitals: Vital Signs Temp Pulse Pulse Resp BP BP Pulse Ox 11/10/21 09:13 97.6 F 81 18 104/57 95 11/10/21 04:00 98.2 F 69 19 135/75 97 11/10/21 00:00 97.8 F 88 17 142/86 98 11/09/21 21:31 73 17 116/78 97 11/09/21 20:37 84 18 109/71 96 11/09/21 20:15 88 18 122/81 96 11/09/21 19:17 98.1 F 89 18 129/79 98 Intake and Output 11/09/21 11/10/21 11/10/21 22:59 06:59 14:59 Intake Total 180 Balance 180 Intake: Oral 180 Other: Voiding Method Urinal # Voids 1 Weight 69.037 kg Results CBC & Chem 7: 11/10/21 01:43 11/09/21 19:24 Labs: Abnormal Lab Results - Last 24 Hours (Table) 11/09/21 11/09/21 11/09/21 Range/Units 19:24 19:24 19:24 WBC 12.5 H (3.8-10.6) k/uL Plt Count 147 L (150-450) k/uL Neutrophils # 8.2 H (1.3-7.7) k/uL APTT (22.0-30.0) sec Sodium 134 L (137-145) mmol/L Glucose 101 H (74-99) mg/dL POC Glucose (mg/dL) (70-110) mg/dL Total Bilirubin 1.5 H (0.2-1.3) mg/dL AST 16 L (17-59) U/L Troponin I 0.069 H* (0.000-0.034) ng/mL 07/11/09/21 11/10/21 Range/Units 22:45 23:11 01:43 WBC (3.8-10.6) k/uL Plt Count (150-450) k/uL Neutrophils # (1.3-7.7) k/uL APTT (22.0-30.0) sec Sodium (137-145) mmol/L Glucose (74-99) mg/dL POC Glucose (mg/dL) 120 H (70-110) mg/dL Total Bilirubin (0.2-1.3) mg/dL AST (17-59) U/L Troponin I 0.073 H* 0.072 H* (0.000-0.034) ng/mL 11/10/21 11/10/21 11/10/21 Range/Units 01:43 06:24 07:42 WBC 11.7 H (3.8-10.6) k/uL Plt Count 149 L (150-450) k/uL Neutrophils # (1.3-7.7) k/uL APTT 31.4 H (22.0-30.0) sec Sodium (137-145) mmol/L Glucose (74-99) mg/dL POC Glucose (mg/dL) 127 H (70-110) mg/dL Total Bilirubin (0.2-1.3) mg/dL AST (17-59) U/L Troponin I (0.000-0.034) ng/mL Assessment and Plan (1) Non-pressure chronic ulcer of other part of left foot with muscle involvement without evidence of necrosis Current Visit: Yes Status: Acute Code(s): L97.525 - NON-PRS CHR ULC OTH PRT L FOOT WITH MSL INVL W/O EVD OF NECR SNOMED Code(s): 279949671 (2) Non-pressure chronic ulcer of other part of right foot with fat layer exposed Current Visit: Yes Status: Acute Code(s): L97.512 - NON-PRS CHRONIC ULCER OTH PRT RIGHT FOOT W FAT LAYER EXPOSED SNOMED Code(s): 643513633 (3) Diabetic foot ulcer Current Visit: Yes Status: Acute Code(s): E11.621 - TYPE 2 DIABETES MELLITUS WITH FOOT ULCER; L97.509 - NON-PRESSURE CHRONIC ULCER OTH PRT UNSP FOOT W UNSP SEVERITY SNOMED Code(s): 727948213
--- NOTE | 2021-11-10 11:09 | P.CRDCN ---
History of Present Illness History of present illness: HISTORY OF PRESENT ILLNESS: This is a 51 year old male with a past medical history significant for CVA/TIA, diabetes, and bilateral lower extremity wounds. Patient follows with Dr. Chaney but has not been to the office since 2020. We have been asked to see the patient in consultation for abnormal troponins. Patient examined at the bedside. Patient presented to the hospital yesterday with a chief complaint of right sided weakness and slurred speech. He reports his weakness has resolved but still feels his speech is slightly off. He denies having any chest pain or pressure. Denies any SOB. He states he has not been compliant with all of his medications as he can not afford them all the time. He is a current smoker. * EKG reveals sinus mechanism with no signs of acute ischemia * Chest xray mild nonspecific bilateral findings * Laboratory data: WBC 11.7. Hemoglobin 13.9. Platelet count 149. Sodium 134. Potassium 3.9. BUN 11. Creatinine 1.21. Troponin 0.069. 0.073. 0.072. * Current home cardiac medications include aspirin 325 mg daily, atorvastatin 80 mg at night, Plavix 75 mg daily * Most recent echocardiogram obtained in August 2021 revealing EF 55-60% with mild MR * Patient underwent LAURA in 2019 which was negative for PFO REVIEW OF SYSTEMS: At the time of my exam: CONSTITUTIONAL: Denies fever or chills. HEENT: Denies blurred vision, vision changes, or eye pain. Denies hemoptysis CARDIOVASCULAR: Denies chest pain. Denies orthopnea. Denies PND. Denies palpitations RESPIRATORY: Denies shortness of breath. GASTROINTESTINAL: Denies abdominal pain. Denies nausea or vomiting. HEMATOLOGIC: Denies bleeding disorders. GENITOURINARY: Denies any blood in urine. SKIN: Denies pruitis. Denies rash. PHYSICAL EXAM: VITAL SIGNS: Reviewed. GENERAL: Well-developed in no acute distress. HEENT: Head is normocephalic. Pupils are equal, round. Sclerae anicteric. Mucous membranes of the mouth are moist. Neck supple. No JVD or thyromegaly LUNGS: Respirations even and unlabored. Lungs essentially clear to auscultation bilaterally. HEART: Regular rate and rhythm. S1 and S2 heard. Soft systolic murmur noted. ABDOMEN: Soft. Nondistended. Nontender. EXTREMITIES: Normal range of motion. No clubbing or cyanosis. Peripheral pulses intact. No lower extremity edema. Bilateral LE wounds noted on feet. NEUROLOGIC: Awake and alert. Oriented x 3. ASSESSMENT: Right sided weakness with slurred speech, likely TIA Abnormal troponins, ACS ruled out, unclear significance History of CVA and TIA Hypertension Diabetes Medication noncompliance, patient states unable to afford his medications all the time PLAN: Obtain limited echo Discontinue IV heparin Resume home cardiac medications Neurology consulted No plans for LAURA as patient has LAURA in 2019 which was negative for PFO Further recommendations pending patient course Nurse practitioner note has been reviewed by physician. Signing provider agrees with the documented findings, assessment, and plan of care. 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 Past Anesthesia/Blood Transfusion Reactions: No Reported Reaction Past Psychological History: Depression Smoking Status: Current every day smoker Past Alcohol Use History: None Reported Past Drug Use History: Marijuana - Past Family History Father History Unknown: Yes Family Medical History: Coronary Artery Disease (CAD) Additional Family Medical History / Comment(s): Father had CABG and never came home from the hospital. Mother History Unknown: Yes Family Medical History: Cancer, Deep Vein Thrombosis (DVT) Additional Family Medical History / Comment(s): Mother had squamous cell carcinoma. Medications and Allergies Home Medications Medication Instructions Recorded Confirmed Type Aspirin EC [Ecotrin] 325 mg PO DAILY 03/12/19 11/09/21 History Gabapentin 1,200 mg PO TID 03/12/19 11/09/21 History HYDROcodone/APAP 10-325MG [[place] 1 tab PO QID PRN 03/12/19 11/09/21 History 10-325] Albuterol Sulfate [Ventolin HFA] 2 puff INHALATION RT-QID PRN 03/28/20 11/09/21 History Clopidogrel [Plavix] 75 mg PO DAILY 30 Days #30 tab 04/06/20 11/09/21 Rx Atorvastatin [Lipitor] 80 mg PO HS 05/09/20 11/09/21 History traZODone HCL [Desyrel] 50 mg PO HS 05/09/20 11/09/21 History Ascorbic Acid [Vitamin C] 1,000 mg PO DAILY 08/27/21 11/09/21 History Cholecalciferol [Vitamin D3 (25 25 mcg PO DAILY 08/27/21 11/09/21 History Mcg = 1000 Iu)] Dulaglutide [Trulicity] 1.5 mg SQ TU 08/27/21 11/09/21 History metFORMIN HCL [Glucophage] 1,000 mg PO BID 08/27/21 11/09/21 History Famotidine [Pepcid] 20 mg PO BID #60 tab 08/30/21 11/09/21 Rx Allergies Allergy/AdvReac Type Severity Reaction Status Date / Time Penicillins Allergy Severe Rash/Hives Verified 11/09/21 21:31 talc Allergy Swelling Verified 11/09/21 21:31 pregabalin [From Lyrica] AdvReac Severe Stroke (no Verified 11/09/21 21:31 issue with neurontin) adhesive tape AdvReac Itching Verified 11/09/21 21:31 Physical Exam Vitals: Vital Signs Temp Pulse Pulse Resp BP BP Pulse Ox 11/10/21 04:00 98.2 F 69 19 135/75 97 11/10/21 00:00 97.8 F 88 17 142/86 98 11/09/21 21:31 73 17 116/78 97 11/09/21 20:37 84 18 109/71 96 11/09/21 20:15 88 18 122/81 96 11/09/21 19:17 98.1 F 89 18 129/79 98 Intake and Output 11/09/21 11/10/21 11/10/21 22:59 06:59 14:59 Other: Voiding Method Urinal # Voids 1 Weight 69.037 kg Results 11/10/21 01:43 11/09/21 19:24 Cardiac Enzymes 11/09/21 11/09/21 11/09/21 Range/Units 19:24 19:24 23:11 AST 16 L (17-59) U/L Troponin I 0.069 H* 0.073 H* (0.000-0.034) ng/mL 11/10/21 Range/Units 01:43 AST (17-59) U/L Troponin I 0.072 H* (0.000-0.034) ng/mL Coagulation 11/09/21 11/10/21 Range/Units 19:24 01:43 PT 10.7 10.8 (9.0-12.0) sec APTT 23.6 26.3 (22.0-30.0) sec CBC 11/09/21 11/10/21 Range/Units 19:24 01:43 WBC 12.5 H 11.7 H (3.8-10.6) k/uL RBC 5.30 4.94 (4.30-5.90) m/uL Hgb 14.8 13.9 (13.0-17.5) gm/dL Hct 46.1 43.5 (39.0-53.0) % Plt Count 147 L 149 L (150-450) k/uL Comprehensive Metabolic Panel 11/09/21 Range/Units 19:24 Sodium 134 L (137-145) mmol/L Potassium 3.9 (3.5-5.1) mmol/L Chloride 100 (98-107) mmol/L Carbon Dioxide 24 (22-30) mmol/L BUN 11 (9-20) mg/dL Creatinine 1.21 (0.66-1.25) mg/dL Glucose 101 H (74-99) mg/dL Calcium 9.4 (8.4-10.2) mg/dL AST 16 L (17-59) U/L ALT 7 (4-49) U/L Alkaline Phosphatase 85 (38-126) U/L Total Protein 7.0 (6.3-8.2) g/dL Albumin 4.6 (3.5-5.0) g/dL Current Medications Generic Name Dose Route Start Last Admin Trade Name Freq PRN Reason Stop Dose Admin Hydrocodone Bitart/Acetaminophen 1 each 11/10/21 04:17 11/10/21 04:51 Hydrocodone/Apap 10-325mg 1 Each Tab PO 1 each QID PRN Administration Pain Aspirin 325 mg 11/10/21 09:00 Aspirin 325 Mg Tab PO DAILY RICH Atorvastatin Calcium 40 mg 11/09/21 21:45 11/09/21 22:29 Atorvastatin 40 Mg Tab PO 40 mg DAILY RICH Administration Clopidogrel Bisulfate 75 mg 11/10/21 09:00 Clopidogrel 75 Mg Tab PO DAILY RICH Heparin Sodium (Porcine) 0 unit 11/10/21 00:31 Heparin Sodium 1,000 Un/Ml (10ml Vl) IV PER PROTOCOL PRN Low PTT Protocol Heparin Sodium/Sodium Chloride 250 mls @ 8.284 mls/hr 11/10/21 00:45 11/10/21 01:13 25,000 unit/ Sodium Chloride IV 12 units/kg/hr .Q24H RICH 8.284 mls/hr Administration Protocol 12 UNITS/KG/HR Insulin Aspart 0 unit 11/10/21 07:30 11/10/21 06:24 Insulin Aspart (Novolog) 100 Unit/Ml Vial SQ Not Given ACHS RICH Protocol Trazodone HCl 50 mg 11/10/21 21:00 Trazodone Hcl 50 Mg Tab PO HS [facility] Intake and Output 11/09/21 11/10/21 11/10/21 22:59 06:59 14:59 Other: Voiding Method Urinal # Voids 1 Weight 69.037 kg 11/10/21 01:43 11/09/21 19:24
[2021-11-10 11:11] LABS: Chol/HDL Ratio 5.18 Ratio; LDL Cholesterol,Calculated 136.7 mg/dL (0.0-131.0); VLDL Calculation 15.78 mg/dL (5.00-40.00)
[2021-11-10 11:39] LABS: Glucose,Whole Blood 118 mg/dL (70-110)
--- NOTE | 2021-11-10 12:12 | MR ---
EXAMINATION TYPE: MR brain wo con DATE OF EXAM: 11/10/2021 11:20 AM COMPARISON: NONE HISTORY: Stroke, aphasia FINDINGS: The ventricles, basal cisterns and sulci overlying the cerebral convexities are mildly enlarged. There is evidence of moderate periventricular white matter ischemic demyelination. Remote deep white matter insults are also noted. Diffusion-weighted imaging demonstrates several small punctate foci of increased signal within the le ft external capsule as well as the left parietal lobe. The findings are compatible with acute ischemi c event. No hemorrhagic transformation visualized at this time. Areas of remote insult high right frontal lobe as well as a posterior left temporal parietal region. Remote occipital insults noted as well. There is no evidence for midline shift or mass effect. Acute intracranial hemorrhage or extra-axial collection is not evident. The paranasal sinuses and mastoid air cells are well-aerated. IMPRESSION: 1. Several small punctate foci of increased signal within the left external capsule as well as the le ft parietal lobe. The findings are compatible with acute ischemia. 2. No evidence for intracranial hemorrhage at this time. 3. Areas of remote insult as well as age-related atrophic and chronic small vessel ischemic change.
--- NOTE | 2021-11-10 13:06 | XR ---
Left foot HISTORY: Nonhealing ulceration 2 views of left foot There is lucency in the left metatarsophalangeal joint volar aspect. There is soft tissue swelling. N o evident periostitis to suggest osteomyelitis. Thickening of the cortex of the secondary may be thir d noted tarsal may be due to chronic infection, remote trauma. Bone mineralization is somewhat reduce d. IMPRESSION: Soft tissue swelling and ulceration
[2021-11-10 16:40] LABS: Glucose,Whole Blood 213 mg/dL (70-110)
[2021-11-10] MEDS: COLLAGENASE 250 UNIT/GM OINTMENT 30 GM TUBE TOPICAL SCH (17:13)
--- NOTE | 2021-11-10 17:13 | P.PN ---
Subjective Progress Note Date: 11/10/21 Principal diagnosis: Slurred speech, right sided weakness Patient was seen and examined. No acute events overnight. Patient reports significant improvement in his symptoms. States that he is back at baseline. Denies any numbness/weakness/tingling. No lightheadedness. Denies any chest pain, shortness breath or palpitations. No nausea or vomiting. No fever or chills. Objective - Vital Signs Vital signs: Vital Signs Temp 97.6 F 11/10/21 09:13 Pulse 73 11/10/21 14:48 Resp 18 11/10/21 14:48 BP 127/69 11/10/21 12:44 Pulse Ox 97 11/10/21 12:44 FiO2 Intake & Output 11/09/21 11/10/21 11/10/21 18:59 06:59 18:59 Intake Total 360 Balance 360 Weight 69.037 kg Intake: Oral 360 Other: Voiding Method Urinal Urinal # Voids 1 - Exam General: [non toxic], [no distress], [appears at stated age] Derm: [warm], [dry] Head: [atraumatic], [normocephalic], [symmetric] Eyes: [EOMI], [no lid lag], [anicteric sclera] Mouth: [no lip lesion], [mucus membranes moist] Cardiovascular: [S1S2 reg], [no murmur] Lungs: [CTA bilateral], [no rhonchi, no rales] , [no accessory muscle use] Abdominal: [soft], [ nontender to palpation], [no guarding], [no appreciable organomegaly] Ext: [no gross muscle atrophy], [no edema], [no contractures] Neuro: [no focal neuro deficits] Psych: [Alert], [oriented], [appropriate affect] - Labs CBC & Chem 7: 11/10/21 01:43 11/09/21 19:24 Labs: Abnormal Lab Results - Last 24 Hours (Table) 11/09/21 11/09/21 11/09/21 Range/Units 19:24 19:24 19:24 WBC 12.5 H (3.8-10.6) k/uL Plt Count 147 L (150-450) k/uL Neutrophils # 8.2 H (1.3-7.7) k/uL APTT (22.0-30.0) sec Sodium 134 L (137-145) mmol/L Glucose 101 H (74-99) mg/dL POC Glucose (mg/dL) (70-110) mg/dL Total Bilirubin 1.5 H (0.2-1.3) mg/dL AST 16 L (17-59) U/L Troponin I 0.069 H* (0.000-0.034) ng/mL LDL Cholesterol, Calc (0.0-131.0) mg/dL HDL Cholesterol (40.00-60.00) mg/dL 11/09/21 11/09/21 11/10/21 Range/Units 22:45 23:11 01:43 WBC (3.8-10.6) k/uL Plt Count (150-450) k/uL Neutrophils # (1.3-7.7) k/uL APTT (22.0-30.0) sec Sodium (137-145) mmol/L Glucose (74-99) mg/dL POC Glucose (mg/dL) 120 H (70-110) mg/dL Total Bilirubin (0.2-1.3) mg/dL AST (17-59) U/L Troponin I 0.073 H* 0.072 H* (0.000-0.034) ng/mL LDL Cholesterol, Calc (0.0-131.0) mg/dL HDL Cholesterol (40.00-60.00) mg/dL 11/10/21 11/10/21 11/10/21 Range/Units 01:43 06:24 07:42 WBC 11.7 H (3.8-10.6) k/uL Plt Count 149 L (150-450) k/uL Neutrophils # (1.3-7.7) k/uL APTT (22.0-30.0) sec Sodium (137-145) mmol/L Glucose (74-99) mg/dL POC Glucose (mg/dL) 127 H (70-110) mg/dL Total Bilirubin (0.2-1.3) mg/dL AST (17-59) U/L Troponin I (0.000-0.034) ng/mL LDL Cholesterol, Calc 136.7 H (0.0-131.0) mg/dL HDL Cholesterol 36.50 L (40.00-60.00) mg/dL 11/10/21 11/10/21 11/10/21 Range/Units 07:42 11:37 16:38 WBC (3.8-10.6) k/uL Plt Count (150-450) k/uL Neutrophils # (1.3-7.7) k/uL APTT 31.4 H (22.0-30.0) sec Sodium (137-145) mmol/L Glucose (74-99) mg/dL POC Glucose (mg/dL) 118 H 213 H (70-110) mg/dL Total Bilirubin (0.2-1.3) mg/dL AST (17-59) U/L Troponin I (0.000-0.034) ng/mL LDL Cholesterol, Calc (0.0-131.0) mg/dL HDL Cholesterol (40.00-60.00) mg/dL Assessment and Plan Assessment: Assessment and plan CVA Elevated troponins Dyslipidemia Bilateral foot ulcer Hypertension Diabetes mellitus Patient presents with slurred speech and right-sided weakness concerning for CVA. Underwent LAURA and 2019 negative for PFO. Most recent echocardiogram in 2021 shows EF of 55-60% with mild MR. Brain CT negative. CTA head and neck negative. MRI brain shows several small punctate foci of increased signal within the left external capsule as well as the left parietal lobe. EKG pending. Continue aspirin, Lipitor and Plavix. Advanced Neurochecks and Telemetry monitoring. PT/OT consulted. Wound care consulted for bilateral LE ulcers. No signs of OM. Local wound care. Monitor vitals, adjust medications as necessary. Continue low dose sliding scale. Accuchecks QID and hypoglycemic precautions. Heparin for DVT prophylaxis. Anticipate DC home tomorrow.
--- NOTE | 2021-11-10 18:44 | EEG ---
ELECTROENCEPHALOGRAM REPORT DATE OF SERVICE: 11/10/2021. CLINICAL HISTORY: This is a 51-year-old gentleman with a history of strokes who continues to have recurrent strokes and presented because of speech difficulty. The video EEG is obtained to evaluate for seizure epileptiform activity. RELEVANT MEDICATION: The patient is not on any antiepileptic drugs. EEG TYPE: A routine 21-channel EEG is performed with video using the 10/20 electrode placement system. DESCRIPTION: Wakefulness and drowsiness are obtained. During awake state, the posterior-dominant rhythm consists of low to moderate voltage of 8.5 hertz activity that is well modulated and sustained. There is no physiological stage 2 sleep architecture. There is a mild to moderate amount of delta with theta slowing over the right temporal region. Interictal and ictal is none. ACTIVATION PROCEDURE: Photic stimulation did not evoke a posterior driving response. There is no abnormality during the photic stimulation. Hyperventilation is not performed. CLINICAL INTERPRETATION: This is an abnormal routine EEG. The focal slowing over the right temporal is consistent with the patient's history of stroke. Otherwise, the background is normal and there are no epileptiform discharges or seizure on the EEG. Clinical correlation is recommended. MMODL / IJN: [id number] /
--- NOTE | 2021-11-10 19:53 | P.CONS ---
History of Present Illness - Reason for Consult Consult date: 11/10/21 CVA, APL Requesting physician: Jean Claude Dinh - History of Present Illness This is a 51 year old male who follows with Dr. Sutherland after moving from [place] to [place] a few years ago, he has a known history with low grade NHL in 2009 and was on watchful approach .Also he was treated for iron deficiency anemia in [place]. Records from [place] were reviewed,mediastinal LN biopsy in was negative for lymphoma. He had a history of below left knee in 2003,no other history of DVT/PE On 04/18/2012,CT scan of chest/abdomen/pelvis revealed mildly enlarged hilar,mediastinal adenopathies. Repeat CT scan on 01/22/2013 revealed mildly enlarged mediastinal LN which have remained stable. He was referred back to me because of abnormal CBC done on 06/23/2015,which revealed total wbc of 12.4K,mild lymphocytosis,normal hemoglobin and platelets counts were 100K,however,there was platelets clumping. He had another stroke in ,had hypercoaguability work up,he was positive for IgM anticardiolipin antibodies,heterzygous for MTHFR [id number],normal homocysteine level,negative prothrombin gene mutation. Repeat ACL antibodies on 05/15/2017 was positive for IgM antibodies,126. He had a CT scan of chest by Dr Chaney in September/2017,small,2 new lung nodules and 6 months follow up was recommended,Dr Chaney is taking care of it In 04/2020,he had a stroke,ended up with tube feeding which was then removed. He feels better,lost weight but now is better,he is currently on aspirin and pl avix,he continues to smoke. He was last seen in June [address] Sutherland who again reviewed with him that He has multiple risk factors for ischemic stroke,DM,smoking...exc,in addition to APL antibodies. May continue aspirin and plavix. Highly recommended to stop smoking. 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 Past Anesthesia/Blood Transfusion Reactions: No Reported Reaction Past Psychological History: Depression Smoking Status: Current every day smoker Past Alcohol Use History: None Reported Past Drug Use History: Marijuana - Past Family History Father History Unknown: Yes Family Medical History: Coronary Artery Disease (CAD) Additional Family Medical History / Comment(s): Father had CABG and never came home from the hospital. Mother History Unknown: Yes Family Medical History: Cancer, Deep Vein Thrombosis (DVT) Additional Family Medical History / Comment(s): Mother had squamous cell carcinoma. Medications and Allergies Home Medications Medication Instructions Recorded Confirmed Type Aspirin EC [Ecotrin] 325 mg PO DAILY 03/12/19 11/09/21 History Gabapentin 1,200 mg PO TID 03/12/19 11/09/21 History HYDROcodone/APAP 10-325MG [[place] 1 tab PO QID PRN 03/12/19 11/09/21 History 10-325] Albuterol Sulfate [Ventolin HFA] 2 puff INHALATION RT-QID PRN 03/28/20 11/09/21 History Clopidogrel [Plavix] 75 mg PO DAILY 30 Days #30 tab 04/06/20 11/09/21 Rx Atorvastatin [Lipitor] 80 mg PO HS 05/09/20 11/09/21 History traZODone HCL [Desyrel] 50 mg PO HS 05/09/20 11/09/21 History Ascorbic Acid [Vitamin C] 1,000 mg PO DAILY 08/27/21 11/09/21 History Cholecalciferol [Vitamin D3 (25 25 mcg PO DAILY 08/27/21 11/09/21 History Mcg = 1000 Iu)] Dulaglutide [Trulicity] 1.5 mg SQ TU 08/27/21 11/09/21 History metFORMIN HCL [Glucophage] 1,000 mg PO BID 08/27/21 11/09/21 History Famotidine [Pepcid] 20 mg PO BID #60 tab 08/30/21 11/09/21 Rx Allergies Allergy/AdvReac Type Severity Reaction Status Date / Time Penicillins Allergy Severe Rash/Hives Verified 11/09/21 21:31 talc Allergy Swelling Verified 11/09/21 21:31 pregabalin [From Lyrica] AdvReac Severe Stroke (no Verified 11/09/21 21:31 issue with neurontin) adhesive tape AdvReac Itching Verified 11/09/21 21:31 Physical Exam Vitals: Vital Signs Temp Pulse Pulse Resp BP BP Pulse Ox 11/10/21 09:13 97.6 F 81 18 104/57 95 11/10/21 04:00 98.2 F 69 19 135/75 97 11/10/21 00:00 97.8 F 88 17 142/86 98 11/09/21 21:31 73 17 116/78 97 11/09/21 20:37 84 18 109/71 96 11/09/21 20:15 88 18 122/81 96 11/09/21 19:17 98.1 F 89 18 129/79 98 Intake and Output 11/09/21 11/10/21 11/10/21 22:59 06:59 14:59 Intake Total 180 Balance 180 Intake: Oral 180 Other: Voiding Method Urinal # Voids 1 Weight 69.037 kg - Constitutional General appearance: cooperative, no acute distress - EENT Eyes: EOMI ENT: NA/AT - Neck Neck: normal ROM - Respiratory Respiratory: bilateral: diminished - Cardiovascular Rhythm: regularly irregular leg Peripheral Edema: bilateral: 1+ (evidence of venous insufficiency) - Gastrointestinal General gastrointestinal: soft - Integumentary Integumentary: pale - Musculoskeletal Musculoskeletal: generalized weakness - Psychiatric Psychiatric: A&O x's 3 Results CBC & Chem 7: 11/10/21 01:43 11/09/21 19:24 Labs: Abnormal Lab Results - Last 24 Hours (Table) 11/09/21 11/09/21 11/09/21 Range/Units 19:24 19:24 19:24 WBC 12.5 H (3.8-10.6) k/uL Plt Count 147 L (150-450) k/uL Neutrophils # 8.2 H (1.3-7.7) k/uL APTT (22.0-30.0) sec Sodium 134 L (137-145) mmol/L Glucose 101 H (74-99) mg/dL POC Glucose (mg/dL) (70-110) mg/dL Total Bilirubin 1.5 H (0.2-1.3) mg/dL AST 16 L (17-59) U/L Troponin I 0.069 H* (0.000-0.034) ng/mL 11/09/21 11/09/21 11/10/21 Range/Units 22:45 23:11 01:43 WBC (3.8-10.6) k/uL Plt Count (150-450) k/uL Neutrophils # (1.3-7.7) k/uL APTT (22.0-30.0) sec Sodium (137-145) mmol/L Glucose (74-99) mg/dL POC Glucose (mg/dL) 120 H (70-110) mg/dL Total Bilirubin (0.2-1.3) mg/dL AST (17-59) U/L Troponin I 0.073 H* 0.072 H* (0.000-0.034) ng/mL 11/10/21 11/10/21 11/10/21 Range/Units 01:43 06:24 07:42 WBC 11.7 H (3.8-10.6) k/uL Plt Count 149 L (150-450) k/uL Neutrophils # (1.3-7.7) k/uL APTT 31.4 H (22.0-30.0) sec Sodium (137-145) mmol/L Glucose (74-99) mg/dL POC Glucose (mg/dL) 127 H (70-110) mg/dL Total Bilirubin (0.2-1.3) mg/dL AST (17-59) U/L Troponin I (0.000-0.034) ng/mL Assessment and Plan (1) Antiphospholipid antibody positive Narrative/Plan: - Anticoagulation per neurology, however DOAC would not be indicated given his postive antibodies, will need to utilize Lovenox or warfarin for ongoing anticoagulation Current Visit: Yes Status: Acute Code(s): R76.0 - RAISED ANTIBODY TITER SNOMED Code(s): 031252794 (2) CVA (cerebral vascular accident) Current Visit: Yes Status: Acute Code(s): I63.9 - CEREBRAL INFARCTION, UNSPECIFIED SNOMED Code(s): 459081619 (3) Diabetic foot ulcer Current Visit: Yes Status: Acute Code(s): E11.621 - TYPE 2 DIABETES MELLITUS WITH FOOT ULCER; L97.509 - NON-PRESSURE CHRONIC ULCER OTH PRT UNSP FOOT W UNSP SEVERITY SNOMED Code(s): 639674725 Plan: Dr. Addison: I have completed the full history and ohysical and adeveloped the above impression and plan, agree with dictation, dictated as a ascribe
[2021-11-10 20:30] LABS: Glucose,Whole Blood 66 mg/dL (70-110)
[2021-11-10 20:30] LABS: Glucose,Whole Blood 82 mg/dL (70-110)
[2021-11-10] MEDS ORDERED: traZODone HCL 50 MG TAB PO SCH (21:00)
[2021-11-11] MEDS: HEPARIN SODIUM,PORCINE/PF 5,000 UNIT/0.5 ML SYRINGE SQ SCH ×2 (00:05→08:28)
[2021-11-11] MEDS: HYDROcodone/APAP 10-325MG 1 EACH TAB PO PRN ×2 (00:07→07:38)
[2021-11-11 00:50] VITALS: RESP 16
[2021-11-11 05:53] LABS: Glucose,Whole Blood 90 mg/dL (70-110)
[2021-11-11] MEDS: INSULIN ASPART (NovoLOG) 100 UNIT/ML VIAL SQ SCH (05:57)
[2021-11-11] MEDS: ASPIRIN 325 MG TAB PO SCH (08:28)
[2021-11-11] MEDS: CLOPIDOGREL 75 MG TAB PO SCH (08:28)
[2021-11-11] MEDS: COLLAGENASE 250 UNIT/GM OINTMENT 30 GM TUBE TOPICAL SCH (08:29)
[2021-11-11 08:35] LABS: Basophils # (A) 0.1 k/uL (0-0.2); Basophils % (A) 1 %; Eosinophils # (A) 0.2 k/uL (0-0.7); Eosinophils % (A) 3 %; HCT 44.7 % (39.0-53.0); HGB 14.4 gm/dL (13.0-17.5); Lymphocytes # (A) 1.6 k/uL (1.0-4.8); Lymphocytes % (A) 26 %; MCH 29.2 pg (25.0-35.0); MCHC 32.2 g/dL (31.0-37.0); MCV 90.5 fL (80.0-100.0); Mean Platelet Volume 7.8; Monocytes # (A) 0.4 k/uL (0-1.0); Monocytes % (A) 6 %; Neutrophils # (A) 3.9 k/uL (1.3-7.7); Neutrophils % (A) 61 %; Platelet Count 133 k/uL (150-450); RBC 4.94 m/uL (4.30-5.90); RDW 15.6 % (11.5-15.5); WBC 6.4 k/uL (3.8-10.6)
[2021-11-11 08:42] VITALS: BP 106/67; PULSE 71; TEMP 98.1
[2021-11-11 08:47] LABS: INR 0.9 (<1.2); Prothrombin Time 10.2 sec (9.0-12.0)
--- NOTE | 2021-11-11 12:44 | P.PN ---
Subjective Progress Note Date: 11/11/21 The patient seen at bedside and he states that he's doing well. He feels he is back to baseline now. Objective - Vital Signs Vital signs: Vital Signs Temp 98.1 F 11/11/21 08:42 Pulse 71 11/11/21 08:42 Resp 16 11/11/21 08:42 BP 106/67 11/11/21 08:42 Pulse Ox 99 11/11/21 08:42 FiO2 Intake & Output 11/10/21 11/11/21 11/11/21 18:59 06:59 18:59 Intake Total 360 100 Balance 360 100 Intake: Oral 360 100 Other: Voiding Method Urinal Urinal - Exam GENERAL: The patient is lying in bed and is not in acute distress. NEUROLOGICAL: Higher mental function: The patient is awake, alert, oriented to self, place and time. Patient is following commands. No aphasia and no neglect. Cranial nerves: The pupils are round, equal and reactive to light and accommodation. Visual ojeda are full to confrontation throughout. Extraocular movement is intact no nystagmus is noted. Facial sensation is normal to touch throughout. The facial strength is normal throughout. Hearing is normal bilaterally to hand rub. Tongue is midline and moved [id number] without any difficulty. No dysarthria is noted. Shoulder shrug is normal bilaterally. Motor: Gait is slight drift over the right lower (he stated baseline). The strength is right hip is 4+ to 5- and left arm extension is 5- (both old according to him). Otherwise 5 over 5 throughout. Normal tone and bulk. Cerebellum: Normal finger to nose bilaterally. Sensation: Sensation is normal to touch throughout. Reflexes (right/left): Plantars are mute bilaterally. Some of the workup during this hospital visit consisted of: Initial troponins 0.069 and was slightly trending up PT, PT and INR is within normal limits Lipid panels triglycerides 78, cholesterol is 189, LDLs 136 and HDL is 36. CT of the head is reported as no acute the process. I personally reviewed the CT of the head and I feel the patient has encephalomalacia over the right frontal/parietal as well as temporal region as well as left temporal region. The encephalomalacia is worse over the right hemisphere than the left. CT angiography of the head and neck was reported as no significant abnormality is seen. MRI of the brain is reported as several small punctate foci increased signal in the left external capsule as well as a left parietal. This finding are compatible with acute ischemia. No evidence of intracranial hemorrhage at this time. Area of remote insult as well as age-related atrophic and chronic small vessel ischemic changes. Routine EEG is abnormal. The focal slowing over the right temporal is consistent with the patient's history of stroke. Otherwise the background is normal and there is no epileptiform discharges or seizure on the EEG. - Labs CBC & Chem 7: 11/11/21 08:10 11/09/21 19:24 Labs: Abnormal Lab Results - Last 24 Hours (Table) 11/10/21 11/10/21 11/11/21 Range/Units 16:38 20:20 08:10 RDW 15.6 H (11.5-15.5) % Plt Count 133 L (150-450) k/uL POC Glucose (mg/dL) 213 H 66 L (70-110) mg/dL Assessment and Plan Assessment: Acute ischemic stroke (left external capsule and parietal. Presented with transient expressive aphasia). History of multiple stroke (Right MCA > left MCA). 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 Mildly elevated troponins Uncontrolled diabetes mellitus Hypertension and during his hospital visit his blood pressure is controlled Hyperlipidemia Tobacco use Plan: Pending report of Limited 2-D echo. Currently the patient is on aspirin 325 daily, Plavix 75 mg daily. I consulted hematology for his some of hypercoaguable work-up that were positive. I will n ot modify his medication until I get hematology input. Patient is in financial hardship and having difficulty following-up with physician as outpatients and that would go for medication if we modify medication we have to make sure he can afford it. Hematology recommended Coumadin vs Lovenox. If patient is on anticoagulation the patient does not need to be on dual antiplates and be discontinued out of Plavix from our side. On Lipitor 40mg daily and I increased it to 80mg qhs (home dose). Continue neuro checks On cardiac monitoring PT OT and FARM MANAGEMENT AGENT are consulted Cardiology is consulted by the primary team for concern of NSTEMI. It seems that the patient was given IV heparin for concern of an NSTEMI by the primary team. Patient had LAURA in past in 2019 and was negative for clot or PFO. I spoke with Dr. Thorne regarding case and agreed not to pursue with LAURA at this time. Patient was counseled on smoking cessation. We'll defer the rest of the medical management to the primary team Patient was notified he needs to follow-up with neurologist as outpatient within 1-2 weeks. Also recommend he follows-up with Hematology team as outpatient as well. The plan is discussed with patient and primary team. Jean Claude Dinh M.D. Neuro-hospitalist Time with Patient: Less than 30
--- NOTE | 2021-11-11 13:37 | CA ---
Transthoracic Echo Report Name: Maximo Norris Age: 51 Gender: M : 1970 Exam Date: 11/10/2021 13:57 Exam Location: [place] [facility] Ht (in): 68 Wt (lb): 152 Ordering Physician: Kayleigh Roa Attending/Referring Phys: [id number], [facility] Representative Saige Hamm, ANA PAULA Procedure CPT: Indications: LV function, abnormal trops Cardiac Hx: Technical Quality: Good Contrast 1: N/A Total Dose (mL): Contrast 2: Total Dose (mL): MEASUREMENTS (Male / Female) Normal Values 2D ECHO LV Diastolic Diameter PLAX 4.5 cm 4.2 - 5.9 / 3.9 - 5.3 cm IVS Diastolic Thickness 1.4 cm 0.6 - 1.0 / 0.6 - 0.9 cm LVPW Diastolic Thickness 1.4 cm 0.6 - 1.0 / 0.6 - 0.9 cm LV Relative Wall Thickness 0.6 RV Internal Dim ED PLAX 3.1 cm LA Systolic Diameter LX 5.4 cm 3.0 - 4.0 / 2.7 - 3.8 cm FINDINGS Left Ventricle Left ventricular ejection fraction is estimated at 50-55 %. Right Ventricle Normal right ventricular size and function. Right Atrium Normal right atrial size. Left Atrium Moderate left atrial dilatation. Mitral Valve Mitral valve thickened. Aortic Valve Trileaflet aortic valve. Tricuspid Valve Structurally normal tricuspid valve. Mild tricuspid regurgitation. Pulmonic Valve Structurally normal pulmonic valve. Pericardium Normal pericardium. Aorta Normal size aortic root and proximal ascending aorta. CONCLUSIONS Normal LV systolic function aortic sclerosis without any stenosis Previewed by: Dr. Eloy Montenegro MD (Electronically Signed) Final Date: 11 November 2021 13:37
--- NOTE | 2021-11-11 14:16 | P.PN ---
Subjective Progress Note Date: 11/11/21 CVA Elevated troponins Dyslipidemia Bilateral foot ulcer Hypertension Diabetes mellitus 51-year-old man with a history of hyperlipidemia, hypertension, diabetes presented with slurred speech and right-sided weakness. MRI shows several small punctate foci of increased signal within the left external capsule as well as left parietal lobe. CTA of the head and neck was negative. Echocardiogram shows EF 55-60% with mild MR, underwent LAURA in 2019 was negative for PFO. Patient was seen and evaluated by neurology while he was in the hospital, they recommended anticoagulation. Patient says that he was previously on Coumadin before and tolerated this well. Patient will follow-up with primary care doctor as well as PCP. Gen: awake, alert HEENT: normocephalic, atraumatic, good hearing acuity, moist mucous membranes Resp: good air exchange, breathing comfortably with no accessory muscle use CVS: good distal perfusion x 4, GI: soft, NTTP, ND : no SPT, no CVAT, dc catheter not present MSK: no pitting edema, no clubbing Neuro: non-focal, moving all extremities Psych: cooperative, euthymic mood Objective - Vital Signs Vital signs: Vital Signs Temp 98.1 F 11/11/21 08:42 Pulse 71 11/11/21 08:42 Resp 16 11/11/21 08:42 BP 106/67 11/11/21 08:42 Pulse Ox 99 11/11/21 08:42 FiO2 Intake & Output 11/10/21 11/11/21 11/11/21 18:59 06:59 18:59 Intake Total 360 100 Balance 360 100 Intake: Oral 360 100 Other: Voiding Method Urinal Urinal - Labs CBC & Chem 7: 11/11/21 08:10 11/09/21 19:24 Labs: Abnormal Lab Results - Last 24 Hours (Table) 11/10/21 11/10/21 11/11/21 Range/Units 16:38 20:20 08:10 RDW 15.6 H (11.5-15.5) % Plt Count 133 L (150-450) k/uL POC Glucose (mg/dL) 213 H 66 L (70-110) mg/dL
== END 2021-11-11 10:53 | disposition home or self-care (01) | DRG 65 ==
LOC: EC 19:15 → 3SCARD 21:34 → OBSVTOIN 11-10 14:04
PROVIDERS: ADMIT Internal Medicine; ATTEND Internal Medicine
DX: I63.9 Cerebral infarction, unspecified (principal); L97.525 Non-pressure chronic ulcer of other part of left foot with muscle involvement without evidence of necrosis; I10 Essential (primary) hypertension; I69.320 Aphasia following cerebral infarction; J44.9 Chronic obstructive pulmonary disease, unspecified; L97.512 Non-pressure chronic ulcer of other part of right foot with fat layer exposed; R29.702 NIHSS score 2; G93.89 Other specified disorders of brain; R76.0 Raised antibody titer; E11.42 Type 2 diabetes mellitus with diabetic polyneuropathy; E11.621 Type 2 diabetes mellitus with foot ulcer; E11.65 Type 2 diabetes mellitus with hyperglycemia; E78.5 Hyperlipidemia, unspecified; F17.210 Nicotine dependence, cigarettes, uncomplicated; R77.8 Other specified abnormalities of plasma proteins; R47.81 Slurred speech; F32.A Depression, unspecified; Z79.02 Long term (current) use of antithrombotics/antiplatelets; Z79.82 Long term (current) use of aspirin; Z79.84 Long term (current) use of oral hypoglycemic drugs; Z79.899 Other long term (current) drug therapy; Z82.49 Family history of ischemic heart disease and other diseases of the circulatory system; Z85.72 Personal history of non-Hodgkin lymphomas; Z86.718 Personal history of other venous thrombosis and embolism; Z91.14 Patient's other noncompliance with medication regimen; Z87.01 Personal history of pneumonia (recurrent); Z28.310 Unvaccinated for COVID-19; Z28.21 Immunization not carried out because of patient refusal; Z88.0 Allergy status to penicillin
CPT/HCPCS: 36415; 70450; 70496; 70498; 70551; 71046; 80053; 80061; 83605; 84484; 85025; 85610; 85730; 93005; 93308; 95816; 99285

== ENCOUNTER → 2021-11-29 | Outpatient (CLI) | payer MEDICARE ==
--- NOTE | 2021-12-05 07:35 | US ---
EXAMINATION TYPE: US arterial LE single level DATE OF EXAM: 11/29/2021 2:29 PM CLINICAL HISTORY: L97.522 Non-pressure chronic ulcer of other part o. bilateral foot ulcers. History of hyperlipidemia. History of diabetes. Doppler Waveforms: Right: Biphasic to multiphasic. Left: Biphasic to monophasic Ankle-Brachial Indices: Right: 0.9 Left: 0.6 Toe Brachial Indices: Right: 0.6 Left: 0.4 IMPRESSION: Diminished LUZ MARINA and TBI values on the left with loss of phasicity. At least mild left low er extreme peripheral arterial disease. Further workup and follow-up advised.
== END | disposition home or self-care (01) ==
LOC: RADUSWWP 13:49
PROVIDERS: ATTEND Thoracic Surgery (Cardiothoracic Vascular Surgery)
DX: I73.9 Peripheral vascular disease, unspecified (principal)
CPT/HCPCS: 93923

== ENCOUNTER 2021-12-31 09:45 | Inpatient (IN) | payer MEDICARE ==
[2021-12-31 09:52] VITALS: BP 167/84; PULSE 84; RESP 18; TEMP 98.4
[2021-12-31] MEDS ORDERED: SODIUM CHLORIDE 0.9% 1,000 ML IV STA (10:03)
--- NOTE | 2021-12-31 10:08 | ED ---
General Adult HPI - General Chief complaint: Neuro Symptoms/Deficit Stated complaint: possible stroke Time Seen by Provider: 12/31/21 09:57 Source: patient, RN notes reviewed Mode of arrival: ambulatory Limitations: no limitations - History of Present Illness Initial comments: Patient is a pleasant 51-year-old male presenting to the emergency department with concerns for weakness. Patient is a poor historian but believes symptoms started yesterday afternoon. Patient states he does have some chronic weakness however this seems worsened normal. Patient has noticed some drooling on himself. Patient does not feel confused. Patient denies cough however does cough several times while in the room. Patient states all of his extremities hurt and that is chronic. No new extremity weakness. - Related Data Home Medications Medication Instructions Recorded Confirmed Gabapentin 1,200 mg PO TID 03/12/19 11/09/21 HYDROcodone/APAP 10-325MG [[place] 1 tab PO QID PRN 03/12/19 11/09/21 10-325] Albuterol Sulfate [Ventolin HFA] 2 puff INHALATION RT-QID PRN 03/28/20 11/09/21 Atorvastatin [Lipitor] 80 mg PO HS 05/09/20 11/09/21 traZODone HCL [Desyrel] 50 mg PO HS 05/09/20 11/09/21 Ascorbic Acid [Vitamin C] 1,000 mg PO DAILY 08/27/21 11/09/21 Cholecalciferol [Vitamin D3 (25 25 mcg PO DAILY 08/27/21 11/09/21 Mcg = 1000 Iu)] Dulaglutide [Trulicity] 1.5 mg SQ TU 08/27/21 11/09/21 metFORMIN HCL [Glucophage] 1,000 mg PO BID 08/27/21 11/09/21 Previous Rx's Medication Instructions Recorded Clopidogrel [Plavix] 75 mg PO DAILY 30 Days #30 tab 04/06/20 Famotidine [Pepcid] 20 mg PO BID #60 tab 08/30/21 Warfarin [Coumadin] 5 mg PO DAILY #30 tab 11/11/21 Allergies Allergy/AdvReac Type Severity Reaction Status Date / Time Penicillins Allergy Severe Rash/Hives Verified 12/31/21 09:52 talc Allergy Swelling Verified 12/31/21 09:52 pregabalin [From Lyrica] AdvReac Severe Stroke (no Verified 12/31/21 09:52 issue with neurontin) adhesive tape AdvReac Itching Verified 12/31/21 09:52 Review of Systems ROS Statement: Those systems with pertinent positive or pertinent negative responses have been documented in the HPI. ROS Other: All systems not noted in ROS Statement are negative. Constitutional: Denies: fever Eyes: Denies: eye pain ENT: Denies: ear pain Respiratory: Denies: cough Cardiovascular: Denies: chest pain Endocrine: Reports: fatigue Gastrointestinal: Denies: abdominal pain Genitourinary: Denies: dysuria Musculoskeletal: Reports: as per HPI Skin: Denies: rash Neurological: Reports: as per HPI. Denies: headache, confusion Past Medical History Past Medical History: COPD, CVA/TIA, Diabetes Mellitus, Deep Vein Thrombosis (DVT), Hyperlipidemia, Pneumonia, Vascular Disorder Additional Past Medical History / Comment(s): NIDDM type II, severe neuropathy bilateral hands and feet, past merlos L foot wound, 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 Past Anesthesia/Blood Transfusion Reactions: No Reported Reaction Past Psychological History: Depression Smoking Status: Current every day smoker Past Alcohol Use History: None Reported Past Drug Use History: Marijuana - Past Family History Father History Unknown: Yes Family Medical History: Coronary Artery Disease (CAD) Additional Family Medical History / Comment(s): Father had CABG and never came home from the hospital. Mother History Unknown: Yes Family Medical History: Cancer, Deep Vein Thrombosis (DVT) Additional Family Medical History / Comment(s): Mother had squamous cell carcinoma. General Exam Limitations: no limitations General appearance: alert, in no apparent distress Head exam: Present: normocephalic Eye exam: Present: normal appearance, PERRL, EOMI ENT exam: Present: normal oropharynx Neck exam: Present: normal inspection Respiratory exam: Present: normal lung sounds bilaterally Cardiovascular Exam: Present: regular rate, normal rhythm GI/Abdominal exam: Present: soft. Absent: tenderness Extremities exam: Present: normal inspection Neurological exam: Present: alert, oriented X3, CN II-XII intact (Except minimal left facial) Expanded Neurological exam: Present: protecting the airway Patient oriented to: Present: person, place, time Speech: Present: fluid speech Cranial nerves: EOM's Intact: Normal, Facial Sensation: Normal, Facial Palsy with Forehead Movement: Abnormal Left (Minimal left lip drooping) Sensory exam: Upper Extremity Light Touch: Normal, Lower Extremity Light Touch: Normal Motor strength exam: RUE: 5, LUE: 5, RLE: 5, LLE: 5 Eye Response: (4) open spontaneously Motor Response: (6) obeys commands Verbal Response: (5) oriented Psychiatric exam: Present: normal affect, normal mood Skin exam: Present: other (Tobacco stained fingers) Course Vital Signs 12/31/21 09:50 Temperature 98.4 F Pulse Rate 84 Respiratory 18 Rate Blood Pressure 167/84 O2 Sat by Pulse 98 Oximetry EKG Findings - EKG Comments: EKG Findings:: Sinus rhythm at 78. UT 139. QRS 84. QT 360. QTC 394. Normal axis. Normal QRS. No acute ST change. Medical Decision Making - Medical Decision Making Patient reevaluated and unchanged. Patient updated on results and plan. Case was earlier discussed with Dr. Ha who agrees patient is not a TPA candidate secondary to last known well greater than 4.5 hours. Risks are felt to outweigh the benefit. she has been paged for admission covering for Dr. Cox. - Lab Data Result diagrams: 12/31/21 10:15 Lab Results 12/31/21 12/31/21 12/31/21 Range/Units 10:02 10:15 10:15 WBC 6.8 (3.8-10.6) k/uL RBC 5.20 (4.30-5.90) m/uL Hgb 15.1 (13.0-17.5) gm/dL Hct 45.8 (39.0-53.0) % MCV 88.1 (80.0-100.0) fL MCH 29.0 (25.0-35.0) pg MCHC 33.0 (31.0-37.0) g/dL RDW 14.5 (11.5-15.5) % Plt Count 263 (150-450) k/uL MPV 6.9 Neutrophils % 60 % Lymphocytes % 27 % Monocytes % 6 % Eosinophils % 3 % Basophils % 1 % Neutrophils # 4.1 (1.3-7.7) k/uL Lymphocytes # 1.8 (1.0-4.8) k/uL Monocytes # 0.4 (0-1.0) k/uL Eosinophils # 0.2 (0-0.7) k/uL Basophils # 0.1 (0-0.2) k/uL PT 10.2 (9.0-12.0) sec INR 0.9 (<1.2) APTT 23.6 (22.0-30.0) sec POC Glucose (mg/dL) 141 H (70-110) mg/dL POC Glu Compliance Spec ID Bradley Mitchell - Radiology Data Radiology results: report reviewed (Computed tomography scan of the brain shows old lacunar infarcts. No acute process. Atrophy.) Critical Care Time Critical Care Time: Yes Total Critical Care Time: 32 Disposition Clinical Impression: Cerebrovascular accident Disposition: ADMITTED IP TO THIS HOSP Is patient prescribed a controlled substance at d/c from ED?: No Referrals: Crista Carrington MD [Primary Care Provider] - 1-2 days Time of Disposition: 10:52
[2021-12-31 10:14] LABS: Glucose,Whole Blood 141 mg/dL (70-110)
[2021-12-31 10:29] LABS: Basophils # (A) 0.1 k/uL (0-0.2); Basophils % (A) 1 %; Eosinophils # (A) 0.2 k/uL (0-0.7); Eosinophils % (A) 3 %; HCT 45.8 % (39.0-53.0); HGB 15.1 gm/dL (13.0-17.5); Lymphocytes # (A) 1.8 k/uL (1.0-4.8); Lymphocytes % (A) 27 %; MCV 88.1 fL (80.0-100.0); Mean Platelet Volume 6.9; Monocytes # (A) 0.4 k/uL (0-1.0); Monocytes % (A) 6 %; Neutrophils # (A) 4.1 k/uL (1.3-7.7); Neutrophils % (A) 60 %; Platelet Count 263 k/uL (150-450); RDW 14.5 % (11.5-15.5); WBC 6.8 k/uL (3.8-10.6)
--- NOTE | 2021-12-31 10:32 | CT ---
EXAMINATION TYPE: CT brain wo con for TPA DATE OF EXAM: 12/31/2021 HISTORY: stroke. Acute onset neuro deficit. CT DLP: 1077 mGycm. Automated Exposure Control for Dose Reduction was Utilized. TECHNIQUE: CT scan of the head is performed without contrast. COMPARISON: CT brain November 09, 2021. FINDINGS: There is no acute intracranial hemorrhage or midline shift identified. There is mild to m oderate diffuse ventricular and sulcal prominence consistent with diffuse age-related cerebral atroph y. There is mild to moderate low-attenuation in the periventricular white matter consistent with chr onic small vessel ischemic change. Old infarct right frontal parietal region coronal image 46 redemon strated. Old coronal infarct left external capsule axial image 26 redemonstrated. The globes are inta ct and the visualized sinuses are clear. IMPRESSION: No acute intracranial hemorrhage or midline shift. There is mild to moderate diffuse ag e-related cerebral atrophy and chronic small vessel ischemic change along with old infarcts all redem onstrated. No significant change from most recent prior CT.
[2021-12-31 10:38] LABS: INR 0.9 (<1.2); Partial Thromboplastin Time 23.6 sec (22.0-30.0); Prothrombin Time 10.2 sec (9.0-12.0)
[2021-12-31 10:48] LABS: ALT 10 U/L (4-49); African American GFR (CKD) >90 (>60 ml/min/1.73 sqM); Albumin 4.6 g/dL (3.5-5.0); Alcohol <10 mg/dL; Anion Gap 13 mmol/L; Blood Urea Nitrogen 9 mg/dL (9-20); Calcium 9.5 mg/dL (8.4-10.2); Carbon Dioxide 25 mmol/L (22-30); Chloride 100 mmol/L (98-107); Glucose 142 mg/dL (74-99); Non-African American GFR(CKD) 87 (>60 ml/min/1.73 sqM); Sodium 138 mmol/L (137-145); Total Bilirubin 0.8 mg/dL (0.2-1.3); Total Protein 6.9 g/dL (6.3-8.2)
[2021-12-31] MEDS ORDERED: HYDROcodone/APAP 10-325MG 1 EACH TAB PO PRN (10:52)
[2021-12-31] MEDS ORDERED: NICOTINE 14MG/24HR PATCH TRANSDERM STA (10:52)
[2021-12-31] MEDS ORDERED: ASPIRIN 325 MG TAB PO STA (10:53)
[2021-12-31 10:58] LABS: AST 22 U/L (17-59); Alkaline Phosphatase 92 U/L (38-126); Potassium 4.8 mmol/L (3.5-5.1)
--- NOTE | 2021-12-31 10:59 | CT ---
EXAMINATION TYPE: CT angio head neck DATE OF EXAM: 12/31/2021 HISTORY: stroke COMPARISON: Prior CTA Head and Neck November 09, 2021 CT DLP: 507.3 mGycm. Automated Exposure Control for Dose Reduction was Utilized. TECHNIQUE: CTA scan of the head and neck is performed with IV Contrast, patient injected with 65 mL of Isovue 370, axial images are obtained, coronal and sagittal reformatted images are reviewed. 3D re constructed images are created on an independent workstation and reviewed. FINDINGS: Carotid/Vascular Structures: Bovine type aortic arch which is normal variant is redemonstrated. No si gnificant stenosis at level of the aortic arch . Mild to moderate peripheral calcified plaque bilater al carotid bulbs extends into proximal internal carotid arteries without significant stenosis. Patent external carotid arteries bilaterally without significant plaque or stenosis. No significant change from prior. Codominant vertebral arteries patent to the basilar junction. Patent left posterior commuting artery. Hypoplastic right posterior beginning artery. No significant focal stenosis or aneurysm in the poste rior circulation. Hypoplastic anterior communicating artery. No significant focal stenosis or aneurys m in the anterior circulation. Other: Thyroid gland remains within normal limits. Mild emphysematous change visualized upper lungs r edemonstrated. IMPRESSION: No significant abnormality is seen. No significant change from prior. NASCET criteria was used in interpretation of this exam?
[2021-12-31] MEDS ORDERED: SODIUM CHLORIDE 0.9% 1,000 ML IV SCH (11:00)
[2021-12-31] MEDS ORDERED: GABAPENTIN 300 MG CAP PO SCH (16:00)
[2021-12-31] MEDS ORDERED: ATORVASTATIN 80 MG TAB PO SCH (21:00)
[2022-01-01] MEDS ORDERED: ASPIRIN 325 MG TAB PO SCH (09:00)
[2022-01-01] MEDS ORDERED: CLOPIDOGREL 75 MG TAB PO SCH (09:00)
== END 2021-12-31 12:26 | disposition left against medical advice (07) | DRG 948 ==
LOC: EC 09:45 → 3SCARD 10:54
PROVIDERS: ADMIT Internal Medicine; ATTEND Internal Medicine
DX: R53.1 Weakness (principal); G31.89 Other specified degenerative diseases of nervous system; Z53.29 Procedure and treatment not carried out because of patient's decision for other reasons; E78.5 Hyperlipidemia, unspecified; D64.9 Anemia, unspecified; J44.9 Chronic obstructive pulmonary disease, unspecified; E11.42 Type 2 diabetes mellitus with diabetic polyneuropathy; F17.210 Nicotine dependence, cigarettes, uncomplicated; E11.9 Type 2 diabetes mellitus without complications; Z79.01 Long term (current) use of anticoagulants; Z79.02 Long term (current) use of antithrombotics/antiplatelets; Z82.49 Family history of ischemic heart disease and other diseases of the circulatory system; Z87.01 Personal history of pneumonia (recurrent); Z88.0 Allergy status to penicillin; Z91.048 Other nonmedicinal substance allergy status; Z88.8 Allergy status to other drugs, medicaments and biological substances; Z79.84 Long term (current) use of oral hypoglycemic drugs; Z79.899 Other long term (current) drug therapy; Z87.19 Personal history of other diseases of the digestive system; Z90.49 Acquired absence of other specified parts of digestive tract; Z86.73 Personal history of transient ischemic attack (TIA), and cerebral infarction without residual deficits
CPT/HCPCS: 36415; 70450; 70496; 70498; 80053; 80320; 84484; 85025; 85610; 85730; 93005; 99291

== ENCOUNTER 2022-01-26 19:27 | Emergency (ER) | payer MEDICARE ==
[2022-01-26 19:48] VITALS: BP 141/81; PULSE 94; RESP 18; TEMP 98.3
--- NOTE | 2022-01-26 21:00 | XR ---
EXAMINATION TYPE: XR chest 2V DATE OF EXAM: 01/26/2022 COMPARISON: 11/09/2021 HISTORY: Short of breath TECHNIQUE: FINDINGS: There is slight increased pulmonary interstitial markings. Heart size is normal. There is s ome minimal pleural reaction at the lateral right lung base. Bony thorax is intact. No heart failure. IMPRESSION: Pleural reaction at the right lung base similar to old exam. Coarsening of the interstiti al markings without change. No obvious heart failure. This could be some chronic interstitial pneumon ia.
--- NOTE | 2022-01-26 21:32 | ED ---
General Adult HPI - General Chief complaint: Upper Respiratory Infection Stated complaint: SOB Time Seen by Provider: 01/26/22 21:15 Source: patient Mode of arrival: ambulatory Limitations: no limitations - History of Present Illness Initial comments: Dictation was produced using [employer] dictation software. please excuse any grammatical, word or spelling errors. Chief Complaint: 51-year-old male presents emergency department for headache and chest congestion. History of Present Illness: 51-year-old male he has multiple comorbidities he is here today for chest pain and chest congestion. Patient states the symptoms have been ongoing for the last 1-2 days. Patient states he has a bifrontal headache and states the headache is not the worse headache is her head in his life. Ongoing for 2 hours. No neck stiffness. Patient denies that this headache feels similar to headache he's had in the past. Patient also has some chest congestion. Denies any productive cough. He has a history of COPD. No fever or constitutional symptoms. The ROS documented in this emergency department record has been reviewed and confirmed by me. Those systems with pertinent positive or negative responses have been documented in the HPI. All other systems are other negative and/or noncontributory. PHYSICAL EXAM: General Impression: Alert and oriented x3, not in acute distress HEENT: Normocephalic atraumatic, extra-ocular movements intact, pupils equal and reactive to light bilaterally, mucous membranes moist. Cardiovascular: Heart regular rate and rhythm Chest: Able to complete full sentences, no retractions, no tachypnea, lungs c lear to auscultation bilaterally Abdomen: abdomen soft, non-tender, non-distended, no organomegaly Musculoskeletal: Pulses present and equal in all extremities, no peripheral edema Motor: no focal deficits noted Neurological: CN II-XII grossly intact, no focal motor or sensory deficits noted, no Brudzinski's, negative Kernig's, negative Lhermitte's Skin: Intact with no visualized rashes Psych: Normal affect and mood ED course: 51-year-old well-appearing male with multiple comorbidities presents emergency department for headache and chest congestion. Vital signs upon arrival are within acceptable limits. Patient symptoms likely secondary to a viral URI. Coronal virus and influenza tests are negative. Chest x-ray is nonacute. Computed tomography scan of brain is unremarkable for acute processes. There is multiple old infarcts. No acute intracranial abnormality.. Patient resting co mfortably at the bedside at 1:45 AM. patient be discharged. Patient likely has a viral URI. - Related Data Home Medications Medication Instructions Recorded Confirmed Gabapentin 1,200 mg PO TID 03/12/19 11/09/21 HYDROcodone/APAP 10-325MG [[place] 1 tab PO QID PRN 03/12/19 11/09/21 10-325] Albuterol Sulfate [Ventolin HFA] 2 puff INHALATION RT-QID PRN 03/28/20 11/09/21 Atorvastatin [Lipitor] 80 mg PO HS 05/09/20 11/09/21 traZODone HCL [Desyrel] 50 mg PO HS 05/09/20 11/09/21 Ascorbic Acid [Vitamin C] 1,000 mg PO DAILY 08/27/21 11/09/21 Cholecalciferol [Vitamin D3 (25 25 mcg PO DAILY 08/27/21 11/09/21 Mcg = 1000 Iu)] Dulaglutide [Trulicity] 1.5 mg SQ TU 08/27/21 11/09/21 metFORMIN HCL [Glucophage] 1,000 mg PO BID 08/27/21 11/09/21 Previous Rx's Medication Instructions Recorded Clopidogrel [Plavix] 75 mg PO DAILY 30 Days #30 tab 04/06/20 Famotidine [Pepcid] 20 mg PO BID #60 tab 08/30/21 Warfarin [Coumadin] 5 mg PO DAILY #30 tab 11/11/21 Allergies Allergy/AdvReac Type Severity Reaction Status Date / Time Penicillins Allergy Severe Rash/Hives Verified 01/26/22 19:48 talc Allergy Swelling Verified 01/26/22 19:48 pregabalin [From Lyrica] AdvReac Severe Stroke (no Verified 01/26/22 19:48 issue with neurontin) adhesive tape AdvReac Itching Verified 01/26/22 19:48 Review of Systems ROS Statement: Those systems with pertinent positive or pertinent negative responses have been documented in the HPI. ROS Other: All systems not noted in ROS Statement are negative. 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 Past Anesthesia/Blood Transfusion Reactions: No Reported Reaction Past Psychological History: Depression Smoking Status: Current every day smoker Past Alcohol Use History: None Reported Past Drug Use History: Marijuana - Past Family History Father History Unknown: Yes Family Medical History: Coronary Artery Disease (CAD) Additional Family Medical History / Comment(s): Father had CABG and never came h ome from the hospital. Mother History Unknown: Yes Family Medical History: Cancer, Deep Vein Thrombosis (DVT) Additional Family Medical History / Comment(s): Mother had squamous cell carcinoma. General Exam Limitations: no limitations Course Vital Signs 01/26/22 19:45 Temperature 98.3 F Pulse Rate 94 Respiratory 18 Rate Blood Pressure 141/81 O2 Sat by Pulse 99 Oximetry Medical Decision Making - Lab Data Result diagrams: 01/26/22 21:45 01/26/22 21:45 Lab Results 01/26/22 01/26/22 01/26/22 Range/Units 20:28 20:28 21:45 WBC 15.1 H (3.8-10.6) k/uL RBC 5.10 (4.30-5.90) m/uL Hgb 14.4 (13.0-17.5) gm/dL Hct 43.6 (39.0-53.0) % MCV 85.4 (80.0-100.0) fL MCH 28.3 (25.0-35.0) pg MCHC 33.1 (31.0-37.0) g/dL RDW 14.0 (11.5-15.5) % Plt Count 270 (150-450) k/uL MPV 7.3 Neutrophils % 73 % Lymphocytes % 19 % Monocytes % 4 % Eosinophils % 2 % Basophils % 1 % Neutrophils # 11.0 H (1.3-7.7) k/uL Lymphocytes # 2.8 (1.0-4.8) k/uL Monocytes # 0.6 (0-1.0) k/uL Eosinophils # 0.2 (0-0.7) k/uL Basophils # 0.1 (0-0.2) k/uL Sodium (137-145) mmol/L Potassium (3.5-5.1) mmol/L Chloride (98-107) mmol/L Carbon Dioxide (22-30) mmol/L Anion Gap mmol/L BUN (9-20) mg/dL Creatinine (0.66-1.25) mg/dL Est GFR (CKD-EPI)AfAm (>60 ml/min/1.73 sqM) Est GFR (CKD-EPI)NonAf (>60 ml/min/1.73 sqM) Glucose (74-99) mg/dL Calcium (8.4-10.2) mg/dL Coronavirus (PCR) Not Detected (Not Detectd) Influenza Type A RNA Not Detected (Not Detectd) Influenza Type B (PCR) Not Detected (Not Detectd) 01/26/22 Range/Units 21:45 WBC (3.8-10.6) k/uL RBC (4.30-5.90) m/uL Hgb (13.0-17.5) gm/dL Hct (39.0-53.0) % MCV (80.0-100.0) fL MCH (25.0-35.0) pg MCHC (31.0-37.0) g/dL RDW (11.5-15.5) % Plt Count (150-450) k/uL MPV Neutrophils % % Lymphocytes % % Monocytes % % Eosinophils % % Basophils % % Neutrophils # (1.3-7.7) k/uL Lymphocytes # (1.0-4.8) k/uL Monocytes # (0-1.0) k/uL Eosinophils # (0-0.7) k/uL Basophils # (0-0.2) k/uL Sodium 138 (137-145) mmol/L Potassium 4.8 (3.5-5.1) mmol/L Chloride 99 (98-107) mmol/L Carbon Dioxide 27 (22-30) mmol/L Anion Gap 12 mmol/L BUN 10 (9-20) mg/dL Creatinine 1.10 (0.66-1.25) mg/dL Est GFR (CKD-EPI)AfAm 89 (>60 ml/min/1.73 sqM) Est GFR (CKD-EPI)NonAf 77 (>60 ml/min/1.73 sqM) Glucose 120 H (74-99) mg/dL Calcium 9.7 (8.4-10.2) mg/dL Coronavirus (PCR) (Not Detectd) Influenza Type A RNA (Not Detectd) Influenza Type B (PCR) (Not Detectd) Disposition Clinical Impression: URI (upper respiratory infection) Disposition: HOME SELF-CARE Condition: Good Instructions (If sedation given, give patient instructions): Upper Respiratory Infection (ED) Is patient prescribed a controlled substance at d/c from ED?: No Referrals: Crista Carrington MD [Primary Care Provider] - 1-2 days Time of Disposition: 01:44
[2022-01-26 22:40] LABS: Basophils # (A) 0.1 k/uL (0-0.2); Basophils % (A) 1 %; Eosinophils # (A) 0.2 k/uL (0-0.7); Eosinophils % (A) 2 %; HCT 43.6 % (39.0-53.0); HGB 14.4 gm/dL (13.0-17.5); Lymphocytes # (A) 2.8 k/uL (1.0-4.8); Lymphocytes % (A) 19 %; MCH 28.3 pg (25.0-35.0); MCHC 33.1 g/dL (31.0-37.0); MCV 85.4 fL (80.0-100.0); Mean Platelet Volume 7.3; Monocytes # (A) 0.6 k/uL (0-1.0); Monocytes % (A) 4 %; Neutrophils % (A) 73 %; Platelet Count 270 k/uL (150-450); WBC 15.1 k/uL (3.8-10.6)
[2022-01-26 22:49] LABS: Calcium 9.7 mg/dL (8.4-10.2); Potassium 4.8 mmol/L (3.5-5.1)
[2022-01-26] MEDS ORDERED: oxyCODONE-APAP 10-325MG 1 EACH TAB PO STA (23:10)
--- NOTE | 2022-01-27 00:01 | CT ---
EXAMINATION TYPE: CT brain wo con DATE OF EXAM: 01/26/2022 COMPARISON: 12/31/2021 HISTORY: ams, "doesn't feel good" CT DLP: 1098.4 mGycm Automated exposure control for dose reduction was used. Images obtained of the brain without contrast. There is cerebral cortical atrophy. There is no mass effect or midline shift. No sign of intracranial hemorrhage. There is hypodensity in the anterior right temporal lobe consistent with old infarct. Th ere is also hypodensity in the parietal lobes bilaterally that measure up to 4 cm related to old infa rct. There is 2 cm hypodensity in the left occipital lobe consistent with old infarct. There is hypod ensity in the internal capsule bilaterally related to old infarcts. The calvarium is intact. The skull base is intact. There is normal aeration of the mastoid sinuses. IMPRESSION: Multiple bilateral old cortical infarcts. Old bilateral white matter lacunar infarcts. No acute intra cranial abnormality. No significant change compared to old exam.
== END 2022-01-27 03:54 | disposition home or self-care (01) ==
LOC: EC 19:27
DX: J06.9 Acute upper respiratory infection, unspecified (principal); J44.9 Chronic obstructive pulmonary disease, unspecified; Z86.73 Personal history of transient ischemic attack (TIA), and cerebral infarction without residual deficits; E78.5 Hyperlipidemia, unspecified; F17.200 Nicotine dependence, unspecified, uncomplicated; Z20.822 Contact with and (suspected) exposure to COVID-19; Z88.0 Allergy status to penicillin; Z91.09 Other allergy status, other than to drugs and biological substances; Z88.8 Allergy status to other drugs, medicaments and biological substances; Z91.048 Other nonmedicinal substance allergy status
CPT/HCPCS: 36415; 70450; 71046; 80048; 85025; 87502; 87635; 99284

== ENCOUNTER 2022-02-19 07:35 | Day surgery (SDC) | payer MEDICARE ==
[2022-02-16 14:31] VITALS: BMI 23.0
[~2022-02-19 07:35] MED LIST changes: -CLINDAMYCIN 900 MG in DEXTROSE 5% IN WATER 50 ML IVPB ONE; -DEXAMETHASONE SOD PHOSPHATE 10 MG/ML 1 ML VIAL IV ONE; -GENTAMICIN 400 MG in SODIUM CHLORIDE 0.9% 100 ML IVPB ONE; -HEPARIN SODIUM,PORCINE 5,000 UNIT/ML 1 ML VIAL SQ ONE; -HYDROmorphone 1 MG/ML 1 ML SYRINGE IVP PRN; -LACTATED RINGERS 1,000 ML IV SCH; -LIDOCAINE 1% 20 ML VIAL (10MG/ML) FOR IV START INTRADERMA PRN; -MIDAZOLAM 2 MG/2 ML VIAL IV PRN; -ONDANSETRON 4 MG/2 ML VIAL IVP ONE; -SCOPOLAMINE 1.5MG/72HR PATCH TRANSDERM ONE; +SODIUM CHLORIDE 0.9% 1,000 ML in EMPTY BAG 1 BAG IV ONE
[2022-02-19 08:22] VITALS: TEMP 97.8
[2022-02-19 08:54] LABS: Glucose,Whole Blood 256 mg/dL (70-110)
[2022-02-19 09:50] LABS: Prothrombin Time 11.1 sec (9.0-12.0)
[2022-02-19] MEDS ORDERED: ASPIRIN 81 MG ONE (10:35)
[2022-02-19] MEDS ORDERED: HEPARIN SODIUM 1,000 UN/ML (10ML VL) ONE (10:54)
[2022-02-19] MEDS ORDERED: ASPIRIN 81 MG PO ONE (10:56)
[2022-02-19] MEDS ORDERED: MIDAZOLAM 2 MG/2 ML VIAL IV ONE (10:56)
[2022-02-19] MEDS ORDERED: LIDOCAINE 1% INJ 10MG/ML (30 ML VIAL-PF) SQ ONE (10:57)
[2022-02-19] MEDS ORDERED: HEPARIN SODIUM 1,000 UN/ML (10ML VL) IV ONE (11:11)
[2022-02-19] MEDS ORDERED: IOPAMIDOL-250 100ML BTL INTRAARTER ONE ×2 (12:00)
[2022-02-19] MEDS ORDERED: SODIUM CHLORIDE 0.9% 1,000 ML IV SCH (12:30)
[2022-02-19] MEDS ORDERED: INSULIN ASPART (NovoLOG) 100 UNIT/ML VIAL SQ SCH (12:30)
--- NOTE | 2022-02-19 12:31 | P.OP ---
Description of Procedure: Preoperative diagnosis: Bilateral lower extremity chronic foot wounds, peripheral arterial disease, claudication [place] classification 4 Postop diagnosis: Bilateral lower extremity chronic foot wounds, claudication [place] classification 4, left external iliac artery stenosis greater than 80%, left superficial femoral artery occlusion with reconstitution at the above knee popliteal artery Procedure: 1. Ultrasound-guided access of the right common femoral artery. 2. Aortogram 3. Selective left lower extremity iliofemoral, femoral popliteal and tibial angiogram third order 4. Percutaneous atherectomy of the left superficial femoral artery with Pocket Tales[employer] one 6M device 5. Percutaneous transluminal balloon angioplasty of the left superficial femoral artery with 5 x 80 mm Impact balloon 6. Percutaneous transluminal balloon angioplasty of the left external iliac artery with 5 x 80 mm and 6 x 40 mm balloon Surgeon: Lulu Anesthesia: Moderate sedation times 66 minutes Estimated blood loss: 5 mL Complications: None Condition: Palpable DP and PT pulses bilaterally Findings: Occluded left superficial femoral artery with large collateralization and refilling of the above-knee popliteal artery. 80% stenosis of the left external iliac artery. Aorta: Widely patent without any significant after stenotic disease or stenosis. Iliacs: Bilateral common, internal and right external iliac artery are widely patent without any significant stenosis. Left external iliac artery demonstrates 80% stenosis Femorals: Bilateral common femoral and profundus femoris arteries are widely patent without any significant atherosclerotic disease or stenosis. Left superficial femoral artery has a focal occlusion roughly 39 mm in length with reconstitution at large collateralization at the above-knee popliteal artery. Popliteal: Bilateral popliteal arteries are widely patent without any significant calcific disease or stenosis. Tibials: Bilateral three-vessel takeoff with two-vessel runoff to the ankle Operative narrative: After written informed consent was obtained the patient all risks benefits competitions were described the patient is brought to the [facility] and laid in a supine position. The area of the groin was prepped and draped in the usual sterile fashion. Local anesthesia with moderate sedation was performed with continuous pulse ox monitoring and EKG monitoring. Utilizing ultrasound the right common femoral artery was visualized and shown to be patent without any significant plaque. Utilizing a multipurpose needle under ultrasound guidance the artery was accessed. Guidewire was placed followed by 5-[place] sheath. 035 Glidewire was then placed into the aorta followed by a RBI catheter. Angiogram was then obtained of the aorta. Catheter was then placed at the bifurcation and the left lower extremity was accessed with a wire. RBI catheter was then guided over the wire into the common iliac artery and selective angiogram was obtained demonstrating 80% stenosis of the left external iliac artery as well as a focal occlusion of the SFA at the midportion. Due to this a 035 Glidewire advantage was then placed and the 5-[place] sheath was removed and replaced with a 6-[place] Raabe 55 cm sheath and up and over fashion. Once again a selective angina gram was obtained demonstrating the occlusive disease and patient was administered heparin and followed with ACTs. Utilizing an 035 Glidewire advantage and CXI crossing catheter the lesion was crossed and distal angiogram was obtained demonstrate good intraluminal access. A 5 mm spider filter was then placed into the popliteal artery. Atherectomy was then performed utilizing a Pocket Talesk one device with multiple passes being performed acr oss the lesion. Once completed balloon angioplasty was then performed with a 5 x 80 mm impact balloon for 3 minutes. Once completed filter wire was retrieved and angiogram was obtained demonstrating resolution of the occlusion with brisk flow distally and two-vessel runoff to the ankle. Catheters were then withdrawn back to the common iliac artery and wire was left in place and balloon angiopla sty was performed across the iliac lesion with the 5 x 80 mm balloon and then followed by a 6 x 40 mm lumen. The long sheath was then removed and replaced with a short 6-[place] sheath into the right femoral artery. Selective angiogram was then obtained of the right lower extremity. Once completed all guidewires, catheters and sheaths were removed and Vascade was placed for hemostasis. Patient tolerated procedure well, had palpable DP and PT pulses bilaterally at the conclusion of the procedure and was sent to PACU for recovery
[2022-02-19] MEDS ORDERED: CLOPIDOGREL 75 MG TAB PO STA (12:40)
[2022-02-19] MEDS ORDERED: GABAPENTIN 400 MG CAP PO STA (12:40)
[2022-02-19 13:08] VITALS: RESP 16
--- NOTE | 2022-02-19 15:50 | IR ---
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 Fluoroscopy was provided to the referring clinician.
[2022-02-19 21:09] VITALS: BP 166/78; PULSE 80
== END 2022-02-19 17:17 | disposition home or self-care (01) ==
LOC: CATHCVL 07:35
PROVIDERS: ATTEND Surgery
DX: I73.9 Peripheral vascular disease, unspecified (principal); E13.621 Other specified diabetes mellitus with foot ulcer; L97.509 Non-pressure chronic ulcer of other part of unspecified foot with unspecified severity; Z98.890 Other specified postprocedural states; Z88.0 Allergy status to penicillin; Z91.040 Latex allergy status; Z86.718 Personal history of other venous thrombosis and embolism
CPT/HCPCS: 37225; 75625; 75716; 76937; 85610; J2250; J2001; J1644; Q9966